=== PATIENT | male | born 1950 | race Caucasian/White ===

== ENCOUNTER 2017-05-02 16:36 | Emergency (ER) | payer OTHER ==
--- OUTSIDE RECORDS SUMMARY | 2017-05-02 16:38 | XMS REPORT | Clinical Summary ---
:1950 Author Organization [facility] Address [address] [place] [address] Care Team Providers Name Role Phone Cyrus Medeiros MD Primary Care Provider Allergies No Known Allergies Current Medications Prescription Sig. Disp. Refills Start Date End Date Status amLODIPine (NORVASC) Take 5 mg by 08/25/2015 Active 5 MG tablet mouth every evening. busPIRone (BUSPAR) Take 10 mg by 08/29/2015 Active 10 MG tablet mouth 2 (two) times a day. carvedilol (COREG) Take 12.5 mg 08/25/2015 Active 12.5 MG tablet by mouth 3 (three) times a day. losartan (COZAAR) 50 Take 50 mg by 3 08/07/2015 Active MG tablet mouth every morning. tamsulosin (FLOMAX) Take 0.4 mg by 3 07/31/2015 Active 0.4 mg mouth every capsule,extended evening. release 24hr aspirin (ECOTRIN) 81 Take 81 mg by Active MG enteric coated mouth daily. tablet MULTIVITAMIN ORAL Take 1 capsule Active by mouth daily. atorvastatin Take 20 mg by 6 03/02/2016 Active (LIPITOR) 20 MG mouth every tablet evening. cetirizine (ZyrTEC) Take 10 mg by Active 10 MG tablet mouth nightly. FERROUS FUMARATE Take 1 tablet Active (IRON ORAL) by mouth 2 (two) times a week. calcium carbonate Chew 1 tablet Active (TUMS) 200 mg as needed. calcium (500 mg) chewable tablet levothyroxine Take 100 mcg 3 01/27/2016 Active (SYNTHROID, LEVOXYL) by mouth every 100 mcg tablet morning. psyllium Take 0.52 g by Active (FIBER-CAPS, mouth daily. PSYLLIUM HUSK,) 0.52 gram capsule traMADol (ULTRAM) 50 Take 1 tablet 20 tablet 0 05/02/2017 Active mg tablet (50 mg total) 8 by mouth every 6 (six) hours as needed for moderate pain for up to 14 days. esomeprazole Take 40 mg by 08/26/2015 Discontinued (NexIUM) 40 MG mouth every 8 capsule morning. ascorbic acid, Take 500 mg by Discontinued vitamin C, (VITAMIN mouth daily. 8 C) 500 MG tablet polysaccharide iron Take 150 mg by Discontinued complex (NIFEREX) mouth 2 (two) 8 150 mg iron capsule times a day. ferrous Take 1 tablet Discontinued fumarate-vitamin C by mouth 8 (NIKKO-SEQUELS, daily. IRON-VIT C,) 200 mg (65 mg iron)-25 mg tablet extended release ER tablet omeprazole Take 20 mg by Discontinued (PriLOSEC) 20 MG mouth every 8 capsule evening. pantoprazole Take 40 mg by Discontinued (PROTONIX) 40 MG EC mouth daily. 8 tablet Active Problems Problem Noted Date Esophageal dysmotility 04/26/2016 Last Assessment & Plan: The patient had an elevated IRP on his high resolution esophageal manometry. I discussed this case with Dr. Garcia as well as Dr. Rizo. I will schedule the patient for an EGD as well as a Endoflip in an attempt to rule out achalasia. Left lower quadrant pain 12/21/2015 Last Assessment & Plan: The patient has chronic GERD as well as a large hiatal hernia, however, I do not feel that this is causing his left lower quadrant abdominal pain. The large hiatal hernia, however, may be contributing to his bloating sensation and diarrhea. This may in fact be contributing to his left lower quadrant abdominal pain by irritating his sigmoid colon. I will discuss this patient with Dr. Garcia as well as Dr. Contreras. I do not have a copy of his colonoscopy report which I will retrieve from Dr. Contreras. The patient will return to clinic following his testing in my discussions with his other gastroenterologists. Functional diarrhea 12/21/2015 Systemic lupus 12/21/2015 Cerebral aneurysm 12/21/2015 Weight loss 12/21/2015 Pharyngoesophageal dysphagia 12/21/2015 Paraesophageal hiatal hernia 12/21/2015 Last Assessment & Plan: The patient has a large hiatal hernia with a paraesophageal component. It is likely that this is the cause of the patient's chest pain. The patient also has an elevated IRP on his previous manometry study. The patient will be scheduled for a repeat EGD with EndoFLIP measurements of the lower esophageal sphincter prior to the scheduled surgery. Gastroesophageal reflux disease without esophagitis 12/21/2015 Last Assessment & Plan: The patient has chronic GERD and will be sent for a 24-hour pH impedance study. The patient will also be sent for a high resolution esophageal manometry. Cataracts, bilateral 12/21/2015 Prostatic hyperplasia 12/21/2015 Encounters Date Type Specialty Care Team Description 05/01/2017 [facility] General Surgery Servando Olmos, Paraesophageal hiatal - Encounter MD hernia 05/02/2017 05/01/2017 Procedure Pass General Surgery 05/01/2017 Surgery General Surgery Servando Olmos, LAPAROSCOPIC REPAIR MD OF PARAESOPHAGEAL HIATAL HERNIA, 04/27/2017 Anesthesia Event General Surgery Ulisses Zazueta, SAILING INSTRUCTOR 04/24/2017 Pre-Admit Testing Pre-Admission Testing Servando Olmos, Gastroesophageal Appointment MD reflux disease without esophagitis 04/24/2017 Anesthesia Event Pre-Admission Testing Ulisses Zazueta, SAILING INSTRUCTOR 04/17/2017 Transcribe Orders General Surgery Julio Tong MA Paraesophageal hernia (Primary Dx); Gastroesophageal reflux disease without esophagitis 03/03/2017 [facility] Gastroenterology Servando Olmos, Encounter MD 03/03/2017 Anesthesia Event Gastroenterology DhByron nguyen MD 03/03/2017 Procedure Pass Gastroenterology 03/03/2017 Surgery Gastroenterology Servando Olmos, EGD W/ ENDOFLIP 02/28/2017 Telephone General Surgery Servando Olmos MD 02/22/2017 Telephone General Surgery Servando Olmos MD 02/16/2017 Office Visit General Surgery Servando Olmos, Esophageal MD dysmotility (Primary Dx) 02/16/2017 Orders Only General Surgery Servando Olmos MD 08/18/2016 Hospital Radiology Unknown, Phys Hiatal hernia Encounter Servadno Olmos MD 07/22/2016 Orders Only General Surgery Servando Olmos MD 07/12/2016 Hospital Radiology Servando Olmos, Gastroesophageal Encounter reflux disease without esophagitis 07/06/2016 Orders Only General Surgery Servando Olmos, Hiatal hernia MD (Primary Dx) after 05/01/2016 Family History Medical History Relation Name Comments Diverticulitis Brother GERD Brother No Known Problems Daughter COPD Father No Known Problems Maternal Grandfather No Known Problems Maternal Grandmother Diverticulitis Mother GERD Mother COPD Paternal Grandfather No Known Problems Paternal Grandmother Lupus Sister No Known Problems Son Relation Name Status Comments Brother Alive Brother Alive Daughter Alive Father Maternal Grandfather Maternal Grandmother Mother Paternal Grandfather Paternal Grandmother Sister Alive Sister Alive heart problems, pace maker Son Alive Social History Tobacco Use Types Packs/Day Years Used Date Never Smoker Smokeless Tobacco: Never Used Alcohol Use Drinks/Week oz/Week Comments No Sex Assigned at Date Recorded Not on file Last Filed Vital Signs Vital Sign Reading Time Taken Blood Pressure 129/68 05/02/2017 7:23 AM CDT Pulse 70 05/02/2017 7:23 AM CDT Temperature 36.6 C (97.8 F) 05/02/2017 7:23 AM CDT Respiratory Rate 18 05/02/2017 7:23 AM CDT Oxygen Saturation 93% 05/02/2017 7:23 AM CDT Inhaled Oxygen Concentration - - Weight 80.8 kg (178 lb 1.6 oz) 05/01/2017 6:57 AM CDT Height 172.7 cm (5' 8") 05/01/2017 6:57 AM CDT Body Mass Index 27.08 05/01/2017 6:57 AM CDT Plan of Treatment Health Maintenance Due Date Last Done Comments COLONOSCOPY 01/03/2000 ZOSTER VACCINE 2010 PNEUMOCOCCAL POLYSACCHARIDE VACCINE AGE 65 AND OVER 2015 PNEUMOCOCCAL-13 2015 INFLUENZA VACCINE 09/06/2016 Implants Implanted Type Area Kennel Supervisor Device Expiration Model / Identifier Date Serial / Lot Linx System Sizing Tool Laparoscopic 5 Pack - [id number] Cardiovascular N/A: [employer] 12/12/2018 LSS US / Implanted: Qty: 1 on 05/01/2017 by Servando Olmos MD Implants N/A [facility] / [id number] Catheter Endoflip 8cm Measurement - [id number] Surgical N/A: CROSPON EF 325N / Implanted: 03/03/2017 (Quantity not on file) Implants; N/A / Expanders; Extenders; Surgical Wires [place] [employer] 5x5cm 1.65mm Ptfe - [id number] Surgical N/A: BARD 10/03/2021 [id number] / Implanted: Qty: 1 on 05/01/2017 by Servando Olmos MD Implants; N/A PERIPHERAL / Expanders; VASCULAR [id number] Extenders; Surgical Wires Linx Reflux Mangmt System 14 Bead - [id number] Surgical N/A: [employer] 01/16/2021 [id number] / Implanted: Qty: 1 on 05/01/2017 by Servando Olmos MD Implants; N/A INC / Expanders; [id number] Extenders; Surgical Wires Procedures Procedure Name Priority Date/Time Associated Diagnosis Comments KS AN ELECTIVE Routine 05/01/2017 8:58 AM ENDOTRACHEAL AIRWAY CDT Procedure Note - Dmitry Rios Jr., MD - 05/01/2017 8:58 AM CDT Airway Date/Time: 05/01/2017 7:58 AM Performed by: DMITRY RIOS JR. Authorized by: DMITRY RIOS JR. Location: OR Urgency: Elective Difficult Airway: No Anesthesiologist: DMITRY RIOS JR. Performed by: anesthesiologist Preoxygenated with 100% O2: Yes C-spine Precautions Maintained Throughout: Yes Mask Ventilation: Difficult mask Final Airway Type: Endotracheal airway Final Endotracheal Airway: ETT Cuffed: Yes Technique Used: Direct laryngoscopy Devices/Methods Used in Placement: Intubating stylet and cricoid pressure Insertion Site: Oral Blade Type: Florian Laryngoscope Blade/Videolaryngoscope Blade Size: 2 ETT Size (mm): 8.0 Cuff at minimum occlusion pressure: Yes Measured from: Teeth ETT to Teeth (cm): 22 Placement Verified by: CO2 detection, direct visualization and equal breath sounds Laryngoscopic view: Grade I - full view of glottis Rapid Sequence Induction (RSI): No Modified RSI: No Number of Attempts at Approach: 1 EGD W/ ENDOFLIP 03/03/2017 10:00 AM PLASTIC MANAGER Dysphagia Case Notes ENDOFLIP Special Needs ENDOFLIP after 05/01/2016 Results Estimated GFR (05/02/2017 6:02 AM)Only the most recent of3 resultswithin the time period is included. Component Value Ref Range GFR Non Af Amer 84 mL/min/1.73 m2 GFR Af Amer >90 mL/min/1.73 m2 Comment: Chronic kidney disease: <60 mL/min/1.73m2 Kidney failure: <15 mL/min/1.73m2 The estimated GFR is calculated from the IDMS-traceable Modification of Diet in Renal Disease Equation. The accuracy of the calculation is poor when the creatinine is normal. Calculated values >90 mL/min/1.73m2 are not reported. This equation has not been validated in children (<18 years), women, the elderly (>70 years), or ethnic groups other than Caucasians and Americans. Specimen Performing Laboratory Plasma specimen [facility] DEPARTMENT OF PATHOLOGY AND GENOMIC MEDICINE [address] [place] [id number] CBC with platelet and differential (05/02/2017 6:02 AM)Only the most recent of2 resultswithin the time period is included. Component Value Ref Range WBC 12.62 (H) 4.50 - 11.00 k/uL RBC 4.36 (L) 4.40 - 6.00 m/uL HGB 13.0 (L) 14.0 - 18.0 g/dL HCT 39.0 (L) 41.0 - 51.0 % MCV 89.4 82.0 - 100.0 fL MCH 29.8 27.0 - 34.0 pg MCHC 33.3 31.0 - 37.0 g/dL RDW - SD 43.2 37.0 - 55.0 fL MPV 10.3 8.8 - 13.2 fL Platelet count 228 150 - 400 k/uL Nucleated RBC 0.00 /100 WBC Neutrophils 79.6 (H) 39.0 - 69.0 % Lymphocytes 10.2 (L) 25.0 - 45.0 % Monocytes 9.4 0.0 - 10.0 % Eosinophils 0.0 0.0 - 5.0 % Basophils 0.2 0.0 - 1.0 % Immature granulocytes 0.6Comment: "Immature granulocytes" 0.0 - 1.0 % (promyelocytes, myelocytes, metamyelocytes) Specimen Performing Laboratory Blood [facility] DEPARTMENT OF PATHOLOGY AND GENOMIC MEDICINE [address] [place] [id number] Basic metabolic panel (05/02/2017 6:02 AM)Only the most recent of3 resultswithin the time period is included. Component Value Ref Range Sodium 143 135 - 148 mEq/L Potassium 4.0 3.5 - 5.0 mEq/L Chloride 104 98 - 112 mEq/L CO2 25 24 - 31 mEq/L Anion gap 14 7 - 15 mEq/L Comment: Starting from May , anion gap calculation no longer incorporates potassium. Please note the change. BUN 14 8 - 23 mg/dL Creatinine 0.9 0.7 - 1.2 mg/dL Glucose 123 (H) 65 - 99 mg/dL Calcium 8.9 8.8 - 10.2 mg/dL Specimen Performing Laboratory Plasma specimen [facility] DEPARTMENT OF PATHOLOGY AND GENOMIC MEDICINE [address] [place] [address] Surgical pathology request (05/01/2017 3:34 PM) Component Value Ref Range Surgical pathology report See link below for PDF Lab Report Result status This is Final Report to [id number] [facility] DEPARTMENT OF PATHOLOGY AND GENOMIC MEDICINE [address] [place] [id number] ECG 12 lead (04/24/2017 11:24 AM) Component Value Ref Range Ventricular rate 60 Atrial rate 60 KS interval 172 QRSD interval 106 QT interval 406 QTC interval 406 P axis 1 17 QRS axis 1 -29 T wave axis 46 EKG impression Normal sinus rhythm-Normal ECG-No previous ECGs available- Specimen Performing Laboratory [facility] MUSE [address] [place] [id number] CBC hemogram (04/24/2017 10:05 AM) Component Value Ref Range WBC 7.50 4.50 - 11.00 k/uL RBC 5.10 4.40 - 6.00 m/uL HGB 14.9 14.0 - 18.0 g/dL HCT 45.6 41.0 - 51.0 % MCV 89.4 82.0 - 100.0 fL MCH 29.2 27.0 - 34.0 pg MCHC 32.7 31.0 - 37.0 g/dL RDW - SD 42.9 37.0 - 55.0 fL MPV 10.1 8.8 - 13.2 fL Platelet count 266 150 - 400 k/uL Nucleated RBC 0.00 /100 WBC Specimen Performing Laboratory Blood [facility] DEPARTMENT OF PATHOLOGY AND GENOMIC MEDICINE [address] [place] [address] [place] UGI w Air Gluc HD Barium (08/18/2016 10:58 AM)Only the most recent of2 resultswithin the time period is included. Specimen Performing Laboratory [facility] [address] [place] [address] Narrative EXAMINATION:FL UGI W AIR GLUC HD BARIUM CLINICAL HISTORY:K44.9 Diaphragmatic hernia without obstruction or gangrene , Hiatal Hernia COMPARISON:None. TECHNIQUE:UPPER GI SERIES was performed with barium FLUOROSCOPIC TIME:2 minutes. 55 images were obtained. Dose equals 112 mgy IMPRESSION: 1.Esophagus:Esophagus was distensible. The mucosa and motility were within normal limits. There is no evidence of stricture. 2.Gastroesophageal junction:Very large hiatal hernia is present with the entire fundus and most of the body of the stomach above the diaphragm. There was a small to moderate amount of residual contrast present within the herniated stomach on the 5 minute film. 3.Stomach:Normally distensible and demonstrates normal contours and mucosal pattern. Contrast does flow without obstruction into the antrum of the stomach which lies below the diaphragm. 4.Duodenum:Bulb and sweep are normal. The duodenal-jejunal junction is in the normal expected position. [facility]-[id number] Procedure Note Interface, Radiology Results Incoming - 08/18/2016 11:47 AM CDT EXAMINATION: FL UGI W AIR GLUC HD BARIUM CLINICAL HISTORY: K44.9 Diaphragmatic hernia without obstruction or gangrene, Hiatal Hernia COMPARISON: None. TECHNIQUE: UPPER GI SERIES was performed with barium FLUOROSCOPIC TIME: 2 minutes. 55 images were obtained. Dose equals 112 mgy IMPRESSION: 1. Esophagus: Esophagus was distensible. The mucosa and motility were within normal limits. There is no evidence of stricture. 2. Gastroesophageal junction: Very large hiatal hernia is present with the entire fundus and most of the body of the stomach above the diaphragm. There was a small to moderate amount of residual contrast present within the herniated stomach on the 5 minute film. 3. Stomach: Normally distensible and demonstrates normal contours and mucosal pattern. Contrast does flow without obstruction into the antrum of the stomach which lies below the diaphragm. 4. Duodenum: Bulb and sweep are normal. The duodenal-jejunal junction is in the normal expected position. [facility]-[id number] after 05/01/2016 Insurance Payer Benefit Plan / Group Subscriber ID Type Phone Address AETNA MEDICARE AETNA MEDICARE HMO/PPO [facility] xxxxxxxx O [phone] [place] [address]
[2017-05-02 18:17] LABS: Urine Blood TRACE (NEG); Urine Glucose NEGATIVE (NEG); Urine Protein NEGATIVE (NEG); Urine pH 6.5 (5.0-7.0)
--- NOTE | 2017-05-02 18:34 | EDPHYS ---
Physician Documentation [facility] Name: Macario Henriquez Jr Age: 67 yrs Sex: Male : 1950 Arrival Date: 05/02/2017 Time: 16:40 Bed 18 Private MD: Josh Medeiros C ED Physician Willie Lazar HPI: 05/02 18:28 This 67 yrs old Male presents to ER via Ambulatory with complaints of Urinary ps1 Retention. 18:28 The patient presents with urinary symptoms, urinary frequency, retention. Onset: The ps1 symptoms/episode began/occurred yesterday. Associated signs and symptoms: Pertinent negatives: abdominal pain, fever, nausea. Severity of symptoms: At their worst the symptoms were moderate. The patient has been recently seen by a physician: a general surgeon, Jose. had surgery for hiatal hernia repair. Now has urinary retention. . Historical: - Allergies: 16:50 No Known Allergies; lk1 - PMHx: 16:50 Lupus; GERD; High Cholesterol; Hypertension; Hypothyroidism; leaky heart valve; BPH; lk1 CAD; Depression; Anemia; Arthritis; - PSHx: 16:50 Cholecystectomy; brain anur. fixed; Hernia repair; lk1 - Immunization history:: Adult Immunizations up to date. - Social history:: Smoking status: Patient/guardian denies using tobacco. ROS: 18:28 Constitutional: Negative for fever, chills, and weight loss, Eyes: Negative for injury, ps1 pain, redness, and discharge, ENT: Negative for injury, pain, and discharge, Cardiovascular: Negative for chest pain, palpitations, and edema, Respiratory: Negative for shortness of breath, cough, wheezing, and pleuritic chest pain, Abdomen/GI: Negative for abdominal pain, nausea, vomiting, diarrhea, and constipation, Back: Negative for injury and pain. 18:28 Skin: Negative for injury, rash, and discoloration, Neuro: Negative for headache, weakness, numbness, tingling, and seizure. 18:28 : Positive for urinary symptoms, urinary frequency, small amounts, retention. Exam: 18:28 Constitutional: This is a well developed, well nourished patient who is awake, alert, ps1 and in no acute distress. Head/Face: Normocephalic, atraumatic. Eyes: Pupils equal round and reactive to light, extra-ocular motions intact. Lids and lashes normal. Conjunctiva and sclera are non-icteric and not injected. Chest/axilla: Normal chest wall appearance and motion. Nontender with no deformity. No lesions are appreciated. Cardiovascular: Regular rate and rhythm. No gallops, murmurs, or rubs. Normal PMI, no JVD. No pulse deficits. Respiratory: Lungs have equal breath sounds bilaterally, clear to auscultation and percussion. No rales, rhonchi or wheezes noted. No increased work of breathing, no retractions or nasal flaring. 18:28 Back: No spinal tenderness. No costovertebral tenderness. Full range of motion. Skin: Warm, dry with normal turgor. Normal color with no rashes, no lesions, and no evidence of cellulitis. MS/ Extremity: Pulses equal, no cyanosis. Neurovascular intact. Full, normal range of motion. 18:28 Abdomen/GI: Inspection: scar(s), are noted in the right upper quadrant, left upper quadrant, right lower quadrant and left lower quadrant, Palpation: abdomen is soft and non-tender, mild abdominal tenderness, in the suprapubic area. Vital Signs: 16:51 BP 176 / 83; Pulse 81; Resp 16; Temp 98.9(TE); Pulse Ox 95% on R/A; Weight 85.28 kg lk1 (R); Height 5 ft. 8 in. (172.72 cm) (R); Pain 4/10; 18:27 BP 152 / 82; Pulse 74; Resp 14; Pulse Ox 92% on R/A; Pain 2/10; sr5 18:52 BP 151 / 79; Pulse 72; Resp 16; Pulse Ox 94% on R/A; Pain 2/10; sr5 16:51 Body Mass Index 28.59 (85.28 kg, 172.72 cm) lk1 Procedures: 18:28 Ultrasound: Type: bladder scan +870. ps1 MDM: 17:33 Patient medically screened. ps1 18:28 Data reviewed: vital signs, nurses notes, lab test result(s), urinalysis. ED course: ps1 Bladder scan >800. Damian placed. UA clear. Home with follow up for likely anesthetic urinary retention. . 05/02 17:25 Order name: Urine Dipstick--Ancillary (enter results); Complete Time: 18:27 bd 03/27 17:05 Order name: Urine Dipstick-Ancillary (obtain specimen); Complete Time: 17:25 ps1 05/02 17:05 Order name: Bladder Scanner; Complete Time: 17:37 ps1 05/02 17:58 Order name: Damian; Complete Time: 17:58 rs2 Administered Medications: No medications were administered Disposition: 05/02/17 18:34 Discharged to Home. Impression: Post operative urinary retention. - Condition is Stable. - Discharge Instructions: Damian Catheter Care, Adult, Urinary Retention, Acute, Male. - Medication Reconciliation Form, Thank You Letter, Antibiotic Education, Prescription Opioid Use form. - Follow up: Josh Medeiros MD; When: As needed; Reason: Recheck today's complaints, Continuance of care, Re-evaluation by your physician. Follow up: Emergency Department; When: 48 Hours; Reason: Worsening of condition, damian removal if you cant be seen by your regular doctor. . - Problem is new. - Symptoms have improved. Signatures: Dispatcher [employer] Janet You, RN RN lk1 Hugo Jennings RN RN sr5 Katheryn Leblanc rs2 Willie Lazar MD MD ps1
--- NOTE | 2017-05-02 18:34 | ER ---
Nurse's Notes [facility] Name: Macario Henriquez Jr Age: 67 yrs Sex: Male : 1950 Arrival Date: 05/02/2017 Time: 16:40 Bed 18 Private MD: Josh Medeiros C Diagnosis: Post operative urinary retention Presentation: 05/02 16:48 Presenting complaint: Patient states: "I just had a hernia repair surgery yesterday. My lk1 problem is that I feel like I have to pee and not a lot is coming out. I don't know if it's normal from being cathed during surgery of if I have an infection or blockage of some sort.". Transition of care: patient was not received from another setting of care. Onset of symptoms was May 02, 2017 at 08:00. Care prior to arrival: None. 16:48 Method Of Arrival: Ambulatory lk1 16:48 Acuity: ARELY 3 lk1 Triage Assessment: 16:50 General: Appears in no apparent distress. uncomfortable, Behavior is calm, cooperative, lk1 appropriate for age. Pain: Complains of pain in abdomen. : Reports inability to void. Historical: - Allergies: 16:50 No Known Allergies; lk1 - PMHx: 16:50 Lupus; GERD; High Cholesterol; Hypertension; Hypothyroidism; leaky heart valve; BPH; lk1 CAD; Depression; Anemia; Arthritis; - PSHx: 16:50 Cholecystectomy; brain anur. fixed; Hernia repair; lk1 - Immunization history:: Adult Immunizations up to date. - Social history:: Smoking status: Patient/guardian denies using tobacco. Screenin:58 Abuse screen: Denies threats or abuse. Nutritional screening: No deficits noted. rs2 Tuberculosis screening: No symptoms or risk factors identified. Fall Risk None identified. Assessment: 17:58 General: Appears uncomfortable, Behavior is calm, cooperative, appropriate for age. rs2 Pain: Complains of pain in suprapubic area Pain currently is 8 out of 10 on a pain scale. Neuro: No deficits noted. Cardiovascular: No deficits noted. Respiratory: No deficits noted. GI: No deficits noted. : Reports inability to void, since Pt reports difficulty voiding since a hernia repair surgery today. Pt reports feeling "like I've really got to go but then I can't pee very much.". Musculoskeletal: No deficits noted. 18:27 Reassessment: Patient and/or family updated on plan of care and expected duration. Pain sr5 level reassessed. Patient is alert, oriented x 3, equal unlabored respirations, skin warm/dry/pink. Patient states feeling better. Total 1200mL clear yellow urine in damian drainage bag. 18:52 Reassessment: Patient and/or family updated on plan of care and expected duration. Pain sr5 level reassessed. Patient is alert, oriented x 3, equal unlabored respirations, skin warm/dry/pink. Leg bag attached, damian care education provided. Pt reports continued improvement in s/s. Vital Signs: 16:51 BP 176 / 83; Pulse 81; Resp 16; Temp 98.9(TE); Pulse Ox 95% on R/A; Weight 85.28 kg lk1 (R); Height 5 ft. 8 in. (172.72 cm) (R); Pain 4/10; 18:27 BP 152 / 82; Pulse 74; Resp 14; Pulse Ox 92% on R/A; Pain 2/10; sr5 18:52 BP 151 / 79; Pulse 72; Resp 16; Pulse Ox 94% on R/A; Pain 2/10; sr5 16:51 Body Mass Index 28.59 (85.28 kg, 172.72 cm) lk1 ED Course: 16:40 Patient arrived in ED. as 16:40 Josh Medeiros MD is Private Physician. as 16:49 Triage completed. lk1 16:51 Arm band placed on right wrist. lk1 16:57 Willie Lazar MD is Attending Physician. ps1 17:18 Katheryn Leblanc is Primary Nurse. rs2 17:58 Patient has correct armband on for positive identification. Placed in gown. Bed in low rs2 position. Call light in reach. Side rails up X 1. 17:58 Damian cath inserted, using sterile technique, 16 Fr., by me, balloon inflated, to rs2 gravity drainage, urine specimen collected. returned jong urine. Patient tolerated well. 18:27 No provider procedures requiring assistance completed. sr5 18:33 Josh Medeiros MD is Referral Physician. ps1 18:52 Patient did not have IV access during this emergency room visit. sr5 Administered Medications: No medications were administered Outcome: 18:34 Discharge ordered by . ps1 18:52 Discharged to home ambulatory, with family. sr5 18:52 Condition: good 18:52 Discharge instructions given to patient, family, Instructed on discharge instructions, follow up and referral plans. medication usage, urine damian care Demonstrated understanding of instructions, follow-up care, damian 19:08 Patient left the ED. sr5 Signatures: Kristy York Leah RN RN lk1 Hugo Jennings RN RN sr5 Katheryn Leblanc2 Willie Lazar MD MD ps1
== END 2017-05-02 19:08 | disposition home or self-care (01) ==
LOC: ER 16:36
DX: N99.89 Other postprocedural complications and disorders of genitourinary system; Z98.890 Other specified postprocedural states; I10 Essential (primary) hypertension
CPT/HCPCS: 51702; 81003; 99284

== ENCOUNTER 2017-05-03 21:34 | Emergency (ER) | payer OTHER ==
--- OUTSIDE RECORDS SUMMARY | 2017-05-03 21:36 | XMS REPORT | Clinical Summary ---
:1950 Author Organization [facility] Address [address] [place] [address] Care Team Providers Name Role Phone Cyrus [...] Encounters Date Type Specialty Care Team Description 05/03/2017 Telephone General Surgery Courtney Medina RN 05/02/2017 Patient Outreach Quality Flora Hurst RN 05/01/2017 [facility] General Surgery Servando Olmos, Paraesophageal hiatal - Encounter MD hernia 05/02/2017 05/01/2017 Procedure Pass General Surgery 05/01/2017 Surgery General Surgery Servando Olmos, LAPAROSCOPIC REPAIR MD OF PARAESOPHAGEAL HIATAL HERNIA, 04/27/2017 Anesthesia Event General Surgery Ulisses Zazueta, SONALI 04/24/2017 Pre-Admit Testing Pre-Admission Testing Servando Olmos, Gastroesophageal Appointment MD reflux disease without esophagitis 04/24/2017 Anesthesia Event Pre-Admission Testing Ulisses Zazueta, SONALI 04/17/2017 Transcribe Orders General Surgery Julio Tong MA Paraesophageal hernia (Primary Dx); Gastroesophageal reflux disease without esophagitis 03/03/2017 [facility] Gastroenterology Servando Olmos, Encounter MD 03/03/2017 Anesthesia Event Gastroenterology Byron Eagle MD 03/03/2017 Procedure Pass Gastroenterology 03/03/2017 Surgery Gastroenterology Servando Olmos, EGD W/ ENDOFLIP 02/28/2017 Telephone General Servando Cano MD 02/22/2017 Telephone General Surgery Servando Olmos MD 02/16/2017 Office Visit General Surgery Servando Olmos, Esophageal MD dysmotility (Primary Dx) 02/16/2017 Orders Only General Surgery Servando Olmos MD 08/18/2016 Hospital Radiology Unknown, Phys Hiatal hernia Encounter Servando Olmos MD 07/22/2016 Orders Only General Surgery Servando Olmos MD 07/12/2016 Hospital Radiology Servando Olmos, Gastroesophageal Encounter MD reflux disease without esophagitis 07/06/2016 Orders Only General Surgery Servando Olmos, Hiatal hernia (Primary Dx) after 05/02/2016 Family History Medical History Relation Name Comments [...] 05/01/2017 6:57 AM CDT Plan of Treatment Date Type Specialty Care Team Description 05/11/2017 Office Visit General Surgery Servando Olmos MD [address] [address] Health Maintenance Due Date Last Done Comments COLONOSCOPY 01/03/2000 ZOSTER VACCINE 2010 PNEUMOCOCCAL POLYSACCHARIDE VACCINE AGE 65 AND OVER 2015 PNEUMOCOCCAL-13 2015 INFLUENZA VACCINE 09/06/2016 Implants Implanted Type Area Club Attendant Device Expiration Model / Identifier Date Serial / Lot Linx System Sizing Tool Laparoscopic 5 Pack - [id number] Cardiovascular N/A: [employer] 12/12/2018 LSS US / Implanted: Qty: 1 on 05/01/2017 by Servando Olmos MD Implants N/A INC / [id number] Catheter Endoflip 8cm Measurement - [id number] Surgical N/A: CROSPON EF 325N / Implanted: 03/03/2017 (Quantity not on file) Implants; N/A / Expanders; Extenders; Surgical Wires Dawn Cvs 5x5cm 1.65mm Ptfe - [id number] Surgical N/A: BARD 10/03/2021 [id number] / Implanted: Qty: 1 on 05/01/2017 by Servando Olmos MD Implants; N/A PERIPHERAL / Expanders; VASCULAR [id number] Extenders; Surgical Wires Linx Reflux Mangmt System 14 Bead - [id number] Surgical N/A: [employer] 01/16/2021 [id number] / Implanted: Qty: 1 on 05/01/2017 by Servando Olmos MD Implants; N/A INC / Expanders; [id number] Extenders; Surgical Wires Procedures Procedure Name Priority Date/Time Associated Diagnosis Comments MD AN ELECTIVE Routine 05/01/2017 8:58 AM ENDOTRACHEAL [...] No Number of Attempts at Approach: 1 LAPAROSCOPIC LINX ANTIREFLUX 05/01/2017 7:30 AM CDT Paraesophageal hiatal hernia DEVICE PLACEMENT, PLACEMENT OF MAGNETIC LOWER ESOPHOGEAL SPLENTURE AUGMENTATION DEVICE , AND EGD Special Needs EST 5HRS POSSIBLE EXTENDED RECOVERY NEEDED LAPAROSCOPIC REPAIR OF 05/01/2017 7:30 AM CDT Paraesophageal hiatal hernia PARAESOPHAGEAL HIATAL HERNIA, Special Needs EST 5HRS POSSIBLE EXTENDED RECOVERY NEEDED EGD W/ ENDOFLIP 03/03/2017 10:00 AM SCRAP COLLECTOR Dysphagia Case Notes ENDOFLIP Special Needs ENDOFLIP after 05/02/2016 Results Estimated GFR (05/02/2017 6:02 AM)Only the [...] and Americans. Specimen Performing Laboratory Plasma specimen [facility] OF [facility] [address] [place] [id number] CBC with platelet and differential (05/02/2017 6:02 [...] (promyelocytes, myelocytes, metamyelocytes) Specimen Performing Laboratory Blood [facility] [address] [place] [id number] Basic metabolic panel (05/02/2017 6:02 AM)Only the [...] 10.2 mg/dL Specimen Performing Laboratory Plasma specimen [facility] [address] [place], [place] [id number] Surgical pathology request (05/01/2017 3:34 PM) Component Value Ref Range Surgical pathology report See link below for PDF Lab Report Result status This is Final Report to [id number] Specimen Performing Laboratory [facility] [address] [place] [id number] ECG 12 lead (04/24/2017 11:24 AM) Component Value Ref Range Ventricular rate 60 Atrial rate 60 MD interval 172 QRSD interval 106 QT interval 406 QTC interval 406 P axis 1 17 QRS axis 1 -29 T wave axis 46 EKG impression Normal sinus rhythm-Normal ECG-No previous ECGs available- Specimen Performing Laboratory [facility] [address] [place] [address] CBC hemogram (04/24/2017 10:05 AM) Component Value [...] 0.00 /100 WBC Specimen Performing Laboratory Blood [facility] [address] [place] [address] FL UGI w Air Gluc HD Barium (08/18/2016 10:58 AM)Only the most recent of2 resultswithin the time period is included. Specimen Performing Laboratory [facility] [address] [place] [id number] Narrative EXAMINATION:FL UGI W AIR GLUC HD [...] junction is in the normal expected position. [id number] Procedure Note Interface, Radiology Results Incoming - [...] junction is in the normal expected position. [facility]-[id number] after 05/02/2016 Insurance Payer Benefit Plan / Group Subscriber ID Type Phone Address AETNA MEDICARE AETNA MEDICARE HMO/PPO [facility] xxxxxxxx O
[2017-05-03] MEDS ORDERED: PROMETHAZINE 25 MG/ML VIAL ONE (22:24)
[2017-05-03] MEDS ORDERED: SIMETHICONE 80 MG TAB ONE (22:33)
--- NOTE | 2017-05-03 23:18 | ER ---
Nurse's Notes [facility] Name: Macario Henriquez Jr Age: 67 yrs Sex: Male : 1950 Arrival Date: 05/03/2017 Time: 21:35 Bed 23 Private MD: Josh Medeiros C Diagnosis: Gas pain;Pt request to remove damian Presentation: 05/03 21:41 Presenting complaint: Patient states: "I had surgery on Monday for hiatal hernia. I had ao been having gas in my abdomen and also pain." Patient denies fever chills and nausea. Patient states that he is here just to get his Damian remove. Transition of care: patient was not received from another setting of care. Onset of symptoms was April 30, 2017. Care prior to arrival: None. 21:41 Method Of Arrival: Ambulatory ao 21:41 Acuity: ARELY 3 ao Historical: - Allergies: 21:46 No Known Allergies; ao - Home Meds: 21:46 amlodipine 5 mg tab 1 tab nightly [Active]; aspirin 81 mg Oral TbEC 1 tab once daily ao [Active]; atorvastatin 20 mg Oral tab 1 tab nightly [Active]; carvedilol 12.5 mg Oral tab 1 tab three times a day [Active]; buspirone 10 mg Oral tab 1 tab 2 times per day [Active]; losartan 50 mg Oral tab 1 tab once daily [Active]; Nexium 40 mg Oral cpDR 1 cap 2 times per day [Active]; Prilosec 20 mg Oral cpDR 1 cap nightly [Active]; tamsulosin 0.4 mg Oral cp24 1 cap nightly [Active]; levothyroxine 100 mcg tab 1 tab once daily [Active]; multivitamin Oral tab daily [Active]; FiberCon 625 mg Oral tab daily [Active]; ferrous sulfate 325 mg (65 mg iron) Oral tab 2 times a week [Active]; cetirizine 10 mg Oral tab 1 tab nightly [Active]; - PMHx: 21:46 Anemia; Arthritis; BPH; CAD; Depression; GERD; High Cholesterol; Hypertension; ao Hypothyroidism; leaky heart valve; Lupus; - PSHx: 21:46 Hernia repair; ao - Immunization history:: Adult Immunizations up to date. - Social history:: Smoking status: Patient/guardian denies using tobacco, Patient/guardian denies using alcohol, street drugs. Screenin:54 Abuse screen: Denies threats or abuse. Denies injuries from another. Nutritional ao screening: No deficits noted. Tuberculosis screening: No symptoms or risk factors identified. Fall Risk None identified. Gait- Weak (10 pts.). Assessment: 21:52 General: Appears in no apparent distress. uncomfortable, Behavior is calm, cooperative, ao appropriate for age. Pain: Complains of pain in abdomen Pain does not radiate. Pain currently is 2 out of 10 on a pain scale. Neuro: Level of Consciousness is awake, alert, obeys commands, Oriented to person, place, time, situation, Appropriate for age Moves all extremities. Speech is normal, Facial symmetry appears normal, Pupils are PERRLA. Cardiovascular: Heart tones S1 S2 Capillary refill. Respiratory: Airway is patent Respiratory effort is even, unlabored, Respiratory pattern is regular, symmetrical. GI: Abdomen is distended. GI: Reports Pain is 3 out of 10 on a pain scale. : No signs and/or symptoms were reported regarding the genitourinary system. EENT: No signs and/or symptoms were reported regarding the EENT system. Derm: No signs and/or symptoms reported regarding the dermatologic system. Musculoskeletal: No signs and/or symptoms reported regarding the musculoskeletal system. 23:00 Reassessment: Pt. resting in room, \\T\\ bedside... pt. appears to be in no obvious rk2 distress \\T\\ this time. No needs voiced. Vital Signs: 21:40 BP 146 / 80; Pulse 78; Resp 18; Temp 98.8(O); Pulse Ox 94% on R/A; Weight 80.74 kg (R); ao Height 5 ft. 8 in. (172.72 cm) (R); Pain 7/10; 22:48 BP 124 / 81; Pulse 71; Resp 19; Pulse Ox 95% on R/A; dh3 23:15 BP 113 / 76; Pulse 70; Resp 17; Pulse Ox 94% on R/A; rk2 21:40 Body Mass Index 27.06 (80.74 kg, 172.72 cm) ao ED Course: 21:35 Patient arrived in ED. es 21:36 Josh Medeiros MD is Private Physician. es 21:42 Fransisca Villalba FNP-C is [facility]. snw 21:42 Figueroa Lee MD is Attending Physician. snw 21:44 Triage completed. ao 21:47 Arm band placed on right wrist. Patient placed in an exam room, on a stretcher, on ao pulse oximetry. 21:54 Patient has correct armband on for positive identification. Pulse ox on. NIBP on. ao 22:01 Katheryn Leyva, YOLANDA is Primary Nurse. rk2 23:16 Josh Medeiros MD is Referral Physician. snw 23:32 No provider procedures requiring assistance completed. Patient did not have IV access rk2 during this emergency room visit. Administered Medications: 22:15 Drug: Phenergan 25 mg Route: IM; Site: right deltoid; rk2 23:33 Follow up: Response: No adverse reaction rk2 22:32 Drug: Simethicone 120 mg Route: PO; rk2 23:33 Follow up: Response: No adverse reaction rk2 Outcome: 23:18 Discharge ordered by MD. snw 23:32 Discharged to home ambulatory. rk2 23:32 Condition: good 23:32 Discharge instructions given to patient, Prescriptions given X 2. 23:33 Patient left the ED. rk2 Signatures: Fransisca Villalba, RADIOTELEPHONE OPERATOR-C RADIOTELEPHONE OPERATOR-Csnw Candace Cheatham Alex, RN RN Stefani Potts formerly [facility] Katheryn Leyva, YOLANDA RN rk2 Corrections: (The following items were deleted from the chart) 21:47 21:41 Presenting complaint: Patient states: "I had surgery on Monday for hiatal hernia. ao I had been having gas in my abdomen and also pain." Patient denies fever chills and nausea. ao
--- NOTE | 2017-05-03 23:18 | EDPHYS ---
Physician Documentation [facility] Name: Macario Henriquez Jr Age: 67 yrs Sex: Male : 1950 Arrival Date: 05/03/2017 Time: 21:35 Bed 23 Private MD: Josh Medeiros C ED Physician Figueroa Lee HPI: 05/03 22:01 This 67 yrs old Male presents to ER via Ambulatory with complaints of Problem snw With Urinary Catheter. 22:01 Onset: The symptoms/episode began/occurred told to RTER for damian removal in 24-48 snw hours. Associated signs and symptoms: The patient has no apparent associated signs or symptoms. Modifying factors: the patient symptoms are aggravated by gas pains. It is unknown whether or not the patient has had similar symptoms in the past. The patient has been recently seen by a physician: The patient has been recently seen at the [facility] Emergency Department, yesterday, damian placement for post surgical retention. Historical: - Allergies: 21:46 No Known Allergies; ao - Home Meds: 21:46 amlodipine 5 mg tab 1 tab nightly [Active]; aspirin 81 mg Oral TbEC 1 tab once daily ao [Active]; atorvastatin 20 mg Oral tab 1 tab nightly [Active]; carvedilol 12.5 mg Oral tab 1 tab three times a day [Active]; buspirone 10 mg Oral tab 1 tab 2 times per day [Active]; losartan 50 mg Oral tab 1 tab once daily [Active]; Nexium 40 mg Oral cpDR 1 cap 2 times per day [Active]; Prilosec 20 mg Oral cpDR 1 cap nightly [Active]; tamsulosin 0.4 mg Oral cp24 1 cap nightly [Active]; levothyroxine 100 mcg tab 1 tab once daily [Active]; multivitamin Oral tab daily [Active]; FiberCon 625 mg Oral tab daily [Active]; ferrous sulfate 325 mg (65 mg iron) Oral tab 2 times a week [Active]; cetirizine 10 mg Oral tab 1 tab nightly [Active]; - PMHx: 21:46 Anemia; Arthritis; BPH; CAD; Depression; GERD; High Cholesterol; Hypertension; ao Hypothyroidism; leaky heart valve; Lupus; - PSHx: 21:46 Hernia repair; ao - Immunization history:: Adult Immunizations up to date. - Social history:: Smoking status: Patient/guardian denies using tobacco, Patient/guardian denies using alcohol, street drugs. ROS: 22:00 Constitutional: Negative for fever, chills, and weight loss, Eyes: Negative for injury, snw pain, redness, and discharge, ENT: Negative for injury, pain, and discharge, Neck: Negative for injury, pain, and swelling, Cardiovascular: Negative for chest pain, palpitations, and edema, Respiratory: Negative for shortness of breath, cough, wheezing, and pleuritic chest pain, Back: Negative for injury and pain, : Negative for injury, bleeding, discharge, and swelling, Pt states he was told to return in 24-48 hours for damian (placed yesterday for post surgical retention) removal MS/Extremity: Negative for injury and deformity, Skin: Negative for injury, rash, and discoloration, Neuro: Negative for headache, weakness, numbness, tingling, and seizure. 22:00 Abdomen/GI: Positive for abdominal pain, abdominal cramps, abdominal distension, flatulence. Exam: 21:58 Constitutional: This is a well developed, well nourished patient who is awake, alert, snw and in no acute distress. Head/Face: Normocephalic, atraumatic. Eyes: Pupils equal round and reactive to light, extra-ocular motions intact. Lids and lashes normal. Conjunctiva and sclera are non-icteric and not injected. Cornea within normal limits. Periorbital areas with no swelling, redness, or edema. ENT: Nares patent. No nasal discharge, no septal abnormalities noted. Tympanic membranes are normal and external auditory canals are clear. Oropharynx with no redness, swelling, or masses, exudates, or evidence of obstruction, uvula midline. Mucous membranes moist. Neck: Trachea midline, no thyromegaly or masses palpated, and no cervical lymphadenopathy. Supple, full range of motion without nuchal rigidity, or vertebral point tenderness. No Meningismus. Chest/axilla: Normal chest wall appearance and motion. Nontender with no deformity. No lesions are appreciated. Cardiovascular: Regular rate and rhythm with a normal S1 and S2. No gallops, murmurs, or rubs. Normal PMI, no JVD. No pulse deficits. Respiratory: Lungs have equal breath sounds bilaterally, clear to auscultation and percussion. No rales, rhonchi or wheezes noted. No increased work of breathing, no retractions or nasal flaring. Back: No spinal tenderness. No costovertebral tenderness. Full range of motion. Skin: Warm, dry with normal turgor. Normal color with no rashes, no lesions, and no evidence of cellulitis. MS/ Extremity: Pulses equal, no cyanosis. Neurovascular intact. Full, normal range of motion. Neuro: Awake and alert, GCS 15, oriented to person, place, time, and situation. Cranial nerves II-XII grossly intact. Motor strength 5/5 in all extremities. Sensory grossly intact. Cerebellar exam normal. Normal gait. 21:58 Abdomen/GI: Inspection: distension, scar(s), are noted in the multiple small well approximated trochar incisions without erythema, discharge, , Bowel sounds: diminished, Palpation: mild abdominal tenderness, in all quadrants. Vital Signs: 21:40 BP 146 / 80; Pulse 78; Resp 18; Temp 98.8(O); Pulse Ox 94% on R/A; Weight 80.74 kg (R); ao Height 5 ft. 8 in. (172.72 cm) (R); Pain 7/10; 22:48 BP 124 / 81; Pulse 71; Resp 19; Pulse Ox 95% on R/A; dh3 23:15 BP 113 / 76; Pulse 70; Resp 17; Pulse Ox 94% on R/A; rk2 21:40 Body Mass Index 27.06 (80.74 kg, 172.72 cm) ao MDM: 21:49 Patient medically screened. snw 23:20 Data reviewed: vital signs, nurses notes. Data interpreted: Pulse oximetry: on room air snw is 95 %. Interpretation: acceptable. Counseling: I had a detailed discussion with the patient and/or guardian regarding: the historical points, exam findings, and any diagnostic results supporting the discharge/admit diagnosis, the presence of at least one elevated blood pressure reading (>120/80) during this emergency department visit, the need for outpatient follow up, to return to the emergency department if symptoms worsen or persist or if there are any questions or concerns that arise at home. Special discussion: Based on the patient's Hx, exam, and Dx evaluation, there is no indication for emergent surgery or inpatient Tx. It is understood by the patient/guardian that if the Sx's persist or worsen they need to return immediately for re-evaluation. I have referred the patient to see his PCP for further evaluation of high blood pressure. Based on the history and exam findings, there is no indication for further emergent testing or inpatient evaluation. I discussed with the patient/guardian the need to see the primary care provider for further evaluation of the symptoms. ED course: Pt encouraged to rock, ambulate, and if all is moving appropriately tomorrow to return to ED for urinary catheter removal.. Administered Medications: 22:15 Drug: Phenergan 25 mg Route: IM; Site: right deltoid; rk2 23:33 Follow up: Response: No adverse reaction rk2 22:32 Drug: Simethicone 120 mg Route: PO; rk2 23:33 Follow up: Response: No adverse reaction rk2 Disposition: 05/04 02:52 Co-signature as Attending Physician, Figueroa Lee MD. rn Disposition: 05/03/17 23:18 Discharged to Home. Impression: Gas pain, Pt request to remove damian. - Condition is Stable. - Discharge Instructions: Abdominal Pain, Adult, Damian Catheter Care, Adult, Urinary Retention, Acute, Male, Intestinal Gas and Gas Pains, Pediatric. - Prescriptions for Gas- X Ultra-Strength - take 1 Each by ORAL route 3 times per day as needed for gas pain; 1 box. promethazine 25 mg Oral Tablet - take 1 tablet by ORAL route every 6 hours As needed; 20 tablet. - Medication Reconciliation Form, Thank You Letter, Antibiotic Education, Prescription Opioid Use form. - Follow up: Josh Medeiros MD; When: 2 - 3 days; Reason: Recheck today's complaints, Continuance of care, Re-evaluation by your physician. Follow up: Emergency Department; When: As needed; Reason: Worsening of condition. - Problem is an ongoing problem. - Symptoms are unchanged. Signatures: Fransisca Villalba, RESAW CARRIAGE OPERATOR-C RESAW CARRIAGE OPERATOR-Csnw Figueroa Lee MD MD rn Ortiz, Alex RN Katheryn Kelly RN RN rk2
== END 2017-05-03 23:33 | disposition home or self-care (01) ==
LOC: ER 21:34
DX: I25.10 Atherosclerotic heart disease of native coronary artery without angina pectoris; D64.9 Anemia, unspecified; E78.00 Pure hypercholesterolemia, unspecified; R14.1 Gas pain; Z79.82 Long term (current) use of aspirin; F32.9 Major depressive disorder, single episode, unspecified; I10 Essential (primary) hypertension; N40.0 Benign prostatic hyperplasia without lower urinary tract symptoms
CPT/HCPCS: 96372; 99283; J2550

== ENCOUNTER 2017-05-05 11:25 | Emergency (ER) | payer OTHER ==
--- OUTSIDE RECORDS SUMMARY | 2017-05-05 11:27 | XMS REPORT | Clinical Summary ---
:1950 Author Organization [facility] Address [address] [place] [address] Care Team Providers Name Role Phone Cyrus [...] Patient Outreach Quality Flora Hurst RN 05/01/2017 [facility] General Surgery Servando Olmos, Paraesophageal hiatal [...] Dx); Gastroesophageal reflux disease without esophagitis 03/03/2017 [facility] Gastroenterology Servando Olmos, Encounter MD 03/03/2017 [...] Servando Olmos, Hiatal hernia (Primary Dx) after 05/04/2016 Family History Medical History Relation Name Comments [...] Office Visit General Surgery Servando Olmos MD [address] [address] Health Maintenance Due Date Last Done Comments COLONOSCOPY 01/03/2000 ZOSTER VACCINE 2010 PNEUMOCOCCAL POLYSACCHARIDE VACCINE AGE 65 AND OVER 2015 PNEUMOCOCCAL-13 2015 INFLUENZA VACCINE 09/06/2016 Implants Implanted Type Area [employer] 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 Device Expiration Model / Identifier Date Serial / Lot Linx System Sizing Tool Laparoscopic 5 Pack - [id number] Cardiovascular N/A: [employer] 12/12/2018 LSS US / Implanted: Qty: 1 on 05/01/2017 by Servando Olmos MD Implants N/A INC / [id number] Catheter Endoflip 8cm Measurement - [id number] Surgical N/A: CROSPON EF 325N / Implanted: 03/03/2017 (Quantity not on file) Implants; N/A / Expanders; Extenders; Surgical Wires [employer]vs 5x5cm 1.65mm Ptfe - [id number] Surgical N/A: BARD 10/03/2021 [id number] / Implanted: Qty: 1 on 05/01/2017 by Servando Olmos MD Implants; N/A PERIPHERAL / Expanders; VASCULAR [id number] Extenders; Surgical Wires Linx Reflux Mangmt System 14 Bead - [id number] Surgical N/A: [employer] 01/16/2021 [id number] / Implanted: Qty: 1 on 05/01/2017 by Servando Olmos MD Implants; N/A INC / Expanders; [id number] Extenders; Surgical Wires Procedures Procedure Name Priority Date/Time Associated Diagnosis Comments MA AN ELECTIVE Routine 05/01/2017 8:58 AM ENDOTRACHEAL [...] NEEDED EGD W/ ENDOFLIP 03/03/2017 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 Specimen Performing Laboratory Plasma specimen [facility] DEPARTMENT OF PATHOLOGY AND GENOMIC MEDICINE [address] [place] [id number] CBC with platelet and differential (05/02/2017 6:02 [...] (promyelocytes, myelocytes, metamyelocytes) Specimen Performing Laboratory Blood [facility] DEPARTMENT OF PATHOLOGY AND GENOMIC MEDICINE [address] [place] [id number] Basic metabolic panel (05/02/2017 6:02 AM)Only the [...] 10.2 mg/dL Specimen Performing Laboratory Plasma specimen [facility] DEPARTMENT OF PATHOLOGY AND GENOMIC MEDICINE [address] [place], [place] [id number] Surgical pathology request (05/01/2017 3:34 PM) Component Value Ref Range Surgical pathology report See link below for PDF Lab Report Result status This is Final Report to [id number] Specimen Performing Laboratory [facility] DEPARTMENT OF PATHOLOGY AND GENOMIC MEDICINE [address] [place] [id number] ECG 12 lead (04/24/2017 11:24 AM) Component Value Ref Range Ventricular rate 60 Atrial rate 60 MA interval 172 QRSD interval 106 QT interval 406 QTC interval 406 P axis 1 17 QRS axis 1 -29 T wave axis 46 EKG impression Normal sinus rhythm-Normal ECG-No previous ECGs available- Specimen Performing Laboratory [facility] [address] [place] [address] CBC hemogram (04/24/2017 10:05 AM) Component Value [...] 0.00 /100 WBC Specimen Performing Laboratory Blood [facility] DEPARTMENT OF PATHOLOGY AND GENOMIC MEDICINE [address] [place] [id number] FL UGI w Air Gluc HD Barium (08/18/2016 10:58 AM)Only the most recent of2 resultswithin the time period is included. Specimen Performing Laboratory [facility] [address] [place] [id number] Narrative EXAMINATION:FL UGI W AIR GLUC HD [...] junction is in the normal expected position. [facility]-[id number] Procedure Note Interface, Radiology Results Incoming - [...] junction is in the normal expected position. [facility]-[id number] after 05/04/2016 Insurance Payer Benefit Plan / Group Subscriber ID Type Phone Address AETNA MEDICARE AETNA MEDICARE HMO/PPO [facility] xxxxxxxx O
--- NOTE | 2017-05-05 13:13 | ER ---
Nurse's Notes [facility] Name: Macario Henriquez Jr Age: 67 yrs Sex: Male : 1950 Arrival Date: 05/05/2017 Time: 11:28 Bed 16 Private MD: Josh Medeiros C Diagnosis: Encounter for Damian Catheter Removal Presentation: 05/05 11:50 Presenting complaint: Patient states: Damian cath placement 4 days ago after hernia hb surgery, here to have it removed. Transition of care: patient was not received from another setting of care. Onset of symptoms was May 05, 2017. Care prior to arrival: None. 11:50 Method Of Arrival: Ambulatory hb 11:50 Acuity: ARELY 4 hb Historical: - Allergies: 11:54 No Known Allergies; hb - Home Meds: 11:54 amlodipine 5 mg tab 1 tab nightly [Active]; aspirin 81 mg Oral TbEC 1 tab once daily hb [Active]; atorvastatin 20 mg Oral tab 1 tab nightly [Active]; buspirone 10 mg Oral tab 1 tab 2 times per day [Active]; carvedilol 12.5 mg Oral tab 1 tab three times a day [Active]; cetirizine 10 mg Oral tab 1 tab nightly [Active]; ferrous sulfate 325 mg (65 mg iron) Oral tab 2 times a week [Active]; FiberCon 625 mg Oral tab daily [Active]; levothyroxine 100 mcg tab 1 tab once daily [Active]; losartan 50 mg Oral tab 1 tab once daily [Active]; multivitamin Oral tab daily [Active]; Nexium 40 mg Oral cpDR 1 cap 2 times per day [Active]; Prilosec 20 mg Oral cpDR 1 cap nightly [Active]; tamsulosin 0.4 mg Oral cp24 1 cap nightly [Active]; - PMHx: 11:54 Anemia; CAD; Arthritis; BPH; Depression; GERD; High Cholesterol; Hypertension; hb Hypothyroidism; leaky heart valve; Lupus; - PSHx: 11:54 Hernia repair; hb - Immunization history:: Adult Immunizations up to date. - Social history:: Smoking status: Patient/guardian denies using tobacco. Screenin:14 Abuse screen: Denies threats or abuse. Nutritional screening: No deficits noted. ae1 Tuberculosis screening: No symptoms or risk factors identified. Fall Risk None identified. Assessment: 13:12 Reassessment: Patient up to restroom, patient states he was able to urinate on his own, ae1 denies pain upon urination. 13:12 General: Appears in no apparent distress. comfortable, Behavior is calm, cooperative. ae1 Pain: Denies pain. Neuro: Level of Consciousness is awake, alert, obeys commands, Oriented to person, place, time, situation. Cardiovascular: Patient's skin is warm and dry. Respiratory: Airway is patent Respiratory effort is even, unlabored, Respiratory pattern is regular, symmetrical. GI: No signs and/or symptoms were reported involving the gastrointestinal system. : Swelling noted at urinary meatus Mild redness. Damian with leg bag in place. approx 150 mls of yellow urine in collection bag. EENT: No signs and/or symptoms were reported regarding the EENT system. Derm: Skin is pale. Musculoskeletal: No signs and/or symptoms reported regarding the musculoskeletal system. Vital Signs: 11:54 BP 141 / 79; Pulse 71; Resp 16; Temp 98; Pulse Ox 95% on R/A; Weight 85.28 kg; Height 5 hb ft. 8 in. (172.72 cm); Pain 5/10; 11:54 Body Mass Index 28.59 (85.28 kg, 172.72 cm) hb ED Course: 11:28 Patient arrived in ED. mr 11:28 Josh Medeiros MD is Private Physician. mr 11:53 Triage completed. hb 11:54 Arm band placed on right wrist. hb 12:00 Jarvis Levi, YOLANDA is Primary Nurse. ae1 12:01 Kenn Colón PA is PHCP. jr8 12:01 Harry Liu MD is Attending Physician. jr8 12:30 removed damian catheter and leg bag. PO fluids provided. ae1 12:50 Placed in gown. Bed in low position. Call light in reach. Side rails up X 1. Pulse ox ae1 on. NIBP on. 13:12 Josh Medeiros MD is Referral Physician. jr8 13:23 No provider procedures requiring assistance completed. Patient did not have IV access ae1 during this emergency room visit. Administered Medications: No medications were administered Outcome: 13:13 Discharge ordered by . jr8 13:23 Discharged to home ambulatory, with significant other. ae1 13:23 Condition: stable 13:23 Discharge instructions given to patient, Instructed on discharge instructions, follow up and referral plans. Demonstrated understanding of instructions. 13:24 Patient left the ED. ae1 Signatures: Nelia Kendrick Josh, PA PA jr8 Blanca Lr RN RN Jarvis Levi RN RN ae1
--- NOTE | 2017-05-05 13:13 | EDPHYS ---
Physician Documentation [facility] Name: Macario Henriquez Jr Age: 67 yrs Sex: Male : 1950 Arrival Date: 05/05/2017 Time: 11:28 Bed 16 Private MD: Josh Medeiros C ED Physician Harry Liu HPI: 05/05 12:59 This 67 yrs old Male presents to ER via Ambulatory with complaints of Damian jr8 cath removal. 12:59 Associated signs and symptoms: The patient has no apparent associated signs or jr8 symptoms. The patient has not experienced similar symptoms in the past. The patient has been recently seen by a physician:. Patient seen on Monday evening here for placement of damian catheter after he was unable to urinate. Stated that he had surgery on Monday and was released from hospital. Underwent hiatal hernia repair. Was finally able to pass gas this yesterday and had bowel movement this morning. Came back today after having it in for three days to have damian removed . Historical: - Allergies: :54 No Known Allergies; hb - Home Meds: 11:54 amlodipine 5 mg tab 1 tab nightly [Active]; aspirin 81 mg Oral TbEC 1 tab once daily hb [Active]; atorvastatin 20 mg Oral tab 1 tab nightly [Active]; buspirone 10 mg Oral tab 1 tab 2 times per day [Active]; carvedilol 12.5 mg Oral tab 1 tab three times a day [Active]; cetirizine 10 mg Oral tab 1 tab nightly [Active]; ferrous sulfate 325 mg (65 mg iron) Oral tab 2 times a week [Active]; FiberCon 625 mg Oral tab daily [Active]; levothyroxine 100 mcg tab 1 tab once daily [Active]; losartan 50 mg Oral tab 1 tab once daily [Active]; multivitamin Oral tab daily [Active]; Nexium 40 mg Oral cpDR 1 cap 2 times per day [Active]; Prilosec 20 mg Oral cpDR 1 cap nightly [Active]; tamsulosin 0.4 mg Oral cp24 1 cap nightly [Active]; - PMHx: 11:54 Anemia; CAD; Arthritis; BPH; Depression; GERD; High Cholesterol; Hypertension; hb Hypothyroidism; leaky heart valve; Lupus; - PSHx: 11:54 Hernia repair; hb - Immunization history:: Adult Immunizations up to date. - Social history:: Smoking status: Patient/guardian denies using tobacco. ROS: 12:59 Eyes: Negative for injury, pain, redness, and discharge, ENT: Negative for injury, jr8 pain, and discharge, Neck: Negative for injury, pain, and swelling, Cardiovascular: Negative for chest pain, palpitations, and edema, Respiratory: Negative for shortness of breath, cough, wheezing, and pleuritic chest pain, Abdomen/GI: Negative for abdominal pain, nausea, vomiting, diarrhea, and constipation, Back: Negative for injury and pain, MS/Extremity: Negative for injury and deformity, Skin: Negative for injury, rash, and discoloration, Neuro: Negative for headache, weakness, numbness, tingling, and seizure. Exam: 12:59 Cardiovascular: Regular rate and rhythm with a normal S1 and S2. No gallops, murmurs, jr8 or rubs. Normal PMI, no JVD. No pulse deficits. Respiratory: Lungs have equal breath sounds bilaterally, clear to auscultation and percussion. No rales, rhonchi or wheezes noted. No increased work of breathing, no retractions or nasal flaring. Abdomen/GI: Soft, non-tender, with normal bowel sounds. No distension or tympany. No guarding or rebound. No evidence of tenderness throughout. Back: No spinal tenderness. No costovertebral tenderness. Full range of motion. Skin: Warm, dry with normal turgor. Normal color with no rashes, no lesions, and no evidence of cellulitis. MS/ Extremity: Pulses equal, no cyanosis. Neurovascular intact. Full, normal range of motion. Neuro: Awake and alert, GCS 15, oriented to person, place, time, and situation. Cranial nerves II-XII grossly intact. Motor strength 5/5 in all extremities. Sensory grossly intact. Cerebellar exam normal. Normal gait. Vital Signs: 11:54 BP 141 / 79; Pulse 71; Resp 16; Temp 98; Pulse Ox 95% on R/A; Weight 85.28 kg; Height 5 hb ft. 8 in. (172.72 cm); Pain 5/10; 11:54 Body Mass Index 28.59 (85.28 kg, 172.72 cm) hb MDM: 12:01 Patient medically screened. jr8 12:59 Data reviewed: vital signs, nurses notes. Data interpreted: Pulse oximetry: on room air jr8 is 95 %. Interpretation: normal. Counseling: I had a detailed discussion with the patient and/or guardian regarding: the historical points, exam findings, and any diagnostic results supporting the discharge/admit diagnosis, lab results, the need for outpatient follow up, a general surgeon. 13:11 ED course: Patient able to urinate prior to being discharged from ED. To follow up with jr8 general surgery. If with inability to urinate again to come back to ED for further evaluation . 05/05 12:24 Order name: Misc. Order: D/C Damian; Complete Time: 12:27 jr8 Administered Medications: No medications were administered Disposition: 13:29 Co-signature as Attending Physician, Harry Liu MD I agree with the assessment and kdr plan of care. Disposition: 05/05/17 13:13 Discharged to Home. Impression: Encounter for Damian Catheter Removal . - Condition is Stable. - Discharge Instructions: Dysuria, Urinary Retention, Acute, Male. - Medication Reconciliation Form, Thank You Letter, Antibiotic Education, Prescription Opioid Use form. - Follow up: Josh Medeiros MD; When: 5 - 6 days; Reason: Recheck today's complaints, Continuance of care, Re-evaluation by your physician. - Problem is new. - Symptoms have improved. Signatures: Harry Liu MD MD [facility] Kenn Colón PA PA jr8 Blanca Lr, RN RN Jarvis Levi RN RN ae1
== END 2017-05-05 13:24 | disposition home or self-care (01) ==
LOC: ER 11:25
DX: Z46.6 Encounter for fitting and adjustment of urinary device (principal); I10 Essential (primary) hypertension; E78.00 Pure hypercholesterolemia, unspecified; I25.10 Atherosclerotic heart disease of native coronary artery without angina pectoris; F32.9 Major depressive disorder, single episode, unspecified; E03.9 Hypothyroidism, unspecified; Z79.82 Long term (current) use of aspirin; Z98.890 Other specified postprocedural states
CPT/HCPCS: 99283

== ENCOUNTER 2019-10-05 15:07 | Emergency (ER) | payer OTHER ==
--- OUTSIDE RECORDS SUMMARY | 2019-10-05 15:13 | XMS REPORT | Continuity of Care Document ---
:1950 Author Organization [facility] t Address [address] [place] [address] Care Team Providers Name Role Phone Maura Medeiros MD Primary Care Physician Doctor Unassigned, Name Attending Clinician Unavailable Karely Marin Attending Clinician Payers Payer Name Policy Type Policy Number Effective Date Expiration Date S ource Problems Condition Condition Condition Status Onset Resolution Last Treating Co mments Source Name Details Category Date Date Treatment Clinician Date Surgery Surgery Disease Active [facility] follow-up follow-up 4-05 Lisette nunes examinatisami examinatio 00:00: t & Plan: st n n 00 Watch and wait to see if patient's symptoms of dysphagia . Patient to contact our office if dysphagia worsens or persists. Reevalua tion at next follow-up visit. Patient to take small bites of food and allow ample time to finish meals. Avoid spicy and acidic foods. Patient to use CPAP when sleeping. Follow-u p with PCP regarding sleep disturban Cari nt was allowed ample time to ask questions and his questions were answered to his satisfact ion. Patient verbalize d majo jolley and agreement with the plan. Return to clinic in 2 months for next follow-up visit. Esophageal Esophageal Disease Active Last [facility] dysmotilit dysmotilit 3-21 Assessmen Methodi y y 00:00: t & Plan: st 00 The patient had an elevated IRP on his high resolutio n esophagea l manometry . I discussed this case with Dr. Garcia as well as Dr. Rizo. I will schedule the patient for an EGD as well as a Endoflip in an attempt to rule out achalasia . Left lower Left lower Disease Active 2015-02 Last [facility] quadrant quadrant 14 Assessmen Met hodi pain pain 00:00: t & Plan: st The patient has chronic GERD as well as a large hiatal hernia, however, I do not feel that this is causing his left lower quadrant abdominal pain. The large hiatal hernia, however, may be contribut ing to his bloating sensation and diarrhea. This may in fact be contribut ing to his left lower quadrant abdominal pain by irritatin g his sigmoid colon. I will discuss this patient with Dr. Garcia as well as Dr. Contreras. I do not have a copy of his colonosco py report which I will retrieve from Dr. Contreras. The patient will return to clinic following his testing in my discussio ns with his other gastroent erologist s. Functional Functional Disease Active 2015-02 [facility] diarrhea diarrhea 02-19 Method i 00:00: st 00 Systemic Systemic Disease Active 2015-02 [place] lupus lupus 02-19 Methodi 00:00: st Cerebral Cerebral Disease Active 2015-02 [place] aneurysm aneurysm 02-19 Method i 00:00: st 00 Weight Weight Disease Active 2015-02 Garcia loss loss 02-19 Methodi 00:00: st 00 Pharyngoes Pharyngoes Disease Active 2015-02 Last [facility] ophageal ophageal 02-19 Assessmen Met hodi dysphagia dysphagia 00:00: t & Plan: s t 00 Patient to take small bites of food and allow ample time to finish meals. Patient to chew food, especiall y dense foods like meat and breads, thoroughl y. Paraesopha Paraesopha Disease Active 2015-02 Last [facility] geal geal 02-19 Assessmen Methodi hiatal hiatal 00:00: t & Plan: st hernia hernia 00 The patient has a large hiatal hernia with a paraesoph ageal component . It is likely that this is the cause of the patient's chest pain. The patient also has an elevated IRP on his previous manometry study. The patient will be scheduled for a repeat EGD with EndoFLIP measureme nts of the lower esophagea l sphincter prior to the scheduled surgery. Cataracts, Cataracts, Disease Active 2015-02 [place] bilateral bilateral 1-14 Meth rhea 00:00: st 00 Prostatic Prostatic Disease Active 2015-02 Raymond ston hyperplasi hyperplasi -14 Me thodi a a 00:00: st 00 Allergies, Adverse Reactions, Alerts Allergy Allergy Status Severity Reaction(s) Onset Inactive Treating Comm ents Source Name Type Date Date Clinician No Known DA Active [facility] Allergie 08-28 Clear s 00:00: [place] 00 [facility] Family History Family Member Diagnosis Comments Start Date Stop Date Source Natural brother Diverticulitis [place] [facility] Natural brother GERD [facility] ethodist Natural daughter No Known Problems [place] [facility] Natural father COPD [place] [facility] Maternal grandfather No Known Problems [place] [facility] Maternal grandmother No Known Problems [place] Natural mother Diverticulitis [place] Natural mother GERD [facility] thodist Paternal grandfather COPD [place] Paternal grandmother No Known Problems [place] Natural sister Lupus [facility] thodist Natural son No Known Problems [place] Social History Social Habit Start Date Stop Date Quantity Comments Source Sex Assigned At [facility] ethodist Alcohol intake 2017-08-03 2017-08-03 [facility] 00:00:00 non-drinker of alcohol (finding) Smoking Status Start Date Stop Date Source Never smoker [place] Method[facility] t Medications Ordered Filled Start Stop Current Ordering Indication Dosage Frequency Signature Comments Components Source Medication Medication Date Date Medication? Clinician (SIG) Name Name aspirin Yes 81mg QD Take 81 mg [place] (ECOTRIN) 628 by mouth Method i 81 MG 08:52: daily. st enteric 51 coated tablet MULTIVITAMI Yes 1{capsu QD Take 1 [place] N ORAL 6-28 le} capsule by Methodi 08:52: mouth st 51 daily. cetirizine 2018-0 Yes 10mg QD Take 10 mg [place] (ZyrTEC) 10 6-28 by mouth Meth rhea MG tablet 08:52: nightly. st 51 FERROUS 2018-0 Yes 1{tbl} Q.5W Take 1 [place] FUMARATE 6-28 tablet by Method i (IRON ORAL) 08:52: mouth 2 st 51 (two) times a week. calcium 2018-0 Yes 1{tbl} Chew 1 [place] carbonate 6-28 tablet as Metho di (TUMS) 200 08:52: needed. st mg calcium 51 (500 mg) chewable tablet psyllium 2018-0 Yes .52g QD Take 0.52 [place] (FIBER-CAPS 6-28 g by mouth Me thodi , PSYLLIUM 08:52: daily. st HUSK,) 0.52 51 gram capsule atorvastati Yes 20mg QD Take 20 mg Garcia n (LIPITOR) 1-25 by mouth Meth rhea 20 MG 00:00: every st tablet 00 evening. levothyroxi 2015-02 Yes 100ug QD Take 100 [place] ne 2-21 mcg by Methodi (SYNTHROID, 00:00: mouth st LEVOXYL) 00 every 100 mcg morning. tablet busPIRone 2015-0 Yes 10mg Q.5D Take 10 mg [place] (BUSPAR) 10 7-23 by mouth 2 Me thodi MG tablet 00:00: (two) st 00 times a day. amLODIPine 2015-0 Yes 5mg QD Take 5 mg [place] (NORVASC) 5 7-19 by mouth Meth rhea MG tablet 00:00: every st 00 evening. carvedilol 2016-0 Yes 12.5mg [id number] Take 12.5 Garcia (COREG) 7-19 [id number] mg by Metho di 12.5 MG 00:00: 3D mouth 3 st tablet 00 (three) times a day. losartan 2016-0 Yes 50mg QD Take 50 mg Raymond ston (COZAAR) 50 7-01 by mouth Meth rhea MG tablet 00:00: every st 00 morning. tamsulosin 2016-0 Yes .4mg QD Take 0.4 Raymond st[place] (FLOMAX) 6-24 mg by Methodi 0.4 mg 00:00: mouth st capsule,ext 00 every ended evening. release 24hr Procedures This patient has no known procedures. Plan of Care Planned Activity Planned Date Details Comments Source Future Scheduled 2019-11-07 INFLUENZA VACCINE [place] [facility] Test 00:00:00 [code = INFLUENZA VACCINE] Future Scheduled 2015 65+ PNEUMOCOCCAL [facility] Test 00:00:00 VACCINE (1 of 2 - PCV13) [code = 65+ PNEUMOCOCCAL VACCINE (1 of 2 - PCV13)] Future Scheduled 2000-01-03 COLONOSCOPY SCREENING Ho elizabeth [facility] Test 00:00:00 [code = COLONOSCOPY SCREENING] Future Scheduled 2000-01-03 SHINGLES VACCINES (#1) H brandy [facility] Test 00:00:00 [code = SHINGLES VACCINES (#1)] Encounters Start End Encounter Admission Attending Care Care Encounter Source Date/Time Date/Time Type Type Clinicians Facility Department ID 2019-07-17 2019-07-17 Orders Doctor DMITRY [id number] 00:00:00 00:00:00 Only Unassigned, [place] [id number] Stella [facility] [id number] 2019-06-25 2019-06-25 Office [facility] [id number] 13:35:14 13:50:14 Visit [facility] [id number] Surgical [id number] Special [id number] [place] Results Test Description Test Time Test Comments Results Result Comments Source Novel Coronavirus 2018 Inhouse 2019-09-12 01:11:00 Test Item Value Reference Range Interpretation Comme nts Novel Coronavirus 2018 Inhouse (test code = COVNONPUI) Negative Negative Novel Coronavirus 2019 [id number] 01:11:00 Test Item Value Reference Range Interpretation Comments Novel Coronavirus 2018 Inhouse (test Negative Negative code = COVNONPUI) BASIC METABOLIC [id number] 10:42:00 Test Item Value Reference Range Interpretation Comments SODIUM (test code = 141 mmol/L 136-145 N NA) POTASSIUM (test code = 4.1 mmol/L 3.5-5.1 N K) CHLORIDE (test code = 105.0 mmol/L 98-107 N CL) CARBON DIOXIDE (test 27.8 mmol/L 21-32 N code = CO2) GLUCOSE (test code = 146 mg/dL 70-110 H GLU) BLOOD UREA NITROGEN 18 mg/dL 7-18 N (test code = BUN) GLOMERULAR FILTRATION 72.4 >60 Unit o f measure: RATE (test code = GFR) mL/mi n/1.73 [id number] Range:Healthy Adults >90 mL/min/1.73 m2 For Chronic Kidney Disease: St age II Mild Decrease in GFR 60-90 St age III Moderate Decrease in GFR 30-59 Stage IV Severe Decre ase in GFR 15- 29 Stage V Kidney Failure <15 CREATININE (test code 1.02 mg/dL 0.55-1.30 N = CREAT) CALCIUM (test code = 8.9 mg/dL 8.2-10.1 N CA) HGB [id number] 10:13:00 Test Item Value Reference Range Interpretation Comments HEMOGLOBIN (test code = HGB) 15.2 g/dL 12-16 N HEMATOCRIT (test code = HCT) 45.6 % 37-47 N - CT UP EXTREM W/CONT [id number] 15:26:00 Patient Name: BRANT VASQUEZ Unit No: [id number] EXAMS: CPT CODE: [id number] [place] UP EXTREM W/[place] [address] RIGHT SHOULDER ARTHROGRAM AND LIDOCAINE INJECTION. DIAGNOSIS: Full-thickness rotator cuff tear. COMMENT: COMPARISON: No prior exams available. After informed consent was obtained a single-contrast arthrogram was performed with Isovue-300 . 0.2 minutes of fluoroscopy time was utilized. There was prompt leakage of contrast into the rotator cuff seen on 4 radiographs obtained in neutral, internal and external rotation and abduction. Subsequently 2 ml of 1% lidocaine was injected into the joint. No immediate complications were encountered. CT OF THE RIGHT SHOULDER POST ARTHROGRAPHY WITH SAGITTAL AND CORONAL RECONSTRUCTIONS DIAGNOSIS: Full-thickness tear of the supraspinatus tendon with retraction.Volume loss is seen in the muscle with mild fatty infiltration. Also noted is a SLAP tear of the labrum. COMMENT: COMPARISON: No prior exams available. Scans were performed with thin sections post arthrography and reconstructions were obtained. No bony or hyaline cartilage lesions are seen. Rotator cuff tear is present. The labrum is torn as described no loose bodies are seen at 1526 Reported and signed by: Eric Cat MD CC: Jhonny Yee MD Technologist: Pako Lima,RT(R) CTDI: DLP: Trnscrpt: 08/29/2019 (1526) [email or web address] [facility] NAME: BRANT VASQUEZ JR [address] [facility] PHYS: Jhonny Gutierrez : 1950 AGE: 69 SEX: M [place] [address] LOC: Y.RAD PHONE #: [phone] EXAM DATE: 08/29/2019 STATUS: REG CLI FAX #: [phone] RAD #: D/C DT PAGE 1 Signed Report Patient Name: BRANT VASQUEZ JR Unit No: [id number] EXAMS: CPT CODE: [id number] CT UP EXTREM W/[place] [id number] <Continued> Orig Print D/T: S: 08/29/2019 (1529) [facility]: BRANT VASQUEZ JR [address] [facility] PHYS: Jhonny Gutierrez : 1950 AGE: 69 SEX: M [place] [address] LOC: Y.RAD PHONE #: [phone] EXAM DATE: 08/29/2019 STATUS: REG CLI FAX #: [phone] RAD #: D/C DT PAGE 2 Signed Report- XR ARTHROGRAM LDR [id number] 15:26:00 Patient Name: BRANT VASQUEZ JR Unit No: [id number] EXAMS: CPT CODE: [id number] [place] [address] RIGHT SHOULDER ARTHROGRAM AND LIDOCAINE INJECTION. DIAGNOSIS: Full-thickness rotator cuff tear. COMMENT: COMPARISON: No prior exams available. After informed consent was obtained a single-contrast arthrogram was performed with Isovue-300 . 0.2 minutes of fluoroscopy time was utilized. There was prompt leakage of contrast into the rotator cuff seen on 4 radiographs obtained in neutral, internal and external rotation and abduction. Subsequently 2 ml of 1% lidocaine was injected into the joint. No immediate complications were encountered. CT OF THE RIGHT SHOULDER POST ARTHROGRAPHY WITH SAGITTAL AND CORONAL RECONSTRUCTIONS DIAGNOSIS: Full-thickness tear of the supraspinatus tendon with retraction. Volume loss is seen in the muscle with mild fatty infiltration. Also noted is a SLAP tear of the labrum. COMMENT: COMPARISON: No prior exams available. Scans were performed with thin sections post arthrography and reconstructions were obtained. No bony or hyaline cartilage lesions are seen. Rotator cuff tear is present. The labrum is torn as described no loose bodies are seen at 1526 Reported and signed by: Eric Cat MD CC: Jhonny Yee MD Technologist: Sherrie Sheppard RT.(R) Transcribed D/ (152) SandraL [facility] NAME: BRANT VASQUEZ [address] [facility] PHYS: JORDYNJhonny Bennett : 1950 AGE: 69 SEX: M [place] [address] LOC: Y.RAD PHONE #: [phone] EXAM DATE: 08/29/2019 STATUS: REG CLI FAX #: [phone] RAD #: D/C DT PAGE 1 Signed Report Patient Name: BRANT VSAQUEZ JR Unit No: [id number] EXAMS: CPT CODE: [id number] [place] [id number] <Continued> Orig Print D/T: S: 08/29/2019 (1529) [facility] NAME: BRANT VASQUEZ JR [address] [facility] PHYS: NICOLASA YeeJhonny Gill : 1950 AGE: 69 SEX: M [place] [address] LOC: Y.RAD PHONE #: [phone] EXAM DATE: 08/29/2019 STATUS: REG CLI FAX #: [phone] RAD #: D/C DT PAGE 2 Signed Report- XR CHEST 2 V 2013-05-25 19:24:00 Patient Name: BRANT VASQUEZ JR Unit No: [id number] EXAMS: CPT CODE: [id number] XR CHEST 2 V [id number] EXAM: Chest 2 views. Location code:J9 HISTORY: Cou gh. COMPARISON: None available FINDINGS: PA and lateral views of the chest were obtained. The lungs are clear. There are no pleural effusions or pneumothorax. The cardiac silhouette is normal in size and contour. Aorta, pulmonary vasculature and mediastinum are normal. Visualized skeletal structures are within normal limits. IMPRESSION: No active disease in the chest. at 1924 Reported and signed by: Figueroa Mendez M.D. CC: Dr. Cholo Cage Technologist: RT Celia(R)(CT) Transcrpt Date/Tm/Trnsp: 05/25/2013 (1923) [id number] Orig Print D/T: S: 05/25/2013 (1926) [facility] NAME: BRANT VASQUEZ [address] PHYS: Cholo Sena [place], [place] [address] : 1950 AGE: 63 SEX: M LOC: UNK PHONE #: EXAM DATE: 05/25/2013 STATUS: UNK FAX #: RADIOLOGY NO: PAGE 1 Signed Report
--- OUTSIDE RECORDS SUMMARY | 2019-10-05 15:13 | XMS REPORT | Clinical Summary ---
:1950 Author Organization [facility] Address [address] [place] [address] Care Team Providers Name Role Phone Maura Medeiros MD Primary Care Provider Allergies No Known Allergies Medications Medication Sig Dispensed Refills Start Date End Date Status amLODIPine (NORVASC) 5 Take 5 mg by 0 08/25/2015 Active MG tablet mouth every evening. busPIRone (BUSPAR) 10 Take 10 mg by 0 08/29/2015 Active MG tablet mouth 2 (two) times a day. carvedilol (COREG) 12.5 Take 12.5 mg by 0 08/25/2015 Active MG tablet mouth 3 (three) times a day. losartan (COZAAR) 50 MG Take 50 mg by 3 08/07/2015 Active tablet mouth every morning. tamsulosin (FLOMAX) 0.4 Take 0.4 mg by 3 07/31/2015 Active mg capsule,extended mouth every release 24hr evening. aspirin (ECOTRIN) 81 MG Take 81 mg by 0 Active enteric coated tablet mouth daily. MULTIVITAMIN ORAL Take 1 capsule by 0 Active mouth daily. atorvastatin (LIPITOR) Take 20 mg by 6 03/02/2016 Active 20 MG tablet mouth every evening. cetirizine (ZyrTEC) 10 Take 10 mg by 0 Active MG tablet mouth nightly. FERROUS FUMARATE (IRON Take 1 tablet by 0 Active ORAL) mouth 2 (two) times a week. calcium carbonate Chew 1 tablet as 0 Active (TUMS) 200 mg calcium needed. (500 mg) chewable tablet levothyroxine Take 100 mcg by 3 01/27/2016 Active (SYNTHROID, LEVOXYL) mouth every 100 mcg tablet morning. psyllium (FIBER-CAPS, Take 0.52 g by 0 Active PSYLLIUM HUSK,) 0.52 mouth daily. gram capsule Active Problems Problem Noted Date Surgery follow-up examination 05/11/2017 Last Assessment & Plan: Watch and wait to see if patient's symptoms of dysphagia. Patient to contact our office if dysphagia worsens or persists. Reevaluation at next follow-up visit. Patient to take small bites of food and allow ample time to finish meals. Avoid spicy and acidic foods. Patient to use CPAP when sleeping. Foll ow-up with PCP regarding sleep disturbances. Patient was allowed ample time to ask qu estions and his questions were answered to his satisfaction. Patient verbalized understanding and agreement with the plan. Return to clinic in 2 months for next fo llow-up visit. Esophageal dysmotility 04/26/2016 Last Assessment & Plan: The patient had an elevated IRP on his h igh resolution esophageal manometry. I discussed this case [...] that this is causing his left lower quad rant abdominal pain. The large hiatal hernia, however, [...] Contreras. The patient will return to clinic follow ing his testing in my discussions with his other gastroenterologists. Functional diarrhea 12/21/2015 Systemic lupus 12/21/2015 Cerebral aneurysm 12/21/2015 Weight loss 12/21/2015 Pharyngoesophageal dysphagia 12/21/2015 Last Assessment & Plan: Patient to take small bites of food and allow ample time to finish meals. Patient to chew food, especially dense f oods like meat and breads, thoroughly. Paraesophageal hiatal hernia 12/21/2015 Last Assessment & Plan: The patient has a large hiatal hernia wi th a paraesophageal component. It is likely that this is the cause of the patient's chest pain. The patient also has an elevated IRP on his previous manometry study. Th e patient will be scheduled for a repeat EGD with EndoFLIP measurements of the lower esophageal sphincter prior to the scheduled surgery. Cataracts, bilateral 12/21/2015 Prostatic hyperplasia 12/21/2015 Family History Medical History Relation Name Comments [...] Assigned at Date Recorded Not on file Job Start Date Occupation Industry Not on file Not on file Not on file Travel History Travel Start Travel End No recent travel history available. Last Filed Vital Signs Not on file Plan of Treatment Health Maintenance Due Date Last Done Comments COLONOSCOPY SCREENING 01/03/2000 SHINGLES VACCINES (#1) 01/03/2000 65+ PNEUMOCOCCAL VACCINE (1 of 2 - PCV13) 2015 INFLUENZA VACCINE 11/07/2019 Implants Implanted Type Area Attic Blower Device Shelf Model / Identifier Expiration Serial / Date Lot Linx System Sizing Tool Laparoscopic 5 Pack - [id number] Cardiov ascular N/A: [employer] 12/12/2018 LSS US / Implanted: Qty: 1 on 05/01/2017 by Servando Olmos MD at [facility] Implants N/A INC / [id number] Catheter Endoflip 8cm Measurement - [id number] Surgical N/A: CROS CODI EF 325N / Implanted: 03/03/2017 at [facility] (Quantity not on file) Implants; N/A / Expanders; Extenders; Surgical Wires [place] Cvs 5x5cm 1.65mm Ptfe - [id number] Surgical N/A: BARD 10/03/2021 [id number] / Implanted: Qty: 1 on 05/01/2017 by Servando Olmos MD at [facility] Implants; N/A PERIPHERAL / Expanders; VASCULAR [id number] Extenders; Surgical Wires Linx Reflux Mangmt System 14 Bead - [id number] Surgical N/A: [employer] 01/16/2021 [id number] / Implanted: Qty: 1 on 05/01/2017 by Servando Olmos MD at [facility] Implants; N/A INC / Expanders; [id number] Extenders; Surgical Wires Results Not on fileafter 10/04/2018 Advance Directives For more information, please contact: [phone] Type Date Recorded Patient Call Center Support Consultant Explanati on Advance Directives, 04/18/2016 8:55 AM MARY INS URANCE CARD- Living Will and Medical Power of Planning Aide Advance Directives, 05/04/2017 12:57 PM Living Will and Medical Power of Planning Aide
--- OUTSIDE RECORDS SUMMARY | 2019-10-05 15:13 | XMS REPORT | Summary of Care ---
:1950 Author Organization [facility] Health Address [address] [place] [address] Care Team Providers Name Role Phone Pcp, Patient Does Not Have A Primary Care Provider +[id number] 0-0000 Encounter Details Date Type Department Care Team Description 07/17/2019 Orders Only [facility] Doctor Unassigned, No [address] [facility] [place] [address] [address] [place] [address] Allergies No Known Allergiesdocumented as of this encounter (statuses as of 07/23/2019) Medications Medication Sig Dispensed Refills Start Date End Date Status amLODIPine 5 mg tablet 0 03/23/2019 Active aspirin 81 mg EC tablet Take 81 mg by 0 Active mouth. atorvastatin 20 mg Take 20 mg by 0 03/02/2016 Active tablet mouth. busPIRone 10 mg tablet 0 03/06/2019 Active calcium carbonate 200 mg Take 1 tablet by 0 Active calcium (500 mg) mouth. chewable tablet carvediloL 12.5 mg 0 03/22/2019 Active tablet cetirizine 10 mg tablet Take 10 mg by 0 Active mouth. ciprofloxacin HCl 500 mg 0 02/13/2019 Active tablet esomeprazole 40 mg Take 40 mg by 0 01/28/2019 Active capsule mouth daily. hydrocortisone 2.5 % 0 02/11/2019 Active cream levothyroxine 100 mcg Take 100 mcg by 0 01/27/2016 Active tablet mouth. losartan 50 mg tablet Take 50 mg by 0 08/07/2015 Active mouth. metroNIDAZOLE 500 mg 0 02/11/2019 Active tablet omeprazole 40 mg capsule 0 02/11/2019 Active psyllium 0.52 gram Take 0.52 g by 0 Active capsule mouth. tamsulosin 0.4 mg 24 hr Take 0.4 mg by 0 07/31/2015 Active capsule mouth. documented as of this encounter (statuses as of 07/23/2019) Active Problems Not on filedocumented as of this encounter (statuses as of 07/23/2019) Social History Tobacco Use Types Packs/Day Years Used Date Never Smoker Smokeless Tobacco: Never Used Sex Assigned at Date Recorded Not on file Job Start Date Occupation Industry Not on file Not on file Not on file Travel History Travel Start Travel End No recent travel history available. documented as of this encounter Last Filed Vital Signs Not on filedocumented in this encounter Plan of Treatment Health Maintenance Due Date Last Done Comments HEPATITIS C (HCV) SCREEN 1950 DTaP,Tdap,and Td Vaccines (1 - Tdap) 1961 COLONOSCOPY 01/03/2000 Zoster Recombinant Vaccine (SHINGRIX) (1 of 2) 01/03/2000 Medicare Wellness Visit 2015 PNEUMOCOCCAL VACCINES 65+ (1 of 2 - PCV13) 2015 INFLUENZA VACCINE (Season Ended) 2019 Depression Screening 03/29/2020 03/29/2019 documented as of this encounter Procedures Procedure Name Priority Date/Time Associated Diagnosis Comme nts INSURANCE CORRESPONDENCE Routine 07/17/2019 12:01 AM CDT documented in this encounter Results Not on filedocumented in this encounter Insurance Payer Benefit Plan Subscriber ID Effective Phone Address Typ e / Group Dates AETNA - AETNA [id number] 2019-Prese [address] BOX Medic are Adv [place]NA[place]ED [place]ARE [place] [id number] [place] [address] documented as of this encounter
[2019-10-05] MEDS ORDERED: ONDANSETRON 4 MG/2 ML VIAL ONE (15:43)
[2019-10-05] MEDS ORDERED: NA CHLORIDE 0.9% 1,000 ML ONE (15:43)
[2019-10-05] MEDS ORDERED: MORPHINE 4 MG/ML SYR ONE (15:43)
[2019-10-05 16:00] LABS: Absolute Lymphocytes (CBC) 1.1 K/uL (0.7-4.9); Basophils % 0.7 % (0-1.3); Hematocrit 43.2 % (39.6-49.0); Lymphocytes % 7.9 % (15.3-44.8); MPV 8.4 fL (7.6-11.3); RBC Red Blood Cell Count 4.81 M/uL (4.33-5.43)
[2019-10-05] MEDS ORDERED: LORazepam 2 MG/ML VIAL ONE (16:00)
[2019-10-05 16:14] LABS: ALT/SGPT 65 U/L (12-78); AST/SGOT 74 U/L (15-37); Albumin 3.7 g/dL (3.4-5.0); Alkaline Phosphatase 111 U/L (45-117); BUN Blood Urea Nitrogen 16 mg/dL (7-18); Bicarbonate 27 mmol/L (21-32); Bilirubin Direct 0.7 mg/dL (0-0.2); Bilirubin Total 1.7 mg/dL (0.2-1.0); Glucose Level 125 mg/dL (74-106); Lipase 209 U/L (73-393); Potassium 3.8 mmol/L (3.5-5.1); Protein, Total 6.7 g/dL (6.4-8.2); Sodium Level 142 mmol/L (136-145)
--- NOTE | 2019-10-05 17:46 | RAD REPORT ---
EXAM DESCRIPTION: CT - Abdomen Pelvis W Contrast - 10/05/2019 5:11 pm CLINICAL HISTORY: ABD PAIN COMPARISON: No comparisons TECHNIQUE: Biphasic, helical CT imaging of the abdomen and pelvis was performed following 100 ml non -ionic IV contrast. No oral contrast administered. All CT scans are performed using dose optimization technique as appropriate and may include automated exposure control or mA/KV adjustment according to patient size. FINDINGS: Fibrotic stranding is present. No acute infiltrate or pleural effusion lung bases. Trace p ericardial effusion along the inferior anterior margin. Liver, spleen and pancreas show no acute parenchymal findings. Gallbladder is absent. Intrahepatic an d extrahepatic biliary tree dilatation are present. No pancreatic or duodenal mass. Duct stones can b e occult. This may simply be the reservoir effect that can occur after a cholecystectomy. Symmetric renal function is seen with no hydronephrosis or suspicious renal mass. No pyelonephritis o r acute parenchymal process. No adrenal abnormalities. Urinary bladder is mostly contracted. Patient has an enlarged lobulated prostate gland projects into the bladder base. Correlation is needed with PSA values. No bladder calculi. Stomach is distended with retained fluid. Anti reflux device at the GE junction. No duodenal dilatati on. Small bowel loops are not dilated. There are several fluid-filled distal small bowel loops and pr oximal jejunal loops that show a mild wall thickening/ edema. Advanced sigmoid diverticulosis is pres ent. Rectum is distended by stool. No appendicitis. No free air, free fluid or inflammatory stranding. No mass or bulky lymphadenopathy. Right inguinal hernia repair changes are present. No suspicious bony findings. Prominent L5-S1 disc and endplate degenerative changes are present. Lowe r lumbar facet joint degenerative changes also present. IMPRESSION: Nonspecific small bowel enteritis pattern. No bowel obstruction, free air or surgically emergent finding. Intrahepatic and extrahepatic biliary tree dilatation. Gallbladder is absent. This may simply be rese rvoir effect after a cholecystectomy. Correlation is needed with any biliary obstruction clinical or laboratory findings. Enlarged lobulated prostate gland projecting into the bladder base. Prostate gland contour is irregul ar. Correlation is needed with PSA values.
--- NOTE | 2019-10-05 17:55 | EDPHYS ---
Physician Documentation [facility] Name: Macario Henriquez Jr Age: 69 yrs Sex: Male : 1950 Arrival Date: 10/05/2019 Time: 15:11 Bed 5 Private MD: ED Physician Ana Fletcher HPI: 10/04 17:58 This 69 yrs old Male presents to ER via Ambulatory with complaints of kb Abdominal Pain. 17:58 The patient presents with abdominal pain that is diffuse. Onset: The symptoms/episode kb began/occurred at 11:30. The symptoms do not radiate. Associated signs and symptoms: Pertinent positives: nausea, Pertinent negatives: constipation, diarrhea, fever, vomiting. The symptoms are described as crampy, intermittent. Modifying factors: The symptoms are alleviated by nothing, the symptoms are aggravated by nothing. Severity of pain: At its worst the pain was moderate in the emergency department the pain has improved. The patient has experienced similar episodes in the past. The patient has not recently seen a physician. Historical: - Allergies: 15:20 No Known Allergies; ss - PMHx: 15:20 Anemia; BPH; GERD; High Cholesterol; Hypothyroidism; leaky heart valve; Lupus; ss Hypertension; Depression; CAD; Arthritis; - PSHx: 15:20 Hernia repair; ss - Immunization history:: Adult Immunizations up to date. - Social history:: Smoking status: Patient denies any tobacco usage or history of. ROS: 17:57 Constitutional: Negative for fever, chills, and weight loss, Neck: Negative for injury, kb pain, and swelling, Cardiovascular: Negative for chest pain, palpitations, and edema, Respiratory: Negative for shortness of breath, cough, wheezing, and pleuritic chest pain, Back: Negative for injury and pain, MS/Extremity: Negative for injury and deformity, Skin: Negative for injury, rash, and discoloration, Neuro: Negative for headache, weakness, numbness, tingling, and seizure. 17:57 Abdomen/GI: Positive for abdominal pain, nausea, Negative for vomiting, diarrhea, constipation, abdominal cramps, abdominal distension, anorexia. Exam: 17:57 Constitutional: This is a well developed, well nourished patient who is awake, alert, kb and in no acute distress. Head/Face: Normocephalic, atraumatic. Neck: Trachea midline, no thyromegaly or masses palpated, and no cervical lymphadenopathy. Supple, full range of motion without nuchal rigidity, or vertebral point tenderness. No Meningismus. Chest/axilla: Normal chest wall appearance and motion. Nontender with no deformity. No lesions are appreciated. Cardiovascular: Regular rate and rhythm with a normal S1 and S2. No gallops, murmurs, or rubs. Normal PMI, no JVD. No pulse deficits. Respiratory: Lungs have equal breath sounds bilaterally, clear to auscultation and percussion. No rales, rhonchi or wheezes noted. No increased work of breathing, no retractions or nasal flaring. Back: No spinal tenderness. No costovertebral tenderness. Full range of motion. Skin: Warm, dry with normal turgor. Normal color with no rashes, no lesions, and no evidence of cellulitis. MS/ Extremity: Pulses equal, no cyanosis. Neurovascular intact. Full, normal range of motion. Neuro: Awake and alert, GCS 15, oriented to person, place, time, and situation. Cranial nerves II-XII grossly intact. Motor strength 5/5 in all extremities. Sensory grossly intact. Cerebellar exam normal. Normal gait. 17:57 Abdomen/GI: Inspection: abdomen appears normal, Bowel sounds: normal, in all quadrants, Palpation: soft, in all quadrants, mild abdominal tenderness, in all quadrants. Vital Signs: 15:16 BP 140 / 84; Pulse 95; Resp 16; Temp 98.4(TE); Pulse Ox 96% on R/A; Weight 77.11 kg; ss Height 5 ft. 8 in. (172.72 cm); Pain 7/10; 15:45 Pulse Ox 92% on R/A; sv 16:49 BP 138 / 86; Pulse 90; Resp 16; Pulse Ox 100% 2 lpm ; sv 17:22 BP 108 / 65; Pulse 93; Resp 16; Pulse Ox 100% ; sv 15:16 Body Mass Index 25.85 (77.11 kg, 172.72 cm) ss 15:45 Ptplaced on O2 \T\ 2L per NC. sv MDM: 15:21 Patient medically screened. kb 17:48 Data reviewed: vital signs, nurses notes. Data interpreted: Pulse oximetry: on room air kb is 100 %. Interpretation: normal. Counseling: I had a detailed discussion with the patient and/or guardian regarding: the historical points, exam findings, and any diagnostic results supporting the discharge/admit diagnosis, lab results, radiology results, the need for outpatient follow up, a family practitioner, to return to the emergency department if symptoms worsen or persist or if there are any questions or concerns that arise at home. 17:56 Data reviewed: lab test result(s), radiologic studies. ED course: Pt reports Dr Mala gomez checks his PSA yearly. Will follow up with him regarding Prostate findings on CT. Pt sees Dr Contreras for GI issues and will follow up with him. . 10/04 15:29 Order name: Basic Metabolic Panel; Complete Time: 16:17 kb 10/04 15:29 Order name: CBC with Diff; Complete Time: 16:09 kb 10/04 15:30 Order name: Hepatic Function; Complete Time: 16:17 kb 10/04 15:30 Order name: Lipase; Complete Time: 16:17 kb 10/04 15:30 Order name: CT Abd/Pelvis - IV Contrast Only; Complete Time: 17:47 kb 10/04 15:30 Order name: IV Saline Lock; Complete Time: 16:03 kb 10/04 15:30 Order name: Labs collected and sent; Complete Time: 16:03 kb Administered Medications: 15:40 Drug: Zofran (Ondansetron) 4 mg Route: IVP; Site: left antecubital; sv 16:55 Follow up: Response: No adverse reaction sv 15:40 Drug: NS 0.9% 1000 ml Route: IV; Rate: 1000 ml; Site: left antecubital; sv 15:42 Drug: morphine 4 mg Route: IVP; Site: left antecubital; sv 16:56 Follow up: Response: No adverse reaction; Pain is decreased; RASS: Alert and Calm (0) sv 16:55 Drug: Ativan 1 mg Route: IVP; Site: left antecubital; sv Disposition: 10/05/19 17:55 Discharged to Home. Impression: Small Bowel Enteritis. - Condition is Stable. - Discharge Instructions: Viral Gastroenteritis, Adult, [id number]. - Prescriptions for Bentyl 20 mg Oral Tablet - take 1 tablet by ORAL route every 6 hours As needed; 20 tablet. Zofran 4 mg Oral Tablet - take 1 tablet by ORAL route every 6 hours As needed; 20 tablet. - Medication Reconciliation Form, Thank You Letter, Antibiotic Education, Prescription Opioid Use form. - Follow up: Emergency Department; When: As needed; Reason: Worsening of condition. Follow up: Private Physician; When: 2 - 3 days; Reason: Recheck today's complaints, Continuance of care, Re-evaluation by your physician. Signatures: Dispatcher [employer] EDWA Sharonda Dutton, SILVA-C WATCH COMMANDER-Denice Colmenares RN RN Maral Harvey RN RN ss Corrections: (The following items were deleted from the chart) 18:35 17:55 10/05/2019 17:55 Discharged to Home. Impression: Small Bowel Enteritis. Condition sv is Stable. Forms are Medication Reconciliation Form, Thank You Letter, Antibiotic Education, Prescription Opioid Use. Follow up: Emergency Department; When: As needed; Reason: Worsening of condition. Follow up: Private Physician; When: 2 - 3 days; Reason: Recheck today's complaints, Continuance of care, Re-evaluation by your physician. kb
--- NOTE | 2019-10-05 17:55 | ER ---
Nurse's Notes [facility] Name: Macario Henriquez Jr Age: 69 yrs Sex: Male : 1950 Arrival Date: 10/05/2019 Time: 15:11 Bed 5 Private MD: Diagnosis: Small Bowel Enteritis Presentation: 10/04 15:16 Chief complaint: Patient states: "[facility] 30 minutes after that he ss started to have issues." Pt reports abd cramping, bloating and nausea. Pt reports he took a GasX which helped a lot with his bloating, but he still feels as if there is a knot in his stomach. Pt reports last time he felt the knot is when he had a stomach ulcer. Coronavirus screen: Client denies travel out of the [place] in the last 14 days. At this time, the client does not indicate any symptoms associated with coronavirus-19. Ebola Screen: Patient denies exposure to infectious person. Patient denies travel to an Ebola-affected area in the 21 days before illness onset. Initial Sepsis Screen: Does the patient meet any 2 criteria? HR > 90 bpm. Does the patient have a suspected source of infection? No. Patient's initial sepsis screen is negative. Risk Assessment: Do you want to hurt yourself or someone else? Patient reports no desire to harm self or others. Onset of symptoms was October 05, 2019. 15:16 Method Of Arrival: Ambulatory ss 15:16 Acuity: ARELY 3 ss Historical: - Allergies: 15:20 No Known Allergies; ss - PMHx: 15:20 Anemia; BPH; GERD; High Cholesterol; Hypothyroidism; leaky heart valve; Lupus; ss Hypertension; Depression; CAD; Arthritis; - PSHx: 15:20 Hernia repair; ss - Immunization history:: Adult Immunizations up to date. - Social history:: Smoking status: Patient denies any tobacco usage or history of. Screenin:24 Abuse screen: Denies threats or abuse. Denies injuries from another. Nutritional sv screening: No deficits noted. Tuberculosis screening: No symptoms or risk factors identified. Fall Risk None identified. Assessment: 15:40 General: Appears in no apparent distress. uncomfortable, well developed, Behavior is sv cooperative, appropriate for age, anxious. Pain: Complains of pain in abdomen Pain currently is 7 out of 10 on a pain scale. Quality of pain is described as crampy, Pain began 1 hour ago. Is intermittent. Neuro: Level of Consciousness is awake, alert, obeys commands, Oriented to person, place, time, situation, Moves all extremities. Full function. Respiratory: Airway is patent Respiratory effort is even, unlabored, Respiratory pattern is regular, symmetrical. GI: Abdomen is flat, Abd is soft and non tender X 4 quads. Reports lower abdominal pain, upper abdominal pain, gaseousness, nausea. Derm: Skin is intact, Skin is pink, warm \\T\\ dry. Musculoskeletal: Range of motion: intact in all extremities. 15:42 Reassessment: Pt stated "I'm going to need to be sedated to do that CT because I have sv really bad anxiety." Informed Sharonda NEWS REPORTER. 16:55 Reassessment: Patient appears in no apparent distress at this time. No changes from sv previously documented assessment. Patient and/or family updated on plan of care and expected duration. Pain level reassessed. Patient is alert, oriented x 3, equal unlabored respirations, skin warm/dry/pink. 18:30 Reassessment: Patient appears in no apparent distress at this time. Patient and/or sv family updated on plan of care and expected duration. Pain level reassessed. Patient is alert, oriented x 3, equal unlabored respirations, skin warm/dry/pink. Patient states feeling better. Vital Signs: 15:16 BP 140 / 84; Pulse 95; Resp 16; Temp 98.4(TE); Pulse Ox 96% on R/A; Weight 77.11 kg; ss Height 5 ft. 8 in. (172.72 cm); Pain 7/10; 15:45 Pulse Ox 92% on R/A; sv 16:49 BP 138 / 86; Pulse 90; Resp 16; Pulse Ox 100% 2 lpm ; sv 17:22 BP 108 / 65; Pulse 93; Resp 16; Pulse Ox 100% ; sv 15:16 Body Mass Index 25.85 (77.11 kg, 172.72 cm) ss 15:45 Ptplaced on O2 \\T\\ 2L per NC. sv ED Course: 15:11 Patient arrived in ED. ds1 15:19 Triage completed. ss 15:20 Arm band placed on right wrist. ss 15:21 Sharonda Dutton, [facility]. kb 15:21 Ana Fletcher MD is Attending Physician. kb 15:23 Denice Wood, YOLANDA is Primary Nurse. sv 15:23 Nurse Practitioner and/or Physician Shrinking Machine Operator to see patient. sv 15:24 Patient has correct armband on for positive identification. Bed in low position. Call sv light in reach. Door closed. Head of bed elevated. 15:40 Inserted saline lock: 20 gauge in left antecubital area, using aseptic technique. Blood sv collected. Flushed left antecubital with 5 ml normal saline. 17:11 CT Abd/Pelvis - IV Contrast Only In Process Unspecified. EDMS 17:13 Awaiting radiology results. Patient moved back from CT. sv 18:35 No provider procedures requiring assistance completed. IV discontinued, intact, sv bleeding controlled, No redness/swelling at site. Pressure dressing applied. Administered Medications: 15:40 Drug: Zofran (Ondansetron) 4 mg Route: IVP; Site: left antecubital; sv 16:55 Follow up: Response: No adverse reaction sv 15:40 Drug: NS 0.9% 1000 ml Route: IV; Rate: 1000 ml; Site: left antecubital; sv 15:42 Drug: morphine 4 mg Route: IVP; Site: left antecubital; sv 16:56 Follow up: Response: No adverse reaction; Pain is decreased; RASS: Alert and Calm (0) sv 16:55 Drug: Ativan 1 mg Route: IVP; Site: left antecubital; sv Outcome: 17:55 Discharge ordered by MD. kb 18:35 Patient left the ED. sv 18:35 Discharged to home ambulatory, pt going home with family sv 18:35 Condition: stable 18:35 Discharge instructions given to patient, Instructed on discharge instructions, follow up and referral plans. medication usage, Demonstrated understanding of instructions, follow-up care, medications, Prescriptions given X 2, I walked outside with the pt to his spouse's vehicle Signatures: Dispatcher [employer] EDMS Sharonda Dutton FNP-C FNP-Ckb Verde, Stephanie, RN RN Cami Campbell ds1 Maral Gunderson RN RN ss
== END 2019-10-05 18:35 | disposition home or self-care (01) ==
LOC: ER 15:07
DX: K52.9 Noninfective gastroenteritis and colitis, unspecified (principal); I10 Essential (primary) hypertension
CPT/HCPCS: 85025; 80048; 36415; 80076; 83690; 74177; Q9967; J7030; J2405; 96374; 96375; 99284

== ENCOUNTER 2020-04-23 17:26 | Emergency (ER) | payer OTHER ==
--- OUTSIDE RECORDS SUMMARY | 2020-04-23 17:30 | XMS REPORT | Continuity of Care Document ---
:1950 Author Organization [facility] t Address [address] [place] [address] Care Team Providers Name Role Phone Bar Betts DO Attending Clinician Lab, Fam Pob I Attending Clinician Unavailable Doctor Unassigned, Name Attending Clinician Unavailable Karely Marin Attending Clinician Payers Payer Name Policy Type Policy Number Effective Date Expiration Date S ource Problems This patient has no known problems. Allergies, Adverse Reactions, Alerts Allergy Allergy Status Severity Reaction(s) Onset Inactive Treating Comm ents Source Name Type Date Date Clinician No Known DA Active U 2020-0 [facility] 3-09 Clear s 00:00: [facility] 00 [facility] No Known DA Active U 2019-0 [facility] Allergie 7-23 Clear s 00:00: [place] 00 [facility] Medications This patient has no known medications. Procedures This patient has no known procedures. Encounters Start End Encounter Admission Attending Care Care Encounter Source Date/Time Date/Time Type Type Clinicians Facility Department ID 2020-04-13 2020-04-13 Patient Alpesh [facility] [id number] 00:00:00 00:00:00 Outreach [facility] [id number] Bar [facility] [id number] [place] [phone] [id number] 2019-11-03 2019-11-03 Laboratory Lab, [facility] [id number] 17:07:43 17:27:43 Only Fam P[facility] [id number] [place] 4.2.7.2.686 Professio [phone] nal 0[address] One 2019-07-17 2019-07-17 Orders Doctor DMITRY [id number] 00:00:00 00:00:00 Only Unassigned, CATHER[facility] [id number] [facility] 4.2.7.2.686 [id number] 2019-06-25 2019-06-25 Office [place], [facility] [id number] 13:35:14 13:50:14 Visit [facility] [id number] Surgical [id number] Specialti [phone] es [address] [place] Results Test Description Test Time Test Comments Results Result Comments Source BASIC METABOLIC PANEL 2020-04-23 06:38:00 Test Item Value Reference Range Interpretation Comme nts SODIUM (test code = NA) 142 mmol/L 136-145 N POTASSIUM (test code = K) 3.9 mmol/L 3.5-5.1 N CHLORIDE (test code = CL) 106.0 mmol/L 98-107 N CARBON DIOXIDE (test code = 24.3 mmol/L 21-32 N CO2) GLUCOSE (test code = GLU) 119 mg/dL 70-110 H BLOOD UREA NITROGEN (test code 18 mg/dL 7-18 N = BUN) GLOMERULAR FILTRATION RATE 76.5 >60 U nit of measure: (test code = GFR) mL/min/1.7 3 [id number] Range:Healthy A dults >90 mL/min/1.73 m2 For Chronic Kidney Disease: Stage II Mi ld Decrease in GFR 60-9 0 Stage III Moderate Decrease in GFR 30-59 Stage IV Severe Decrease in GFR 15-29 Stage V Kidney Failure <15 CREATININE (test code = CREAT) 0.97 mg/dL 0.55-1.30 N CALCIUM (test code = CA) 7.8 mg/dL 8.2-10.1 L CBC W/AUTO [id number] 05:58:00 Test Item Value Reference Range Interpretation Comments WHITE BLOOD CELL (test code = 14.3 K/mm3 5.7-10.5 H WBC) RED BLOOD CELL (test code = RBC) 4.31 M/mm3 4.2-5.4 N HEMOGLOBIN (test code = HGB) 12.7 g/dL 12-16 N HEMATOCRIT (test code = HCT) 38.7 % 37-47 N MEAN CELL VOLUME (test code = 90 fL 80-98 N MCV) MEAN CELL HGB (test code = MCH) 29.5 pg 27-34 N MEAN CELL HGB CONCENTRATION (test 32.8 g/dL 30.8-34.1 N code = MCHC) RED CELL DISTRIBUTION WIDTH (test 13.0 % 11-16 N code = RDW) PLT (test code = PLT) 226 K/mm3 130-400 N MEAN PLATELET VOLUME (test code = 10.0 fL 8.9-12.1 N MPV) NEUTROPHIL % (test code = NT%) 86.1 % 45-70 H LYMPHOCYTE % (test code = LY%) 6.8 % 20-40 L MONOCYTE % (test code = MO%) 6.4 % 3-10 N EOSINOPHIL % (test code = EO%) 0.0 % 1-5 L BASOPHIL % (test code = BA%) 0.1 % 0.0-1.1 N NEUTROPHIL # (test code = NT#) 12.32 K/mm3 2.00-7.50 H LYMPHOCYTE # (test code = LY#) 0.97 K/mm3 1.50-4.00 L MONOCYTE # (test code = MO#) 0.92 K/mm3 0.2-0.8 H EOSINOPHIL # (test code = EO#) 0.00 K/mm3 0.04-0.4 L BASOPHIL # (test code = BA#) 0.02 K/mm3 0.02-0.10 N MANUAL DIFF REQUIRED (test code = NO MANUAL DIFF MDIFF) NUCLEATED RED BLOOD CELL (test 0 % 0-0 N code = NRBC) SPECIMEN COMMENT: POD #1- CT UP EXTREM W/O CONT [id number] 22:17:00 [facility] 1950 Sex: M Patient Name: BRANT VASQUEZ JR Unit No: [id number] EXAMS: CPT CODE: [id number] [place] EXTREM W/[place] [address] [place] SCAN RIGHT SHOULDER WITH RECONSTRUCTION DIAGNOSIS: 1. There is mild to moderate osteoarthritis of the glenohumeral joint. There is superior subluxation of the humeral head in relation to the glenoid. There is severe atrophy fattyinfiltration of the supraspinatus and infraspinatus muscle bellies compatible with changes secondary to chronic rotator cuff tear. This finding has progressed significantly in the interval from the previous examination dated August 29, 2019. 2. Patient status postbiceps tenodesis. TECHNIQUE: Volumetric CT data of the right shoulder was obtained without use of intravenous contrast. Images were then viewed in the axial, coronal and sagittal planes. CT radiation dose optimization is achieved for this examination by the use of a CTprotocol in accordance with ACR practice standards and adherence to supervisor production's recommendations. INDICATION: RIGHT SHOULDER PAIN COMPARISON: The current exam is compared to previous exam dated August 29, 2019 COMMENT: Findings are as described above. at 2217 Reported and signed by: Tommy Alvarez MD CC: Jhonny Yee MD Technologist: Pako Lima,RT(R) CTDI: DLP: Trnscrpt: 04/19/2020 (2216) [facility] NAME: BRANT VASQUEZ [address] [facility] PHYS: EDJhonny Bennett : 1950 AGE: 70 SEX: M [place], [place] [address] LOC: YGloriaPHILL PHONE #: [phone] EXAMDATE: 04/17/2020 STATUS: DEP CLI FAX #: [phone] RAD #: D/C DT PAGE 1 Signed Report Patient Name:BRANT VASQUEZ JR Unit No: [id number] EXAMS: CPT CODE: [id number] CT UP EXTREM W/[place] [address]<Continued> Orig Print D/T: S: 04/19/2020 (2220) [facility] NAME: BRANT VASQUEZ [id number] [facility] PHYS: JORDYNROSAJhonny Aguilar : 1950 AGE: 70 SEX: M [place], [place] [address] LOC: Y.RAD PHONE #: [phone] EXAM DATE: 04/17/2020 STATUS: DEP [place] #: [phone] RAD #: D/C DT PAGE 2 Signed ReportNovel Coronavirus 2019 [id number] 05:38:00 Test Item Value Reference Range Interpretation Comments Novel Coronavirus Negative Negative Positive r esults are 2019 Inhouse (test indicativ e of the presence code = COVNONPUI) ofSARS-CoV -2 RNA, clinical correlation wit h patient historyand othe r diagnostic info rmation is necessary to determinepatien t infection status. Positiv e results do not rule out bacterial infection or co -infection with other viru ses. Negative result s do not preclude SARS-C oV-2 infection andsh ould not be used as the checo e basis for patient managementdecis ions. Negative result s must be combined with otherclinical observations, p atient history, and epidemiological information . Detection of SARS-CoV-2 RNA may be affe cted bysample collec tion methods, storag e conditions, and /or stageof infection. Jade l RNA mutations, vacc inations, antiviraltherap eutics, antibiotics, chemotherapeuti c orimmunosuppres jie drugs have not been e valuated for effectson d etection. Results are for the identification of SARS-CoV-2 RNA usingthe Gigya M2000 Sy stem under the FDA Emergen cy UseAuthorizatio n. The testing is perf ormed by personneltrashalini d in the procedures for the Jennings M2000 molecular diagnostic SARS-CoV-2 assa y in vitro. Novel Coronavirus 2018 [id number] 05:38:00 Test Item Value Reference Range Interpretation Comments Novel Coronavirus Negative Negative Positive r esults are 2019 Inhouse (test indicativ e of the presence code = COVNONPUI) ofSARS-CoV -2 RNA, clinical correlation wit h patient historyand othe r diagnostic info rmation is necessary to determinepatien t infection status. Positiv e results do not rule out bacterial infection or co -infection with other viru ses. Negative result s do not preclude SARS-C oV-2 infection andsh ould not be used as the checo e basis for patient managementdecis ions. Negative result s must be combined with otherclinical observations, p atient history, and epidemiological information . Detection of SARS-CoV-2 RNA may be affe cted bysample collec tion methods, storag e conditions, and /or stageof infection. Jade l RNA mutations, vacc inations, antiviraltherap eutics, antibiotics, chemotherapeuti c orimmunosuppres jie drugs have not been e valuated for effectson d etection. Results are for the identification of SARS-CoV-2 RNA usingthe Jennings M2000 Sy stem under the FDA Emergen cy UseAuthorizatio n. The testing is perf ormed by personneltraine d in the procedures for the Jennings M2000 molecular diagnostic SARS-CoV-2 assa y in vitro. PROTHROMBIN [id number] 13:47:00 Test Item Value Reference Range Interpretation Comments PROTHROMBIN TIME 12.3 secs 10.1-12.5 N PATIENT (test code = PTP) INTERNATIONAL NORMAL 1.08 <2.0 RECOMME NDED THERAPEUTIC RATIO (test code = RANGE FOR ORAL INR) ANTICOAGULANTTR EATMENT: CONDI TION INRProphylaxis of venous thrombos is in 2.0 - 3.0 high-risk medic al or surgical patientsTreatme nt of venous thrombos is 2.0 - 3.0Prevention o f embolism 2.0 - 3.0Prevention o f recurrent embol ism, or 3.0 - 4. 5 patients with mechanical pros thetic intravascular v han IS PATIENT ON ANTICOAGULANTS ? NHas Lab been notified if Patient is on Heparin Drip? NOIf Yes, orderCBC, OCCULT BLOOD, PT every other day NTHROMBOPLASTIN TIME [id number] 13:47:00 Test Item Value Reference Range Interpretation Comments PTT ACTIVATED (test code = APTT) 30.4 secs 24.9-37.0 N IS PATIENT ON ANTICOAGULANTS ? HIas Lab been notified if Patient is on Heparin Drip? NOIf Yes, orderCBC, OCCULT BLOOD, PT every other day NCBC W/AUTO DIFF 2020-04-14 13:47:00 Test Item Value Reference Range Interpretation Comments WHITE BLOOD CELL (test code = WBC) 7.5 K/mm3 5.7-10.5 N RED BLOOD CELL (test code = RBC) 4.82 M/mm3 4.2-5.4 N HEMOGLOBIN (test code = HGB) 14.2 g/dL 12-16 N HEMATOCRIT (test code = HCT) 43.3 % 37-47 N MEAN CELL VOLUME (test code = MCV) 90 fL 80-98 N MEAN CELL HGB (test code = MCH) 29.5 pg 27-34 N MEAN CELL HGB CONCENTRATION (test 32.8 g/dL 30.8-34.1 N code = MCHC) RED CELL DISTRIBUTION WIDTH (test 13.0 % 11-16 N code = RDW) PLT (test code = PLT) 264 K/mm3 130-400 N MEAN PLATELET VOLUME (test code = 9.7 fL 8.9-12.1 N MPV) NEUTROPHIL % (test code = NT%) 64.9 % 45-70 N LYMPHOCYTE % (test code = LY%) 19.0 % 20-40 L MONOCYTE % (test code = MO%) 9.4 % 3-10 N EOSINOPHIL % (test code = EO%) 5.6 % 1-5 H BASOPHIL % (test code = BA%) 0.8 % 0.0-1.1 N NEUTROPHIL # (test code = NT#) 4.86 K/mm3 2.00-7.50 N LYMPHOCYTE # (test code = LY#) 1.42 K/mm3 1.50-4.00 L MONOCYTE # (test code = MO#) 0.70 K/mm3 0.2-0.8 N EOSINOPHIL # (test code = EO#) 0.42 K/mm3 0.04-0.4 H BASOPHIL # (test code = BA#) 0.06 K/mm3 0.02-0.10 N MANUAL DIFF REQUIRED (test code = NO MANUAL DIFF MDIFF) NUCLEATED RED BLOOD CELL (test 0 % 0-0 N code = NRBC) COMPREHENSIVE METABOLIC [id number] 13:44:00 Test Item Value Reference Range Interpretation Comments SODIUM (test code = 141 mmol/L 136-145 N NA) POTASSIUM (test code = 4.6 mmol/L 3.5-5.1 N K) CHLORIDE (test code = 103.0 mmol/L 98-107 N CL) CARBON DIOXIDE (test 29.7 mmol/L 21-32 N code = CO2) GLUCOSE (test code = 96 mg/dL 70-110 N GLU) BLOOD UREA NITROGEN 19 mg/dL 7-18 H (test code = BUN) GLOMERULAR FILTRATION 77.4 >60 Unit o f measure: RATE (test code = GFR) mL/mi n/1.73 [id number] Range:Healthy Adults >90 mL/min/1.73 m2 For Chronic Kidney Disease: St age II Mild Decrease in GFR 60-90 St age III Moderate Decrease in GFR 30-59 Stage IV Severe Decre ase in GFR 15- 29 Stage V Kidney Failure <15 CREATININE (test code 0.96 mg/dL 0.55-1.30 N = CREAT) TOTAL PROTEIN (test 6.9 g/dL 6.4-8.2 N code = PROT) ALBUMIN (test code = 3.9 g/dL 3.4-5.0 N ALB) GLOBULIN (test code = 3.0 g/dL 2.2-4.2 N GLOB) ALBUMIN/GLOBULIN RATIO 1.3 0.7-2.0 N (test code = A/G) CALCIUM (test code = 8.7 mg/dL 8.2-10.1 N CA) BILIRUBIN TOTAL (test 0.60 mg/dL 0.2-1.00 N code = BILT) SGOT/AST (test code = 14.0 U/L 15-37 L AST) SGPT/ALT (test code = 27.0 U/L 12-78 N Please note new ALT) normal range. ALKALINE PHOSPHATASE 65 U/L 46-116 N TOTAL (test code = ALKP) Novel Coronavirus 2019 [id number] 01:11:00 Test Item Value Reference Range Interpretation Comments Novel Coronavirus 2019 Inhouse (test Negative Negative code = COVNONPUI) Novel Coronavirus 2019 [id number] 01:11:00 Test Item Value Reference Range Interpretation Comments Novel Coronavirus 2019 Inhouse (test Negative Negative code = COVNONPUI) BASIC METABOLIC [id number] 10:42:00 Test Item Value Reference Range Interpretation [...] RATE (test code = GFR) mL/mi n/1.73 [id number] Range:Healthy Adults >90 mL/min/1.73 m2 For Chronic Kidney Disease: St age II Mild Decrease in GFR 60-90 St age III Moderate Decrease in GFR 30-59 Stage IV Severe Decre ase in GFR 15- 29 Stage V Kidney Failure <15 CREATININE (test code 1.02 mg/dL 0.55-1.30 N = CREAT) CALCIUM (test code = 8.9 mg/dL 8.2-10.1 N CA) HGB [id number] 10:13:00 Test Item Value Reference Range Interpretation Comments HEMOGLOBIN (test code = HGB) 15.2 g/dL 12-16 N HEMATOCRIT (test code = HCT) 45.6 % 37-47 N - CT UP EXTREM W/CONT [id number] 15:26:00 Patient Name: BRANT VASQUEZ Unit No: [id number] EXAMS: CPT CODE: [id number] CT UP EXTREM W/[place] [address] RIGHT SHOULDER ARTHROGRAM AND LIDOCAINE INJECTION. DIAGNOSIS: [...] Pako Lima,RT(R) CTDI: DLP: Trnscrpt: 08/29/2019 (1526) [email or web address] [facility] NAME: BRANT VASQUEZ JR [address] [facility] PHYS: Jhonny Gutierrez : 1950 AGE: 69 SEX: M [place] [address] LOC: Y.RAD PHONE #: [phone] EXAM DATE: 08/29/2019 STATUS: REG CLI FAX #: [phone] RAD #: D/C DT PAGE 1 Signed Report Patient Name: BRANT VASQUEZ JR Unit No: [id number] EXAMS: CPT CODE: [id number] CT UP EXTREM W/[place] [address] <Continued> Orig Print D/T: S: 08/29/2019 (1529) [facility] NAME: BRANT VASQUEZ JR [address] [facility] PHYS: Jhonny Gutierrez : 1950 AGE: 69 SEX: M [place] [address] LOC: Y.RAD PHONE #: [phone] EXAM DATE: 08/29/2019 STATUS: REG CLI FAX #: [phone] RAD #: D/C DT PAGE 2 Signed Report- XR ARTHROGRAM SHLDR [id number] 15:26:00 Patient Name: BRANT VASQUEZ JR Unit No: [id number] EXAMS: CPT CODE: [id number] [place] [address] RIGHT SHOULDER ARTHROGRAM AND LIDOCAINE INJECTION. DIAGNOSIS: [...] Cat MD CC: Jhonny Yee MD Technologist: RT. Wilbert(R) Transcribed D/ (1526) t.SDR.JCL [facility] NAME: BRANT VASQUEZJR [address] [facility] PHYS: EDWTJhonny Aguilar : 1950 AGE: 69 SEX: M [place], [place] [address] LOC: Y.RAD PHONE #: [phone] EXAM DATE: 08/29/2019 STATUS: REG CLI FAX #: [phone] RAD #: D/C DT PAGE 1 Signed Report Patient Name: BRANT VASQUEZ JR Unit No: [id number] EXAMS: CPT CODE: [id number] [address] <Continued> Orig Print D/T: S: 08/29/2019 (3305) [facility] NAME: BRANT VASQUEZ JR [address] [facility] PHYS: Jhonny Gutierrez : 1950 AGE: 69 SEX: M [place], [place] [address] LOC: Y.RAD PHONE #: [phone] EXAM DATE: 08/29/2019 STATUS: REG CLI FAX #: [phone] RAD #: D/C DT PAGE 2 Signed Report- XR CHEST 2 V 2013-05-25 19:24:00 Patient Name: BRANT VASQUEZ JR Unit No: [id number] EXAMS: CPT CODE: [id number] XR CHEST 2 V [address] EXAM: Chest 2 views. Location code:J9 HISTORY: [...] [id number] Orig Print D/T: S: 05/25/2013 (1926) [facility] NAME: BRANT VASQUEZ JR [address] [facility] PHYS: Cholo Sena [place], [place] [address] : 1950 AGE: 63 SEX: M LOC: UNK PHONE #: EXAM DATE: 05/25/2013 STATUS: UNK FAX #: RADIOLOGY NO: PAGE 1 Signed Report
--- NOTE | 2020-04-23 19:50 | EDPHYS ---
Physician Documentation [facility] Name: Macario Henriquez Jr Age: 70 yrs Sex: Male : 1950 Arrival Date: 04/23/2020 Time: 17:27 Bed 20 Private MD: ED Physician Jhonatan Saldana HPI: 04/23 19:48 This 70 yrs old Male presents to ER via Ambulatory with complaints of jr8 Constipation, Problem With Urinary Catheter. 18:38 Onset: The symptoms/episode began/occurred gradually, today. Associated signs and jr8 symptoms: Pertinent positives: abdominal pain. Pt had total shoulder replacement yesterday and damian was placed to day for his discharge home. He reports that during damian placement staff had to "shove" damian in and since then there has been blood in his urine. He has not been able to pee all day and has abd pain. . Historical: - Allergies: 18:01 No Known Allergies; ca1 - PMHx: 18:01 Anemia; Arthritis; BPH; CAD; Depression; GERD; High Cholesterol; Hypertension; ca1 Hypothyroidism; leaky heart valve; Lupus; - PSHx: 18:01 Hernia repair; shoulder replacement L; ca1 - Immunization history:: Client reports receiving the 2nd dose of the Covid vaccine, Date received: March 31, 2020 Pneumococcal vaccine is up to date. - Social history:: Smoking status: Patient denies any tobacco usage or history of. ROS: 18:39 Cardiovascular: Negative for chest pain, palpitations, and edema, Respiratory: Negative jr8 for shortness of breath, cough, wheezing, and pleuritic chest pain, Skin: Negative for injury, rash, and discoloration, Neuro: Negative for headache, weakness, numbness, tingling, and seizure. 18:39 Abdomen/GI: Positive for abdominal distension. 18:39 : Positive for difficulty urinating, Damian. 18:39 MS/extremity: Positive for tenderness, of the right arm in sling from surgery. 19:48 All other systems are negative. jr8 Exam: 18:41 Head/Face: Normocephalic, atraumatic. Chest/axilla: Normal chest wall appearance and jr8 motion. Nontender with no deformity. No lesions are appreciated. Cardiovascular: Regular rate and rhythm with a normal S1 and S2. No gallops, murmurs, or rubs. Normal PMI, no JVD. No pulse deficits. Respiratory: Lungs have equal breath sounds bilaterally, clear to auscultation and percussion. No rales, rhonchi or wheezes noted. No increased work of breathing, no retractions or nasal flaring. Skin: Warm, dry with normal turgor. Normal color with no rashes, no lesions, and no evidence of cellulitis. Neuro: Awake and alert, GCS 15, oriented to person, place, time, and situation. Cranial nerves II-XII grossly intact. Motor strength 5/5 in all extremities. Sensory grossly intact. Cerebellar exam normal. Normal gait. 18:41 Abdomen/GI: Inspection: distension, that is severe, in the suprapubic area, right lower quadrant and left lower quadrant, Bowel sounds: normal, in all quadrants. 18:41 : CVA tenderness, is absent, Male external genitalia: Damian, Bladder: distension, that is severe, a damian is noted. Vital Signs: 17:53 BP 161 / 80; Pulse 84; Resp 16 S; Temp 99.7(TE); Pulse Ox 95% on R/A; Weight 81.65 kg ca1 (R); Height 5 ft. 8 in. (172.72 cm) (R); Pain 7/10; 17:53 Body Mass Index 27.37 (81.65 kg, 172.72 cm) ca1 MDM: 18:06 Patient medically screened. jr8 18:46 Data reviewed: vital signs, nurses notes. Data interpreted: pt escort: rate is 84 jr8 beats/min, Pulse oximetry: on room air is 95 %. Interpretation: acceptable. 19:48 Counseling: I had a detailed discussion with the patient and/or guardian regarding: the jr8 historical points, exam findings, and any diagnostic results supporting the discharge/admit diagnosis, the need for outpatient follow up, a urologist, to return to the emergency department if symptoms worsen or persist or if there are any questions or concerns that arise at home. 19:49 ED course: Patient unable to urinate on his own except for a minimal amount of blood. jr8 Damian was replaced. Patient and report urology appointment has been made for Monday to have damian removed. Pt educated on care of damian. . 03/18 18:20 Order name: Bladder Scanner; Complete Time: 18:46 jr8 04/23 19:42 Order name: Damian; Complete Time: 19:45 jr8 Administered Medications: 19:58 Drug: Lidocaine Gel 2 % 1 ea Volume: 15 ml; Route: Mucous Membrane; em Disposition: 04/24 19:31 Co-signature as Attending Physician, Jhonatan Saldana MD I agree with the assessment and 4 plan of care. Disposition: 04/23/20 19:49 Discharged to Home. Impression: Retention of urine. - Condition is Stable. - Medication Reconciliation Form, Thank You Letter, Antibiotic Education, Prescription Opioid Use form. - Follow up: Private Physician; When: 1 - 2 days; Reason: Recheck today's complaints, Continuance of care, Re-evaluation by your physician. - Problem is new. - Symptoms have improved. Signatures: Sanchez Land, RN RN em Kenn Colón PA PA jr8 Jhonatan Saldana MD MD [facility] Lauren Fortune RN RN ca1 Corrections: (The following items were deleted from the chart) 04/23 20:22 19:49 04/23/2020 19:49 Discharged to Home. Impression: Retention of urine. Condition is em Stable. Forms are Medication Reconciliation Form, Thank You Letter, Antibiotic Education, Prescription Opioid Use. Follow up: Private Physician; When: 1 - 2 days; Reason: Recheck today's complaints, Continuance of care, Re-evaluation by your physician. Problem is new. Symptoms have improved. jr8
--- NOTE | 2020-04-23 19:50 | ER ---
Nurse's Notes [facility] Name: Macario Henriquez Jr Age: 70 yrs Sex: Male : 1950 Arrival Date: 04/23/2020 Time: 17:27 Bed 20 Private MD: Diagnosis: Retention of urine Presentation: 04/23 17:53 Chief complaint: Patient states: R shoulder replacement done yesterday 04/22/2020. A ca1 Kulkarni catheter was inserted. Was discharged at 1400 today. Kulkarni is not draining, blood noted in the bag. Last urine out put was at the hospital through straight cath prior the Kulkarni. Reports constipation, but I am feeling the urge to BM right now and I might be able to do one. Coronavirus screen: Client denies travel out of the [place] in the last 14 days. At this time, the client does not indicate any symptoms associated with coronavirus-19. Ebola Screen: Patient negative for fever greater than or equal to 101.5 degrees Fahrenheit, and additional compatible Ebola Virus Disease symptoms Patient denies exposure to infectious person. Patient denies travel to an Ebola-affected area in the 21 days before illness onset. No symptoms or risks identified at this time. Initial Sepsis Screen: Does the patient meet any 2 criteria? No. Patient's initial sepsis screen is negative. Does the patient have a suspected source of infection? No. Patient's initial sepsis screen is negative. Risk Assessment: Do you want to hurt yourself or someone else? Patient reports no desire to harm self or others. Onset of symptoms was April 23, 2020. 17:53 Method Of Arrival: Ambulatory ca1 17:53 Acuity: ARELY 4 ca1 Historical: - Allergies: 18:01 No Known Allergies; ca1 - PMHx: 18:01 Anemia; Arthritis; BPH; CAD; Depression; GERD; High Cholesterol; Hypertension; ca1 Hypothyroidism; leaky heart valve; Lupus; - PSHx: 18:01 Hernia repair; shoulder replacement L; ca1 - Immunization history:: Client reports receiving the 2nd dose of the Covid vaccine, Date received: March 31, 2020 Pneumococcal vaccine is up to date. - Social history:: Smoking status: Patient denies any tobacco usage or history of. Screenin:15 Abuse screen: Denies threats or abuse. Nutritional screening: No deficits noted. em Tuberculosis screening: No symptoms or risk factors identified. Fall Risk None identified. Assessment: 18:32 Reassessment: VO to remove catheter then allow pt to go to bathroom for to have a BM jl7 and attempt to void. Upon deflating the catheter pt reported immediate relief, a small amount of urine noted to flow into the bag, readjusted catheter tubing bu slowly twisting and advancing the catheter approximately 3 cm and urine noted to start flowing freely. Pt ERP notified while catheter was draining and gave VO to allow the catheter to drain the bladder a while then remove the catheter and have pt attempt to finish draining the bladder. Catheter removed after filling the leg bag with approximately 500 cc. Pt instructed to attempt to void, verbalized understanding. 19:00 General: Appears in no apparent distress. uncomfortable, Behavior is calm, cooperative. em Pain: Complains of pain in suprapubic area Pain currently is 7 out of 10 on a pain scale. Neuro: Level of Consciousness is awake, alert, obeys commands, Oriented to person, place, time, situation. Cardiovascular: Capillary refill < 3 seconds Patient's skin is warm and dry. Respiratory: Airway is patent Respiratory effort is even, unlabored, Respiratory pattern is regular. GI: Abdomen is flat, Abd is soft X 4 quads. Derm: Skin is intact, is healthy with good turgor, Skin is pink, warm \T\ dry. Musculoskeletal: Capillary refill < 3 seconds, Range of motion: intact in all extremities. 19:00 : Reports inability to void. em Vital Signs: 17:53 BP 161 / 80; Pulse 84; Resp 16 S; Temp 99.7(TE); Pulse Ox 95% on R/A; Weight 81.65 kg ca1 (R); Height 5 ft. 8 in. (172.72 cm) (R); Pain 7/10; 17:53 Body Mass Index 27.37 (81.65 kg, 172.72 cm) ca1 ED Course: 17:27 Patient arrived in ED. ds1 17:58 Triage completed. ca1 18:01 Arm band placed on right wrist. ca1 18:06 Kenn Colón PA is PHCP. jr8 18:06 Jhonatan Saldana MD is Attending Physician. jr8 18:25 Agnieszka Agrawal RN is Primary Nurse. iw 19:15 Patient has correct armband on for positive identification. em 19:45 Kulkarni cath inserted, using sterile technique, 16 Fr., by pr, balloon inflated, to em gravity drainage, returned clear yellow urine. Patient tolerated well. 20:06 No provider procedures requiring assistance completed. Patient did not have IV access em during this emergency room visit. Administered Medications: 19:58 Drug: Lidocaine Gel 2 % 1 ea Volume: 15 ml; Route: Mucous Membrane; em Outcome: 19:49 Discharge ordered by MD. valladares 20:07 Discharged to home ambulatory, with family. em 20:07 Condition: stable 20:07 Discharge instructions given to patient, family, Instructed on discharge instructions, follow up and referral plans. Demonstrated understanding of instructions, follow-up care. 20:22 Patient left the ED. em Signatures: Sanchez Land, RN RN em Cami Campbell ds1 Agnieszka Agrawal RN RN iw Kenn Colón PA PA jr8 Ewelina Bloom RN RN jl7 Lauren Fortune RN RN ca1
[2020-04-23] MEDS ORDERED: LIDOCAINE VISCOUS 2% SOLN 15 ML UDC ONE (20:03)
[2020-04-23 20:28] VITALS: BP 161/80; TEMP 99.7; O2SAT 95
== END 2020-04-23 20:22 | disposition home or self-care (01) ==
LOC: ER 17:26
DX: R33.9 Retention of urine, unspecified (principal); Z96.612 Presence of left artificial shoulder joint; Z98.890 Other specified postprocedural states; I10 Essential (primary) hypertension
CPT/HCPCS: 51702; 99284

== ENCOUNTER 2021-05-22 20:23 | Inpatient (IN) | payer OTHER ==
--- OUTSIDE RECORDS SUMMARY | 2021-05-22 20:27 | XMS REPORT | Clinical Summary ---
:1950 Author Organization [facility] MD Gonzales [facility] Center Address [address] [place] [address] Care Team Providers Name Role Phone Maura Medeiros MD Unavailable MD Isabel Primary Care Provider Allergies No known active allergies Medications Medication Sig Dispensed Refills Start Date End Date Status aspirin 81 mg EC Take 81 mg by 0 Active tablet mouth. atorvastatin TAKE 1 TABLET 0 04/09/2021 Ac tive (LIPITOR) 20 mg BY MOUTH DAILY tablet IN EVENING WITH MEAL busPIRone (BUSPAR) TAKE 1 TABLET 0 02/17/2021 Active 10 mg tablet BY MOUTH TWICE A DAY carvedilol (COREG) TAKE 1 TABLET 0 04/07/2021 Active 12.5 mg tablet BY MOUTH THREE TIMES A DAY cetirizine Take 10 mg by 0 02/06/2009 Acti ve (ZyrTEC) 10 mg mouth. tablet esomeprazole TAKE 1 CAPSULE 0 05/09/2020 A ctive (NexIUM) 40 MG BY MOUTH EVERY capsule DAY ferrous sulfate Take 325 mg by 0 02/06/2014 Active (FeosoL) 325 mg mouth daily. (65 mg elemental iron per tablet) tablet levothyroxine TAKE 1 TABLET 0 04/09/2021 A ctive (SYNTHROID, BY MOUTH EVERY LEVOTHROID) 100 DAY mcg tablet losartan (COZAAR) TAKE 1 TABLET 0 02/16/2021 Active 50 mg tablet BY MOUTH EVERY DAY multivit-min/iron/ Take by mouth 0 02/06/1979 Active folic acid/K daily. (MULTI-DAY PLUS MINERALS ORAL) omeprazole 0 02/11/2019 Active (PriLOSEC) 40 MG capsule psyllium Take 0.52 g by 0 Activ e (METAMUCIL) 0.52 mouth daily. gram capsule sertraline TAKE 1 AND 1/2 0 04/08/2021 Act elvia (ZOLOFT) 50 mg TABLETS DAILY tablet BY MOUTH DIRECTED tamsulosin TAKE 1 CAPSULE 0 01/11/2021 Act elvia (FLOMAX) 0.4 mg 24 BY MOUTH TWICE hr capsule A DAY 90 amLODIPine-benazep 0 02/06/2009 Active ril (LotreL) 5-10 mg per capsule diazePAM (Valium) Take 1 tablet 1 tablet 0 04/28/2021 Active 5 mg (5 mg) by mouth tabletIndications: once as needed Elevated prostate for sedation specific antigen (bring to (PSA) biopsy and take when instructed by staff) for up to 1 dose. amLODIPine TAKE 1 TABLET 0 04/09/2021 04/14/19 Disc ontinued (NORVASC) 5 mg BY MOUTH EVERY 22 (Not Applicable) tablet DAY Active Problems Not on file Encounters Date Type Specialty Care Team Description 05/20/2021 Procedure visit Urology Ramya Hall MD Elevated prostate specific antige n (PSA) 05/20/2021 Travel 04/28/2021 Orders Only UrologOfelia Barrett, Elevated prostate PA specific antige n (PSA) (Primary Dx) 04/20/2021 Telephone Pain Medicine Norma Concepcion RN 04/15/2021 Orders Only UrologOfelia Barrett, Elevated prostate PA specific antige n (PSA) (Primary Dx) 04/13/2021 Office Visit UrologRamya Dior MD Elevated pr ostate specific antige n (PSA) (Primary Dx) 04/13/2021 NPR Patient Access Ramya Hall MD Services 04/13/2021 Travel 04/09/2021 Orders Only Ofelia Singleton, Elevated prostate PA specific antige n (PSA) (Primary Dx) after 05/22/2020 Surgical History Surgery Date Site/Laterality Comments COLONOSCOPY 02/07/2020 - 02/05/2021 BRAIN SURGERY 06/22/1999 aneurysm HERNIA REPAIR 3 times, more th an 10 years ago STOMACH SURGERY 03/09/2014 CHOLECYSTECTOMY 02/06/2013 - 02/05/2014 SHOULDER SURGERY 04/25/2020 Right UPPER GASTROINTESTINAL 03/09/2021 - ENDOSCOPY 04/05/2021 Medical History Medical History Date Comments Hypertension 02/06/1989 Hyperlipidemia 02/06/1989 Hearing loss 02/06/2014 Sinusitis 02/06/1969 Swallowing problem 02/06/1999 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 Gastric reflux 12/07/1970 Gastric ulcer 12/07/1970 Diverticulitis 12/07/1970 Irritable bowel syndrome 12/07/1970 Polyp of colon 02/06/2014 Sexual dysfunction 02/06/2014 Benign prostatic hyperplasia 02/06/1999 Anemia 02/06/2009 Lupus erythematosus 02/06/1989 remission Arthritis 02/06/1989 mild Disorder of thyroid gland 02/06/1989 Depressive disorder 02/07/1984 Anxiety 02/06/1970 Family History Medical History Relation Name Comments -Unknown cancer Other Maternal Cousin Leukemia Sister Flor Henriquez Relation Name Status Comments Other Maternal Cousin Other Sister Flor Henriquez Social History Tobacco Use Types Packs/Day Years Used Date Never Smoker 0 0 Smokeless Tobacco: Never Used Alcohol Use Standard Drinks/Week Comments Not Currently 0 (1 standard drink = 0.6 oz pure alcoho l) socially Alcohol Habits Answer Date Recorded How often do you have a drink containing alcohol? Not asked How many drinks containing alcohol do you have on a typical Not asked day when you are drinking? How often do you have six or more drinks on one occasion? No t asked Comment: socially 04/13/2021 Sex Assigned at Date Recorded Not on file Job Start Date Occupation Industry Not on file Not on file Not on file COVID-19 Exposure Response Date Recorded In the last month, have you been in contact with No / Unsure 05/20/2021 7:21 AM CDT someone who was confirmed or suspected to have Coronavirus / COVID-19? Obstetrics History Last Filed Vital Signs Vital Sign Reading Time Taken Comments Blood Pressure 133/83 05/20/2021 8:59 AM CDT Pulse 73 05/20/2021 8:59 AM CDT Temperature 36.9 C (98.4 F) 05/20/2021 8:59 AM CDT Respiratory Rate 18 05/20/2021 8:59 AM CDT Oxygen Saturation - - Inhaled Oxygen Concentration - - Weight 89.6 kg (197 lb 8.5 oz) 05/20/2021 7:46 AM CDT Height - - Body Mass Index - - Plan of Treatment Date Type Specialty Care Team Description 05/25/2021 Office Visit Urology Ramya Hall MD [address] [place], [place] [address] (Wo rk) Health Maintenance Due Date Last Done Comments COVID-19 Vaccination (1) 1955 Implants Implanted Type Area Jordan Man Device Shelf Model / Identifier Expiration Date Ser ial / Lot Linx Magnetic Implant-05/01/2017 Esophagus [employer] Implanted: Qty: 1 on 05/01/2017 by Servando Olmos MD Description: Magnetic Implant in the Are a of Gastroesphageal junction. DOCUSYS # [phone], Email: [email or web address] Note: The patient should not be exposed to an MRI environment greater than 1.5 Milagros (1.5T). Implanted by: Servando Olmos The following information has been taken from the patient's device implant card The patient should not be exposed to an MRI envrionment greater than 1.5 Milagros (1.5T). MRI scanners exceening 1.5 Milagros could cause serious injury to the patinet and/or interfere with the magnetic strength and the function of the device. Procedures Procedure Name Priority Date/Time Associated Comments Diagnosis PROSTATE SPECIFIC Routine 04/27/2021 10:03 Elevated prostate R esults for this ANTIGEN AM CDT specific antigen procedure a re in (PSA) the results section. CONFIRM ABORH TYPE Routine 04/13/2021 12:37 Resul ts for this PM CERTIFIED ART THERAPIST procedure are i n the results section. TMP HCVAB INTERP Routine 04/13/2021 12:27 Results for this PM CERTIFIED ART THERAPIST procedure are i n the results section. TMP INTERPRETATION Routine 04/13/2021 12:27 Resul ts for this ANTIBODY SCREEN NEGATIVE PM CERTIFIED ART THERAPIST pro cedure are in the results section. CLOT EXPIRATION DATE Routine 04/13/2021 12:27 Res ults for this PM CERTIFIED ART THERAPIST procedure are i n the results section. FRACTIONATED BILIRUBIN Routine 04/13/2021 12:27 Elevated prost ate Results for this PM CERTIFIED ART THERAPIST specific antigen procedure a re in (PSA) the results section. TOTAL PROTEIN Routine 04/13/2021 12:27 Elevated prostate Resul ts for this PM CERTIFIED ART THERAPIST specific antigen procedure a re in (PSA) the results section. ASPARTATE Routine 04/13/2021 12:27 Elevated prostate Result s for this AMINOTRANSFERASE PM CERTIFIED ART THERAPIST specific antigen procedu re are in (PSA) the results section. ALANINE AMINOTRANSFERASE Routine 04/13/2021 12:27 Elevated pro state Results for this PM CERTIFIED ART THERAPIST specific antigen procedure a re in (PSA) the results section. ANTIBODY SCREEN Routine 04/13/2021 12:27 Elevated prostate Res ults for this PM CERTIFIED ART THERAPIST specific antigen procedure a re in (PSA) the results section. ABORH Routine 04/13/2021 12:27 Elevated prostate Result s for this PM CERTIFIED ART THERAPIST specific antigen procedure a re in (PSA) the results section. ALKALINE PHOSPHATASE Routine 04/13/2021 12:27 Elevated prostat e Results for this PM CERTIFIED ART THERAPIST specific antigen procedure a re in (PSA) the results section. ALBUMIN LEVEL Routine 04/13/2021 12:27 Elevated prostate Resul ts for this PM CERTIFIED ART THERAPIST specific antigen procedure a re in (PSA) the results section. CALCIUM LEVEL TOTAL Routine 04/13/2021 12:27 Elevated prostate Results for this PM CERTIFIED ART THERAPIST specific antigen procedure a re in (PSA) the results section. .GLOMERULAR FILTRATION Routine 04/13/2021 12:27 Elevated prost ate Results for this RATE PM CERTIFIED ART THERAPIST specific antigen procedure a re in (PSA) the results section. SERUM CREATININE Routine 04/13/2021 12:27 Elevated prostate Re sults for this PM CERTIFIED ART THERAPIST specific antigen procedure a re in (PSA) the results section. ELECTROLYTE PANEL Routine 04/13/2021 12:27 Elevated prostate R esults for this PM CERTIFIED ART THERAPIST specific antigen procedure a re in (PSA) the results section. BLOOD UREA NITROGEN Routine 04/13/2021 12:27 Elevated prostate Results for this PM CERTIFIED ART THERAPIST specific antigen procedure a re in (PSA) the results section. GLUCOSE LEVEL Routine 04/13/2021 12:27 Elevated prostate Resul ts for this PM CERTIFIED ART THERAPIST specific antigen procedure a re in (PSA) the results section. HEPATITIS C VIRUS Routine 04/13/2021 12:27 Elevated prostate R esults for this ANTIBODY PM CERTIFIED ART THERAPIST specific antigen procedure a re in (PSA) the results section. TYPE AND SCREEN Routine 04/13/2021 12:27 Elevated prostate PM CERTIFIED ART THERAPIST specific antigen (PSA) COMPLETE BLOOD COUNT W/ Routine 04/13/2021 12:27 Elevated pros winter Results for this INDICES PM CERTIFIED ART THERAPIST specific antigen procedure a re in (PSA) the results section. COMPREHENSIVE METABOLIC Routine 04/13/2021 12:27 Elevated pros winter PANEL PM CERTIFIED ART THERAPIST specific antigen (PSA) HEMOGLOBIN A1C Routine 04/13/2021 12:27 Elevated prostate Resu lts for this PM CERTIFIED ART THERAPIST specific antigen procedure a re in (PSA) the results section. PROSTATE SPECIFIC Routine 04/13/2021 12:27 Elevated prostate R esults for this ANTIGEN PM CERTIFIED ART THERAPIST specific antigen procedure a re in (PSA) the results section. after 05/22/2020 Results (ABNORMAL) Prostate Specific Antigen (PSA) Screening (04/27/2021 10:03 AM CDT) Only the most recent of2 resultswithin the time period is included. PSA 7.6 (H) 0.0 - 4.0 [facility] Comment: ng/mL Results greater than 4519 ng /mL may not be reliable due to matrix effect with extended dilution as it exceeds the linux consultant's recommended limit. Caution should be exercised when interpreting such daniel ues and done in conjunction with clinical context. Testing performed at [facility], [address] [place] [address] PSA Indication Screening [facility] Specimen Blood Performing Organization Address City/[facility]/ZIP Code Phon e Number [address] Confirm ABORh (04/13/2021 12:37 PM CERTIFIED ART THERAPIST) Pathologist Sig [facility] ABORh Confirm. A POS [facility] ER Specimen Blood Performing Organization Address City/[facility]/ZIP Code Phon e Number [facility] Unless otherwise noted, [place] [address] [place] all lab tests performed by: Division of Pathology and Laboratory Medicine [address] [place] [address] .Serum Creatinine (04/13/2021 12:27 PM CERTIFIED ART THERAPIST) Pathologist Sig [facility] Creatinine 0.88Comment: Testing 0.67 - 1.17 mg/dL [facility] performed at [facility], [address] [place] [address] Specimen Blood Performing Organization Address City/[facility]/ZIP Code Phon e Number [address] TMP HCV Ab Path Interp (04/13/2021 12:27 PM CERTIFIED ART THERAPIST) HCV Ab Path There is NO serologic evidence of Hepatitis C vi rain antibody. [facility] Interp Comment: CENTER MASHA STEPHENS MD, PhD - [id number] Dictated by: MASHA STEPHENS MD, PhD - [id number] Dictated Date/Time: 04.16.19 6:20 AM CERTIFIED ART THERAPIST Transcribed Date/Time: 04.15.2021 6:20 AM CERTIFIED ART THERAPIST Electronically Signed By: JONNA STEPHENS MD, PhD - [id number] on 04.15.2021 6:20 AM C Specimen Blood Performing Organization Address City/State/ZIP Code Phon e Number [facility] [address] [place] [address] Clot Expiration Date (04/13/2021 12:27 PM CERTIFIED ART THERAPIST) Pathologist Sig rich T & S Expiration 04/16/2021 [facility] Specimen Blood Performing Organization Address City/State/ZIP Code Phon e Number [facility] Unless otherwise noted, [place] [address] CENTER all lab tests performed by: Division of Pathology and Laboratory Medicine [address] [place] [address] [place] Glomerular Filtration Rate (04/13/2021 12:27 PM CERTIFIED ART THERAPIST) Pathologist Sig rich eGFR-AA 100 >=60 [facility] Comment: mL/min/1.73 sq. Normal eGFR >= 60 mL/min/1.73 m2 m Note: The eGFR is calculated using the CKD-EPI equation. The eGFR declines with age. eGFR <60 mL/min/1.73 m2 is considered as "decreased". This equation should only be used for patients 18 and older. According to the National dney Foundation's Kidney Disease Outcome Quality Initiative (KDOQI) classification and 2012 Kidney Disease Improving Global Outcomes (KDIGO) Clinical Practice Guideline, the stage of CKD should be categorized based on estimated GFR. Stage Description GFR mL/min/1.73 m2 1 Normal or high GFR >=90 2 Mildly decreased GFR 60-89 3a Mildly to moderately decreased GFR 45-59 3b Moderately to severely decreased GFR 30-44 4 Severely decreased GFR 15-29 5 Kidney failure <15 Testing performed at [facility], [address] [place] [address] eGFR-JARED 86 >=60 [facility] Comment: mL/min/1.73 sq. Normal eGFR >= 60 mL/min/1.73 m2 Note: The eGFR is calculated using the CKD-EPI equation. The eGFR declines with age. eGFR <60 mL/min/1.73 m2 is considered as "decreased". This equation should only be used for patients 18 and older. According to the National [facility]'s Kidney Disease Outcome Quality Initiative (KDOQI) classification and 2012 Kidney Disease Improving Global Outcomes (KDIGO) Clinical Practice Guideline, the stage of CKD should be categorized based on estimated GFR. Stage Description GFR mL/min/1.73 m2 1 Normal or high GFR >=90 2 Mildly decreased GFR 60-89 3a Mildly to moderately decreased GFR 45-59 3b Moderately to severely decreased GFR 30-44 4 Severely decreased GFR 15-29 5 Kidney failure <15 Testing performed at [facility], [address] [place] [address] Specimen Blood Performing Organization Address City/State/ZIP Code Phon e Number [place] [id number] [address] [place] [address] Fractionated Bilirubin (04/13/2021 12:27 PM CERTIFIED ART THERAPIST) [facility] Bili Total 0.6 <=1.2 mg/dL [facility] Comment: Indocyanine Green (ICG) may cause falsely elevated bilirubin results. Total and direct bilirubin must not be measured from samples containing indocyanine green. False elevation of total whitley irubin can be seen in patients with IgG concentrations above 28 g/L. Testing performed at [facility], [address] [place] [address] Bili Direct <0.2 <=0.3 mg/dL [facility] Comment: Indocyanine Green (ICG) may cause falsely elevated bilirubin results. Total and direct bilirubin must not be measured from samples containing indocyanine green. Testing performed at [facility], [address] [place], [place] [id number] Bili Indirect See Note 0.0 - 0.9 [facility] Comment: mg/dL Unable to calculate Indirect Bilirubin result due to some parameters are outside reportable range Testing performed at [facility], [address] [facility], [place] [address] Specimen Blood Performing Organization Address City/State/ZIP Code Phon e Number [facility] [place] [address] [address] [facility] Hepatitis C Virus Antibody (04/13/2021 12:27 PM CERTIFIED ART THERAPIST) Pathologist [facility] HCVAb. Non Reactive Non Reactive [facility] Comment: CENTER Antibody detection in the im munocompromised and immunosuppressed population may be delayed or absent entirely. Therefore serial testing, correlation with other clinical findings, and supplemental testin g (if available) should be taken into consideration when interpreting the results. Performed at: [facility] [address] [place] [address] Specimen Blood Performing Organization Address [facility] Phon e Number [facility] [address] [place] [address] TMP Interpretation Antibody Screen Negative (04/13/2021 12:27 PM CERTIFIED ART THERAPIST) Pathologist [facility] TMP Auto Neg ABSC At the present time, patien t plasma shows no evidence of RBC alloantibodies. [facility] Interp Comment: CANCER CENTER MASHA STEPHENS MD, PhD - [id number] Dictated by: MASHA STEPHENS MD, PhD - [id number] Dictated Date/Time: 04.14.19 21:30 PM CERTIFIED ART THERAPIST Transcribed Date/Time: 04.13.2021 21:30 PM CERTIFIED ART THERAPIST Electronically Signed By: JONNA STEPHENS MD, PhD - [id number] on 04.13.2021 21:30 PM Specimen Blood Performing Organization Address City/State/ZIP Code Phon e Number [facility] Unless otherwise noted, [place] [address] CENTER all lab tests performed by: Division of Pathology and Laboratory Medicine [facility]5 [facility] (04/13/2021 12:27 PM CERTIFIED ART THERAPIST) Pathologist Matt villanueva ABORh. A POS [facility] Specimen Blood Performing Organization Address City/State/ZIP Code Phon e Number [facility] Unless otherwise noted, [place], [place] [id number] [place] [address] all lab tests performed by: Division of Pathology and Laboratory Medicine [address] (ABNORMAL) Complete Blood Count w/o Differential (04/13/2021 12:27 PM CERTIFIED ART THERAPIST) Pathologist Matt villanueva WBC 7.5Comment: All 4.0 - 11.0 K/uL [facility] [place] components of the CBC performed at [facility], [address] [place] [address] RBC 4.54Comment: As part 4.50 - 6.00 [facility] [place] of CBC testing M/uL performed at [facility], [address] [place] [address] Hgb 13.4 (L)Comment: As 14.0 - 18.0 [facility] [place] part of CBC or as an gm/dL individual orderable testing performed at [facility], [address] [place] [address] Hct 41.0Comment: As part 40.0 - 54.0 % [facility] [place] of CBC or as an individual orderable testing performed at [facility], [address] [place] [address] MCV 90Comment: As part 82 - 98 fL [facility] [place] of CBC testing performed at [facility], [address] [place] [address] MCH 29.5Comment: As part 27.0 - 31.0 pg [facility] [place] of CBC testing performed at [facility], [address] [place] [address] MCHC 32.7Comment: As part 31.0 - 36.0 [facility] [place] of CBC testing gm/dL performed at [facility], [address] [place] [address] RDW-SD 45.5Comment: As part 35.1 - 46.3 fL [facility] [place] of CBC testing performed at [facility], [address] [place], [place] [address] RDW-CV 14.2Comment: As part 12.0 - 15.5 % [facility] of CBC testing performed at [facility], [address] [place] [address] Platelet count 228Comment: As part 140 - 440 K/uL [facility] of CBC or as an individual orderable testing performed at [facility], [address] [place] [address] MPV 9.3Comment: As part 4.0 - 10.4 fL [facility] of CBC testing performed at [facility], [address] [place] [address] Specimen Blood Performing Organization Address City/[facility]/ZIP Code Phon e Number [address] Antibody Screen (04/13/2021 12:27 PM CERTIFIED ART THERAPIST) Pathologist Sig nature ABSC. Negative ABSC [facility] Specimen Blood Performing Organization Address City/[facility]/ZIP Code Phon e Number [facility] Unless otherwise noted, [address] all lab tests performed by: Division of Pathology and Laboratory Medicine [address] [place] BUN (04/13/2021 12:27 PM CERTIFIED ART THERAPIST) Pathologist Sig nature BUN 18Comment: Testing 6 - 23 mg/dL [facility] performed at [facility], [address] [place] [address] Specimen Blood Performing Organization Address City/[facility]/ZIP Code Phon e Number [address] ALT (04/13/2021 12:27 PM CERTIFIED ART THERAPIST) Pathologist Sig nature ALT 18Comment: Testing performed <=41 [facility], [address] [place] [address] Specimen Blood Performing Organization Address City/[facility]/ZIP Code Phon e Number [address] Aspartate Aminotransferase (04/13/2021 12:27 PM CERTIFIED ART THERAPIST) Pathologist Sig nature AST 18Comment: Testing performed <=40 U/L [facility] at [facility], [address] [place] [address] Specimen Blood Performing Organization Address City/[facility]/ZIP Code Phon e Number [place], [place] [id number] [place] [address] Total Protein (04/13/2021 12:27 PM CERTIFIED ART THERAPIST) Pathologist Sig [facility] Total Protein 6.9Comment: Testing 6.4 - 8.3 g/dL [facility] performed at [facility], [address] [place] [address] Specimen Blood Performing Organization Address City/[facility]/ZIP Code Phon e Number [address] Alkaline Phosphatase (04/13/2021 12:27 PM CERTIFIED ART THERAPIST) Pathologist Sig nature Alk Phos 72Comment: Testing 40 - 129 U/L [facility] performed at [facility], [address] [place] [address] Specimen Blood Performing Organization Address City/[facility] Phon e Number [facility] [place] [address] [place] [address] (ABNORMAL) Hemoglobin A1c (04/13/2021 12:27 PM CERTIFIED ART THERAPIST) Pathologist Sig [facility] A1C 5.7 (H) 4.3 - 5.6 % [facility] Comment: HbA1c values >=6.5% are diagnostic of diabetes mellitu s. Diagnosis should be confirmed by repeat testing. Therapeutic Action suggested: >8.0% HbA1c; Goal of therapy: <7.0% HbA1c Testing Performed at [facility], [address] [place] [address] Specimen Blood Performing Organization Address City/[facility]/ZIP Code Phon e Number [place] [id number] [address] [place] [address] Glucose Level (04/13/2021 12:27 PM CERTIFIED ART THERAPIST) Pathologist Sig nature Glucose Level 93 70 - 99 mg/dL [facility] Comment: Effective 09/02/15, the gluco se reference intervals have been updated based on [place] [employer] guidelines (Standards of Medical Care in Diabetes 2016. Diabetes Care 2016; 39: S13-S22). Fasting blood glucose: Normal: 70-99 mg/dL Impaired fasting glucose (in creased risk for diabetes or pre-diabetes): 100- 125 mg/dL Diabetes mellitus: >/=126 mg/dL Random blood glucose: Normal: 70-199 mg/dL Note: Random glucose >100 mg/dL is assoc iated with increased risk for diabetes Testing performed at [facility], [address] [place] [address] Specimen Blood Performing Organization Address City/[facility] Phon e Number [address] Calcium Level (04/13/2021 12:27 PM CERTIFIED ART THERAPIST) Pathologist Sig nature Calcium Lvl 9.1Comment: Testing 8.4 - 10.2 mg/dL [facility] [place] performed at [facility], [address] [place] [address] Specimen Blood Performing Organization Address City/[facility] Code Phon e Number [facility] [address] Albumin Level (04/13/2021 12:27 PM CERTIFIED ART THERAPIST) Pathologist Sig nature Albumin Lvl 4.3Comment: Testing 3.5 - 5.2 gm/dL [facility] [place] performed at [facility], [address] [place], [place] [id number] Specimen Blood Performing Organization Address City/[facility] Phon e Number [facility] [address] Electrolyte Panel (04/13/2021 12:27 PM CERTIFIED ART THERAPIST) Pathologist Sig nature Sodium Lvl 142Comment: Testing 136 - 145 mEq/L [facility] [place] performed at [facility], [address] [place] [address] Potassium Lvl 4.2Comment: Testing 3.5 - 5.1 mEq/L [facility] [place] performed at [facility], [address] [place] [address] Chloride 106Comment: Testing 98 - 107 mEq/L [facility] [place] performed at [facility], [address] [facility], [place] [address] CO2 26Comment: Testing 22 - 29 mEq/L [facility] [place] performed at [facility], [address] [place] [address] Anion Gap 10Comment: Testing 4 - 14 mEq/L [facility] [place] performed at 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
--- OUTSIDE RECORDS SUMMARY | 2021-05-22 20:28 | XMS REPORT | Continuity of Care Document ---
:1950 Author Organization [facility] t Address [address] [place] [address] Dr. Reyes [address] [place] [address] Care Team Providers Name Role Phone [phone] Primary Care Physician Unavailable SYSTEM, NOT IN Attending Clinician Unavailable Jairo Yee Attending Clinician Unavailable Ebrahim COMMUNICATIONS DEPARTMENT CHAIR Attending Clinician EBRAHIM Attending Clinician Unavailable Doctor Unassigned, Name Attending Clinician Unavailable Kenisha GILMORE Attending Clinician KENISHA Attending Clinician Unavailable Courtney Sweet Attending Clinician Courtney JONES Attending Clinician Unavailable Carlene GUERRERO, May Attending Clinician Bar Betts DO Attending Clinician Lab, Fam Pob I Attending Clinician Unavailable UNKNOWN Attending Clinician Unavailable Yesenia MUNOZ S Attending Clinician Karely TIM Attending Clinician Unavailable Crystal MONET Attending Clinician Unavailable Jairo Yee Admitting Clinician Unavailable MORALES Admitting Clinician Unavailable Physician, Primary or Family Admitting Clinician Unavailabl e Payers Payer Name Policy Type Policy Effective Date Expiration Date Sour ce Number AETNA MEDICAREAETNA [id number] 2021 MD [facility] MEDICARE 00:00:00 [id number] [place], [place] [address]Medicare Problems Condition Condition Condition Status Onset Resolution Last Treating Co mments Source Name Details Category Date Date Treatment Clinician Date No known No known Disease Unive rs active active ity of problems problems [facility] Allergies, Adverse Reactions, Alerts Allergy Allergy Status Severity Reaction(s) Onset Inactive Treating Comm ents Source Name Type Date Date Clinician No Known DA Active [facility] 3- Clear s 00:00: [place] 00 [facility] No Known DA Active [facility] Allergie 3 Clear s 00:00: [place] 00 [facility] No Known DA Active U [facility] Allergie 08-28 Clear s 00:00: [place] 00 [facility] No Known DA Active U [facility] Allergie 08-28 Clear s 00:00: [place] 00 [facility] NO KNOWN Drug Active Univers ALLERGIE Class ity of S [facility] Family History Family Member Diagnosis Comments Start Date Stop Date Source Other -Unknown cancer MD Hernandez on Natural sister Leukemia MD Lisa izaguirre Social History Social Habit Start Date Stop Date Quantity Comments Source Exposure to Not sure [facility]-CoV-2 [facility] (event) Branch History [facility] MD [facility] Alcohol Frequency History [facility] Alcohol Std Drinks History [facility] MD [facility] Alcohol Binge Tobacco use and 2021-04-13 2021-04-13 Smokeless tobacco MD [facility] exposure 00:00:00 00:00:00 non-user Alcohol intake 2021-04-13 2021-04-13 Ex-drinker MD Lisa izaguirre 00:00:00 00:00:00 (finding) History [facility] 2021-04-13 2021-04-13 socially MD [facility] Alcohol Comment 00:00:00 00:00:00 Sex [birth year] MD Hernandez on 00:00:00 00:00:00 Smoking Status Start Date Stop Date Source Never smoker [facility] Medications Ordered Filled Start Stop Current Ordering Indication Dosage Frequency Signature Comments Components Source Medication Medication Date Date Medication? Clinician (SIG) Name Name cefTRIAXone 2021- No [id number] 1000mg Univers (ROCEPHIN) 4-16 04-16 ity of 1,000 mg in 23:30: 22:27 [place] lidocaine 00 :00 Medical 1% (PF) Branch (XYLOCAINE) 2.857 mL PEDIATRIC Infusion ondansetron 2021- No [id number] 4mg U nivers (ZOFRAN-ODT 05-22 ity of ) 23:30: 22:26 [place] disintegrat 00 :00 Medical ing tablet Branch 4 mg ondansetron 2021- No [id number] 4mg 4 mg, Univers (ZOFRAN-ODT 05-22 Oral, ity of ) 23:30: 22:26 ONCE, 1 [place] disintegrat 00 :00 dose, On Medi cara ing tablet Sat Branch 4 mg 05/22/21 at 1830, Routine cefTRIAXone 2021- No [id number] 1000mg Intramuscu Univers (ROCEPHIN) 05-22 lar, ONCE, it y of 1,000 mg in 23:30: 22:27 1 dose, On [place] lidocaine 00 :00 [facility] Medical 1% (PF) 05/22/21 at Branch (XYLOCAINE) 1830, 2.857 mL 2.857 PEDIATRIC mL
Reas Infusion on for Anti-Infec tive: Documented Infection< br>Documen elsi Infection Site: Urine
D uration of Therapy: Other (see Comments) cefdinir 2021- Yes [id number] 600mg Take 2 U nivers 300 mg 05-22 capsules ity of capsule 00:00: 04:59 by mouth [place] 00 :00 daily for Medical 10 days. Branch ondansetron 2021- Yes [id number] 4mg Take 1 Univers 4 mg 05-22 tablet by ity of disintegrat 00:00: 04:59 [place] tablet 00 :00 every 8 Medica l (eight) Branch hours as needed for Nausea and Vomiting (N/V) for up to 5 days. cefdinir 2021- No [id number] 300mg Take 1 U nivers 300 mg 05-22 capsule by ity of capsule 00:00: 00:00 mouth [place] 00 :00 every 12 Medical (twelve) Branch hours for 10 days. aspirin 81 Yes 81mg Take 81 mg M D mg EC 4-14 by mouth. Anderso tablet 08:35: n 10 psyllium 2021-0 Yes .52g Take 0.52 MD (METAMUCIL) 4-14 g by mouth An derso 0.52 gram 08:35: daily. n capsule 10 diazePAM Yes Elevated 5mg Take 1 MD (Valium) 5 3-23 prostate tablet (5 Anderso mg tablet 00:00: specific mg) by n 00 antigen mouth once (PSA) as needed for sedation (bring to biopsy and take when instructed by staff) for up to 1 dose. diazePAM 5 Yes PLEASE SEE U nivers mg tablet 3-23 ATTACHED ity of 00:00: FOR [place] 00 DETAILED Medical DIRECTIONS Branch atorvastati Yes TAKE 1 MD n (LIPITOR) 3-04 TABLET BY And erso 20 mg 00:00: MOUTH n tablet 00 DAILY IN EVENING WITH MEAL levothyroxi Yes TAKE 1 MD ne 3-04 TABLET BY Lisa (SYNTHROID, 00:00: MOUTH n LEVOTHROID) 00 EVERY DAY 100 mcg tablet amLODIPine 0 2021- No TAKE 1 MD (NORVASC) 5 3-04 03-08 TABLET BY An derso mg tablet 00:00: 00:00 MOUTH n 00 :00 EVERY DAY sertraline Yes TAKE 1 AND M D (ZOLOFT) 50 3-03 1/2 Anderso mg tablet 00:00: TABLETS n 00 DAILY BY MOUTH DIRECTED clonazePAM Yes PLEASE SEE U nivers 0.25 mg 3-03 ATTACHED ity of disintegrat 00:00: FOR [place] ing tablet 00 DETAILED Medic al DIRECTIONS Branch SERTraline Yes TAKE 1 AND U nivers 50 mg 3-03 1/2 ity of tablet 00:00: TABLETS [place] 00 DAILY BY Medical MOUTH Branch DIRECTED carvedilol Yes TAKE 1 MD (COREG) 3-02 TABLET BY Anderso 12.5 mg 00:00: MOUTH n tablet 00 THREE TIMES A DAY azithromyci 2021-0 Yes TAKE 2 Univ ers n 250 mg 1-25 TABLETS BY ity o f tablet 00:00: MOUTH [place] 00 TODAY, Medical THEN TAKE Branch 1 TABLET DAILY FOR 4 DAYS predniSONE 2022-0 Yes TAKE 3 Unive rs 10 mg 1-25 TABLET ity of tablet 00:00: DAILY FOR 3 DAYS, Medical THEN 2 Branch TABLET DAILY FOR 3 DAYS, THEN 1 TABLET DAILY FOR 3 DAYS busPIRone Yes TAKE 1 MD (BUSPAR) 10 1-12 TABLET BY And erso mg tablet 00:00: MOUTH n 00 TWICE A DAY losartan Yes TAKE 1 MD (COZAAR) 50 1-11 TABLET BY And erso mg tablet 00:00: MOUTH n 00 EVERY DAY tamsulosin 2020-02 Yes TAKE 1 MD (FLOMAX) 2-06 CAPSULE BY Christian so 0.4 mg 24 00:00: MOUTH n hr capsule 00 TWICE A DAY 90 esomeprazol Yes TAKE 1 MD e (NexIUM) 4-03 CAPSULE BY And erso 40 MG 00:00: MOUTH n capsule 00 EVERY DAY psyllium 2020-0 Yes .52g Take 0.52 Univ ers 0.52 gram 2-21 g by ity of capsule 09:01: mouth. [address] psyllium 2020-0 Yes .52g Take 0.52 Univ ers 0.52 gram 2-21 g by ity of capsule 09:01: mouth. [address] Branch cetirizine 2020-0 Yes 10mg Take 10 mg U nivers 10 mg 2-21 by mouth. ity of tablet 09:01: [address] cetirizine 2020-0 Yes 10mg Take 10 mg U nivers 10 mg 2-21 by mouth. ity of tablet 09:01: [address] Branch aspirin 81 2020-0 Yes 81mg Take 81 mg U nivers mg EC 2-21 by mouth. ity of tablet 09:01: [address] Branch calcium 2020-0 Yes 1{tbl} Take 1 Univer s carbonate 2-21 tablet by ity o f 200 mg 09:01: mouth. [facility] [place] [facility] 06 Medical (500 mg) Branch chewable tablet aspirin 81 2020-0 Yes 81mg Take 81 mg U nivers mg EC 2-21 by mouth. ity of tablet 09:01: [address] calcium 2020-0 Yes 1{tbl} Take 1 Univer s carbonate 2-21 tablet by ity o f 200 mg 09:01: mouth. [place] [address] Medical (500 mg) Branch chewable tablet amLODIPine 2020-0 Yes Univers 5 mg tablet 2-15 ity of 00:00: [facility] amLODIPine 2019-0 Yes Univers 5 mg tablet 2-15 ity of 00:00: [address] Branch carvediloL 2019-0 Yes Univers 12.5 mg 2-14 ity of tablet 00:00: [address] carvediloL 2019-0 Yes Univers 12.5 mg 2-14 ity of tablet 00:00: [address] busPIRone 2019-0 Yes Univers 10 mg 1-29 ity of tablet 00:00: [address] busPIRone 0 Yes Univers 10 mg 1-29 ity of tablet 00:00: [address] ciprofloxac Yes Univer s in HCl 500 1-08 ity of mg tablet 00:00: [address] ciprofloxac Yes Univer s in HCl 500 1-08 ity of mg tablet 00:00: [address] hydrocortis 0 Yes Univer s one 2.5 % 1-06 ity of cream 00:00: [address] metroNIDAZO 0 Yes Univer s LE 500 mg 1-06 ity of tablet 00:00: [address] omeprazole 0 Yes Univers 40 mg 1-06 ity of capsule 00:00: [address] hydrocortis 0 Yes Univer s one 2.5 % 1-06 ity of cream 00:00: [address] metroNIDAZO 2019-0 Yes Univer s LE 500 mg 1-06 ity of tablet 00:00: [address] omeprazole 2019-0 Yes Univers 40 mg 1-06 ity of capsule 00:00: [address] omeprazole 0 Yes MD (PriLOSEC) 1-06 Anderso 40 MG 00:00: n capsule esomeprazol 2018-02 Yes 40mg Take 40 mg Univers e 40 mg 2-23 by mouth ity of capsule 00:00: daily. [address] esomeprazol 2018-02 Yes 40mg Take 40 mg Univers e 40 mg 2-23 by mouth ity of capsule 00:00: daily. [address] atorvastati 2017 Yes 20mg Take 20 mg Univers n 20 mg 1-25 by mouth. ity of tablet 00:00: [address] atorvastati 2016- Yes 20mg Take 20 mg Univers n 20 mg 1-25 by mouth. ity of tablet 00:00: [address] levothyroxi 2015-02 Yes 100ug Take 100 U nivers ne 100 mcg 2-21 mcg by ity of tablet 00:00: mouth. [address] levothyroxi 2015-02 Yes 100ug Take 100 U nivers ne 100 mcg 2-21 mcg by ity of tablet 00:00: mouth. [address] losartan 50 Yes 50mg Take 50 mg Univers mg tablet 08-06 by mouth. ity o f 00:00: [address] losartan 50 Yes 50mg Take 50 mg Univers mg tablet 08-06 by mouth. ity o f 00:00: [address] tamsulosin Yes .4mg Take 0.4 Uni vers 0.4 mg 24 6-24 mg by ity of hr capsule 00:00: mouth. [address] tamsulosin Yes .4mg Take 0.4 Uni vers 0.4 mg 24 6-24 mg by ity of hr capsule 00:00: mouth. [address] ferrous Yes 325mg Take 325 MD sulfate 1-01 mg by Anderso (FeosoL) 00:00: mouth n 325 mg (65 00 daily. mg elemental iron per tablet) tablet cetirizine Yes 10mg Take 10 mg M D (ZyrTEC) 10 02-06 by mouth. And erso mg tablet 00:00: n 00 amLODIPine- Yes benazepril 02-06 Anderso (LotreL) 00:00: n 5-10 mg per 00 capsule multivit-mi Yes Take by MD izaguirre/iron/foli 02-06 mouth Anderso c acid/K 00:00: daily. n (MULTI-DAY 00 PLUS MINERALS ORAL) Vital Signs Vital Name Observation Time Observation Value Comments Source Systolic blood 2021-05-22 22:03:00 131 mm[Hg] Univer sity of pressure [facility] Diastolic blood 2021-05-22 22:03:00 74 mm[Hg] Unive rsity of pressure [facility] Heart rate 2021-05-22 21:56:00 102 /min [facility] Body temperature 2021-05-22 21:56:00 38.28 Winifred [facility] Respiratory rate 2021-05-22 21:56:00 16 /min [facility] Body height 2021-05-22 21:56:00 171.5 cm [facility] Body weight 2021-05-22 21:56:00 89.858 kg [facility] BMI 2021-05-22 21:56:00 30.57 kg/m2 [facility] Oxygen saturation in 2021-05-22 21:56:00 97 /min [facility] Arterial blood by [facility] Pulse oximetry Branch Systolic blood 2021-05-20 13:59:02 133 mm[Hg] And ancelmo pressure Diastolic blood 2021-05-20 13:59:02 83 mm[Hg] MD Alissa torres pressure Heart rate 2021-05-20 13:59:02 73 /min MD Christian snell Body temperature 2021-05-20 13:59:02 36.89 Winifred MD Josh englishon Respiratory rate 2021-05-20 13:59:02 18 /min MD Josh patelrson Body weight 2021-05-20 12:46:40 89.6 kg MD Christian snell Procedures Procedure Date / Time Performing Clinician Source Performed POCT URINALYSIS 2021-05-22 22:05:00 [facility] o f [facility] CONSENT/REFUSAL FOR 2021-05-22 21:52:12 Doctor Unassigned, [facility] DIAGNOSIS AND TREATMENT [facility] PROSTATE SPECIFIC ANTIGEN 2021-04-27 15:03:00 Ofelia Jones MD CONFIRM ABORH TYPE 2021-04-13 18:37:00 Ofelia Jones MD And erson PROSTATE SPECIFIC ANTIGEN 2021-04-13 18:27:00 Ofelia Jones MD HEMOGLOBIN A1C 2021-04-13 18:27:00 Ofelia Jones MD David on COMPREHENSIVE METABOLIC 2021-04-13 18:27:00 Ofelia Jones PANEL COMPLETE BLOOD COUNT W/ 2021-04-13 18:27:00 Ofelia Jones INDICES TYPE AND SCREEN 2021-04-13 18:27:00 Ofelia Jones MD David on HEPATITIS C VIRUS ANTIBODY 2021-04-13 18:27:00 Ofelia Jones MD GLUCOSE LEVEL 2021-04-13 18:27:00 Ofelia Jones MD David on BLOOD UREA NITROGEN 2021-04-13 18:27:00 Ofelia Jones MD ELECTROLYTE PANEL 2021-04-13 18:27:00 Ofelia Jones MD Binu rson SERUM CREATININE 2021-04-13 18:27:00 Ofelia Jones MD Christian son .GLOMERULAR FILTRATION 2021-04-13 18:27:00 Ofelia Jones MD RATE CALCIUM LEVEL TOTAL 2021-04-13 18:27:00 Ofelia Jones MD ALBUMIN LEVEL 2021-04-13 18:27:00 Ofelia Jones MD David on ALKALINE PHOSPHATASE 2021-04-13 18:27:00 Ofelia Jones MDrson ABORH 2021-04-13 18:27:00 Ofelia Jones MD David on ANTIBODY SCREEN 2021-04-13 18:27:00 Ofelia Jones MD David on ALANINE AMINOTRANSFERASE 2021-04-13 18:27:00 Ofelia Jones MD ASPARTATE AMINOTRANSFERASE 2021-04-13 18:27:00 Ofelia Jones MD TOTAL PROTEIN 2021-04-13 18:27:00 Ofelia Jones MD David on FRACTIONATED BILIRUBIN 2021-04-13 18:27:00 Ofelia Jones MD CLOT EXPIRATION DATE 2021-04-13 18:27:00 Ofelia Jones MDrson TMP INTERPRETATION 2021-04-13 18:27:00 Ofelia Jones MD And erson ANTIBODY SCREEN NEGATIVE TMP HCVAB INTERP 2021-04-13 18:27:00 Ofelia Jones MD Christian son [id number] 2020-04-22 00:00:00 [facility] Plan of Care Planned Activity Planned Date Details Comments Source Future Scheduled Test 1955 00:00:00 COVID-19 Vaccination MD Palafox (1) [code = COVID-19 Vaccination (1)] Encounters Start End Encounter Admission Attending Care Care Encounter Source Date/Time Date/Time Type Type Clinicians Facility Department ID 2021-04-08 Outpatient KATHERINE FAUSTIN MDA [id number] 11:59:20 PROVIDER David izaguirre 2020-04-22 Inpatient ANA DuncanTO ADMI [id number] [facility] 11:58:00 Jhonny [id number] [facility] 2019-09-18 Inpatient ANA DuncanTO DAYS [id number] [facility] 09:00:00 Jhonny [id number] [facility] 2021-05-22 2021-05-22 Urgent Annie [facility] [id number] Univers 17:20:00 17:40:00 Care [facility] [id number] it y of [place] 4.2.7.2.686 [place] VIOLET?BLEA [phone] Al luis alberto[address] MEDICAL OFFICE BUILDING 2021-05-22 2021-05-22 Outpatient R [facility] [id number] Univers 17:20:00 17:20:00 [id number] ity [facility] 2021-05-22 2021-05-22 Outpatient R [facility] [id number] Univers 17:20:00 17:20:00 RANIA ity [facility] 2021-05-22 2021-05-22 Orders Doctor DMITRY [id number] Univers 00:00:00 00:00:00 Only Unassigned, CATHERINE [id number] ity of [place] [facility] 4.2.7.2.686 [place] [id number] [address] 2021-05-20 2021-05-20 Outpatient IVAN DE MDA MDA [id number] 07:21:41 09:25:39 YESENIA izaguirre 2021-04-27 2021-04-27 Outpatient IVAN JONES MDA MDA [id number] 10:03:09 10:13:46 OFELIA Schmid rso n 2021-04-13 2021-04-13 Outpatient IVAN JONES MDA MDA [id number] 12:27:24 12:38:42 OFELIA Schmid rso n 2021-04-13 2021-04-13 Outpatient IVAN DE MDA MDA [id number] 10:26:06 12:33:35 YESENIA gallardo n 2021-04-13 2021-04-13 Outpatient IVAN DE MDA MDA [id number] 10:24:05 10:24:12 YESENIA izaguirre 2020-04-17 2020-04-17 Outpatient ANA YeeTO RADI [id number] [facility] 14:30:00 14:30:00 Jhonny [id number] [facility] 2020-04-14 2020-04-14 Outpatient ANA YeeCL LABO [id number] [facility] 18:49:00 18:49:00 Jhonny [id number] [facility] 2020-04-14 2020-04-14 Outpatient ANA DuncanTO 3DAY [id number] [facility] 09:00:00 09:00:00 Jhonny [id number] [facility] 2020-04-13 2020-04-13 Patient Alpesh [facility] [id number] 00:00:00 00:00:00 Outreach [facility] [id number] [facility] 4.2.7.2.686 [place] [id number] 2019-11-03 2019-11-03 Laboratory Lab, Adc [facility] [id number] 17:07:43 17:27:43 Only Fam Pob I Health [id number] [place] 4.2.7.2.686 Alessandra [id number] nal [address] 2019-11-03 2019-11-03 Outpatient R [facility] [id number] Univers 17:00:00 17:00:00 [id number] [facility] 2019-11-03 2019-11-03 Outpatient Agueda MARYJANE [facility] [id number] Univers 17:00:00 17:00:00 ATTENDING clair [facility] 2019-09-11 2019-09-11 Outpatient ANA YeeCL LABO [id number] [facility] 12:44:00 12:44:00 Jhonny [facility] 2019-09-11 2019-09-11 Outpatient Joselito HCAT[facility] SURG [id number] [facility] 09:00:00 09:00:00 Jhonny [facility] 2019-08-29 2019-08-29 Outpatient ANA YeeTO RADI [id number] 09-25 [facility] 14:30:00 14:30:00 Jhonny [id number] [facility] 2019-07-17 2019-07-17 Orders Doctor DMITRY 1.2.840.114 [id number] 00:00:00 00:00:00 Only Unassigned, KENT [id number] [place] [facility] 4.2.7.2.686 [id number] 2019-06-25 2019-06-25 [facility] 1.2.840.114 [id number] 13:35:14 13:50:14 Visit [facility] [id number] Surgical 4.2.7.2.686 Specialti [id number] [place] 2019-06-25 2019-06-25 [facility] [id number] Univers 13:45:00 13:45:00 BASILIO [id number] [facility] 2019-06-25 2019-06-25 Outpatient Agueda TIM [facility] [id number] Univers 13:45:00 13:45:00 BASILIO [facility] 2019-03-29 2019-03-29 [facility] [id number] Univers 09:21:32 23:59:00 MANSOOR [facility] Results Test Description Test Time Test Comments Results Result Comments Source POCT URINALYSIS W SPECIFIC GRAVITY 2021-05-22 22:05:00 Test Item Value Reference Range Interpretation Comme nts POCT U SP GRAV (test code = 1.015 mg/dl 1.005-1.025 3255) POCT PH U (test code = 3254) 6 mg/dl 5-8 POCT U LEUK EST (test code = ++ Negative - Negative 3263) POCT U NIT (test code = 3262) pos Negative - Negative POCT U PROT (test code = 3259) trace Negative - Negative POCT U GLU (test code = 3256) norm Negative - Negative POCT U KETONE (test code = neg Negative - Negative 3258) POCT U UROBILI (test code = norm 0.2-1 3260) POCT U BILI (test code = 3261) neg Negative - Negative POCT U BLD (test code = 3257) Negative - Negative POCT U COLOR (test code = 3266) dark POCT U APPEAR (test code = cloudy 3267) ANTONY (test code = ANTONY) accurate development and interpretation of all internal controls Lab Interpretation (test code = Abnormal 80014-4) [facility] XR SHOULDER 1 V [id number] 15:45:00 [facility] : 1950 Sex: M Patient Name: BRANT VASQUEZ Unit No: [id number] EXAMS: CPT CODE: [id number] XR SHOULDER 1 [place] [address] IMAGES PROVIDED: Single AP view of the right shoulder FINDING S: Postoperative changes of right reverse total shoulder arthoplasty demonstrated without evidence of immediate complication. No acute fracture. Visualized lung is clear. IMPRESSION: Right reverse total shoulder arthoplasty without immediate complication. at 1545 Reported and signed by: Darius Sauer M.D. CC: Jhonny Yee MD Technologist: FANG HERBERT. RT(R) Transcribed D/ (1381) RosalieJ [facility] NAME: BRANT VASQUEZ JR [address] [facility] PHYS: Jhonny Gutierrez : 1950 AGE: 70 SEX: M [place], [place] [address] LOC: Y.505 A PHONE #: [phone] EXAM DATE: 04/22/2020 STATUS: DIS IN FAX#: [phone] RAD #: D/C DT 04/23/2020 PAGE 1Signed Report Patient Name: BRANT VASQUEZ JR Unit No: [id number] EXAMS: CPT CODE: [id number] XR SH OULDER 1 V RT 01537 <Continued> Orig Print D/T: S: 04/24/2020 (1725) [facility] NAME: BRANT VASQUEZ JR [address] [facility] PHYS: Jhonny Gutierrez : 1950 AGE: 70 SEX: M [place] [address] LOC: Y.505 A PHONE #: [phone] EXAM DATE: 04/22/2020 STATUS: DIS IN FAX #: [phone] RAD #: D/C DT 04/23/2020 PAGE 2 Signed ReportBASIC METABOLIC PANEL 2020-04-23 06:38:00 Test Item Value Reference Range Interpretation Comments SODIUM (test code = 142 mmol/L 136-145 N NA) POTASSIUM (test code = 3.9 mmol/L 3.5-5.1 N K) CHLORIDE (test code = 106.0 mmol/L 98-107 N CL) CARBON DIOXIDE (test 24.3 mmol/L 21-32 N code = CO2) GLUCOSE (test code = 119 mg/dL 70-110 H GLU) BLOOD UREA NITROGEN 18 mg/dL 7-18 N (test code = BUN) GLOMERULAR FILTRATION 76.5 >60 Unit o f measure: RATE (test code = GFR) mL/mi n/1.73 [id number] Range:Healthy Adults >90 mL/min/1.73 m2 For Chronic Kidney Disease: St age II Mild Decrease in GFR 60-90 St age III Moderate Decrease in GFR 30-59 Stage IV Severe Decre ase in GFR 15- 29 Stage V Kidney Failure <15 CREATININE (test code 0.97 mg/dL 0.55-1.30 N = CREAT) CALCIUM (test code = 7.8 mg/dL 8.2-10.1 L CA) CBC W/AUTO [id number] 05:58:00 Test Item Value Reference Range Interpretation [...] POD #1- CT UP EXTREM W/O CONT [id number] 22:17:00 [facility] : 1950 Sex: M Patient Name: BRANT VASQUEZ Unit No: [id number] EXAMS: CPT CODE: [id number] [place] EXTREM W/[place] [address] [place] SCAN RIGHT SHOULDER WITH RECONSTRUCTION DIAGNOSIS: [...] with ACR practice standards and adherence to gravity flow irrigator's recommendations. INDICATION: RIGHT SHOULDER PAIN COMPARISON: The current exam is compared to previous exam dated August 29, 2019 COMMENT: Findings are as described above. at 2217 Reported and signed by: Tommy Alvarez MD CC: Jhonny Yee MD Technologist: Pako Lima,RT(R) CTDI: DLP: Trnscrpt: 04/19/2020 (2217) t.SDR.GVG [facility] NAME: BRANT VASQUEZ JR [address] [facility] PHYS: Jhonny Gutierrez : 1950 AGE: 70 SEX: M [place], [place] [address] LOC: Y.RAD PHONE #: [phone] EXAMDATE: 04/17/2020 STATUS: DEP CLI FAX #: [phone] RAD #: D/C DT PAGE 1 Signed Report Patient Name:BRANT VASQUEZ JR Unit No: [id number] EXAMS: CPT CODE: [id number] CT UP EXTREM W/[place] [address]<Continued> Orig Print D/T: S: 04/19/2020 (2219) [facility] NAME: BRANT VASQUEZ [id number] [facility] PHYS: Jhonny Gutierrez : 1950 AGE: 70 SEX: M [place], [place] [address] LOC: Y.RAD PHONE #: [phone] EXAM DATE: 04/17/2020 STATUS: DEP [place] #: [phone] RAD #: D/C DT PAGE 2 Signed ReportNovel Coronavirus 2019 [id number] 05:38:00 Test Item Value Reference Range Interpretation [...] usingthe Jennings M2000 Sy stem under the [facility] Emergen cy UseAuthorizatio n. The testing is perf ormed by personneltraine d in the procedures for the Jennings M2000 molecular diagnostic SARS-CoV-2 assa y in vitro. Novel Coronavirus 2018 [id number] 05:38:00 Test Item Value Reference Range Interpretation [...] diagnostic SARS-CoV-2 assa y in vitro. PROTHROMBIN [id number] 13:47:00 Test Item Value Reference Range Interpretation [...] BLOOD, PT every other day NTHROMBOPLASTIN TIME [id number] 13:47:00 Test Item Value Reference Range Interpretation Comments PTT ACTIVATED (test code = APTT) 30.4 secs 24.9-37.0 N IS PATIENT ON ANTICOAGULANTS ? NHas Lab [...] 0-0 N code = NRBC) COMPREHENSIVE METABOLIC [id number] 13:44:00 Test Item Value Reference Range Interpretation [...] RATE (test code = GFR) mL/mi n/1.73 q2Gkjmdsohe Range:Healthy Adults >90 mL/min/1.73 m2 For Chronic [...] (test code = ALKP) Novel Coronavirus 2019 [id number] 01:11:00 Test Item Value Reference Range Interpretation Comments Novel Coronavirus 2019 Inhouse (test Negative Negative code = COVNONPUI) Novel Coronavirus 2019 [id number] 01:11:00 Test Item Value Reference Range Interpretation Comments Novel Coronavirus 2019 Inhouse (test Negative Negative code = COVNONPUI) BASIC METABOLIC [id number] 10:42:00 Test Item Value Reference Range Interpretation [...] RATE (test code = GFR) mL/mi n/1.73 [id number] Range:Healthy Adults >90 mL/min/1.73 m2 For Chronic Kidney Disease: St age II Mild Decrease in GFR 60-90 St age III Moderate Decrease in GFR 30-59 Stage IV Severe Decre ase in GFR 15- 29 Stage V Kidney Failure <15 CREATININE (test code 1.02 mg/dL 0.55-1.30 N = CREAT) CALCIUM (test code = 8.9 mg/dL 8.2-10.1 N CA) HGB [id number] 10:13:00 Test Item Value Reference Range Interpretation Comments HEMOGLOBIN (test code = HGB) 15.2 g/dL 12-16 N HEMATOCRIT (test code = HCT) 45.6 % 37-47 N - CT UP EXTREM W/CONT [id number] 15:26:00 Patient Name: BRANT VASQUEZ Unit No: [id number] EXAMS: CPT CODE: [id number] CT UP EXTREM W/[place] [id number] RIGHT SHOULDER ARTHROGRAM AND LIDOCAINE INJECTION. DIAGNOSIS: [...] Lima,RT(R) CTDI: DLP: Trnscrpt: 08/29/2019 (1526) [email or web address] [facility] NAME: BRANT VASQUEZ JR [address] [facility] PHYS: Jhonny Gutierrez : 1950 AGE: 69 SEX: M [place] [address] LOC: Y.RAD PHONE #: [phone] EXAM DATE: 08/29/2019 STATUS: REG CLI FAX #: [phone] RAD #: D/C DT PAGE 1 Signed Report Patient Name: BRANT VASQUEZ JR Unit No: [id number] EXAMS: CPT CODE: [id number] CT UP EXTREM W/[place] [id number] <Continued> Orig Print D/T: S: 08/29/2019 (1529) Te [facility] NAME: BRANT VASQUEZ JR [address] [facility] PHYS: Jhonny Gutierrez : 1950 AGE: 69 SEX: M [place] [address] LOC: Y.RAD PHONE #: [phone] EXAM DATE: 08/29/2019 STATUS: REG CLI FAX #: [phone] RAD #: D/C DT PAGE 2 Signed Report- XR ARTHROGRAM LDR [id number] 15:26:00 Patient Name: BRANT VASQUEZ Unit No: [id number] EXAMS: CPT CODE: [id number] [place] [address] RIGHT SHOULDER ARTHROGRAM AND LIDOCAINE INJECTION. DIAGNOSIS: [...] MD Technologist: Sherrie Sheppard RT.(R) Transcribed D/ (1526) t.DORIAN.JCL [facility] NAME: BRANT VASQUEZJR [address] [facility] PHYS: EDWTH - Jhonny Yee : 1950 AGE: 69 SEX: M [place], [place] [address] LOC: Y.RAD PHONE #: [phone] EXAM DATE: 08/29/2019 STATUS: REG CLI FAX #: [phone] RAD #: D/C DT PAGE 1 Signed Report Patient Name: BRANT VASQUEZ JR Unit No: [id number] EXAMS: CPT CODE: [id number] [place] [id number] <Continued> Orig Print D/T: S: 08/29/2019 (1529) [facility] NAME: BRANT VASQUEZ JR [address] [facility] PHYS: EDWTJhonny Aguilar : 1950 AGE: 69 SEX: M [place], [place] [address] LOC: Y.RAD PHONE #: [phone] EXAM DATE: 08/29/2019 STATUS: REG CLI FAX #: [phone] RAD #: D/C DT PAGE 2 Signed Report- XR CHEST 2 V 2013-05-25 19:24:00 Patient Name: BRANT VASQUEZ JR Unit No: [id number] EXAMS: CPT CODE: [id number] XR CHEST 2 V 78346 EXAM: Chest 2 views. Location code:J9 HISTORY: [...] Mendez M.D. CC: Dr. Cholo Cage Technologist: Manuel Maldonado, RT(R)(CT) Transcrpt Date/Tm/Trnsp: 05/25/2013 (1923) [id number] Orig Print D/T: S: 05/25/2013 (1926) [facility] NAME: BRANT VASQUEZ JR [address] [facility] PHYS: Cholo Sena [place], [place] [address] : 1950 AGE: 63 SEX: M LOC: UNK PHONE #: EXAM DATE: 05/25/2013 STATUS: UNK FAX #: RADIOLOGY NO: PAGE 1 Signed Report
[2021-05-22 21:49] LABS: Absolute Lymphocytes (CBC) 0.5 K/uL (0.7-4.9); Hematocrit 40.3 % (39.6-49.0); Lymphocytes % 3.4 % (15.3-44.8); MPV 7.5 fL (7.6-11.3)
[2021-05-22 21:52] LABS: Urine Blood 3+ (Negative); Urine Glucose Negative (Negative); Urine Protein Trace (Negative); Urine Specific Gravity 1.025 (1.005-1.030)
[2021-05-22 22:03] LABS: Urine Bacteria <20 /HPF (NONE SEEN); Urine RBC 20-50 /HPF (NONE SEEN)
[2021-05-22 22:11] LABS: Albumin 3.6 g/dL (3.4-5.0); Bilirubin Total 0.9 mg/dL (0.2-1.0); Potassium 3.5 mmol/L (3.5-5.1); Protein, Total 7.1 g/dL (6.4-8.2)
[2021-05-22] MEDS ORDERED: CEFTRIAXONE 1000 MG/VIAL ONE (22:12)
[2021-05-22] MEDS ORDERED: NA CHLORIDE 0.9% 100 ML IV ONE (22:12)
[2021-05-22] MEDS ORDERED: IBUPROFEN 400 MG TAB ONE (22:12)
[2021-05-22 22:28] LABS: SARS-COV-2 RT PCR NEGATIVE (NEGATIVE)
[2021-05-23] MEDS ORDERED: NA CHLORIDE 0.9% 500 ML ONE (01:01)
[2021-05-23] MEDS ORDERED: NA CHLORIDE 0.9% 1,000 ML ONE ×3 (01:01→19:39)
--- NOTE | 2021-05-23 01:05 | EDPHYS ---
Physician Documentation [facility] Name: Macario Henriquez Jr Age: 71 yrs Sex: Male : 1950 Arrival Date: 05/22/2021 Time: 20:27 Bed 18 Private MD: JORDYN Physician Figueroa Lee HPI: 05/22 21:45 This 71 yrs old Male presents to ER via Wheelchair with complaints of Fever. rn 21:45 The patient reports fever, that was measured at 102 degrees Fahrenheit. Onset: The rn symptoms/episode began/occurred today. Modifying factors: there are no obvious modifying factors. Associated signs and symptoms: Pertinent positives: chills, Pertinent negatives: chest pain, cough, diarrhea, headache, hemoptysis, skin rash, shortness of breath, sore throat. Severity of symptoms: At their worst the symptoms were moderate in the emergency department the symptoms have improved. The patient has not experienced similar symptoms in the past. The patient has been recently seen by a physician:. Pt reports fever to 102 today, just had prostate biopsy 3 days ago at [facility]. Denies any respiratory or GI symptoms. Reports chills and fatigue. Was at a baseball game and began to feel bad. No SOB. . Historical: - Home Meds: 21:55 amlodipine 5 mg tab 1 tab nightly [Active]; aspirin 81 mg Oral TbEC 1 tab once daily susy [Active]; atorvastatin 20 mg Oral tab 1 tab nightly [Active]; buspirone 10 mg Oral tab 1 tab 2 times per day [Active]; carvedilol 12.5 mg Oral tab 1 tab three times a day [Active]; cetirizine 10 mg Oral tab 1 tab nightly [Active]; ferrous sulfate 325 mg (65 mg iron) Oral tab 2 times a week [Active]; FiberCon 625 mg Oral tab daily [Active]; tamsulosin 0.4 mg Oral cp24 1 cap nightly [Active]; Prilosec 20 mg Oral cpDR 1 cap nightly [Active]; Nexium 40 mg Oral cpDR 1 cap 2 times per day [Active]; multivitamin Oral tab daily [Active]; losartan 50 mg Oral tab 1 tab once daily [Active]; levothyroxine 100 mcg tab 1 tab once daily [Active]; - PMHx: 21:55 Anemia; Arthritis; BPH; CAD; Depression; GERD; High Cholesterol; Hypertension; susy Hypothyroidism; leaky heart valve; Lupus; - Immunization history:: Flu vaccine is not up to date. - Social history:: Smoking status: Patient denies any tobacco usage or history of. - Family history:: not pertinent. - Hospitalizations: : No recent hospitalization is reported. ROS: 21:45 Constitutional: + fever and chills Eyes: Negative for injury, pain, redness, and harnessmaker, ENT: Negative for injury, pain, and discharge, Neck: Negative for injury, pain, and swelling, Cardiovascular: Negative for chest pain, palpitations, and edema, Respiratory: Negative for shortness of breath, cough, wheezing, and pleuritic chest pain, Abdomen/GI: Negative for abdominal pain, nausea, vomiting, diarrhea, and constipation, Back: Negative for injury and pain, : + mild dysuria MS/Extremity: Negative for injury and deformity, Skin: Negative for injury, rash, and discoloration, Neuro: + generalized weakness Exam: 21:45 Constitutional: This is a well developed, well nourished patient who is awake, alert, rn and in no acute distress. Head/Face: Normocephalic, atraumatic. Eyes: Periorbital areas with no swelling, redness, or edema. ENT: dry MM Cardiovascular: tachycardic, regular Respiratory: mild tachypnea, no retractions Abdomen/GI: soft, mild suprapubic tenderness, no rebound Skin: Warm, dry MS/ Extremity: Pulses equal, no cyanosis. Neuro: Awake and alert, GCS 15 Vital Signs: 20:35 BP 140 / 70; Pulse 127; Resp 20; Temp 100.7; Pulse Ox 95% on R/A; Weight 86.18 kg; tw5 Height 5 ft. 7 in. (170.18 cm); Pain 3/10; 21:53 BP 123 / 64; Pulse 105; Resp 24; Temp 99.5; Pulse Ox 95% on R/A; Pain 0/10; susy 23:29 BP 114 / 66; Pulse 90; Resp 22; Pulse Ox 95% on R/A; ll3 04/17 00:51 BP 104 / 49; Pulse 86; Resp 20; Temp 98.2(O); Pulse Ox 96% on R/A; ll3 06:37 BP 114 / 66; rn 06:37 Pulse 94; Resp 22; rn 07:00 BP 96 / 53; Pulse 92; Resp 18; Pulse Ox 95% on 4 lpm NC; redding 08:00 BP 100 / 81; Pulse 99; Resp 19; Pulse Ox 96% on 4 lpm NC; redding 09:00 BP 115 / 68; Pulse 99; Resp 19; Pulse Ox 96% ; redding 10:00 BP 109 / 50; Pulse 98; Resp 19; Pulse Ox 94% on 4 lpm NC; redding 11:00 BP 109 / 60; Pulse 94; Resp 19; Pulse Ox 93% on 4 lpm NC; redding 12:00 BP 106 / 54; Pulse 88; Resp 18; Pulse Ox 95% on 4 lpm NC; redding 13:00 BP 119 / 51; Pulse 76; Resp 19; Pulse Ox 97% on 4 lpm NC; redding 14:00 BP 118 / 48; Pulse 83; Resp 18; Pulse Ox 97% on 4 lpm NC; redding 15:00 BP 122 / 52; Pulse 86; Resp 18; Pulse Ox 97% on 4 lpm NC; redding 16:00 BP 111 / 55; Pulse 84; Resp 18; Pulse Ox 97% on 4 lpm NC; redding 17:00 BP 118 / 64; Pulse 84; Resp 18; Pulse Ox 95% on 4 lpm NC; redding 18:00 BP 107 / 48; Pulse 79; Resp 18; Pulse Ox 94% on 4 lpm NC; redding 05/22 20:35 Body Mass Index 29.76 (86.18 kg, 170.18 cm) tw5 MDM: 05/22 20:37 Patient medically screened. rn 05/23 01:01 Differential diagnosis: bacterial infection, UTI. Data reviewed: vital signs, nurses rn notes, lab test result(s), radiologic studies, CT scan, and as a result, I will admit patient. Counseling: I had a detailed discussion with the patient and/or guardian regarding: the historical points, exam findings, and any diagnostic results supporting the discharge/admit diagnosis, lab results, radiology results, the need for further work-up and treatment in the hospital. Response to treatment: the patient's symptoms have markedly improved after treatment, and as a result, I will admit patient. Admission orders: after a detailed discussion of the patient's condition and case, the admit orders are written by me. ED course: . ED course: Pt with cystitis, possible prostatitis, feels much better, abx ordered, pt not an [facility] patient, just sent there for biopsy, does not want to be transferred there for abx, will admit here to Dr. Medeiros.. 04:49 ED course: Pt became acutely diaphoretic, nauseated, and tachypneic, oxygen dropped, rn reevaluated, denies chest pain but there is an obvious change in clinical status that now involves the respiratory system that was not involved before. Nurse states has not even completed the 30cc/kg bolus, fluids stopped. Pt denies CHF or pulmonary disease. States happened suddenly and woke him up.. 04:51 ED course: biometrics technician called for xray, placed on oxygen. rn 04:55 ED course: No new rash or itching. rn 05:51 ED course: Repeat CXR now shows unilateral left sided prominence/interstitial rn infiltrate, will obtain ct given unilateral findings and acute changes.. 05:54 ED course: 400 cc urine output after damian placement. rn 06:11 ED course: Pt had received IV contrast earlier, unable to obtain CT chest with rn contrast, CT chest without contrast ordered.. 06:24 ED course: We have been able to transition patient from nonrebreather to NC, 5L. Pt rn states feels better. Back from CT. . 04 20:39 Order name: Blood Culture Adult (2); Complete Time: 23:48 rn 05/22 20:39 Order name: CBC with Diff; Complete Time: 22:41 rn 05/22 20:39 Order name: CMP; Complete Time: 22:41 rn 05/22 20:39 Order name: Lactate; Complete Time: 22:41 rn 05/22 20:39 Order name: Protime (+inr); Complete Time: 04:49 rn 05/22 20:39 Order name: Ptt, Activated; Complete Time: 04:49 rn 05/22 20:39 Order name: Urine Culture rn 05/22 20:39 Order name: Urine Microscopic Only; Complete Time: 22:41 rn 05/22 20:39 Order name: Procalcitonin; Complete Time: 22:41 rn 05/22 20:39 Order name: COVID-19/FLU A+B (Document "Date of Onset" if Symptomatic); Complete Time: rn 22:41 05/22 21:52 Order name: Urine Dipstick-Ancillary; Complete Time: 22:41 EDMS 05/22 22:40 Order name: Glucose, Ancillary Testing; Complete Time: 22:41 EDMS 05/24 04:06 Order name: CBC with Automated Diff EDMS 05/24 04:12 Order name: Basic Metabolic Panel EDMS 05/22 20:39 Order name: Chest Single View XRAY rn 05/22 20:39 Order name: Accucheck; Complete Time: 22:42 rn 05/22 20:39 Order name: CT Abd/Pelvis - IV Contrast Only rn 05/23 05:03 Order name: XRAY Chest (1 view) rn 05/23 05:32 Order name: CT Chest For PE Angio rn 05/23 09:35 Order name: CT; Complete Time: 20:18 EDMS 05/24 05:12 Order name: Manual Differential EDMS 05/24 10:28 Order name: RAD EDMS 05/22 20:39 Order name: Cardiac monitoring; Complete Time: 21:51 rn 05/22 20:39 Order name: EKG - Nurse/Tech; Complete Time: 22:42 rn 05/22 20:39 Order name: IV Saline Lock - Large Bore; Complete Time: 21:52 rn 05/22 20:39 Order name: Labs collected and sent; Complete Time: 21:52 rn 05/22 20:39 Order name: O2 Per Protocol; Complete Time: 21:52 rn 05/22 20:39 Order name: O2 Sat Monitoring; Complete Time: 21:52 rn 05/22 20:39 Order name: Urine Dipstick-Ancillary (obtain specimen); Complete Time: 21:52 rn 05/23 05:40 Order name: Damian; Complete Time: 05:57 rn Administered Medications: 05/22 22:14 Drug: Motrin (ibuprofen) 800 mg Route: PO; susy 05/23 01:18 Follow up: Response: No adverse reaction 3 05/22 23:28 Drug: NS 0.9% (30 ml/kg) 30 ml/kg Route: IV; Rate: bolus; Site: left antecubital; 3 23:28 Drug: Rocephin (cefTRIAXone) 1 grams Route: IV; Rate: calculated rate; Site: left ll3 antecubital; 05/23 01:19 Follow up: Response: No adverse reaction; IV Status: Completed infusion; IV Intake: ll3 100ml 01:00 Drug: NS 0.9% (30 ml/kg) 30 ml/kg Route: IV; Rate: bolus; Site: left antecubital; ll3 05:02 CANCELLED (Duplicate Order): Phenergan (promethazine) 6.25 mg IVP once rn 05:07 Not Given (Physicia canceledd): Phenergan (promethazine) 12.5 mg IVP once ll3 06:00 Drug: Lasix (furosemide) 20 mg Route: IVP; Site: left antecubital; ll3 09:51 Follow up: Response: No adverse reaction redding 06:33 Drug: LevaQUIN (levofloxacin) 750 mg Volume: 150 ml; Route: IVPB; Infused Over: 90 ll3 mins; Site: left antecubital; 09:51 Follow up: IV Status: Completed infusion redding 07:20 Drug: ProTONIX (pantoprazole) 40 mg Route: IVP; Site: left forearm; ll3 09:51 Follow up: Response: No adverse reaction redding Disposition Summary: 05/23/21 01:04 Hospitalization Ordered Hospitalization Status: Inpatient Admission rn Provider: Josh Medeiros rn Condition: Stable rn Problem: new rn Symptoms: have improved rn Bed/Room Type: Standard [facility] bd Room Assignment: 404(05/24/21 12:52) bd Diagnosis - Fever, unspecified rn - UTI/ Urinary tract infection, site not specified rn - Severe sepsis without septic shock rn Forms: - Medication Reconciliation Form rn - SBAR form quality intern time excluding procedures: 05:54 Critical care time: Bedside Care: 35 minutes, Consultation: 5 minutes, Family rn Intervention: 5 minutes. Total time: 45 minutes Signatures: Dispatcher [employer] Cherise Tellez Roman, MD MD rn Attema, Lee, PNEUMATIC TUBE OPERATOR-C PNEUMATIC TUBE OPERATOR-Cla1 Rosemarie Lopes, RN Helen Vargas tw5 Shayla Villagran RN YOLANDA ll3 Ese Ridley RN Blanca Bhatti RN Corrections: (The following items were deleted from the chart) 02:03 01:04 Telemetry/MedSurg (Inpatient) rn cg 02:03 01:04 rn cg 05:02 05:02 Phenergan (promethazine) 6.25 mg IVP once ordered. rn rn 05:04 02:03 [facility] ER HOLD cg rn 05:04 02:03 ERHOLD- cg rn 20:48 05:04 Intensive Care Unit rn cg 20:48 05:04 rn cg 05/24 12:52 05/23 20:48 [facility] ER HOLD cg bd 05/24 12:52 05/23 20:48 ERHOLD- cg bd
--- NOTE | 2021-05-23 01:05 | ER ---
Nurse's Notes [facility] Name: Macario Henriquez Jr Age: 71 yrs Sex: Male : 1950 Arrival Date: 05/22/2021 Time: 20:27 Bed 18 Private MD: Diagnosis: Fever, unspecified;UTI/ Urinary tract infection, site not specified;Severe sepsis without septic shock Presentation: 05/22 20:35 Chief complaint: Patient states: "Biospy on the the . We were tw5 told to keep an eye out for a temperature. Today I got one.". Coronavirus screen: Vaccine status: Patient reports receiving the 2nd dose of the covid vaccine. Moderna. Ebola Screen: Patient negative for fever greater than or equal to 101.5 degrees Fahrenheit, and additional compatible Ebola Virus Disease symptoms Patient denies exposure to infectious person. Patient denies travel to an Ebola-affected area in the 21 days before illness onset. Initial Sepsis Screen: Does the patient meet any 2 criteria? Yes Does the patient have a suspected source of infection? Yes:. Risk Assessment: Do you want to hurt yourself or someone else? Patient reports no desire to harm self or others. Onset of symptoms was May 22, 2021 at 11:00. 20:35 Method Of Arrival: Wheelchair tw5 20:35 Acuity: ARELY 3 tw5 Triage Assessment: 20:35 General: Appears in no apparent distress. Behavior is calm, cooperative, appropriate tw5 for age. Pain: Pain currently is 3 out of 10 on a pain scale. Historical: - Home Meds: 21:55 amlodipine 5 mg tab 1 tab nightly [Active]; aspirin 81 mg Oral TbEC 1 tab once daily susy [Active]; atorvastatin 20 mg Oral tab 1 tab nightly [Active]; buspirone 10 mg Oral tab 1 tab 2 times per day [Active]; carvedilol 12.5 mg Oral tab 1 tab three times a day [Active]; cetirizine 10 mg Oral tab 1 tab nightly [Active]; ferrous sulfate 325 mg (65 mg iron) Oral tab 2 times a week [Active]; FiberCon 625 mg Oral tab daily [Active]; tamsulosin 0.4 mg Oral cp24 1 cap nightly [Active]; Prilosec 20 mg Oral cpDR 1 cap nightly [Active]; Nexium 40 mg Oral cpDR 1 cap 2 times per day [Active]; multivitamin Oral tab daily [Active]; losartan 50 mg Oral tab 1 tab once daily [Active]; levothyroxine 100 mcg tab 1 tab once daily [Active]; - PMHx: 21:55 Anemia; Arthritis; BPH; CAD; Depression; GERD; High Cholesterol; Hypertension; susy Hypothyroidism; leaky heart valve; Lupus; - Immunization history:: Flu vaccine is not up to date. - Social history:: Smoking status: Patient denies any tobacco usage or history of. - Family history:: not pertinent. - Hospitalizations: : No recent hospitalization is reported. Screenin:55 Abuse screen: Denies threats or abuse. Denies injuries from another. Nutritional susy screening: No deficits noted. Tuberculosis screening: No symptoms or risk factors identified. Fall Risk None identified. Assessment: 21:16 Reassessment: The pt and his were brought to room 18 \\T\\ 2105. susy 23:29 Reassessment: Patient and/or family updated on plan of care and expected duration. Pain ll3 level reassessed. Patient is alert, oriented x 3, equal unlabored respirations, skin warm/dry/pink. Pt is awake and alert in bed resting, denies any discomfort at this time, call light within reach. 05/23 00:15 Reassessment: Pt is in bed resting, states "I'm finally able to get some sleep, I ll3 haven't been able to sleep all day", denies any discomfort at this time. Vital Signs: 05/22 20:35 BP 140 / 70; Pulse 127; Resp 20; Temp 100.7; Pulse Ox 95% on R/A; Weight 86.18 kg; tw5 Height 5 ft. 7 in. (170.18 cm); Pain 3/10; 21:53 BP 123 / 64; Pulse 105; Resp 24; Temp 99.5; Pulse Ox 95% on R/A; Pain 0/10; susy 23:29 BP 114 / 66; Pulse 90; Resp 22; Pulse Ox 95% on R/A; ll3 05/23 00:51 BP 104 / 49; Pulse 86; Resp 20; Temp 98.2(O); Pulse Ox 96% on R/A; ll3 06:37 BP 114 / 66; rn 06:37 Pulse 94; Resp 22; rn 07:00 BP 96 / 53; Pulse 92; Resp 18; Pulse Ox 95% on 4 lpm NC; redding 08:00 BP 100 / 81; Pulse 99; Resp 19; Pulse Ox 96% on 4 lpm NC; redding 09:00 BP 115 / 68; Pulse 99; Resp 19; Pulse Ox 96% ; redding 10:00 BP 109 / 50; Pulse 98; Resp 19; Pulse Ox 94% on 4 lpm NC; redding 11:00 BP 109 / 60; Pulse 94; Resp 19; Pulse Ox 93% on 4 lpm NC; redding 12:00 BP 106 / 54; Pulse 88; Resp 18; Pulse Ox 95% on 4 lpm NC; redding 13:00 BP 119 / 51; Pulse 76; Resp 19; Pulse Ox 97% on 4 lpm NC; redding 14:00 BP 118 / 48; Pulse 83; Resp 18; Pulse Ox 97% on 4 lpm NC; redding 15:00 BP 122 / 52; Pulse 86; Resp 18; Pulse Ox 97% on 4 lpm NC; redding 16:00 BP 111 / 55; Pulse 84; Resp 18; Pulse Ox 97% on 4 lpm NC; redding 17:00 BP 118 / 64; Pulse 84; Resp 18; Pulse Ox 95% on 4 lpm NC; redding 18:00 BP 107 / 48; Pulse 79; Resp 18; Pulse Ox 94% on 4 lpm NC; redding 05/22 20:35 Body Mass Index 29.76 (86.18 kg, 170.18 cm) tw5 ED Course: 05/22 20:27 Patient arrived in ED. ja2 20:35 Arm band placed on right wrist. tw5 20:37 Figueroa Lee MD is Attending Physician. rn 20:38 Triage completed. tw5 21:15 Ese Ridley, RN is Primary Nurse. susy 21:23 Chest Single View XRAY In Process Unspecified. EDMS 21:51 COVID-19/FLU A+B (Document "Date of Onset" if Symptomatic) Sent. susy 21:51 Procalcitonin Sent. susy 21:52 Blood Culture Adult (2) Sent. susy 21:52 CMP Sent. susy 21:52 Lactate Sent. susy 21:52 Urine Microscopic Only Sent. susy 21:52 Urine Culture Sent. susy 21:52 Ptt, Activated Sent. susy 21:52 Protime (+inr) Sent. susy 21:55 No provider procedures requiring assistance completed. susy 21:57 Bed in low position. Call light in reach. Side rails up X 1. Adult w/ patient. Cardiac susy monitor on. Pulse ox on. NIBP on. 22:05 COVID-19/FLU A+B (Document "Date of Onset" if Symptomatic) Sent. susy 23:33 Inserted saline lock: 22 gauge in left forearm, using aseptic technique. ds4 05/23 00:02 CT Abd/Pelvis - IV Contrast Only In Process Unspecified. EDMS 01:03 Josh Medeiros MD is Hospitalizing Provider. rn 05/24 13:55 Patient admitted, IV remains in place. redidng Administered Medications: 05/22 22:14 Drug: Motrin (ibuprofen) 800 mg Route: PO; susy 05/23 01:18 Follow up: Response: No adverse reaction ll3 05/22 23:28 Drug: NS 0.9% (30 ml/kg) 30 ml/kg Route: IV; Rate: bolus; Site: left antecubital; ll3 23:28 Drug: Rocephin (cefTRIAXone) 1 grams Route: IV; Rate: calculated rate; Site: left ll3 antecubital; 05/23 01:19 Follow up: Response: No adverse reaction; IV Status: Completed infusion; IV Intake: ll3 100ml 01:00 Drug: NS 0.9% (30 ml/kg) 30 ml/kg Route: IV; Rate: bolus; Site: left antecubital; ll3 05:02 CANCELLED (Duplicate Order): Phenergan (promethazine) 6.25 mg IVP once rn 05:07 Not Given (Physicia canceledd): Phenergan (promethazine) 12.5 mg IVP once ll3 06:00 Drug: Lasix (furosemide) 20 mg Route: IVP; Site: left antecubital; ll3 09:51 Follow up: Response: No adverse reaction redding 06:33 Drug: LevaQUIN (levofloxacin) 750 mg Volume: 150 ml; Route: IVPB; Infused Over: 90 ll3 mins; Site: left antecubital; 09:51 Follow up: IV Status: Completed infusion redding 07:20 Drug: ProTONIX (pantoprazole) 40 mg Route: IVP; Site: left forearm; ll3 09:51 Follow up: Response: No adverse reaction redding Intake: 01:19 IV: 100ml; Total: 100ml. ll3 Outcome: 05/22 21:55 Condition: stable susy 05/23 01:04 Decision to Hospitalize by Provider. xena 05/24 13:54 Admitted to Tele accompanied by tech. vahid Instructed on the need for admit. 13:55 Patient left the ED. redding Signatures: Dispatcher [employer] EDMS Figueroa Lee MD MD rn Swanson, Donovan ds4 Jaci Dukes Tiffany tw5 Shayla Villagran RN RN ll3 Ese Ridley RN RN bo Au-StagerBlanca RN RN ha Corrections: (The following items were deleted from the chart) 05/23 01:41 00:51 BP 104 / 49; Pulse 86bpm; Resp 20bpm; Pulse Ox 96% RA; ll3 ll3
[2021-05-23 01:57] LABS: Protime INR 1.3
[2021-05-23] MEDS: NA CHLORIDE 0.9% 1,000 ML IV SCH ×3 (03:28→23:28)
[2021-05-23] MEDS ORDERED: ONDANSETRON 4 MG/2 ML VIAL ONE ×2 (03:59→20:22)
[2021-05-23] MEDS: ONDANSETRON 4 MG/2 ML VIAL IV PRN ×2 (04:10→20:52)
[2021-05-23] MEDS ORDERED: PROMETHAZINE INJ 25 MG/ML AMP ONE (05:09)
[2021-05-23] MEDS ORDERED: Levofloxacin 750mg IV 750 MG/150 ML BAG IV ONE (06:03)
[2021-05-23] MEDS ORDERED: FUROSEMIDE 20 MG/ 2ML VIAL ONE (06:03)
[2021-05-23] MEDS ORDERED: PANTOPRAZOLE 40 MG INJ ONE ×2 (06:45→19:41)
[2021-05-23] MEDS ORDERED: CEFTRIAXONE 1,000 MG in NA CHLORIDE 0.9% 50 ML IVPB SCH (09:00)
[2021-05-23] MEDS ORDERED: CEFTRIAXONE 1000 MG/VIAL ONE (09:04)
[2021-05-23] MEDS ORDERED: SODIUM CHLORIDE 0.9% 10ML INJ IV PRN (09:22)
--- NOTE | 2021-05-23 09:34 | RAD REPORT ---
EXAM DESCRIPTION: CT - Thorax Wo Con - 05/23/2021 6:30 am CLINICAL HISTORY: sob COMPARISON: 2018 TECHNIQUE: Computed axial tomography of the chest was obtained. Contrast was not requested. All CT scans are performed using dose optimization technique as appropriate and may include automated exposure control or mA/KV adjustment according to patient size. FINDINGS: The evaluation of mediastinum, vania and vessels is limited secondary to lack of IV contras t administration. Moderate alveolar opacities left upper and left lower lobes. Right lung is clear No mediastinal or hilar lymphadenopathy is seen. A pleural effusion is not present. No pericardial effusion Small right renal calculi IMPRESSION: Moderate alveolar opacities left lung consistent with pneumonia. This should be followed until it is clear to help exclude a post obstructive process/underlying mass
[2021-05-23] MEDS ORDERED: Levofloxacin 750mg IV 750 MG/150 ML BAG IV SCH (10:00)
[2021-05-23] MEDS: ENOXAPARIN 40 MG/0.4 ML SQ SCH (10:00)
[2021-05-23] MEDS ORDERED: PANTOPRAZOLE 40 MG INJ IVP SCH (10:00)
[2021-05-23] MEDS: PIPER TAZO 3.375 GM in NA CHLORIDE 0.9% 100 ML IV SCH ×2 (10:00→17:00)
[2021-05-23] MEDS ORDERED: PIPER TAZO 3.375 GM in NA CHLORIDE 0.9% 100 ML IV SCH (11:00)
--- NOTE | 2021-05-23 13:52 | HP ---
Date of Admission: 05/23/2021 Chief Complaint: Fever, chills, blood in the urine and burning sensation on urination. History Of Present Illness: This is a 71-year-old male patient who had high PSA and was sent to [facility] for further evaluation and management of this problem. The patient had a prostate biopsy porfirio murrell at [facility] this week on , which is 3 days ago, and since he came home after the biopsy, he has been having some hematuria problem that has remained unchanged and also started to have some burning sensation on urination. As of yesterday morning he started to have low-grade fever and his t emperature went up to 102.3 degree Fahrenheit as the day progressed. He went to [facility] sometime yesterday and he was told to have urinary tract infection on basis of urinal ysis. Urine culture was sent and he was given 1 dose of intramuscular injection of antibiotic and he was sent home with some oral antibiotics that he has picked up but did not start it, as he ended up in our emergency room yesterday last night with worsening condition and worsening symptoms of fever a nd chills associated with hematuria and dysuria. After he was evaluated, admitted to the hospital. He received IV fluid according to sepsis protocol, IV antibiotic which was ceftriaxone. Cultures wer e sent and while he was in the emergency room, he had episode of really bad nausea, vomiting and soon after that episode he became significantly hypoxic, short of breath, and his oxygen saturation was o nly about 92% on non-rebreather oxygen and subsequently as his condition improved he required less an d less oxygen. When I saw him this morning, he was on 4 L nasal cannula oxygen. He did receive 1 do se of Lasix 20 mg IV in the emergency room after this episode and 1 dose of Levaquin 750 mg IV in the emergency room. When I saw him, he was not in any distress. His was present with him at [facility]. He is not coughing up any mucus. The patient had a Kulkarni catheter placed in the emergency room and approximately 400 cc of urine was obtained and his urine is grossly hematuric like coffee colored urine. He has some lower abdominal pain in the suprapubic area in last 2 to 3 days. Allergies: TO LOVASTATIN CAUSING ABNORMAL LIVER FUNCTION TESTS AND NIACIN ALSO CAUSING ABNORMAL LIVE R FUNCTION TESTS. Medications: Amlodipine 5 mg daily, aspirin 81 mg daily, atorvastatin 20 mg daily in the evening kera e, buspirone 10 mg 2 times a day, carvedilol 12.5 mg 3 times a day, cetirizine 10 mg daily, dicyclomi ne 20 mg every 8 hours as needed for stomach cramps, Nexium 40 mg daily in the morning, ferrous sulfa te 65 mg p.o. 2 times a week, fluticasone nasal spray 1 spray in each nostril 2 times a day, levothyr oxine 100 mcg daily, losartan 50 mg daily, sertraline 50 mg daily, omeprazole 20 mg daily in the even ing, tamsulosin 0.4 mg daily. Review of Systems: Genitourinary: As mentioned above. Constitutional: As mentioned above. Respiratory: As mentioned above. All other systems reviewed and negative. Past Medical History: Significant for allergic rhinitis, hypothyroidism, impaired fasting glucose, o bstructive sleep apnea, hypertension, hyperlipidemia, gastroesophageal reflux disease, gastritis, duo denitis, duodenal ulcer, diverticulosis, cardiac hypertrophy, iron deficiency anemia and high PSA for which he recently had a prostate biopsy on May 20, 2021 at [facility]. Past Surgical History: The patient had procedure with placement of ring around lower esop hageal sphincter and this was done about 2 years ago, for gastroesophageal reflux disease. In the [facility] [place], on June 22, 1999, he had cerebral aneurysm repair and September 2019 had right shoulder surgery and t hen April 2020 had right shoulder reverse replacement. Family History: Father , had diabetes, heart disease and hypertension. Mother , had hyperte nsion and thyroid disorder. Social History: Negative for smoking and alcohol use. Immunization History: His COVID-19 vaccine first dose April 07, 2020, second dose May 09, 2020, and third dose January 19, 2021. Physical Examination: Vital Signs: Temperature 98.2, pulse 84, respiratory rate 20, blood pressure 114/64, oxygen saturati on was 94% on 2 L nasal cannula oxygen. General: Awake, alert, oriented, not in distress. HEENT: Head atraumatic, normocephalic. Conjunctivae nonerythematous. Sclerae white. Mouth, no thr ush or edema noted. Ears/Nose, no mass, lesion, discharge noted. Neck: Supple. No JVD, lymph nodes, bruit, thyromegaly noted. Lungs: Presence of rales noted throughout the left lung field with diminished air entry in the left lung field. Right lung normal air entry and clear to auscultation. The patient is not using any acc essory muscles of respiration. Heart: Normal heart sounds, no murmur or gallop. Abdomen: Soft, bowel sounds normal. No guarding, rigidity, tenderness, mass, hepatosplenomegaly, dis tention, or bruit noted. Extremities: No leg edema. No calf tenderness. Skin: No rash, ulcer, cellulitis. Lymphatics: No lymph node enlargement in neck, supraclavicular, infraclavicular region. Neuro: No focal neurological deficit. Chest: Unremarkable. External Genitalia: Shows presence of Kulkarni catheter with some bright red blood at the urethral meat us, but no active bleeding. Rectal: Deferred. Laboratory Data: Influenza A, B and COVID-19 test negative. Urinalysis positive for nitrite, 1+ lewis kocyte esterase, 20 to 50 RBC, 10 to 20 WBC and less than 20 bacteria. Sodium 139, potassium 3.5, ch loride 108, bicarb 24, BUN 15, creatinine 1.08, glucose 145. Lactic acid 1.8. Procalcitonin 0.45. Liver function tests unremarkable. CBC: White count 14.9, hemoglobin 13.6, platelets 170. CAT scan of the chest without contrast shows moderate alveolar opacities in the left lung consistent with pne umonia. Right lung is clear. A small right renal calculi. Impression: 1.Sepsis. 2.Urinary tract infection. 3.Acute prostatitis. 4.Aspiration pneumonia. 5.Acute respiratory failure with hypoxia. 6.Hypertension. 7.Hypothyroidism. 8.Hyperlipidemia. 9.Gastroesophageal reflux disease. 10.Diverticulosis. 11.Benign prostatic hypertrophy. 12.Allergic rhinitis. 13.Impaired fasting glucose. 14.Obstructive sleep apnea. Plan: We will admit the patient to hospital for further evaluation and management of this problem. The patient is appropriate for inpatient and is expected to spend 2 midnights in hospital. The patie nt received 1 dose of Levaquin and ceftriaxone in the emergency room. We will go ahead and discontin ue ceftriaxone and continue Levaquin 750 mg IV daily. We will add Zosyn 3.375 g IV every 8 hours. F ollow up on culture results and depending on the culture results, make adjustment on antibiotic if ne cessary. We will continue oxygen replacement therapy. Continue home medications per order. DVT pro phylaxis using Lovenox will be given. Details and plan of treatment discussed with patient and patie nt's who was at bedside. We will give IV Protonix per order and we will monitor blood pressure, use antihypertensive medication per order as it becomes necessary as well as we will continue his me dication for benign prostatic hypertrophy and his anxiety problem which is sertraline and buspirone. He is requesting something to help him sleep at night time and I will order alprazolam 0.25 mg at [facility]. I will see him in the morning for followup. Plan of treatment discussed with him. MICHAELA/MODL Voice ID: [id number]
[2021-05-23] MEDS ORDERED: DICYCLOMINE HCL 10 MG CAP PO PRN (14:24)
[2021-05-23] MEDS ORDERED: ENOXAPARIN 40 MG/0.4 ML SQ ONE (14:24)
[2021-05-23] MEDS ORDERED: PIPERACIL/TAZO 3.375 GM VIAL IV ONE (14:25)
[2021-05-23] MEDS ORDERED: NA CHLORIDE 0.9% 100 ML IV ONE (14:25)
[2021-05-23] MEDS ORDERED: ATORVASTATIN 20 MG TAB ONE (19:41)
[2021-05-23] MEDS ORDERED: carvediloL 6.25 MG TAB ONE (19:41)
[2021-05-23] MEDS ORDERED: BUSPIRONE HCL 5 MG TABLET ONE (20:23)
[2021-05-23] MEDS: BUSPIRONE HCL 5 MG TABLET PO SCH (20:52)
[2021-05-23] MEDS: carvediloL 6.25 MG TAB PO SCH (20:52)
[2021-05-23] MEDS: PANTOPRAZOLE 40 MG INJ IVP SCH (20:53)
[2021-05-23] MEDS: ATORVASTATIN 20 MG TAB PO SCH (20:53)
[2021-05-23] MEDS ORDERED: ACETAMINOPHEN 500 MG TAB ONE (21:00)
[2021-05-23] MEDS ORDERED: ALPRAZOLAM 0.25 MG TABLET PO SCH (21:00)
[2021-05-23] MEDS ORDERED: ALPRAZOLAM 0.25 MG TABLET ONE (21:00)
[2021-05-23] MEDS: ACETAMINOPHEN 500 MG TAB PO PRN (21:15)
[2021-05-24] MEDS: PIPER TAZO 3.375 GM in NA CHLORIDE 0.9% 100 ML IV SCH ×3 (01:00→15:27)
[2021-05-24] MEDS ORDERED: NA CHLORIDE 0.9% 100 ML IV ONE (02:35)
[2021-05-24] MEDS ORDERED: PIPERACIL/TAZO 3.375 GM VIAL IV ONE (02:35)
[2021-05-24] MEDS: ACETAMINOPHEN 500 MG TAB PO PRN ×3 (03:44→23:45)
[2021-05-24] MEDS ORDERED: ACETAMINOPHEN 500 MG TAB ONE (03:46)
[2021-05-24 04:02] LABS: Hematocrit 35.7 % (39.6-49.0); RBC Red Blood Cell Count 4.07 M/uL (4.33-5.43)
[2021-05-24 04:03] LABS: Absolute Lymphocytes (CBC) 0.7 K/uL (0.7-4.9); Lymphocytes % 5.5 % (15.3-44.8); MPV 7.7 fL (7.6-11.3)
[2021-05-24 04:12] LABS: Potassium 3.4 mmol/L (3.5-5.1)
[2021-05-24] MEDS: ONDANSETRON 4 MG/2 ML VIAL IV PRN ×2 (04:17→23:45)
[2021-05-24] MEDS ORDERED: ONDANSETRON 4 MG/2 ML VIAL ONE ×2 (04:19→09:53)
[2021-05-24 05:12] LABS: Blood Morphology Comment NOT SEEN (NOT SEEN); Platelet Estimate ADEQ
[2021-05-24] MEDS: LEVOTHYROXINE SOD 0.1 MG TAB PO SCH (06:30)
[2021-05-24 08:09] VITALS: BMI 29.7
[2021-05-24] MEDS ORDERED: carvediloL 6.25 MG TAB ONE (08:44)
[2021-05-24] MEDS ORDERED: POTASSIUM CL SA 10 MEQ TAB PO ONE (08:45)
[2021-05-24] MEDS ORDERED: Levofloxacin 750mg IV 750 MG/150 ML BAG IV ONE (08:45)
[2021-05-24] MEDS ORDERED: ENOXAPARIN 40 MG/0.4 ML SQ ONE (08:45)
[2021-05-24] MEDS ORDERED: TAMSULOSIN 0.4 MG SR CAP ONE (08:45)
[2021-05-24] MEDS ORDERED: POTASSIUM CL SA 10 MEQ TAB PO SCH (09:00)
[2021-05-24] MEDS: Levofloxacin 750mg IV 750 MG/150 ML BAG IV SCH (09:00)
[2021-05-24] MEDS: ENOXAPARIN 40 MG/0.4 ML SQ SCH (09:00)
[2021-05-24] MEDS: TAMSULOSIN 0.4 MG SR CAP PO SCH (09:00)
[2021-05-24] MEDS: FLUTICASONE 50MCG NASAL SPRAY NAS SCH ×2 (09:00→20:06)
[2021-05-24] MEDS: SERTRALINE HCL 50 MG TAB PO SCH (09:00)
[2021-05-24] MEDS: BUSPIRONE HCL 5 MG TABLET PO SCH ×2 (09:00→20:08)
[2021-05-24] MEDS ORDERED: AMLODIPINE 5 MG TAB PO SCH (09:00)
[2021-05-24] MEDS: carvediloL 6.25 MG TAB PO SCH ×3 (09:00→21:07)
[2021-05-24] MEDS ORDERED: PROMETHAZINE INJ 25 MG/ML AMP IV PRN (09:57)
[2021-05-24] MEDS ORDERED: NA CHLORIDE 0.9% 250 ML ONE (10:03)
[2021-05-24] MEDS ORDERED: PROMETHAZINE INJ 25 MG/ML AMP ONE (10:03)
--- NOTE | 2021-05-24 10:27 | RAD REPORT ---
EXAM DESCRIPTION: RAD - Chest Single View - 05/23/2021 5:29 am CLINICAL HISTORY: Patient is 71 years old and is Male. DYSPNEA. TECHNIQUE: Frontal view of the chest. COMPARISON: Chest x-ray May 22, 2021. FINDINGS: LUNGS: Hypoaerated lungs accentuate the pulmonary markings and cardiac silhouette. Ill -defined airspace opacity in the left perihilar region extending to the left lower lung. Opacity may be partially consolidated in the left lower lung. Linear density at the right lung base may represent scarring or discoid subsegmental atelectasis which is unchanged compared to the prior. No right lung opacity. PLEURAL SPACE: Unremarkable. No pneumothorax. No blunting of costophrenic angles are evident to suggest effusions. HEART: Cardiac silhouette is stable compared to prior. MEDIASTINUM: Unremarkable. BONES/JOINTS: Partially imaged right shoulder total arthroplasty is grossly intact. Degenerativ e changes in both shoulders. VASCULATURE: Aortic atherosclerotic disease. IMPRESSION: - New left pulmonary findings may represent pneumonia. Differential diagnosis includes a spiration and acute pneumonitis. Electronically signed by: Rex Kaminski MD 05/23/2021 9:30 AM CDT Due to temporary technical issues with the PACS/Fluency reporting system, reports are being signed by the in house radiologists without review as a courtesy to insure prompt reporting. The interpreting radiologist is fully responsible for the content of the report.
--- NOTE | 2021-05-24 10:34 | RAD REPORT ---
EXAM DESCRIPTION: RAD - Chest Single View - 05/23/2021 4:54 am CLINICAL HISTORY: 71 years Male, FEVER COMPARISON: Chest x-ray performed on 05/22/2021 CT abdomen and pelvis performed on 05/22/2021 TECHNIQUE: Single portable x-ray view of the chest performed on 05/22/2021 at 9:17 PM FINDINGS: The lungs are well expanded and are grossly clear. There are faint linear opacities in the right lung base likely due to fibrosis and/or atelectasis. There is no evidence of a pneumothorax. The cardiac silhouette is normal in size and configuration. The mediastinal contours are normal. No acute osseous abnormality is identified. There is a remote reverse right shoulder arthroplasty. No acute soft tissue abnormalities are seen. There are postsurgical changes in the epigastric region. Lines and tubes: None. Free air: None IMPRESSION: 1. No evidence of acute intrathoracic disease. 2. Probable fibrosis and/or atelectasis in the right lung base. Electronically signed by: Candice Toscano DO 05/23/2021 6:37 AM CDT Due to temporary technical issues with the PACS/Fluency reporting system, reports are being signed by the in house radiologists without review as a courtesy to insure prompt reporting. The interpreting radiologist is fully responsible for the content of the report.
--- NOTE | 2021-05-24 12:16 | RAD REPORT ---
EXAM DESCRIPTION: CT - Abdomen Pelvis W Contrast - 05/23/2021 6:54 am CLINICAL HISTORY: 71 years Male, fever, post-biopsy TECHNIQUE: Helical CT axial images are obtained from the lung bases to the pubic symphysis with IV c ontrast. No oral contrast was administered. Multiplanar reconstruction. This exam was performed accor ding to our departmental dose-optimization program, which includes automated exposure control, adjust ment of the mA and/or kV according to patient size and/or use of iterative reconstruction technique. COMPARISON: 11/10/2020 FINDINGS: LUNG BASES: No basilar consolidation or effusions. LIVER: Eventration right hemidiaphragm. Normal in size. Normal attenuation. No focal masses. HEPATOBILIARY: Status post cholecystectomy. Mild intra and extrahepatic ductal dilatation as can be seen in postcholecystectomy status. SPLEEN: Normal size. PANCREAS: Normal size and contour. No focal mass. ADRENAL GLANDS: Normal size. No adrenal masses. KIDNEYS: Bilateral kidneys are normal in size without obstructing calculi or hydronephrosis. No nep hrolithiasis. No significant cysts are present. No focal solid mass. BOWEL AND MESENTERY: Prior surgery GE junction. No small or large bowel dilatation. Severe descending and sigmoid colon diverticulosis. Normal appendix. No abnormal mesenteric lymphadenopathy. No free fluid or pneumoperitoneum. RETROPERITONEUM: Normal caliber abdominal aorta without aneurysm. Mild ASVD. No abnormal retroperit miller lymphadenopathy. PELVIS: Moderate to severe prostatomegaly with enlargement of the seminal vesicles. Marked impressi on upon the base of urinary bladder. Mild urinary bladder wall thickening which in part may be second torie to nondistended status versus cystitis. ABDOMINAL WALL: The abdominal wall is intact. BONES: No suspicious osseous lytic or blastic lesions seen. IMPRESSION: 1. Moderate to severe prostatomegaly with enlargement of the seminal vesicles. Marked impression upon the base of urinary bladder. Mild urinary bladder wall thickening which in part may b e secondary to nondistended status versus cystitis.Correlation with urinalysis is recommended. 2. Otherwise, no acute intra-abdominal or pelvic disease. 3. Severe descending and sigmoid colon diverticulosis without diverticulitis. 4. Status post cholecystectomy. Prior GE junction surgery. Electronically signed by: Pritesh Oakes MD 05/23/2021 12:34 AM CDT Due to temporary technical issues with the PACS/Fluency reporting system, reports are being signed by the in house radiologists without review as a courtesy to insure prompt reporting. The interpreting radiologist is fully responsible for the content of the report.
[2021-05-24] MEDS ORDERED: NA CHLORIDE 0.9% 100 ML ONE (15:13)
[2021-05-24] MEDS: ATORVASTATIN 20 MG TAB PO SCH (20:07)
[2021-05-24] MEDS: PANTOPRAZOLE 40 MG INJ IVP SCH (20:07)
[2021-05-24] MEDS: ALPRAZOLAM 0.5 MG TABLET PO SCH (20:07)
[2021-05-24] MEDS: AMLODIPINE 5 MG TAB PO SCH (21:07)
--- NOTE | 2021-05-24 22:56 | PN ---
Date of Progress Note: 05/24/2021 Subjective: The patient was seen this morning for followup. Overall, he feels better today than yes terday. His urine was clear yellow in Kulkarni catheter. Has some nausea, but no vomiting. Breathing is better. Objective: Vital Signs: Reviewed. HEENT: Examination unremarkable. Lungs: Right side clear to auscultation. Good air entry. Left side air entry has improved compared to yesterday and crackles actually are much less today compared to yesterday. Not using any accesso ry muscles of respiration. The patient is on nasal cannula oxygen 3 L/minute. Heart: Sounds normal. Abdomen: Soft. Bowel sounds normal. No guarding, rigidity, tenderness, or distention. Extremities: No leg edema. Laboratory Data: White count 12.2, hemoglobin 12.1, platelets 133. Sodium 141, potassium 3.4, chlor tabitha 112, bicarb 21, BUN 13, creatinine 0.91, glucose 103. Impression: 1.Acute prostatitis. 2.Urinary retention with benign prostatic hypertrophy. 3.Sepsis. 4.Aspiration pneumonia. 5.Anemia, unspecified. 6.Hypokalemia. 7.Insomnia. Plan: The patient received 0.25 mg alprazolam dose last night and it did not help him to sleep much. He only got about 2 hours of sleep, so he is requesting low stronger dose tonight and we will monteiro e dose to 0.5 mg tonight. We will continue current antibiotic. Discontinue IV fluid. Start the pat ient on potassium chloride 20 mEq p.o. daily. Continue other current medical management and I will s ee him tomorrow for followup. So far, cultures are negative. We will request nursing staff to get c opy of urine culture results from [facility], and this was done prior to emergency room visit at our hospital. I will see him tomorrow for followup. MICHAELA/MODL Voice ID: [id number] Report ID: [id number]
[2021-05-25] MEDS: PIPER TAZO 3.375 GM in NA CHLORIDE 0.9% 100 ML IV SCH ×4 (00:19→16:13)
[2021-05-25 03:53] LABS: Absolute Lymphocytes (CBC) 0.7 K/uL (0.7-4.9); Hematocrit 35.4 % (39.6-49.0); Lymphocytes % 7.7 % (15.3-44.8); MPV 8.3 fL (7.6-11.3); RBC Red Blood Cell Count 4.08 M/uL (4.33-5.43)
[2021-05-25 04:09] LABS: Potassium 3.4 mmol/L (3.5-5.1)
[2021-05-25 04:42] LABS: Blood Morphology Comment NOT SEEN (NOT SEEN); Platelet Estimate ADEQ; White Blood Cell Scan OK (OK)
[2021-05-25] MEDS: LEVOTHYROXINE SOD 0.1 MG TAB PO SCH (06:31)
[2021-05-25] MEDS: BUSPIRONE HCL 5 MG TABLET PO SCH ×2 (08:36→20:37)
[2021-05-25] MEDS: AMLODIPINE 5 MG TAB PO SCH ×2 (08:37→20:36)
[2021-05-25] MEDS: TAMSULOSIN 0.4 MG SR CAP PO SCH (08:37)
[2021-05-25] MEDS: SERTRALINE HCL 50 MG TAB PO SCH (08:37)
[2021-05-25] MEDS: carvediloL 6.25 MG TAB PO SCH ×2 (08:38→20:35)
[2021-05-25] MEDS: POTASSIUM CL SA 10 MEQ TAB PO SCH ×2 (08:38→20:36)
[2021-05-25] MEDS: FLUTICASONE 50MCG NASAL SPRAY NAS SCH ×2 (08:39→20:38)
--- NOTE | 2021-05-25 09:15 | RAD REPORT ---
EXAM DESCRIPTION: RAD - Chest Pa And Lat (2 Views) - 05/25/2021 9:07 am CLINICAL HISTORY: aspiration pneumonia Chest pain. COMPARISON: Chest Single View dated 05/23/2021; Chest Single View dated 05/22/2021; Chest Single View dated 02/09/2017; Chest Single View dated 02/08/2017; Thorax Wo Con dated 05/23/2021 FINDINGS: Since 05/23/2021, significant improvement is seen in left lung aeration. A 2-3 cm opacity persists in the left mid lung. The right lung is grossly clear. Small bilateral pleural effusions. Th e heart is mildly to moderately enlarged.
[2021-05-25] MEDS: Levofloxacin 750mg IV 750 MG/150 ML BAG IV SCH (10:01)
[2021-05-25] MEDS: ENOXAPARIN 40 MG/0.4 ML SQ SCH (10:06)
[2021-05-25] MEDS: ACETAMINOPHEN 500 MG TAB PO PRN (16:34)
[2021-05-25] MEDS: ATORVASTATIN 20 MG TAB PO SCH (20:35)
[2021-05-25] MEDS: ALPRAZOLAM 0.5 MG TABLET PO SCH (20:36)
[2021-05-25] MEDS: PANTOPRAZOLE 40 MG INJ IVP SCH (20:38)
[2021-05-26] MEDS: PIPER TAZO 3.375 GM in NA CHLORIDE 0.9% 100 ML IV SCH ×3 (00:25→17:13)
--- NOTE | 2021-05-26 00:46 | PN ---
Date of Progress Note: 05/25/2021 Subjective: The patient was seen this morning for followup. No new complaints or problems reported by him. His was present with him at bedside. Objective: Vital Signs: Reviewed. HEENT: Examination unremarkable. Lungs: Clear to auscultation on the right side. Left side, improved air entry in the left upper hamiad g. The patient still has diminished air entry with some rales in left lower lung field, but overall it is better than before. Not using any accessory muscles of respiration. Heart: Heart sounds normal. Abdomen: Soft, bowel sounds normal. No guarding, rigidity, tenderness, distention. Extremities: No leg edema. Impression: 1.Aspiration pneumonia. 2.Urinary tract infection. 3.Sepsis. 4.Hypertension. Plan: As of last night, we did increase dose of his carvedilol because blood pressure was going up, this morning his blood pressure was much better. We will continue Levaquin and Zosyn. Today's blood work results reviewed. White count is back to normal. Renal function is normal. Potassium is stil l low at 3.4 and we will increase the dose of potassium chloride replacement from 20 mEq daily to 20 mEq 2 times a day. We did obtain urine culture results from [facility] and it is growin g E. coli and it is sensitive to Levaquin that he is currently on. The patient will need to continue Zosyn right now for aspiration pneumonia. Today's chest x-ray shows significant improvement and lef t lung infiltrate. Physical therapy to work with the patient and I will see him tomorrow for followu p. The patient has a Kulkarni catheter which was replaced yesterday because of urinary retention. As a fter we removed Kulkarni catheter yesterday morning, he was not able to void at all and had significant bladder distention and he did require replacement of Kulkarni catheter. Our plan is to discharge him to go home with a Kulkarni catheter and for him to follow up with the urologist at [facility]. So far bl ood culture at our hospital has remained negative, but it is important to note that the patient did r eceive antibiotic through [facility] prior to urine culture and blood culture that was done a t our facility. MICHAELA/MODL Voice ID: [id number] Report ID: [id number]
[2021-05-26 04:59] LABS: Absolute Lymphocytes (CBC) 0.9 K/uL (0.7-4.9); Hematocrit 35.6 % (39.6-49.0); Lymphocytes % 13.2 % (15.3-44.8); MPV 7.5 fL (7.6-11.3); RBC Red Blood Cell Count 4.07 M/uL (4.33-5.43)
[2021-05-26 05:16] LABS: BUN Blood Urea Nitrogen 9 mg/dL (7-18); Bicarbonate 27 mmol/L (21-32); Glucose Level 130 mg/dL (74-106); Magnesium 2.1 mg/dL (1.8-2.4); Potassium 3.4 mmol/L (3.5-5.1); Sodium Level 140 mmol/L (136-145)
[2021-05-26] MEDS: LEVOTHYROXINE SOD 0.1 MG TAB PO SCH (05:41)
[2021-05-26] MEDS: ENOXAPARIN 40 MG/0.4 ML SQ SCH (08:06)
[2021-05-26] MEDS: POTASSIUM CL SA 10 MEQ TAB PO SCH ×2 (08:07→20:56)
[2021-05-26] MEDS: FLUTICASONE 50MCG NASAL SPRAY NAS SCH ×2 (08:07→20:57)
[2021-05-26] MEDS: BUSPIRONE HCL 5 MG TABLET PO SCH ×2 (08:08→20:56)
[2021-05-26] MEDS: carvediloL 6.25 MG TAB PO SCH ×2 (08:08→20:54)
[2021-05-26] MEDS: Levofloxacin 750mg IV 750 MG/150 ML BAG IV SCH (08:08)
[2021-05-26] MEDS: AMLODIPINE 5 MG TAB PO SCH ×2 (08:08→20:53)
[2021-05-26] MEDS: SERTRALINE HCL 50 MG TAB PO SCH (08:08)
[2021-05-26] MEDS: TAMSULOSIN 0.4 MG SR CAP PO SCH (08:09)
[2021-05-26] MEDS: ONDANSETRON 4 MG/2 ML VIAL IV PRN (13:32)
[2021-05-26] MEDS: PANTOPRAZOLE 40 MG INJ IVP SCH (20:52)
[2021-05-26] MEDS: ALPRAZOLAM 0.5 MG TABLET PO SCH (20:52)
[2021-05-26] MEDS: ATORVASTATIN 20 MG TAB PO SCH (20:55)
[2021-05-27] MEDS: PIPER TAZO 3.375 GM in NA CHLORIDE 0.9% 100 ML IV SCH ×2 (01:11→09:28)
[2021-05-27 04:09] VITALS: O2SAT 93
[2021-05-27 05:40] LABS: BUN Blood Urea Nitrogen 11 mg/dL (7-18); Bicarbonate 25 mmol/L (21-32); Glucose Level 106 mg/dL (74-106); Sodium Level 138 mmol/L (136-145)
[2021-05-27] MEDS: LEVOTHYROXINE SOD 0.1 MG TAB PO SCH (06:34)
[2021-05-27] MEDS ORDERED: PIPERACIL/TAZO 3.375 GM VIAL IV ONE (08:17)
--- NOTE | 2021-05-27 08:24 | PN ---
Date of Progress Note: 05/26/2021 Subjective: The patient was seen this morning for followup. He was lying in bed, not distress. Ove rall feeling better. Objective: Vital signs: Reviewed. He is remaining afebrile now. HEENT: Unremarkable. Lungs: Clear to auscultation. Heart: Sounds normal. Abdomen: Soft. Bowel sounds normal. No guarding, rigidity, tenderness, distention. Extremity: No leg edema. Laboratory Data: Urine culture from [facility] growing E coli and it is sensitive to Le vaquin and Zosyn that currently the patient is on. Today; white count 7, hemoglobin 12.1, platelets 163. Sodium 140, potassium 3.4, chloride 108, bicarb 27, BUN 9, creatinine 0.81, glucose 130. Impression: 1.Acute prostatitis. 2.Urinary tract infection. 3.Sepsis. 4.Hypokalemia. 5.Hypertension. 6.Aspiration pneumonia. Plan: We will go ahead and continue Zosyn for aspiration pneumonia. Continue his Levaquin. He is r esponding well to this antibiotic. We will increase potassium replacement dose to 2 times a day. Re peat blood work tomorrow morning. Wean off oxygen today as he is only on 1 L/minute nasal cannula an d I will see him tomorrow for followup. Ambulation was encouraged. We will repeat chest x-ray tomor row and possible discharge to go home tomorrow. Details were discussed with the patient. MICHAELA/MODL Voice ID: [id number] Report ID: [id number]
[2021-05-27 08:58] VITALS: BP 138/76; TEMP 98.3
--- NOTE | 2021-05-27 08:59 | RAD REPORT ---
EXAM DESCRIPTION: RAD - Chest Pa And Lat (2 Views) - 05/27/2021 8:50 am CLINICAL HISTORY: aspiration pneumonia Chest pain. COMPARISON: Chest Pa And Lat (2 Views) dated 05/25/2021; Chest Single View dated 05/23/2021; Chest Sin gle View dated 05/22/2021; Chest Single View dated 02/09/2017; Thorax Wo Con dated 05/23/2021 FINDINGS: Opacity seen in the left lung on the 05/25/2021 study appear to have essentially cleared. Small amount of pleural fluid is present bilaterally. Area of rounded nodularity in the right upper l obe is noted, however nodule was seen in this region on recent CT study. This may be related to the e nd of the right first rib. The heart is moderately enlarged. IMPRESSION: The lungs appearing essentially clear.
[2021-05-27] MEDS: Levofloxacin 750mg IV 750 MG/150 ML BAG IV SCH (09:27)
[2021-05-27] MEDS: POTASSIUM CL SA 10 MEQ TAB PO SCH (09:28)
[2021-05-27] MEDS: ENOXAPARIN 40 MG/0.4 ML SQ SCH (09:28)
[2021-05-27] MEDS: BUSPIRONE HCL 5 MG TABLET PO SCH (09:29)
[2021-05-27] MEDS: AMLODIPINE 5 MG TAB PO SCH (09:29)
[2021-05-27] MEDS: TAMSULOSIN 0.4 MG SR CAP PO SCH (09:29)
[2021-05-27] MEDS: SERTRALINE HCL 50 MG TAB PO SCH (09:30)
[2021-05-27] MEDS: FLUTICASONE 50MCG NASAL SPRAY NAS SCH (09:30)
[2021-05-27] MEDS: carvediloL 6.25 MG TAB PO SCH (09:30)
[2021-05-27] MEDS: ONDANSETRON 4 MG/2 ML VIAL IV PRN (11:13)
--- NOTE | 2021-05-28 19:36 | DS ---
Date of Discharge: 05/27/2021 Disposition: Discharged to go home. Physical Examination: HEENT: Unremarkable. Lungs: Clear to auscultation. Heart: Heart sounds normal. Abdomen: Soft. Bowel sounds normal. No guarding, rigidity, tenderness, distention. Extremities: No leg edema. Laboratory Data: Upon admission, white count 14.9, hemoglobin 13.6, platelets 171. Today, white cou nt 7, hemoglobin 12.1. Yesterday, white count 7, hemoglobin 12.1, platelets 163. Last chemistry; to day, sodium 138, potassium 4, chloride 107, bicarb 25, BUN 11, creatinine 0.83, glucose 106, magnesiu m 2. Yesterday, potassium was 3.4, and it was corrected. Upon admission, sodium 139, potassium 3.5, chloride 108, bicarb 24, BUN 15, creatinine 1.08, glucose 145. Liver function tests unremarkable pr ocalcitonin 0.45. Lactic acid 1.8. Discharge Medications And Instructions: 1.Continue all prior home medications. 2.Follow up at [facility] as per your appointment and [facility] urologist to assist you with maria c daniel of Kulkarni catheter. 3.Kulkarni catheter care at home. 4.Follow up at my office next week on 06/01/2021 at 10 a.m. 5.Take following new medications;. a.Augmentin 875 mg 2 times a day with food for 1 week. b.Levaquin 500 mg daily for 10 days. Hospital Course: This is a 71-year-old male patient admitted to the hospital with complaints of feve r, chills, blood in urine and burning sensation on urination. Please see dictated H and P for more i nformation. The patient had prostate biopsy done at [facility] for high PSA and after this biopsy, he started having the symptoms, so he went to [facility] in [place] at [facility], received 1 dose of intramuscular antibiotic and urine culture was collected and he was sent home with oral ant ibiotic prescription, but later that evening, he came into our emergency room with worsening of sympt oms. After he was evaluated he was admitted to the hospital. The patient had urinary retention in t emergency room, required Kulkarni catheter placement and we obtained significant amount of urine afte r the catheter that actually helped him to alleviate some of his abdominal discomfort. The patient w as started on empiric antibiotic, which was Levaquin and while he was in the emergency room, he had 1 episode of nausea, vomiting and immediately after that resulted in respiratory distress with hypoxia requiring supplemental oxygen overnight and he required less amount of oxygen per nasal cannula, whi ch was continued throughout this hospitalization except as of last 36 hours or so he has not required any more oxygen. He is maintaining adequate oxygenation on room air. The patient was suspected to have aspiration pneumonia with an episode of nausea, vomiting in the emergency room and he was starte d on Zosyn along with Levaquin. CAT scan of the chest also showed evidence of significant pneumonia in the left lung. We did repeat chest x-ray, which started to show improvement in pneumonia and last chest x-ray today showed his both lungs were clear. Clinically he is feeling much better. Blood cu lture and urine culture collected at our hospital was negative for any bacterial growth, but it is im portant to keep in mind that this specimen was collected after he received antibiotic at [facility]. We did obtain copy of urine culture result done at [facility] and it is growing E coli and it was sensitive to Levaquin as well as Zosyn that the patient has received during this hospital ization. The patient informs me that his biopsy came back positive for prostate cancer and he will f ollow up at [facility] for further treatment. We did remove his Kulkarni catheter once his gross hemat uria cleared up, but unfortunately he ended up having urinary retention problem again where he was no t able to void after removal of Kulkarni catheter and he did require replacement of Kulkarni catheter. His urine color now is normal light yellow color urine. I have instructed him that he will need to get some help with the urologist for removal of this Kulkarni catheter and he will work with his urologist [facility] and nurse was advised to change Kulkarni catheter back to leg bag and give appropriate ins truction to patient regarding how to take care of his Kulkarni catheter at home. The patient is ambulat ing well, has a good appetite and today he was discharged to go home in stable condition with above-m entioned medication instructions. Final Diagnoses: 1.Sepsis. 2.Urinary tract infection. 3.Acute prostatitis. 4.Aspiration pneumonia. 5.Hypokalemia. 6.Acute respiratory failure with hypoxia. 7.Hypertension. 8.Hypothyroidism. 9.Hyperlipidemia. 10.Gastroesophageal reflux disease. 11.Diverticulosis. 12.Prostate cancer. 13.Allergic rhinitis. 14.Impaired fasting glucose. 15.Obstructive sleep apnea. MICHAELA/MODL Voice ID: [id number] Report ID: [id number]
== END 2021-05-27 11:50 | disposition home or self-care (01) | DRG 871 ==
LOC: ER 20:23 → ERHOLD 05-23 01:53 → 4TH 05-24 13:11 → 2ND 05-25 19:40
PROVIDERS: ADMIT Internal Medicine; ATTEND Internal Medicine
PROC: 0T9B70Z Drainage of Bladder with Drainage Device, Via Natural or Artificial Opening (ICD-10-PCS; principal; 2021-05-27)
DX: A41.9 Sepsis, unspecified organism (principal); J69.0 Pneumonitis due to inhalation of food and vomit; J96.01 Acute respiratory failure with hypoxia; N39.0 Urinary tract infection, site not specified; N41.0 Acute prostatitis; B96.20 Unspecified Escherichia coli [E. coli] as the cause of diseases classified elsewhere; E87.6 Hypokalemia; E03.9 Hypothyroidism, unspecified; K21.9 Gastro-esophageal reflux disease without esophagitis; E78.5 Hyperlipidemia, unspecified; K57.90 Diverticulosis of intestine, part unspecified, without perforation or abscess without bleeding; C61 Malignant neoplasm of prostate; J30.9 Allergic rhinitis, unspecified; R73.01 Impaired fasting glucose; N40.1 Benign prostatic hyperplasia with lower urinary tract symptoms; R33.8 Other retention of urine; G47.33 Obstructive sleep apnea (adult) (pediatric); G47.00 Insomnia, unspecified; D50.9 Iron deficiency anemia, unspecified; I11.9 Hypertensive heart disease without heart failure; I25.10 Atherosclerotic heart disease of native coronary artery without angina pectoris; N20.0 Calculus of kidney; M19.90 Unspecified osteoarthritis, unspecified site; M32.9 Systemic lupus erythematosus, unspecified; F32.A Depression, unspecified; Z20.822 Contact with and (suspected) exposure to COVID-19; Z88.8 Allergy status to other drugs, medicaments and biological substances; Z79.82 Long term (current) use of aspirin; Z79.899 Other long term (current) drug therapy; Z82.49 Family history of ischemic heart disease and other diseases of the circulatory system; Z83.3 Family history of diabetes mellitus
CPT/HCPCS: 0240U; 36415; 71045; 71046; 71250; 74177; 80048; 80053; 81003; 81015; 82947; 83605; 83735; 84145; 85025; 85610; 85730; 87040; 87086; 87088; 93005; 97116; 97161; 97530; 99285; C9113; J1650; J1940; J2405; J2543; J2550; J7030; J7040; J7050; Q9967

== ENCOUNTER 2021-07-17 22:35 | Emergency (ER) | payer OTHER ==
--- OUTSIDE RECORDS SUMMARY | 2021-07-17 22:40 | XMS REPORT | Clinical Summary ---
:1950 Author Organization [facility] MD [facility] Address [address] [place] [address] Care Team Providers Name Role Phone Maura Medeiros MD Unavailable MD Isabel Primary Care Provider Allergies No known active allergies Medications Medication Sig Dispensed Refills Start End Date Status Date aspirin 81 mg EC Take 81 mg by 0 Active tablet mouth. atorvastatin TAKE 1 TABLET 0 Act elvia (LIPITOR) 20 mg BY MOUTH DAILY 2 tablet IN EVENING WITH MEAL busPIRone (BUSPAR) TAKE 1 TABLET 0 Active 10 mg tablet BY MOUTH TWICE 2 A DAY carvedilol (COREG) TAKE 1 TABLET 0 Active 12.5 mg tablet BY MOUTH THREE 2 TIMES A DAY esomeprazole TAKE 1 CAPSULE 0 Ac tive (NexIUM) 40 MG BY MOUTH EVERY 1 capsule DAY ferrous sulfate 325 Take 325 mg by 0 Active mg (65 mg elemental mouth daily. 5 iron per tablet) tablet levothyroxine TAKE 1 TABLET 0 Ac tive (SYNTHROID, BY MOUTH EVERY 2 LEVOTHROID) 100 mcg DAY tablet losartan (COZAAR) TAKE 1 TABLET 0 Active 50 mg tablet BY MOUTH EVERY 2 DAY multivit-min/iron/f Take by mouth 0 Active olic acid/K daily. 0 (MULTI-DAY PLUS MINERALS ORAL) omeprazole every other 0 Active (PriLOSEC) 40 MG day. 0 capsule psyllium Take 0.52 g by 0 Activ e (METAMUCIL) 0.52 mouth daily. gram capsule sertraline (ZOLOFT) TAKE 1 AND 1/2 0 Active 50 mg tablet TABLETS DAILY 2 BY MOUTH DIRECTED amLODIPine Take 5 mg by 0 Active (NORVASC) 5 mg mouth. tablet fluticasone Inhale 1 spray 0 Act elvia propionate into each (FLONASE) 50 nostril twice mcg/spray nasal daily. spray calcium carbonate Take by mouth 0 Active (TUMS ORAL) as needed. dicyclomine HCl Take by mouth 0 Active (DICYCLOMINE ORAL) as needed. clonazePAM Dissolve 0.25 0 Activ e (KlonoPIN) 0.25 mg mg on the disintegrating tongue 3 tablet (three) times a day as needed for anxiety. docusate sodium Take 1 capsule 60 capsule 0 Active (COLACE) 100 mg (100 mg) by 2 capsuleIndications: mouth twice Adenocarcinoma of daily. prostate hyoscyamine sulfate Place 1 tablet 15 tablet 0 Active (ANASPAZ) 0.125 mg (0.125 mg) 2 disintegrating under the tabletIndications: tongue every 4 Adenocarcinoma of (four) hours prostate as needed (bladder spasms). oxyCODONE Take 1 tablet 15 tablet 0 Active (ROXICODONE) 5 mg (5 mg) by 2 immediate release mouth every 6 tabletIndications: (six) hours as Adenocarcinoma of needed for prostate severe pain. levoFLOXacin Take 1 tablet 1 tablet 0 07/19/19 Act elvia (LEVAQUIN) 500 mg (500 mg) by 2 22 tabletIndications: mouth once for Adenocarcinoma of 1 dose. Take prostate day of catheter removal. amLODIPine TAKE 1 TABLET 0 04/14/19 Disco ntinued (NORVASC) 5 mg BY MOUTH EVERY 2 22 (Not Applicable) tablet DAY cetirizine (ZyrTEC) Take 10 mg by 0 Discontinued 10 mg tablet mouth. 0 22 (Altern ate therapy) tamsulosin (FLOMAX) TAKE 1 CAPSULE 0 07/17 Discontinued 0.4 mg 24 hr BY MOUTH TWICE 1 22 (S top Taking at capsule A DAY 90 Discharge) amLODIPine-benazepr 0 07/14/19 Discontinued il (LOTREL 5-10) 0 22 (Er ror) 5-10 mg per capsule diazePAM (Valium) 5 Take 1 tablet 1 tablet 0 Discontinued mg (5 mg) by 2 22 (Therapy tabletIndications: mouth once as completed) Elevated prostate needed for specific antigen sedation (PSA) (bring to biopsy and take when instructed by staff) for up to 1 dose. levoFLOXacin daily. 0 07/14/19 Discont inued (LEVAQUIN) 500 mg 2 22 (T herapy tablet completed) Active Problems Problem Noted Date Adenocarcinoma of prostate 06/03/2021 Encounters Date Type Specialty Care Team Description 07/17/2021 Nurse Triage Perla Campos APN 07/16/2021 Surgery Ramya Hall, ROBOTIC ASSIST ED PROSTATECTOMY 07/16/2021 Anesthesia Event Marion Yu MD 07/16/2021 Hospital Encounter Uro/Ortho/GI Ramya Hall, Adenocar cinoma of - prostate 07/17/2021 07/16/2021 Travel 07/15/2021 Travel 07/13/2021 Anesthesia Event Anesthesiology Gayathri Moreno MA 07/13/2021 Hospital Encounter Lab Ese Dumont Pre op labs J, 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 07/13/2021 Hospital Encounter Cardiology AndFabian yun Encoun ter for other MD preprocedural examination 07/13/2021 POEM Appointments Anesthesiology Ofelia Montoya for other preprocedural examination (Primary Dx); LUDIN Valdez Adenocarcinoma of prostate; Pre op labs 07/13/2021 Clinical Support Ofelia Chaudhary Suspecte d COVID-19 (Primary Dx); LUDIN Valdez Adenocarcinoma of prostate Krystal Ryan RN 07/13/2021 Office Visit Urology Ramya Hall, Adenocarcinoma of prostate 07/13/2021 Travel 07/07/2021 Orders Only Urology Ofelia Montoya PA prostate (Prima ry Dx) 06/13/2021 Orders Only Urology Ofelia Montoya PA prostate (Prima ry Dx) 06/11/2021 Documentation Urology Ofelia Montoya PA 06/10/2021 Ancillary Procedure Radiology Adenocar cinoma of prostate 06/10/2021 Travel 06/09/2021 Orders Only Urology Ofelia Montoya PA 06/04/2021 Orders Only Urology Ofelia Montoya Adenocarcino ma of A., PA prostate (Prima ry Dx) 06/04/2021 Prep for Surgery Urology Ofelia Montoya Adenocar cinoma of A., PA prostate (Prima ry Dx) 06/03/2021 Office Visit Urology Ramya Hall, Adenocarcinoma of prostate (Primary Dx); Elevated prosta te specific antigen (PSA) 06/03/2021 Travel 06/02/2021 Ancillary Procedure Radiology Ofelia Montoya PA 06/02/2021 Ancillary Procedure Radiology Ofelia Montoyaa elsi prostate specific antigen (PSA); A., LUDIN Adenocarcinoma of prostate 06/02/2021 Ancillary Procedure Radiology Ofelia Montoya [place] elsi prostate specific antigen (PSA); A., PA Adenocarcinoma of prostate 06/02/2021 Travel 05/26/2021 Orders Only Urology Ofelia Montoya Elevated pro state specific antigen (PSA) (Primary Dx); A., PA Adenocarcinoma of prostate 05/25/2021 Documentation Urology Ofelia Montoya PA 05/24/2021 Telephone Urology Nelia Maynard RN 05/20/2021 Procedure visit Urology Ramya Hall, Elevated pr ostate specific antige n (PSA) 05/20/2021 Travel 04/28/2021 Orders Only Urology Ofelia Montoya Elevated pro state A., PA specific antige n (PSA) (Primary Dx) 04/20/2021 Telephone Pain Medicine Norma Concepcion RN 04/15/2021 Orders Only Urology Ofelia Montoya Elevated pro state A., PA specific antige n (PSA) (Primary Dx) 04/13/2021 Office Visit Urology Ramya Hall, Elevated prost ate specific antige n (PSA) (Primary Dx) 04/13/2021 NPR Patient Access Ramya Hall, Services 04/13/2021 Travel 04/09/2021 Orders Only Urology Ofelia Montoya Elevated pro state A., PA specific antige n (PSA) (Primary Dx) after 07/17/2020 Surgical History Surgery Date Site/Laterality Comments COLONOSCOPY [...] gland 02/06/1989 Depressive disorder 02/07/1984 Anxiety 02/06/1970 Sleep apnea Family History Medical History Relation Name Comments [...] Exposure Response Date Recorded In the last 10 days, have you been in contact with No / Unsu re 07/16/2021 6:10 PM CDT someone who was confirmed or suspected to have Coronavirus/COVID-19? Obstetrics History Last Filed Vital Signs Vital Sign Reading Time Taken Comments Blood Pressure 126/74 07/17/2021 3:34 PM CDT Pulse 72 07/17/2021 3:34 PM CDT Temperature 37 C (98.6 F) 07/17/2021 3:34 PM CDT Respiratory Rate 18 07/17/2021 3:34 PM CDT Oxygen Saturation 95% 07/17/2021 3:34 PM CDT Inhaled Oxygen Concentration - - Weight 86.1 kg (189 lb 13.1 oz) 07/16/2021 5:40 AM CDT Height 169 cm (5' 6.54") 07/16/2021 6:09 PM CDT Body Mass Index 30.15 07/16/2021 5:40 AM CDT Plan of Treatment Date Type Specialty Care Team Description 09/02/2021 [place] [address] [place], [place] [address] (Wo rk) 09/02/2021 Office Visit Urology Ramya Hall MD [address] [place], [place] [address] (Wo rk) Health Maintenance Due Date Last Done Comments COVID-19 Vaccination (1) 1955 Medical Devices Implanted Type Area 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 [employer] # [id number], Email: [email or web address] Note: The patient should not be exposed [...] device. Procedures Procedure Name Priority Date/Time Associated Diagnosis Comme nts ANION GAP AM 07/17/2021 3:40 Results for this AM CDT procedure are i n the results section. .GLOMERULAR FILTRATION AM 07/17/2021 3:40 R esults for this RATE AM CDT procedure are i n the results section. SERUM CREATININE AM 07/17/2021 3:40 Results for this AM CDT procedure are i n the results section. GLUCOSE, RANDOM AM 07/17/2021 3:40 Results for this AM CDT procedure are i n the results section. SERUM CREATININE AM 07/17/2021 3:40 AM CDT BLOOD UREA NITROGEN AM 07/17/2021 3:40 Resu lts for this AM CDT procedure are i n the results section. CARBON DIOXIDE LEVEL AM 07/17/2021 3:40 Res ults for this AM CDT procedure are i n the results section. CHLORIDE LEVEL AM 07/17/2021 3:40 Results f or this AM CDT procedure are i n the results section. POTASSIUM LEVEL AM 07/17/2021 3:40 Results for this AM CDT procedure are i n the results section. SODIUM LEVEL AM 07/17/2021 3:40 Results for this AM CDT procedure are i n the results section. COMPLETE BLOOD COUNT W/ AM 07/17/2021 3:40 Results for this INDICES AM CDT procedure are i n the results section. CREATININE BODY FLUID Routine 07/17/2021 2:32 Re sults for this AM CDT procedure are i n the results section. ANION GAP Routine 07/16/2021 2:13 Results for this PM CDT procedure are i n the results section. .GLOMERULAR FILTRATION Now 07/16/2021 2:13 R esults for this RATE PM CDT procedure are i n the results section. SERUM CREATININE Now 07/16/2021 2:13 Results for this PM CDT procedure are i n the results section. HEMOGLOBIN Now 07/16/2021 2:13 Results for this PM CDT procedure are i n the results section. GLUCOSE, RANDOM Now 07/16/2021 2:13 Results for this PM CDT procedure are i n the results section. SERUM CREATININE Now 07/16/2021 2:13 PM CDT BLOOD UREA NITROGEN Now 07/16/2021 2:13 Resu lts for this PM CDT procedure are i n the results section. CARBON DIOXIDE LEVEL Now 07/16/2021 2:13 Res ults for this PM CDT procedure are i n the results section. CHLORIDE LEVEL Now 07/16/2021 2:13 Results f or this PM CDT procedure are i n the results section. POTASSIUM LEVEL Now 07/16/2021 2:13 Results for this PM CDT procedure are i n the results section. SODIUM LEVEL Now 07/16/2021 2:13 Results for this PM CDT procedure are i n the results section. TMP INTERPRETATION Routine 07/13/2021 2:21 Resul ts for this ANTIBODY SCREEN PM CDT procedure ar e in NEGATIVE the results section. CLOT EXPIRATION DATE Routine 07/13/2021 2:21 Res ults for this PM CDT procedure are i n the results section. ANTIBODY SCREEN Routine 07/13/2021 2:21 Pre op labs Results for this PM CDT procedure are i n the results section. ABORH Routine 07/13/2021 2:21 Pre op labs Results for this PM CDT procedure are i n the results section. .GLOMERULAR FILTRATION Routine 07/13/2021 2:21 Pre op labs R esults for this RATE PM CDT procedure are i n the results section. SERUM CREATININE Routine 07/13/2021 2:21 Pre op labs Results for this PM CDT procedure are i n the results section. FREE THYROXINE Routine 07/13/2021 2:21 Pre op labs Results f or this PM CDT procedure are i n the results section. THYROID STIMULATING Routine 07/13/2021 2:21 Pre op labs Resu lts for this HORMONE PM CDT procedure are i n the results section. HEMOGLOBIN A1C Routine 07/13/2021 2:21 Pre op labs Results f or this PM CDT procedure are i n the results section. TYPE AND SCREEN Routine 07/13/2021 2:21 Pre op labs PM CDT COMPLETE BLOOD COUNT W/ Routine 07/13/2021 2:21 Pre op labs Results for this INDICES PM CDT procedure are i n the results section. GLUCOSE LEVEL Routine 07/13/2021 2:21 Pre op labs Results fo r this PM CDT procedure are i n the results section. SERUM CREATININE Routine 07/13/2021 2:21 Pre op labs PM CDT BLOOD UREA NITROGEN Routine 07/13/2021 2:21 Pre op labs Resu lts for this PM CDT procedure are i n the results section. ELECTROLYTE PANEL Routine 07/13/2021 2:21 Pre op labs Result s for this PM CDT procedure are i n the results section. COVID-19 Routine 07/13/2021 12:25 Suspected COVID-19 Resul ts for this (SARS-COV-2) PCR PM CDT procedure a re in ASYMPTOMATIC the results section. EKG, 12-LEAD Routine 07/13/2021 Encounter for other (SCHEDULED) preprocedural examination PETCT 18F-PIFLUFOLASTAT Routine 06/10/2021 2:47 Adenocarcinom a of Results for this (PSMA PYL) W/ CONTRAST PM CDT prostate proce dure are in the results section. NM BONE SCAN WHOLE BODY Routine 06/02/2021 12:49 Elevated pros winter Results for this PM CDT specific antigen procedure a re in (PSA) the results Adenocarcinoma of section. prostate CT ABDOMEN PELVIS W WO Routine 06/02/2021 11:35 Elevated prost ate Results for this CONTRAST AM CDT specific antigen procedure a re in (PSA) the results Adenocarcinoma of section. prostate POC CREATININE Routine 06/02/2021 9:46 Results f or this AM CDT procedure are i n the results section. PATHOLOGY BIOPSY Routine 05/20/2021 12:04 Elevated prostate Re sults for this INTERPRETATION PM CDT specific antigen procedure are in (PSA) the results section. PROSTATE SPECIFIC Routine 04/27/2021 10:03 Elevated prostate R esults for this ANTIGEN AM CDT specific antigen procedure a re in (PSA) the results section. CONFIRM ABORH TYPE Routine 04/13/2021 12:37 Resul ts for this PM AUDIO VISUAL PRODUCTION SPECIALIST procedure are i n the results section. TMP HCVAB INTERP Routine 04/13/2021 12:27 Results for this PM AUDIO VISUAL PRODUCTION SPECIALIST procedure are i n the results section. TMP INTERPRETATION Routine 04/13/2021 12:27 Resul ts for this ANTIBODY SCREEN PM AUDIO VISUAL PRODUCTION SPECIALIST procedure ar e in NEGATIVE the results section. CLOT EXPIRATION DATE Routine 04/13/2021 12:27 Res ults for this PM AUDIO VISUAL PRODUCTION SPECIALIST procedure are i n the results section. FRACTIONATED BILIRUBIN Routine 04/13/2021 12:27 Elevated prost ate Results for this PM AUDIO VISUAL PRODUCTION SPECIALIST specific antigen procedure a re in (PSA) the results section. TOTAL PROTEIN Routine 04/13/2021 12:27 Elevated prostate Resul ts for this PM AUDIO VISUAL PRODUCTION SPECIALIST specific antigen procedure a re in (PSA) the results section. ASPARTATE Routine 04/13/2021 12:27 Elevated prostate Result s for this AMINOTRANSFERASE PM AUDIO VISUAL PRODUCTION SPECIALIST specific antigen procedu re are in (PSA) the results section. ALANINE Routine 04/13/2021 12:27 Elevated prostate Result s for this AMINOTRANSFERASE PM AUDIO VISUAL PRODUCTION SPECIALIST specific antigen procedu re are in (PSA) the results section. ANTIBODY SCREEN Routine 04/13/2021 12:27 Elevated prostate Res ults for this PM AUDIO VISUAL PRODUCTION SPECIALIST specific antigen procedure a re in (PSA) the results section. ABORH Routine 04/13/2021 12:27 Elevated prostate Result s for this PM AUDIO VISUAL PRODUCTION SPECIALIST specific antigen procedure a re in (PSA) the results section. ALKALINE PHOSPHATASE Routine 04/13/2021 12:27 Elevated prostat e Results for this PM AUDIO VISUAL PRODUCTION SPECIALIST specific antigen procedure a re in (PSA) the results section. ALBUMIN LEVEL Routine 04/13/2021 12:27 Elevated prostate Resul ts for this PM AUDIO VISUAL PRODUCTION SPECIALIST specific antigen procedure a re in (PSA) the results section. CALCIUM LEVEL TOTAL Routine 04/13/2021 12:27 Elevated prostate Results for this PM AUDIO VISUAL PRODUCTION SPECIALIST specific antigen procedure a re in (PSA) the results section. .GLOMERULAR FILTRATION Routine 04/13/2021 12:27 Elevated prost ate Results for this RATE PM AUDIO VISUAL PRODUCTION SPECIALIST specific antigen procedure a re in (PSA) the results section. SERUM CREATININE Routine 04/13/2021 12:27 Elevated prostate Re sults for this PM AUDIO VISUAL PRODUCTION SPECIALIST specific antigen procedure a re in (PSA) the results section. ELECTROLYTE PANEL Routine 04/13/2021 12:27 Elevated prostate R esults for this PM AUDIO VISUAL PRODUCTION SPECIALIST specific antigen procedure a re in (PSA) the results section. BLOOD UREA NITROGEN Routine 04/13/2021 12:27 Elevated prostate Results for this PM AUDIO VISUAL PRODUCTION SPECIALIST specific antigen procedure a re in (PSA) the results section. GLUCOSE LEVEL Routine 04/13/2021 12:27 Elevated prostate Resul ts for this PM AUDIO VISUAL PRODUCTION SPECIALIST specific antigen procedure a re in (PSA) the results section. HEPATITIS C VIRUS Routine 04/13/2021 12:27 Elevated prostate R esults for this ANTIBODY PM AUDIO VISUAL PRODUCTION SPECIALIST specific antigen procedure a re in (PSA) the results section. TYPE AND SCREEN Routine 04/13/2021 12:27 Elevated prostate PM AUDIO VISUAL PRODUCTION SPECIALIST specific antigen (PSA) COMPLETE BLOOD COUNT W/ Routine 04/13/2021 12:27 Elevated pros winter Results for this INDICES PM AUDIO VISUAL PRODUCTION SPECIALIST specific antigen procedure a re in (PSA) the results section. COMPREHENSIVE METABOLIC Routine 04/13/2021 12:27 Elevated pros winter PANEL PM AUDIO VISUAL PRODUCTION SPECIALIST specific antigen (PSA) HEMOGLOBIN A1C Routine 04/13/2021 12:27 Elevated prostate Resu lts for this PM AUDIO VISUAL PRODUCTION SPECIALIST specific antigen procedure a re in (PSA) the results section. PROSTATE SPECIFIC Routine 04/13/2021 12:27 Elevated prostate R esults for this ANTIGEN PM AUDIO VISUAL PRODUCTION SPECIALIST specific antigen procedure a re in (PSA) the results section. after 07/17/2020 Results Glucose, Random (07/17/2021 3:40 AM CDT)Only the most recent of2 resultswithin the time period is included. athologist Signature Glucose Random 108 70 - 199 [facility] mg/dL [facility] Comment: Effective 09/02/15, the glucose reference intervals have been updated based on [place] Diabetes [employer] guidelines (Standards of Medical Care in Diabetes 2016. Diabetes Care 2016; 39: S13-S22). Fasting blood glucose: Normal: 70-99 mg/dL Impaired fasting glucose (increased risk for diabetes or pre-diabetes): 100- 125 mg/dL Diabetes mellitus: >/=126 mg/dL Random blood glucose: Normal: 70-199 mg/dL Note: Random glucose >100 mg/dL is assoc iated with increased risk for diabetes Specimen Anatomical Collection Method Collection Time Receive d Time (Source) Location / / Volume Laterality Blood 07/17/2021 3:40 07/17/2021 AM CDT 4:31 AM CDT Pako Rivers MD LAB BLOOD ORDERABLES Performing Organization Address City/State/ZIP Code Phon e Number [facility] CANCER Unless otherwise noted, [place] [address] HINES all lab tests performed by: Division of Pathology and Laboratory Medicine [address] [place] Anion Gap (07/17/2021 3:40 AM CDT)Only the most recent of2 resultswithin the time period is included. athologist Signature Anion Gap 9 4 - 14 [facility] mEq/L [facility] Specimen Anatomical Collection Method Collection Time Receive d Time (Source) Location / / Volume Laterality Blood 07/17/2021 3:40 07/17/2021 AM CDT 4:31 AM CDT Pako Rivers MD LAB BLOOD ORDERABLES Performing Organization Address City/[facility]/ZIP [facility] Phon e Number [facility] CANCER Unless otherwise noted, [address] all lab tests performed by: Division of Pathology and Laboratory Medicine [address] [place] [address] .Serum Creatinine (07/17/2021 3:40 AM CDT)Only the most recent of4 results within the time period is included. athologist Signature Creatinine 0.90 0.67 - 1.17 [facility] mg/dL [facility] Specimen Anatomical Collection Method Collection Time Receive d Time (Source) Location / / Volume Laterality Blood 07/17/2021 3:40 07/17/2021 AM CDT 4:31 AM CDT Pako Rivers MD LAB BLOOD ORDERABLES Performing Organization Address [facility] Phon e Number [facility] Unless otherwise noted, [address] all lab tests performed by: Division of Pathology and Laboratory Medicine [address] [place] [address] Glomerular Filtration Rate (07/17/2021 3:40 AM CDT)Only the most recent of4 resultswithin the time period is included. athologist [facility] eGFR-AA 99 >=60 [facility] mL/min/1.73 [facility] sq. m Comment: Normal eGFR: >= 60 mL/min/1.73 m2 Note: The eGFR is calculated using the C KD-EPI equation. The eGFR declines with age. eGFR <60 mL/min/1.73 m2 is considered as "decreased". This equation should only be used for patients 18 and older. According to the National Kidney Foundat ion's Kidney Disease Outcome Quality Initiative (KDOQI) classification and 2012 Kidney Disease Improving Global Outcomes (KDIGO) Clinical Practice Guideline, the stage of CKD should be categorized based on estimated GFR. Stage Description GFR mL/min/1. 73 m2 1 Normal or high GFR >=90 2 Mildly decreased GFR 60-89 3a Mildly to moderately decreased GFR 45-59 3b Moderately to severely decreased GFR 30-44 4 Severely decreased GFR 15-29 5 Kidney failure <15 eGFR-JARED 86 >=60 mL/min/1.73 sq. m AR MD Moreno [facility] Comment: Normal eGFR: >= 60 mL/min/1.73 m2 Note: The eGFR is calculated using the C KD-EPI equation. The eGFR declines with age. eGFR <60 mL/min/1.73 m2 is considered as "decreased". This equation should only be used for patients 18 and older. According to the National Kidney Foundat ion's Kidney Disease Outcome Quality Initiative (KDOQI) classification and 2012 Kidney Disease Improving Global Outcomes (KDIGO) Clinical Practice Guideline, the stage of CKD should be categorized based on estimated GFR. Stage Description GFR mL/min/1. 73 m2 1 Normal or high GFR >=90 2 Mildly decreased GFR 60-89 3a Mildly to moderately decreased GFR 45-59 3b Moderately to severely decreased GFR 30-44 4 Severely decreased GFR 15-29 5 Kidney failure <15 Specimen Anatomical Collection Method Collection Time Receive d Time (Source) Location / / Volume Laterality Blood 07/17/2021 3:40 07/17/2021 AM CDT 4:31 AM CDT Pako Rivers MD LAB BLOOD ORDERABLES Performing Organization Address City/State/ZIP Code Phon e Number [facility] CANCER Unless otherwise noted, [address] all lab tests performed by: Division of Pathology and Laboratory Medicine [address] [place] (ABNORMAL) Complete Blood Count w/o Differential (07/17/2021 3:40 AM CDT)Only the most recent of3 resultswithin the time period is included. P athologist Signature WBC 7.8 4.0 - 11.0 AR MD K/[facility] RBC 3.77 (L) 4.50 - AR MD 6.00 M/[facility] Hgb 11.2 (L) 14.0 - AR MD 18.0 gm/dL [facility] Hct 34.4 (L) 40.0 - AR MD 54.0 % [facility] MCV 91 82 - 98 [facility] [place] MCH 29.7 27.0 - AR MD 31.0 pg [facility] MCHC 32.6 31.0 - AR MD 36.0 gm/dL [facility] RDW-SD 46.5 (H) 35.1 - AR MD 46.3 [facility] RDW-CV 13.9 12.0 - AR MD 15.5 [facility] Platelet count 153 140 - 440 AR K/uL [facility] MPV 9.8 4.0 - 10.4 [facility] INRBC 0.0 <=0.0 % [facility] Comment: The INRBC (instrument NRBC) value reflec ts the enumeration of nucleated red blood cells contained i n a 200uL sample of whole blood analyzed by the instrumen t. This value may differ from the NRBC value reported in a manual differential, which is based on a 100 cell differentia l. Specimen Anatomical Collection Method Collection Time Receive d Time (Source) Location / / Volume Laterality Blood 07/17/2021 3:40 07/17/2021 AM CDT 4:19 AM CDT Pako Rivers MD LAB BLOOD ORDERABLES Performing Organization Address City/[facility] Phon e Number [facility] CANCER Unless otherwise noted, [address] all lab tests performed by: Division of Pathology and Laboratory Medicine [facility] Blood Urea Nitrogen (07/17/2021 3:40 AM CDT)Only the most recent of4 results within the time period is included. athologist Signature BUN 11 6 - 23 [facility] mg/dL [facility] Specimen Anatomical Collection Method Collection Time Receive d Time (Source) Location / / Volume Laterality Blood 07/17/2021 3:40 07/17/2021 AM CDT 4:31 AM CDT Pako Rivers MD LAB BLOOD ORDERABLES Performing Organization Address City/[facility] Phon e Number [facility] CANCER Unless otherwise noted, [address] all lab tests performed by: Division of Pathology and Laboratory Medicine [address] [place], [place] [address] Sodium Level (07/17/2021 3:40 AM CDT)Only the most recent of2 resultswithin the time period is included. P athologist Signature Sodium Lvl 138 136 - 145 [facility] mEq/L [facility] Specimen Anatomical Collection Method Collection Time Receive d Time (Source) Location / / Volume Laterality Blood 07/17/2021 3:40 07/17/2021 AM CDT 4:31 AM CDT Pako Rivers MD LAB BLOOD ORDERABLES Performing Organization Address City/[facility] Phon e Number [facility] CANCER Unless otherwise noted, [address] all lab tests performed by: Division of Pathology and Laboratory Medicine [address] [place] Potassium Level (07/17/2021 3:40 AM CDT)Only the most recent of2 resultswithin the time period is included. P athologist Signature Potassium Lvl 3.7 3.5 - 5.1 [facility] mEq/L [facility] Specimen Anatomical Collection Method Collection Time Receive d Time (Source) Location / / Volume Laterality Blood 07/17/2021 3:40 07/17/2021 AM CDT 4:31 AM CDT Pako Rivers MD LAB BLOOD ORDERABLES Performing Organization Address [facility] Phon e Number [facility] CANCER Unless otherwise noted, [address] all lab tests performed by: Division of Pathology and Laboratory Medicine [address] [place] Chloride Level (07/17/2021 3:40 AM CDT)Only the most recent of2 resultswithin the time period is included. P athologist Signature Chloride 105 98 - 107 [facility] mEq/L [facility] Specimen Anatomical Collection Method Collection Time Receive d Time (Source) Location / / Volume Laterality Blood 07/17/2021 3:40 07/17/2021 AM CDT 4:31 AM CDT Pako Rivers MD LAB BLOOD ORDERABLES Performing Organization Address [facility] Phon e Number [facility] CANCER Unless otherwise noted, [address] all lab tests performed by: Division of Pathology and Laboratory Medicine [address] [place] Carbon Dioxide Level (07/17/2021 3:40 AM CDT)Only the most recent of2 results within the time period is included. P athologist Signature CO2 24 22 - 29 [facility] mEq/L [facility] Specimen Anatomical Collection Method Collection Time Receive d Time (Source) Location / / Volume Laterality Blood 07/17/2021 3:40 07/17/2021 AM CDT 4:31 AM CDT Pako Rivers MD LAB BLOOD ORDERABLES Performing Organization Address [facility]/State/ZIP Code Phon e Number [facility] CANCER Unless otherwise noted, [address] all lab tests performed by: Division of Pathology and Laboratory Medicine [address] Creatinine BF (07/17/2021 2:32 AM CDT) athologist [facility] Creatinine BF 1.22 mg/dL [facility] Comment: This assay has been validated for body f luids. No reference ranges have been established. Test results should be interpreted in context of the patient's clinical condition and in conjunction with simila r assays performed on serum. Pathologist consult is available. Creat BF Type Drainage [facility] Specimen Anatomical Collection Method Collection Time Receive d Time (Source) Location / / Volume Laterality Drainage 07/17/2021 2:32 07/17/2021 AM CDT 2:45 AM CDT Narrative [facility] - 3:04 AM CDT MAXIMO drain Pako Rivers MD BODY FLUIDS AND STOOLS ORDER JULIANNE Performing Organization Address City/[facility] Phon e Number [facility] Unless otherwise noted, [address] all lab tests performed by: Division of Pathology and Laboratory Medicine [address] (ABNORMAL) Hemoglobin (07/16/2021 2:13 PM CDT) athologist [facility] Hgb 11.4 (L) 14.0 - 18.0 [facility] gm/dL [facility] Specimen Anatomical Collection Method Collection Time Receive d Time (Source) Location / / Volume Laterality Blood 07/16/2021 2:13 07/16/2021 PM CDT 2:31 PM CDT Pako Rivers MD LAB BLOOD ORDERABLES Performing Organization Address City/State/ZIP [facility] Phon e Number [facility] Unless otherwise noted, [address] all lab tests performed by: Division of Pathology and Laboratory Medicine [address] [place] Expiration Date (07/13/2021 2:21 PM CDT)Only the most recent of2 results within the time period is included. Patholo gist Method Time Signature T & S 07/16/2021 [facility] Specimen Anatomical Collection Method Collection Time Receive d Time (Source) Location / / Volume Laterality Blood 07/13/2021 2:21 07/13/2021 PM CDT 3:19 PM CDT Ese Duomnt NP BLOOD BANK TEST ORDERABLES Performing Organization Address City/[facility] Phon e Number [facility] CANCER Unless otherwise noted, [address] all lab tests performed by: Division of Pathology and Laboratory Medicine [address] [place] [address] TMP Interpretation Antibody Screen Negative (07/13/2021 2:21 PM CDT)Only the most recent of2 resultswithin the time period is included. [facility] gist Method Time Signature TMP Auto Neg At the [facility] patient plasma shows no evidence of RBC alloantibodi es. Comment: RICHARD CAMP MD - [id number] Dictated by: RICHARD CAMP MD - [id number] Dictated Date/Time: 07.13.2021 22:12 PM CDT Transcribed Date/Time: 07.13.2021 22:12 PM CDT Electronically Signed By: RICHARD RODRIGUEZ MD - [id number] on 07.13.2021 22:12 PM Specimen Anatomical Collection Method Collection Time Receive d Time (Source) Location / / Volume Laterality Blood 07/13/2021 2:21 07/13/2021 PM CDT 3:19 PM CDT Ese Dumont NP BLOOD BANK TEST ORDERABLES Performing Organization Address City/State/ZIP Code Phon e Number [facility] CANCER Unless otherwise noted, [address] all lab tests performed by: Division of Pathology and Laboratory Medicine [address] [place] [address] ABORh (07/13/2021 2:21 PM CDT)Only the most recent of2 resultswithin the time period is included. P athologist Signature ABORh. A POS [facility] Specimen Anatomical Collection Method Collection Time Receive d Time (Source) Location / / Volume Laterality Blood 07/13/2021 2:21 07/13/2021 PM CDT 3:19 PM CDT Ese Dumont NP BLOOD BANK TEST ORDERABLES Performing Organization Address City/[facility]/ZIP [facility] Phon e Number [facility] CANCER Unless otherwise noted, [address] all lab tests performed by: Division of Pathology and Laboratory Medicine [address] [place] Antibody Screen (07/13/2021 2:21 PM CDT)Only the most recent of2 resultswithin the time period is included. athologist Signature ABSC. Negative ABSC [facility] Specimen Anatomical Collection Method Collection Time Receive d Time (Source) Location / / Volume Laterality Blood 07/13/2021 2:21 07/13/2021 PM CDT 3:19 PM CDT Ese Dumont NP BLOOD BANK TEST ORDERABLES Performing Organization Address City/[facility]/ZIP Code Phon e Number [facility] CANCER Unless otherwise noted, [address] all lab tests performed by: Division of Pathology and Laboratory Medicine [facility] [place] (ABNORMAL) TSH (07/13/2021 2:21 PM CDT) athologist Signature TSH 4.66 (H) 0.27 - 4.20 [facility] mcunit/mL [facility] Specimen Anatomical Collection Method Collection Time Receive d Time (Source) Location / / Volume Laterality Blood 07/13/2021 2:21 07/13/2021 PM CDT 3:01 PM CDT Ese Dumont NP LAB BLOOD ORDERABLES Performing Organization Address City/[facility]/ZIP Code Phon e Number [facility] CANCER Unless otherwise noted, [address] all lab tests performed by: Division of Pathology and Laboratory Medicine [address] [place] Free T4 (07/13/2021 2:21 PM CDT) athologist Signature T4 Free 1.11 0.93 - 1.70 [facility] ng/dL [facility] Specimen Anatomical Collection Method Collection Time Receive d Time (Source) Location / / Volume Laterality Blood 07/13/2021 2:21 07/13/2021 PM CDT 3:01 PM CDT Ese Dumont NP LAB BLOOD ORDERABLES Performing Organization Address City/[facility]/ZIP [facility] Phon e Number [facility] CANCER Unless otherwise noted, [address] all lab tests performed by: Division of Pathology and Laboratory Medicine [address] [place] [address] Hemoglobin A1c (07/13/2021 2:21 PM CDT)Only the most recent of2 resultswithin the time period is included. athologist Signature A1C 5.6 4.3 - 5.6 % [facility] Comment: HbA1c values >=6.5% are diagnostic of di abetes mellitus. Diagnosis should be confirmed by repeat testing. Therapeutic Action suggested: >8.0% HbA1 c; Goal of therapy: <7.0% HbA1c Specimen Anatomical Collection Method Collection Time Receive d Time (Source) Location / / Volume Laterality Blood 07/13/2021 2:21 07/13/2021 PM CDT 3:15 PM CDT Ese Dumont NP LAB BLOOD ORDERABLES Performing Organization Address City/[facility] Phon e Number [facility] CANCER Unless otherwise noted, [address] all lab tests performed by: Division of Pathology and Laboratory Medicine [address] [place] [address] (ABNORMAL) Glucose Level (07/13/2021 2:21 PM CDT)Only the most recent of2 resultswithin the time period is included. athologist Signature Glucose Level 113 (H) 70 - 99 [facility] mg/dL [facility] Comment: Effective 09/02/15, the glucose reference intervals have been updated based on [place] [employer] guidelines (Standards of Medical Care in Diabetes 2016. Diabetes Care 2016; 39: S13-S22). Fasting blood glucose: Normal: 70-99 mg/dL Impaired fasting glucose (increased risk for diabetes or pre-diabetes): 100- 125 mg/dL Diabetes mellitus: >/=126 mg/dL Random blood glucose: Normal: 70-199 mg/dL Note: Random glucose >100 mg/dL is assoc iated with increased risk for diabetes Specimen Anatomical Collection Method Collection Time Receive d Time (Source) Location / / Volume Laterality Blood 07/13/2021 2:21 07/13/2021 PM CDT 3:01 PM CDT Ese Dumont NP LAB BLOOD ORDERABLES Performing Organization Address City/State/ZIP Code Phon e Number [facility] CANCER Unless otherwise noted, [address] all lab tests performed by: Division of Pathology and Laboratory Medicine [address] Electrolyte Panel (07/13/2021 2:21 PM CDT)Only the most recent of2 results within the time period is included. athologist Signature Sodium Lvl 142 136 - 145 [facility] mEq/L [facility] Potassium Lvl 4.1 3.5 - 5.1 [facility] mEq/L [facility] Chloride 106 98 - 107 [facility] mEq/L [facility] CO2 26 22 - 29 [facility] mEq/L [facility] Anion Gap 10 4 - 14 [facility] mEq/L [facility] Specimen Anatomical Collection Method Collection Time Receive d Time (Source) Location / / Volume Laterality Blood 07/13/2021 2:21 07/13/2021 PM CDT 3:01 PM CDT Ese Dumont NP LAB BLOOD ORDERABLES Performing Organization Address City/[facility]/ZIP Code Phon e Number [facility] CANCER Unless otherwise noted, [address] all lab tests performed by: Division of Pathology and Laboratory Medicine [address] Evans MD COVID-19 (DINESH-CoV-2) PCR Asymptomatic (07/13/2021 12:25 PM CDT) Component Value Ref Range Test Analysis Performed Pathologis t Method Time At [facility] COVID19 SARS Pre-OR Procedure BRYANT GILMORE Indication [facility] COVID19 SARS Not Detected Not BRYANT GILMORE Result Detected [facility] COVID19 SARS SARS-CoV-2 NOT Detected. AR Interpretation FEI Reference Range: Not Detected [facility] Methodology: The Jennings Real Time SARS-CoV-2 assay is a qualitative real-time reverse dethistler operator polymerase chain reaction (still operator helper-PCR) test to detect RNA from SARS-CoV-2 in nasal, nasopharyngeal and oropharyngeal swabs from patients with signs and symptoms of infection who ar e suspected of COVID-19 by their health care provider. The [employer] RealTime SARS-CoV-2 performed on the WriteOn m2000 System is a dual target assay with primers and probes for the RdRp and N genes. Results must be interpreted within the context of all relevant clinical and laboratory findings, and epidemiological risk factors. Positive results are indicative of the presence of SARS-CoV-2 RNA; clinical correlation with patient history and other diagnostic information is ne cessary to determine patient infection status. Positive results do not rule out bacterial infection or co-infection with other viruses. Negative results do not preclude SARS- CoV-2 infection and should not be used as the sole basis for patient management decisions. The WriteOn RealTime SARS-CoV -2 assay is for in vitro diagnostic use under FDA Emergency Use Authorization only. Testing is limited to laboratories certified under the Clinical Laboratory Improvement Denisa ndments of 1988 (CLIA), 42U.S.C. 263a, to perform high complexity tests. The T est was performed by the CLIA-certified, high- complexity Molecular Diagnostics Laboratory (MDL) at [facility] under the Food and Drug Administration (FDA) s Emergency Use Authorization. Factsheet for patients: https://www.[email or web address]/AbbottFac tSheetPatients Factsheet for healthcare pro viders: https://www.[email or web address]/AbbottFactSheetHCP Test performed by: [facility] Molecular Diagnostic Lab [address] [place] [address] Specimen (Source) Anatomical Collection Method Collection Time Re ceived Time Location / / Volume Laterality Nasopharyngeal Swab 07/13/2021 12:25 06/0 08/2021 PM CDT 3:01 PM CDT Ramya Hall MD MICROBIOLOGY - GENERAL ORDER JULIANNE Performing Organization Address City/State/ZIP Code Phon e Number [facility] CANCER Unless otherwise noted, [address] all lab tests performed by: Division of Pathology and Laboratory Medicine [facility] EKG, 12-Lead (Scheduled) (07/13/2021) Specimen (Source) Anatomical Location Collection Method / Collectio n Time Received Time / Laterality Volume Narrative This result has an attachment that is no t available. Fabian Greer MD ECG ORDERABLES Performing Organization Address City/[facility]/ZIP Code Phon e Number ИВАН IECG PETCT Piflufolastat (PSMA PYL) w/ contrast (06/10/2021 2:47 PM CDT) Anatomical Region Laterality Modality Whole Body Positron Emission To mography (PET) Specimen (Source) Anatomical Collection Method Collection Time Re ceived Time Location / / Volume Laterality 06/10/2021 4:15 PM CDT Impressions 06/11/2021 9:18 AM CDT 1. Asymmetrically avid PSMA uptake in the lateral aspect of right prostate gland, representing the primary prostate cancer. 2. Elsewhere, no other PSMA avid lesio n is seen to suggest metastatic prostate cancer. Narrative 06/11/2021 9:18 AM CDT FULL RESULTS: Examination: F-18 PSMA PET/CT, 4:15 PM Clinical History: A 71-year-old male w ith newly diagnosed prostate cancer. Indication: staging for subsequent treat ment strategy Technique: F-18 PSMA-PYL 9.6 mCi was a dministered intravenously via the right wrist. Following a 55-minute delay, PET/CT imaging was performed from skull vertex to mid thighs. CT scanning was perfor med for attenuation correction, image re gistration, and diagnosis, with scan parameters optimized to minimize radiation exposure to the patient. SUV measurements are reported as maximum SUV based on body weight unless otherwise specified. Comparison: CT abdomen and pelvis exam on 06/02/2021. FINDINGS: Head and Neck: There are no suspicious focal tracer upt mary identified in the visualized brain. Radiotracer activity within the bilateral salivary glands are likely physiologic and unremarkable. There are no suspicious PSMA-avid cervical nodes. There is symm etric radiotracer uptake within bilateral orbits, likely representing physiologic activity. Chest: There are no suspicious PSMA-avid medias tinal, hilar, and axillary nodes. There are no suspicious PSMA-avid pulmonary nodules. Right apical opacities/scarrings seen on the CT. No suspicious pulmonary nodule is seen on the CT images. There i s no pleural or pericardial effusion. Abdomen and pelvis: There are no suspicious focal radiotrace r uptake within the liver. PSMA activity in the spleen is physiologic. No abnormal PSMA uptake is seen within the adrenals and pancreas. Status post cholecystectomy. Diffusely avid radiotracer uptake along the bilateral kidneys and bladder is considered physiologic. There is also diffusely low grade PSMA uptake in the GI tract, which is physiologic. Colonic diverticulosis seen on the CT. There are no suspicious PSMA-avid nodes within the abdomen and pelvis. There is focally avid PSMA uptake within the right lateral aspect of prostate gland at the mid gland, measuring SUV 26 on image #250. Musculoskeletal: There are no suspicious foci of increase d PSMA uptake within the visualized skeleton. Procedure Note Corona East MD - 06/11/2021 FULL RESULTS: Examination: F-18 PSMA PET/CT, 06/10/2021 4:15 PM Clinical History: A 71-year-old male wi th newly diagnosed prostate cancer. Indication: staging for subsequent treat ment strategy Technique: F-18 PSMA-PYL 9.6 mCi was ad ministered intravenously via the right wrist. Following a 55-minute delay, PET/CT imaging was performed from skull vertex to mid thighs. CT scanning was performed for attenuation correction, image registration, and diag nosis, with scan parameters optimized to minimize radiation exposure to the patient. SUV measurements are reported as maximum SUV based on body weight unless otherwise specified. Comparison: CT abdomen and pelvis exam on 06/02/2021. FINDINGS: Head and Neck: There are no suspicious focal tracer upt mary identified in the visualized brain. Radiotracer activity within the bilateral salivary glands are likely physiologic and unremarkable. There are no suspicious PSMA-avid cervical nodes. There is symmetric radio tracer uptake within bilateral orbits, likely representing physiologic activity. Chest: There are no suspicious PSMA-avid medias tinal, hilar, and axillary nodes. There are no suspicious PSMA-avid pulmonary nodules. Right apical opacities/scarrings seen on the CT. No suspicious pulmonary nodule is seen on the CT images. There is no pleur al or pericardial effusion. Abdomen and pelvis: There are no suspicious focal radiotrace r uptake within the liver. PSMA activity in the spleen is physiologic. No abnormal PSMA uptake is seen within the adrenals and pancreas. Status post cholecystectomy. Diffusely avid radiotracer uptake along the bilateral kidneys and bladder is considered physiologic. There is also diffusely low grade PSMA uptake in the GI tract, which is physiologic. Colonic diverticulosis seen on the CT. There are no suspicious PSMA-avid nodes within the abdomen and pelvis. There is focally avid PSMA uptake within the right lateral aspect of prostate gland at the mid gland, measuring SUV 26 on image #250. Musculoskeletal: There are no suspicious foci of increase d PSMA uptake within the visualized skeleton. IMPRESSION: 1. Asymmetrically avid PSMA uptake in t he lateral aspect of right prostate gland, representing the primary prostate cancer. 2. Elsewhere, no other PSMA avid lesion is seen to suggest metastatic prostate cancer. Ofelia NOLAND IMG PETCT ORDERABLES NM Bone Scan Whole Body (06/02/2021 12:49 PM CDT) Anatomical Region Laterality Modality Whole Body Nuclear Medicine Specimen (Source) Anatomical Collection Method Collection Time Re ceived Time Location / / Volume Laterality 06/02/2021 1:24 PM CDT Impressions 06/02/2021 2:02 PM CDT Suspected right rib fractures. Short-term follow-up with attention to these is suggested. No convincing evidence for active osseous metastases. I personally reviewed these image(s) vincent weston with the resident's/fellow's interpretations, certify that if a procedure was performed I was physically present, and agree with the final report. Narrative 06/02/2021 2:02 PM CDT FULL RESULT: Examination: Whole-Body Bone Scan, 2021 12:49 PM Clinical History: 71-year-old male with newly diagnosed prostate cancer and high Palm score. He has an abnormal PSA level which is rising. Indication: Staging, evaluate for bone m etastases Comparison: No prior bone scans are avai lable for comparison at time dictation. Correlation is made with CT abdomen/pelvis dated 06/02/2021. Technique: Following the intravenous adm inistration of 20.3 mCi of technetium- 99m MDP, anterior and posterior delayed whole body planar images were acquired. Findings: There are few foci of abnormal radiotracer activity seen in the anterior right ribs. Focus in region of anterior right seventh rib appears to correspond to posttraumatic changes on recent CT, compatible with posttraumatic etiology. Foci in region of anterior lateral right fourth and fifth ribs are outside view of recent CT, but in linear pattern, also suggesting posttraumatic etiology. Subtl e focus in region of anterior lateral ri ght third rib is also noted. There is subtle nodular heterogeneity in region of T12, but in the pattern suggestive of degenerative etiology; there appears to be a hemangioma in this region on recent CT. Likely hardware in right shoulder is also noted incidentally. Physiologic activity is seen in the kidneys and bladder, as well as a Kulkarni catheter drainage bag. Procedure Note Kwadwo Bynum MD - 06/02/2021Format ting of this note might be different from the original. FULL RESULT: Examination: Whole-Body Bone Scan, 2021 12:49 PM Clinical History: 71-year-old male with newly diagnosed prostate cancer and high Karissa score. He has an abnormal PSA level which is rising. Indication: Staging, evaluate for bone m etastases Comparison: No prior bone scans are avai lable for comparison at time dictation. Correlation is made with CT abdomen/pelvis dated 06/02/2021. Technique: Following the intravenous adm inistration of 20.3 mCi of technetium- 99m MDP, anterior and posterior delayed whole body planar images were acquired. Findings: There are few foci of abnormal radiotracer activity seen in the anterior right ribs. Focus in region of anterior right seventh rib appears to correspond to posttraumatic changes on recent CT, compatible with posttraumatic etiology. Foci in region o f anterior lateral right fourth and fifth ribs are outside view of recent CT, but in linear pattern, also suggesting posttraumatic etiology. Subtle focus in region of anterior lateral right third rib is also noted. T here is subtle nodular heterogeneity in region of T12, but in the pattern suggestive of degenerative etiology; there appears to be a hemangioma in this region on recent CT. Likely hardware in right shou lder is also noted incidentally. Physiologic activity is seen in the kidneys and bladder, as well as a Kulkarni catheter drainage bag. IMPRESSION: Suspected right rib fractures. Short-ter m follow-up with attention to these is suggested. No convincing evidence for active osseous metastases. I personally reviewed these image(s) vincent ng with the resident's/fellow's interpretations, certify that if a procedure was performed I was physically present, and agree with the final report. Ofelia NOLAND IMG NM ORDERABLES CT Abdomen Pelvis with and without Contrast (06/02/2021 11:35 AM CDT) Anatomical Region Laterality Modality Abdomen, Pelvis Computed Tomography Specimen (Source) Anatomical Collection Method Collection Time Re ceived Time Location / / Volume Laterality 06/02/2021 12:41 PM CDT Impressions 06/02/2021 3:08 PM CDT Indeterminate left para-aortic and pelvi c lymph nodes. Otherwise, no metastatic disease in the abdomen or pelvis. Narrative 06/02/2021 3:08 PM CDT FULL RESULT: Examination: CT ABDOMEN PELVIS W WO CO NTRAST, 06/02/2021 11:35 AM. Clinical History: Elevated prostate s pecific antigen (PSA) Adenocarcinoma of prostate. Indication: newly diagnoses prostate c ancer and metal ring that precludes pelvic MRI, please characterize any disease in the abd or pelvis. Comparison: None. Technique: CT of the abdomen/pelvis wa s performed before and after IV contrast. Findings: No suspicious solid organ lesion. A punc winter nonobstructing stone interpolar right kidney image 75 series 6. Patient is status post cholecystectomy. No biliary dilatation, hydronephrosis, a scites or bowel obstruction. The prostate is enlarged and has heterog eneous attenuation. No gross exophytic prostatic masses. A mildly enlarged left para-aortic node in image 64 of series 6 measures 1.3 x 0.7 cm. Nonspecific small prominent retroperiton eal and pelvic nodes are noted along the left para-aortic region image 94 and along the left common iliac region in image 111. A mildly enlarged bilateral externa l iliac and obturator nodes are also not ed. For example, the left external iliac node in image 134 that measures 0.9 x 1.3 cm and the right obturator lymph node in image 138 that measures 1.2 x 0.6 cm. Postsurgical changes along the right low er anterior abdominal wall with peritoneal stranding extending to the bladder (series 6 image 150-154), for correlation was surgical history. Postsurgical changes are also noted at the stomach which gen erates beam hardening effect which obscures the adjacent anatomy and limits evaluation. No suspicious osseous lesion. The sclero tic lesion in the left posterior iliac bone is likely a bone island. Few bone islands are present in the right supra- acetabular iliac bone. Lung bases shows mild cardiomegaly, smal l pericardial effusion and basal pulmonary atelectasis. Procedure Note Arsh Mcleod MD - 06/02/2021 FULL RESULT: Examination: CT ABDOMEN PELVIS W WO CON TRAST, 06/02/2021 11:35 AM. Clinical History: Elevated prostate sp ecific antigen (PSA) Adenocarcinoma of prostate. Indication: newly diagnoses prostate ca ncer and metal ring that precludes pelvic MRI, please characterize any disease in the abd or pelvis. Comparison: None. Technique: CT of the abdomen/pelvis was performed before and after IV contrast. Findings: No suspicious solid organ lesion. A punc winter nonobstructing stone interpolar right kidney image 75 series 6. Patient is status post cholecystectomy. No biliary dilatation, hydronephrosis, a scites or bowel obstruction. The prostate is enlarged and has heterog eneous attenuation. No gross exophytic prostatic masses. A mildly enlarged left para-aortic node in image 64 of series 6 measures 1.3 x 0.7 cm. Nonspecific small prominent retroperiton eal and pelvic nodes are noted along the left para-aortic region image 94 and along the left common iliac region in image 111. A mildly enlarged bilateral external iliac and obturator nodes are also noted. For exam ple, the left external iliac node in image 134 that measures 0.9 x 1.3 cm and the right obturator lymph node in image 138 that measures 1.2 x 0.6 cm. Postsurgical changes along the right low er anterior abdominal wall with peritoneal stranding extending to the bladder (series 6 image 150-154), for correlation was surgical history. Postsurgical changes are also noted at the stomach which generates beam hard ening effect which obscures the adjacent anatomy and limits evaluation. No suspicious osseous lesion. The sclero tic lesion in the left posterior iliac bone is likely a bone island. Few bone islands are present in the right supra- acetabular iliac bone. Lung bases shows mild cardiomegaly, smal l pericardial effusion and basal pulmonary atelectasis. IMPRESSION: Indeterminate left para-aortic and pelvi c lymph nodes. Otherwise, no metastatic disease in the abdomen or pelvis. Ofelia NOLAND IMG CT ORDERABLES POC Creatinine (06/02/2021 9:46 AM CDT) P athologist Signature POC Crea 1.1 0.6 - 1.3 POC [facility] mg/dL Comment: Medications, especially hydroxyurea or s upplements, such as ascorbate, can interfere with test results causing a falsely and significantly higher result than expected. If a problem is suspected with a patient's result, a sample should be sent to the laboratory for confirmatory testing. Method description: The i-STAT is an bo lyzer used for in vitro quantification of various analytes in whole blood. The device uses a single disposable cartridge which contains microfabricated sensors, a calibration solution, fluidics system, and a waste chamber. Each test cartridge contains ch emically sensitive biosensors on a silicon chip that are configured to perform specific tests. The microfabricated sensors measure analyte concentration by an electrochemical assay. POC eGFR-AA 78 >=60 mL/min/1.73 m2 POC TELC OR Comment: Normal eGFR >= 60 mL/min/1.73 m2 The eGFR is calculated using the CKD-EPI equation. The eGFR declines with age. eGFR <60 mL/min/1.73 m2 is considered as "decreased" This equation should only be used for patients 18 and older. According to the National [employer] ion's Kidney Disease Outcome Quality Initiative (KDOQI) classification and 2012 Kidney Disease Improving Global Outcomes (KDIGO) Clinical Practice Guideline, the stage of CKD should be categorized based on estimated GFR. Stage Description GFR mL/min/1.73 m2 1 Kidney damage with normal or high GFR >=90 2 Kidney damage with mild decrease in GF R 60-89 3a Mild to moderate decrease in GFR 45-59 3b Moderate to severe decrease in GFR 30-44 4 Severe decrease in GFR 15-29 5 Kidney failure <15 (or dialysis) POC eGFR-JARED 67 >=60 mL/min/1.73 m2 POC TEL [facility] Comment: Normal eGFR >= 60 mL/min/1.73 m2 The eGFR is calculated using the CKD-EPI equation. The eGFR declines with age. eGFR <60 mL/min/1.73 m2 is considered as "decreased" This equation should only be used for patients 18 and older. According to the National [employer] ion's Kidney Disease Outcome Quality Initiative (KDOQI) classification and 2012 Kidney Disease Improving Global Outcomes (KDIGO) Clinical Practice Guideline, the stage of CKD should be categorized based on estimated GFR. Stage Description GFR mL/min/1.73 m2 1 Kidney damage with normal or high GFR >=90 2 Kidney damage with mild decrease in GF R 60-89 3a Mild to moderate decrease in GFR 45-59 3b Moderate to severe decrease in GFR 30-44 4 Severe decrease in GFR 15-29 5 Kidney failure <15 (or dialysis) POC Clean Dev Yes POC [facility] Performing Lab [facility] POC TELCO R Comment: [facility] ,[address] [place] [place] [address], Point of Care Managed Care Provider: Setlla Valadez MD Specimen Anatomical Collection Method Collection Time Receive d Time (Source) Location / / Volume Laterality Blood 06/02/2021 9:46 06/02/2021 AM CDT 9:46 AM CDT Ofelia NOLAND POCT ORDERABLES - DEVICE Performing Organization Address City/State/ZIP Code Phon e Number POC [facility] Pathology Biopsy Interpretation (05/20/2021 12:04 PM CDT) Component Value Ref Test Analysis Performed Pathologis t Range Method Time At Signature Submitted Elevated prostate 05/24/2021 [facility] Clinical specific antigen 10:42 AM History (PSA) [R97.20] CDT Diagnosis A: Prostate gland, left apex, biopsy: [facility] Electronically Prostatic tissue, no tumor present. 10:4 2 AM signed by B: Prostate gland, left apex lateral, biopsy: CDT Christoph White MD Prostatic tissue, no tumor present. on 05/24/2021 at C: Prostate gland, left mid, biopsy: 10:41 AM Prostatic tissue, no tumor present. D: Prostate gland, left mid lateral, biopsy: Prostatic tissue, no tumor present. E: Prostate gland, left base, biopsy: Prostatic tissue, no tumor present. F: Prostate gland, left base lateral, biopsy: PROSTATIC ADENOCARCINOMA, GL CHRIS SCORE 6 (3+3), GRADE GROUP 1, LESS THAN 1 MM FOCUS. G: Prostate gland, right apex, biopsy: PROSTATIC ADENOCARCINOMA, GL CHRIS SCORE 7 (4+3), WITH 70 % OF KARISSA PATTERN 4, GRADE GROUP 3, TWO FOCI (4 MM AND LESS THAN 1 MM) INVOLVING SINGLE TISSUE CORE. H: Prostate gland, right apex lateral, biopsy: PROSTATIC ADENOCARCINOMA, GL CHRIS SCORE 7 (4+3), WITH 60 % OF KARISSA PATTERN 4, GRADE GROUP 3, 5 MM FOCUS. I: Prostate gland, right mid, biopsy: PROSTATIC ADENOCARCINOMA, GL CHRIS SCORE 7 (4+3), WITH 70 % OF KARISSA PATTERN 4, GRADE GROUP 3, 9 MM FOCUS. J: Prostate gland, right mid lateral, biopsy: PROSTATIC ADENOCARCINOMA, GL CHRIS SCORE 7 (4+3), WITH 60 % OF KARISSA PATTERN 4, GRADE GROUP 3, 7 MM FOCUS. K: Prostate gland, right base, biopsy: Prostatic tissue, no tumor present. L: Prostate gland, right base lateral, biopsy: PROSTATIC ADENOCARCINOMA, KARISSA SCORE 8 (4+4), GRADE GROUP 4, 1.5 MM FOCUS. CCG/FAS3 Gross A: 05/24/2021 [facility] Description Prostate gland, left apex, b iopsy, : 1 soft white-pagan tissue core, 1.6 cm in length and 0.1 cm in diameter, entirely submitted in A1. ET 10:42 AM CDT B: Prostate gland, left apex la teral, biopsy, : 1 soft white-pgaan tissue core, 1.3 cm in length and 0.1 cm in diameter, entirely submitted in B1. ET C: Prostate gland, left mid, bi opsy, : 2 soft white-pagan tissue cores, 0.4 cm and 1.2 cm in length and 0.1 cm in diameter, entirely submitted in C1. ET D: Prostate gland, left mid lat eral, biopsy, : 1 soft white-pagan tissue core, 1.6 cm in length and 0.1 cm in diameter, entirely submitted in D1. ET E: Prostate gland, left base, b iopsy, : 1 soft white-pagan tissue core, 1.6 cm in length and 0.1 cm E1, entirely submitted in E1. ET F: Prostate gland, left base la teral, biopsy, : 2 soft white-pagan tissue cores, 0.6 cm and 0.8 cm in length and 0.1 cm in diameter, entirely submitted in F1. ET G: Prostate gland, right apex, biopsy, : 1 soft white-pagan tissue core, 2.2 cm in length and 0.1 cm in diameter, entirely submitted in G1. ET H: Prostate gland, right apex l ateral, biopsy, : 2 soft white-pagan tissue cores, 0.6 cm and 0.7 cm in length and 0.1 cm in diameter, entirely submitted in H1. ET I: Prostate gland, right mid, b iopsy, : 1 soft white-pagan tissue core, 1.8 cm in length and 0.1 cm in diameter, entirely submitted in I1. ET J: Prostate gland, right mid la teral, biopsy, : 1 soft white-pagan tissue core, 1.7 cm in length and 0.1 cm in diameter, entirely submitted in J1. ET K: Prostate gland, right base, biopsy, : 2 soft white-pagan tissue cores, 0.5 cm and 1.1 cm in length and 0.1 cm in diameter, entirely submitted in K1. ET L: Prostate gland, right base l ateral, biopsy, : 2 soft white-pagan tissue cores, 0.4 cm and 1.3 cm in length and 0.1 cm in diameter, entirely submitted in L1. ET Biomarker Tumor: L1 05/24/2021 [facility] Block(s) 10:42 AM CDT Disclaimer "Some tests 05/24/2021 [facility] reported here may 10:42 AM have been CDT developed and performance characteristics determined by [facility] Pathology and Laboratory Medicine. These tests have not been specifically cleared or approved by the U.S. Food and Drug Administration. If applicable, controls were reviewed and showed appropriate reactivity." Specimen Anatomical Collection Method Collection Time Receive d Time (Source) Location / / Volume Laterality Tissue (Prostate Collection / 05/20/2021 12:04 022 Gland, Left Unknown PM CDT 12:54 PM CDT Elizabeth, Biopsy) Tissue (Prostate Collection / 05/20/2021 12:04 022 Gland, Left Elizabeth Unknown PM CDT 12:54 PM CD T Lateral, Biopsy) Tissue (Prostate 05/20/2021 12:04 022 Gland, Left Mid, PM CDT 12:54 PM CD T Biopsy) Tissue (Prostate 05/20/2021 12:04 022 Gland, Left Mid PM CDT 12:55 PM CDT Lateral, Biopsy) Tissue (Prostate 05/20/2021 12:04 022 Gland, Left PM CDT 12:55 PM CDT Base, Biopsy) Tissue (Prostate 05/20/2021 12:04 022 Gland, Left Base PM CDT 12:55 PM CD T Lateral, Biopsy) Tissue (Prostate 05/20/2021 12:04 022 Gland, Right PM CDT 12:55 PM CDT Elizabeth, Biopsy) Tissue (Prostate 05/20/2021 12:04 022 Gland, Right PM CDT 12:55 PM CDT Elizabeth Lateral, Biopsy) Tissue (Prostate 05/20/2021 12:04 022 Gland, Right PM CDT 12:55 PM CDT Mid, Biopsy) Tissue (Prostate 05/20/2021 12:04 022 Gland, Right Mid PM CDT 12:55 PM CD T Lateral, Biopsy) Tissue (Prostate 05/20/2021 12:04 // 022 Gland, Right PM CDT 12:55 PM CDT Base, Biopsy) Tissue (Prostate 05/20/2021 12:04 /15/ 022 Gland, Right PM CDT 12:55 PM CDT Base Lateral, Biopsy) Ramya Hall MD LAB PATHOLOGY ORDERABLES Performing Organization Address City/State/ZIP Code Phon e Number [facility] [place] [phone] [place] (ABNORMAL) Prostate Specific Antigen (PSA) Screening (04/27/2021 10:03 AM CDT) Only the most recent of2 resultswithin the time period is included. athologist Signature PSA 7.6 (H) 0.0 - 4.0 [facility] ng/mL Comment: Results greater than 4519 ng/mL may not be reliable due to matrix effect with extended dilution as it exceeds the car checker's recommended limit. Caution should be exercised when interpreting such daniel ues and done in conjunction with clinica l context. Testing performed at [facility], [address] [place] [address] PSA Indication Screening [facility] Specimen Anatomical Collection Method Collection Time Receive d Time (Source) Location / / Volume Laterality Blood 04/27/2021 10:03 04/27/2021 AM CDT 10:14 AM CDT Ofelia NOLAND LAB BLOOD ORDERABLES Performing Organization Address City/State/ZIP Code Phon e Number [address] Confirm ABORh (04/13/2021 12:37 PM AUDIO VISUAL PRODUCTION SPECIALIST) athologist Signature ABORh Confirm. A POS [facility] Specimen Anatomical Collection Method Collection Time Receive d Time (Source) Location / / Volume Laterality Blood 04/13/2021 12:37 04/13/2021 PM AUDIO VISUAL PRODUCTION SPECIALIST 7:29 PM AUDIO VISUAL PRODUCTION SPECIALIST Ofelia NOLAND BLOOD BANK TEST ORDERABLES Performing Organization Address City/State/ZIP Code Phon e Number [facility] Unless otherwise noted, [place] [address] CENTER all lab tests performed by: Division of Pathology and Laboratory Medicine [address] [place] TMP HCV Ab [facility] Inter (04/13/2021 12:27 PM AUDIO VISUAL PRODUCTION SPECIALIST) [facility] Method Time Signature HCV Ab Path There is NO [facility] serologic [facility] evidence of Hepatitis C virus antibody. Comment: MASHA STEPHENS MD, PhD - [id number] Dictated by: MASHA STEPHENS MD, Ph D - [id number] Dictated Date/Time: 04.15.2021 6:[address] Transcribed Date/Time: 04.15.2021 6:20 AM AUDIO VISUAL PRODUCTION SPECIALIST Electronically Signed By: MASHA STEPHENS MD, PhD - [id number] on 04.15.2021 6:20 AM C Specimen Anatomical Collection Method Collection Time Receive d Time (Source) Location / / Volume Laterality Blood 04/13/2021 12:27 04/14/2021 PM AUDIO VISUAL PRODUCTION SPECIALIST 4:56 PM AUDIO VISUAL PRODUCTION SPECIALIST Ofelia NOLAND LAB BLOOD ORDERABLES Performing Organization Address City/State/ZIP Code Phon e Number [facility] [address] [place] [address] Fractionated Bilirubin (04/13/2021 12:27 PM AUDIO VISUAL PRODUCTION SPECIALIST) athologist Signature Bili Total 0.6 <=1.2 mg/dL [facility] Comment: Indocyanine Green (ICG) may cause falsel y elevated bilirubin results. Total and direct bilirubin must not be measured from samples containing indocyanine green. False elevation of total bilirubin can b e seen in patients with IgG concentrations above 28 g/L. Testing performed at [facility], [address] [place] [id number] Bili Direct <0.2 <=0.3 mg/dL [facility] Comment: Indocyanine Green (ICG) may cause falsel y elevated bilirubin results. Total and direct bilirubin must not be measured from samples containing indocyanine green. Testing performed at [facility], [address] [place] [address] Bili Indirect See Note 0.0 - 0.9 mg/dL [facility] Comment: Unable to calculate Indirect Bilirubin r esult due to some parameters are outside reportable range Testing performed at [facility], [address] [place], [place] [address] Specimen Anatomical Collection Method Collection Time Receive d Time (Source) Location / / Volume Laterality Blood 04/13/2021 12:27 04/13/2021 PM AUDIO VISUAL PRODUCTION SPECIALIST 12:38 PM AUDIO VISUAL PRODUCTION SPECIALIST Ofelia NOLAND LAB BLOOD ORDERABLES Performing Organization Address City/State/ZIP Code Phon e Number [address] Hepatitis C Virus Antibody (04/13/2021 12:27 PM AUDIO VISUAL PRODUCTION SPECIALIST) Patholo gist Method Time Signature HCVAb. Non Reactive Non Reactive [facility] Comment: Antibody detection in the immunocompromi sed and immunosuppressed population may be delayed or absent entirely. Therefore serial testing, correlation with other clinical findings, and supplemental testin g (if available) should be taken into co nsideration when interpreting the results. Performed at: [facility] [address] [place] [id number] Specimen Anatomical Collection Method Collection Time Receive d Time (Source) Location / / Volume Laterality Blood 04/13/2021 12:27 04/14/2021 PM AUDIO VISUAL PRODUCTION SPECIALIST 4:56 PM AUDIO VISUAL PRODUCTION SPECIALIST Ofelia NOLAND LAB BLOOD ORDERABLES Performing Organization Address City/[facility]/ZIP Code Phon e Number [facility] [address] [place] [id number] ALT (04/13/2021 12:27 PM AUDIO VISUAL PRODUCTION SPECIALIST) P athologist Signature ALT 18 <=41 U/L [facility] Comment: [facility], [address] [place] [address] Specimen Anatomical Collection Method Collection Time Receive d Time (Source) Location / / Volume Laterality Blood 04/13/2021 12:27 04/13/2021 PM AUDIO VISUAL PRODUCTION SPECIALIST 12:38 PM AUDIO VISUAL PRODUCTION SPECIALIST Authorizing Provider Result Ceci NOLAND LAB BLOOD ORDERABLES Performing Organization Address City/State/ZIP [place] [address] [place] [address] Aspartate Aminotransferase (04/13/2021 12:27 PM AUDIO VISUAL PRODUCTION SPECIALIST) P athologist Signature AST 18 <=40 U/L [facility] Comment: Testing performed at [facility], [address] [place] [address] Specimen Anatomical Collection Method Collection Time Receive d Time (Source) Location / / Volume Laterality Blood 04/13/2021 12:27 04/13/2021 PM AUDIO VISUAL PRODUCTION SPECIALIST 12:38 PM AUDIO VISUAL PRODUCTION SPECIALIST Ofelia NOLAND LAB BLOOD ORDERABLES Performing Organization Address City/[facility]/ZIP Code Phon e Number [facility] [address] Total Protein (04/13/2021 12:27 PM AUDIO VISUAL PRODUCTION SPECIALIST) athologist Signature Total Protein 6.9 6.4 - 8.3 [facility] g/dL Comment: Testing performed at [facility], [address] [place], [place] [address] Specimen Anatomical Collection Method Collection Time Receive d Time (Source) Location / / Volume Laterality Blood 04/13/2021 12:27 04/13/2021 PM AUDIO VISUAL PRODUCTION SPECIALIST 12:38 PM AUDIO VISUAL PRODUCTION SPECIALIST Ofelia NOLAND LAB BLOOD ORDERABLES Performing Organization Address City/[facility]/ZIP Code Phon e Number [address] Alkaline Phosphatase (04/13/2021 12:27 PM AUDIO VISUAL PRODUCTION SPECIALIST) P athologist Signature Alk Phos 72 40 - 129 U/L [facility] Comment: Testing performed at [facility], [address] [place] [address] Specimen Anatomical Collection Method Collection Time Receive d Time (Source) Location / / Volume Laterality Blood 04/13/2021 12:27 04/13/2021 PM AUDIO VISUAL PRODUCTION SPECIALIST 12:38 PM AUDIO VISUAL PRODUCTION SPECIALIST Ofelia NOLAND LAB BLOOD ORDERABLES Performing Organization Address City/State/ZIP Code [place] [address] [place] [address] Calcium Level (04/13/2021 12:27 PM AUDIO VISUAL PRODUCTION SPECIALIST) P athologist Signature Calcium Lvl 9.1 8.4 - 10.2 [facility] mg/[facility] Comment: Testing performed at [facility], [address] [place] [address] Specimen Anatomical Collection Method Collection Time Receive d Time (Source) Location / / Volume Laterality Blood 04/13/2021 12:27 04/13/2021 PM AUDIO VISUAL PRODUCTION SPECIALIST 12:38 PM AUDIO VISUAL PRODUCTION SPECIALIST Ofelia NOLAND LAB BLOOD ORDERABLES Performing Organization Address City/State/ZIP Code [place] [address] [place] [address] Albumin Level (04/13/2021 12:27 PM AUDIO VISUAL PRODUCTION SPECIALIST) P athologist Signature Albumin Lvl 4.3 3.5 - 5.2 [facility] gm/dL Comment: Testing performed at [facility], [address] [place] [address] Specimen Anatomical Collection Method Collection Time Receive d Time (Source) Location / / Volume Laterality Blood 04/13/2021 12:27 04/13/2021 PM AUDIO VISUAL PRODUCTION SPECIALIST 12:38 PM AUDIO VISUAL PRODUCTION SPECIALIST Ofelia NOLAND LAB BLOOD ORDERABLES Performing Organization Address City/State/Z[place] [address] [place] [address] after 07/17/2020 Insurance Payer Benefit Plan / Subscriber ID Effective Dates Phone Addre ss Type Group A[employer] MEDICARE AETNA MEDICARE [id number] 2021-Presen [address] [place] [address] Advance Directives Code Status Date Activated Date Inactivated Comments Full Code 07/16/2021 6:09 PM 07/17/2021 5:53 PM Care Teams Plating Stripper Relationship Specialty Start Date End Date Cyrus Medeiros MD PCP - External Referring Internal Medicine 04/08/[address] [place] [id number] Ramya Hall MD PCP - General Urology 04/08/[address] [place] [id number]
--- OUTSIDE RECORDS SUMMARY | 2021-07-17 22:42 | XMS REPORT | Continuity of Care Document ---
:1950 Author Organization [facility] t Address [address] [place] [address] Dr. [address] [place] [address] Care Team Providers Name Role Phone [phone] Primary Care Physician Unavailable SYSTEM, NOT IN Attending Clinician Unavailable Jairo Yee Attending Clinician Unavailable Isabel GILMORE Attending Clinician Andres NOVAK Attending Clinician Savanna Yu MD Attending Clinician Joao Dumont NP Attending Clinician Courtney Sweet Attending Clinician Marcos Moreno MA Attending Clinician Unavailable Percy GILMORE Attending Clinician Unavailable Connor GUERRERO, M Attending Clinician Unavailable ISABEL Attending Clinician Unavailable Courtney JONES Attending Clinician Unavailable Caesar GUERRERO, Josh Attending Clinician Unavailable Ebgunnar ASCENCIO Attending Clinician EBRAHIM Attending Clinician Unavailable Doctor Unassigned, Name Attending Clinician Unavailable Carlene GUERRERO, May Attending Clinician Bar Betts DO Attending Clinician Lab, Fam Pob I Attending Clinician Unavailable UNKNOWN Attending Clinician Unavailable Yesenia MUNOZ S Attending Clinician Karely TIM Attending Clinician Unavailable Crystla MONET Attending Clinician Unavailable Jairo Yee Admitting Clinician Unavailable MORALES Admitting Clinician Unavailable Physician, Primary or Family Admitting Clinician Unavailabl e Payers Payer Name Policy Type Policy Number Effective Date Expiration Date S ourlisseth Problems Condition Condition Condition Status Onset Resolution Last Treating Co mments Source Name Details Category Date Date Treatment Clinician Date 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 00:00: [place] 00 MD [facility] No known No known Disease Unive rs active active ity of problems problems [facility] Allergies, Adverse Reactions, Alerts Allergy Allergy Status Severity Reaction(s) Onset Inactive Treating Comm ents Source Name Type Date Date Clinician No Known DA Active U [facility] Allergie 3-09 Clear s 00:00: [place] 00 [facility] No Known DA Active U [facility] Allergie 3-09 Clear s 00:00: [place] [facility] No Known DA Active U [facility] Allergie 7-23 Clear s 00:00: [place] 00 [facility] No Known DA Active U 0 [facility] Allergie 7-23 Clear s 00:00: [place] 00 [facility] NO KNOWN Drug Active Univers ALLERGIE Class ity of S [facility] Family History Family Member Diagnosis Comments Start Date Stop Date Source Other -Unknown cancer [facility] [place] [facility] [place] Natural sister Leukemia [facility] Cance r [place] Social History Social Habit Start Date Stop Date Quantity Comments Source History SDOH University o f Alcohol Frequency [facility] History [facility] University o f Alcohol Std [facility] History [facility] University o f Alcohol Binge [place] MD Alissa torres [facility] Exposure to 2021-07-06 2021-07-16 Not sure University of SARS-CoV-2 00:00:00 18:10:00 Rodri snell (event) Cancer [place] Alcohol intake 2021-07-16 2021-07-16 Ex-drinker University 00:00:00 00:00:00 (finding) [facility] Tobacco use and 2021-04-13 2021-04-13 Smokeless tobacco Un iversity of exposure 00:00:00 00:00:00 non-user [place] MD Gonzales [facility] History SDOH 2021-04-13 2021-04-13 [facility] University o f Alcohol Comment 00:00:00 00:00:00 [facility] Sex Assigned At [birth year] Universit y of 00:00:00 00:00:00 [place] MD Christian snell [facility] Smoking Status Start Date Stop Date Source Never smoked tobacco [facility] [place] [facility] Medications Ordered Filled Start Stop Current Ordering Indication Dosage Frequency Signature Comments Components Source Medication Medication Date Date Medication? Clinician (SIG) Name Name aspirin 81 Yes 81mg Take 81 mg U nivers mg EC 6-11 by mouth. ity of tablet 15:48: [place] [address] MD Lisa izaguirre [facility] psyllium Yes .52g Take 0.52 Univ ers (METAMUCIL) 6-11 g by mouth it y of 0.52 gram 15:48: daily. [place] capsule MD Lisa izaguirre [facility] amLODIPine Yes 5mg Take 5 mg Un lana (NORVASC) 5 6-11 by mouth. ity of mg tablet 15:48: [place] [address] MD Gonzalez [facility] fluticasone Yes 1{spray Inhale 1 Univers propionate 6-11 } spray into ity of (FLONASE) 15:48: each [place] 50 17 nostril mcg/spray twice [facility] nasal spray daily. Cancer [place] calcium Yes Take by Univers carbonate 6-11 mouth as ity of (TUMS ORAL) 15:48: needed. [place] as 17 MD Gonzalez [facility] dicyclomine Yes Take by Uni vers HCl 6-11 mouth as ity of (DICYCLOMIN 15:48: needed. [place] as E ORAL) 17 MD Gonzalez [facility] clonazePAM Yes .25mg Dissolve Un lana (KlonoPIN) 6-11 0.25 mg on ity of 0.25 mg 15:48: [place] dis[place] 17 3 (three) ing tablet times a David o day as n needed for Cancer anxiety. [place] docusate Yes Adenocarcin 100mg Take 1 Univers sodium 6-10 [place] of capsule ity of (COLACE) 00:00: prostate (100 mg) [place] 100 mg 00 by mouth MD capsule twice Anderso daily. n Cancer Center hyoscyamine Yes Adenocarcin .125mg Place 1 Univers sulfate 6-10 [place] of tablet ity of (ANASPAZ) 00:00: prostate (0.125 mg) [place] 0.125 mg 00 under the MD disintegrat tongue [place] o ing tablet every 4 n (four) Cancer hours as Center needed (bladder spasms). oxyCODONE Yes Adenocarcin 5mg Take 1 Univers (ROXICODONE 6-10 [place] of tablet (5 i ty of ) 5 mg 00:00: prostate mg) by [place] immediate 00 mouth MD release every 6 Anderso tablet (six) n hours as Cancer needed for Center severe pain. levoFLOXaci 2021- Yes Adenocarcin 500mg Take 1 Univers n 6-10 06-13 [place] of tablet ity of (LEVAQUIN) 00:00: 04:59 prostate (500 mg) [place] 500 mg 00 :00 by mouth MD tablet once for 1 Anderso dose. Take n day of Cancer catheter Center removal. levoFLOXaci 2021- No daily. Uni vers n 4-21 06-07 ity of (LEVAQUIN) 00:00: 00:00 [place] 500 mg 00 :00 MD tablet Anderso n [facility] Center cefTRIAXone 2021- No [id number] 1000mg Univers (ROCEPHIN) 05-22-16 ity of 1,000 mg in 23:30: 22:27 [place] lidocaine 00 :00 Medical 1% (PF) Branch (XYLOCAINE) 2.857 mL PEDIATRIC Infusion ondansetron 2021- No [id number] 4mg U nivers (ZOFRAN-ODT 05-22 ity of ) 23:30: 22:26 [place] disintegrat 00 :00 Medical ing tablet Branch 4 mg ondansetron 2021- No [id number] 4mg 4 mg, Univers (ZOFRAN-ODT 05-22 Oral, ity of ) 23:30: 22:26 ONCE, 1 [place] disintegrat 00 :00 dose, On Medi cara ing tablet Sat Branch 4 mg 4/16/22 at 1830, Routine cefTRIAXone 2021- No [id number] 1000mg Intramuscu Univers (ROCEPHIN) 05-22 lar, ONCE, it y of 1,000 mg in 23:30: 22:27 1 dose, On [place] lidocaine 00 :00 Sat Medical 1% (PF) 05/22/21 at [place] (XYLOCAINE) 1830, 2.857 mL 2.857 PEDIATRIC mL
Reas Infusion on for Anti-Infec tive: Documented Infection< br>Documen elsi Infection Site: Urine
D uration of Therapy: Other (see Comments) cefdinir 2021- Yes [id number] 600mg Take 2 U nivers 300 mg 05-22 capsules ity of capsule 00:00: 04:59 by mouth [place] 00 :00 daily for Medical 10 days. [place] ondansetron 2021- Yes [id number] 4mg Take 1 Univers 4 mg 05-22 tablet by ity of disintegrat 00:00: 04:59 [place] ing tablet 00 :00 every 8 Medica l (eight) Branch hours as needed for Nausea and Vomiting (N/V) for up to 5 days. cefdinir 2021- No [id number] 300mg Take 1 U nivers 300 mg 05-22 capsule by ity of capsule 00:00: 00:00 mouth [place] 00 :00 every 12 Medical (twelve) Branch hours for 10 days. diazePAM 5 Yes PLEASE SEE U nivers mg tablet - ATTACHED ity of 00:00: FOR [place] 00 DETAILED Medical DIRECTIONS [place] diazePAM 2021- No Elevated 5mg Take 1 Un lana (Valium) 5 -29 05- prostate tablet (5 ity of mg tablet 00:00: 00:00 specific mg) by [place] ext[place] 00 :00 antigen mouth once MD (PSA) as needed Anderso for n sedation Cancer (bring to Center biopsy and take when instructed by staff) for up to 1 dose. atorvastati Yes TAKE 1 Univ ers n (LIPITOR) 3-04 TABLET BY ity of 20 mg 00:00: MOUTH [place] tablet 00 DAILY IN MD EVENING Anderso WITH MEAL Cancer Center levothyroxi Yes TAKE 1 Univ ers ne 3-04 TABLET BY ity of (SYNTHROID, 00:00: MOUTH [place] LEVOTHROID) 00 EVERY DAY 100 mcg Lisa izaguirre [facility] [place] amLODIPine 2021- No TAKE 1 Univ ers (NORVASC) 5 3-04 03-08 TABLET BY it y of mg tablet 00:00: 00:00 MOUTH [place] 00 :00 EVERY DAY MD Lisa izaguirre [facility] SERTraline Yes TAKE 1 AND U nivers 50 mg 3-03 1/2 ity of tablet 00:00: TABLETS [place] 00 DAILY BY Medical MOUTH Branch DIRECTED sertraline Yes TAKE 1 AND U nivers (ZOLOFT) 50 3-03 1/2 ity of mg tablet 00:00: TABLETS 00 DAILY BY MD RG Andralfo DIRECTED [facility] clonazePAM Yes PLEASE SEE U nivers 0.25 mg -03 ATTACHED ity of disintegrat 00:00: FOR [place] ing tablet 00 DETAILED Medic al DIRECTIONS Branch carvedilol Yes TAKE 1 Unive rs (COREG) 3-02 TABLET BY ity of 12.5 mg 00:00: MOUTH [place] tablet 00 THREE MD TIMES A Lisa BROWN [facility] azithromyci Yes TAKE 2 Univ ers n 250 mg 1-25 TABLETS BY ity o f tablet 00:00: MOUTH [place] 00 TODAY, Medical THEN TAKE Branch 1 TABLET DAILY FOR 4 DAYS predniSONE Yes TAKE 3 Unive rs 10 mg 1-25 TABLET ity of tablet 00:00: DAILY FOR [place] 00 3 DAYS, Medical THEN 2 Branch TABLET DAILY FOR 3 DAYS, THEN 1 TABLET DAILY FOR 3 DAYS busPIRone Yes TAKE 1 Univer s (BUSPAR) 10 1-12 TABLET BY ity of mg tablet 00:00: MOUTH [place] 00 TWICE A MD KEVIN izaguirre [facility] [place] losartan Yes TAKE 1 Univers (COZAAR) 50 1-11 TABLET BY ity of mg tablet 00:00: MOUTH [place] 00 EVERY DAY MD Lisa izaguirre [facility] tamsulosin 2020-02- No TAKE 1 Univ ers (FLOMAX) 2-06 06-11 CAPSULE BY ity of 0.4 mg 24 00:00: 00:00 MOUTH [place] hr capsule 00 :00 TWICE A [facility] esomeprazol 1-0 Yes TAKE 1 Univ ers e (NexIUM) 4-03 CAPSULE BY ity of 40 MG 00:00: MOUTH [place] capsule 00 EVERY DAY MD Gonzalez [facility] psyllium 2020-0 Yes .52g Take 0.52 Univ ers 0.52 gram 2-21 g by ity of capsule 09:01: mouth. [address] psyllium 2020-0 Yes .52g Take 0.52 Univ ers 0.52 gram 2-21 g by ity of capsule 09:01: mouth. [address] cetirizine 2020-0 Yes 10mg Take 10 mg U nivers 10 mg 2-21 by mouth. ity of tablet 09:01: [address] cetirizine 2020-0 Yes 10mg Take 10 mg U nivers 10 mg 2-21 by mouth. ity of tablet 09:01: [address] aspirin 81 2020-0 Yes 81mg Take 81 mg U nivers mg EC 2-21 by mouth. ity of tablet 09:01: [address] calcium 2020-0 Yes 1{tbl} Take 1 Univer s carbonate 2-21 tablet by ity o f 200 mg 09:01: mouth. [address] (500 mg) [place] chewable tablet aspirin 81 2020-0 Yes 81mg Take 81 mg U nivers mg EC 2-21 by mouth. ity of tablet 09:01: [address] calcium 2020-0 Yes 1{tbl} Take 1 Univer s carbonate 2-21 tablet by ity o f 200 mg 09:01: mouth. [place] [address] Medical (500 mg) Branch chewable tablet amLODIPine 2020-0 Yes Univers 5 mg tablet 2-15 ity of 00:00: [address] amLODIPine 2020-0 Yes Univers 5 mg tablet 2-15 ity of 00:00: [place] [facility] carvediloL 2020-0 Yes Univers 12.5 mg 2-14 ity of tablet 00:00: [place] [facility] carvediloL 2020-0 Yes Univers 12.5 mg 2-14 ity of tablet 00:00: [place] [facility] busPIRone 2020-0 Yes Univers 10 mg 1-29 ity of tablet 00:00: [address] busPIRone 2020-0 Yes Univers 10 mg 1-29 ity of tablet 00:00: Medical Branch ciprofloxac 2019-0 Yes Univer s in HCl 500 1-08 ity of mg tablet 00:00: [place] [facility] [place] ciprofloxac 2019-0 Yes Univer s in HCl 500 1-08 ity of mg tablet 00:00: [place] [facility] hydrocortis 2019-0 Yes Univer s one 2.5 % 1-06 ity of cream 00:00: [place] [facility] metroNIDAZO 2019-0 Yes Univer s LE 500 mg 1-06 ity of tablet 00:00: [place] [facility] omeprazole 2019-0 Yes Univers 40 mg 1-06 ity of capsule 00:00: [place] [facility] hydrocortis 2019-0 Yes Univer s one 2.5 % 1-06 ity of cream 00:00: [place] [facility] metroNIDAZO 2019-0 Yes Univer s LE 500 mg 1-06 ity of tablet 00:00: [place] [facility] omeprazole 2019-0 Yes Univers 40 mg 1-06 ity of capsule 00:00: [place] [facility] omeprazole 2019-0 Yes every Univer s (PriLOSEC) 1-06 other day. ity of 40 MG 00:00: [facility] 00 MD Lisa izaguirre [facility] esomeprazol 2018-02 Yes 40mg Take 40 mg Univers e 40 mg 2-23 by mouth ity of capsule 00:00: daily. [place] [facility] esomeprazol 2018-02 Yes 40mg Take 40 mg Univers e 40 mg 2-23 by mouth ity of capsule 00:00: daily. [place] [facility] atorvastati 0 Yes 20mg Take 20 mg Univers n 20 mg 1-25 by mouth. ity of tablet 00:00: [place] [facility] atorvastati Yes 20mg Take 20 mg Univers n 20 mg 1-25 by mouth. ity of tablet 00:00: [place] [facility] levothyroxi 2015-02 Yes 100ug Take 100 U nivers ne 100 mcg 2-21 mcg by ity of tablet 00:00: mouth. [place] [facility] levothyroxi 2015-02 Yes 100ug Take 100 U nivers ne 100 mcg 2-21 mcg by ity of tablet 00:00: mouth. Medical Branch losartan 50 Yes 50mg Take 50 mg Univers mg tablet 08-06 by mouth. ity o f 00:00: Medical Branch losartan 50 Yes 50mg Take 50 mg Univers mg tablet 08-06 by mouth. ity o f 00:00: Medical Branch tamsulosin Yes .4mg Take 0.4 Uni vers 0.4 mg 24 6-24 mg by ity of hr capsule 00:00: mouth. [facility] tamsulosin Yes .4mg Take 0.4 Uni vers 0.4 mg 24 6-24 mg by ity of hr capsule 00:00: mouth. [facility] ferrous Yes 325mg Take 325 Unive rs sulfate 325 02-06 mg by ity of mg (65 mg 00:00: mouth [place] elemental 00 daily. iron per Anderso tablet) n tablet Cancer Center cetirizine No 10mg Take 10 mg Univers (ZyrTEC) 10 02-06 by mouth. it y of mg tablet 00:00: 00:00 [place] 00 :00 MD [facility] amLODIPine- Unive rs benazepril 02-06 ity of (LOTREL 00:00: 00:00 [place] 06-15) 510 00 :00 mg per Anderso capsule n Cancer Center multivit-mi Yes Take by Uni vers n/iron/foli 02-06 mouth ity of c acid/K 00:00: daily. [place] (MULTI-DAY 00 MD PLUS Anderso MINERALS n ORAL) Cancer Center Vital Signs Vital Name Observation Time Observation Value Comments Source Systolic blood 2021-05-22 22:03:00 131 mm[Hg] Univer sity of pressure [facility] Diastolic blood 2021-05-22 22:03:00 74 mm[Hg] Unive rsity of pressure [facility] Heart rate 2021-05-22 21:56:00 102 /min [facility] [place] [facility] Body temperature 2021-05-22 21:56:00 38.28 Winifred [facility] Respiratory rate 2021-05-22 21:56:00 16 /min [facility] Body height 2021-05-22 21:56:00 171.5 cm Universi ty of [facility] Body weight 2021-05-22 21:56:00 89.858 kg Universi ty of [facility] BMI 2021-05-22 21:56:00 30.57 kg/m2 Universi ty [facility] [place] Oxygen saturation in 2021-05-22 21:56:00 97 /min University of Arterial blood by Rodri Vega [facility] Pulse oximetry Branch Systolic blood 2021-07-17 20:34:00 126 mm[Hg] Univer sity of pressure Rodri Hernandez [facility] Diastolic blood 2021-07-17 20:34:00 74 mm[Hg] Unive rsity of pressure [facility]ri [facility] Heart rate 2021-07-17 20:34:00 72 /min Universi ty of [facility] Body temperature 2021-07-17 20:34:00 37 [facility] Rod[facility] Respiratory rate 2021-07-17 20:34:00 18 /min [facility] Oxygen saturation in 2021-07-17 20:34:00 95 /min University of Arterial blood by Rodri ramsay Pulse oximetry Cancer Center Body height 2021-07-16 23:09:00 169 cm Universi ty of [facility] Body weight 2021-07-16 10:40:00 86.1 kg Universi ty of [facility] BMI 2021-07-16 10:40:00 30.15 kg/m2 Universi ty of [place] MD Hernandez on [facility] Procedures Procedure Date / Time Performing Clinician Source Performed COMPLETE BLOOD COUNT W/ 2021-07-17 08:40:00 Pako Rivers [facility] Juan GILMORE [facility] er Center SODIUM LEVEL 2021-07-17 08:40:00 Pako Rivers [facility] Juan GILMORE [facility] er Center POTASSIUM LEVEL 2021-07-17 08:40:00 Pako Rivers [facility] Juan GILMORE [facility] er Center CHLORIDE LEVEL 2021-07-17 08:40:00 Pako Rivers [facility] Juan GILMORE [facility] er Center CARBON DIOXIDE LEVEL 2021-07-17 08:40:00 Pako Rivers [facility] BLOOD UREA NITROGEN 2021-07-17 08:40:00 Pako Rivers [facility] SERUM CREATININE 2021-07-17 08:40:00 Pako Rivers [facility] GLUCOSE, RANDOM 2021-07-17 08:40:00 Pako Rivers [facility] SERUM CREATININE 2021-07-17 08:40:00 Pako Rivers [facility] .GLOMERULAR FILTRATION 2021-07-17 08:40:00 Pako Rivers [facility] ANION GAP 2021-07-17 08:40:00 Pako Rivers [facility] CREATININE BODY FLUID 2021-07-17 07:32:00 Pako Rivers [facility] SODIUM LEVEL 2021-07-16 19:13:00 Pako Rivers [facility] POTASSIUM LEVEL 2021-07-16 19:13:00 Pako Rivers [facility] CHLORIDE LEVEL 2021-07-16 19:13:00 Silvestre Pako [facility] CARBON DIOXIDE LEVEL 2021-07-16 19:13:00 Pako Rivers [facility] BLOOD UREA NITROGEN 2021-07-16 19:13:00 Pako Rivers [facility] SERUM CREATININE 2021-07-16 19:13:00 Pako Rivers [facility] GLUCOSE, RANDOM 2021-07-16 19:13:00 Pako Rivers [facility] HEMOGLOBIN 2021-07-16 19:13:00 Pako Rivers [facility] SERUM CREATININE 2021-07-16 19:13:00 Pako Rivers [facility] .GLOMERULAR FILTRATION 2021-07-16 19:13:00 Pako Rivers [facility] RATE [facility] ANION GAP 2021-07-16 19:13:00 Pako Rivers [facility] ELECTROLYTE PANEL 2021-07-13 19:21:00 Ese Dumont [facility] BLOOD UREA NITROGEN 2021-07-13 19:21:00 Ese Dumont [facility] SERUM CREATININE 2021-07-13 19:21:00 Ese Dumont [facility] GLUCOSE LEVEL 2021-07-13 19:21:00 Ese Dumont [facility] COMPLETE BLOOD COUNT W/ 2021-07-13 19:21:00 Ese Dumont [facility] TYPE AND SCREEN 2021-07-13 19:21:00 Ese Dumont [facility] HEMOGLOBIN A1C 2021-07-13 19:21:00 Ese Dumont [facility] THYROID STIMULATING 2021-07-13 19:21:00 Ese Dumont [facility] HORMONE [facility] FREE THYROXINE 2021-07-13 19:21:00 Ese Dumont [facility] SERUM CREATININE 2021-07-13 19:21:00 Ese Dumont [facility] .GLOMERULAR FILTRATION 2021-07-13 19:21:00 Ese Dumont [facility] ABORH 2021-07-13 19:21:00 Ese Dumont [facility] ANTIBODY SCREEN 2021-07-13 19:21:00 Ese Dumont [facility] CLOT EXPIRATION DATE 2021-07-13 19:21:00 [facility] T[facility] INTERPRETATION 2021-07-13 19:21:00 Ese Dumont [facility] ANTIBODY SCREEN NEGATIVE MD [facility] COVID-19 (SARS-COV-2) 2021-07-13 17:25:00 Yesenia De [facility] PCR ASYMPTOMATIC [facility] EKG, 12-LEAD (SCHEDULED) 2021-07-13 00:00:[address] [facility] PETCT 18F-PIFLUFOLASTAT 2021-06-10 19:47:01 Ofelia Jones [facility] (PSMA PYL) W/ CONTRAST MD Hernandez [facility] NM BONE SCAN WHOLE BODY 2021-06-02 17:49:00 Ofelia Jones [facility] ABDOMEN PELVIS W WO 2021-06-02 16:35:58 [facility] CONTRAST [facility] POC CREATININE 2021-06-02 14:46:00 Ofelia Jones [facility] POCT URINALYSIS 2021-05-22 22:05:00 [facility] [place] o f [facility] CONSENT/REFUSAL FOR 2021-05-22 21:52:12 Doctor Unassigned, [facility] DIAGNOSIS AND TREATMENT [place] [facility] PATHOLOGY BIOPSY 2021-05-20 17:04:00 Yesenia De [facility] INTERPRETATION [facility] PROSTATE SPECIFIC ANTIGEN 2021-04-27 15:03:00 Ofelia Jones [facility] CONFIRM ABORH TYPE 2021-04-13 18:37:00 [facility] COMPLETE BLOOD COUNT W/ 2021-04-13 18:27:00 [facility] INDICES [facility] TYPE AND SCREEN 2021-04-13 18:27:00 Ofelia Jones [facility] HEPATITIS C VIRUS ANTIBODY 2021-04-13 18:27:00 Ofelia Jones [facility] GLUCOSE LEVEL 2021-04-13 18:27:00 Ofelia Jones [facility] BLOOD UREA NITROGEN 2021-04-13 18:27:00 Ofelia Jones [facility] ELECTROLYTE PANEL 2021-04-13 18:27:00 Ofelia Jones [facility] SERUM CREATININE 2021-04-13 18:27:00 Ofelia Jones [facility] .GLOMERULAR FILTRATION 2021-04-13 18:27:00 Ofelia [facility] CALCIUM LEVEL TOTAL 2021-04-13 18:27:00 Of[facility] Jones [facility] ALBUMIN LEVEL 2021-04-13 18:27:00 Ofelia Jones [facility] ALKALINE PHOSPHATASE 2021-04-13 18:27:00 Ofelia Jones [facility] ABORH 2021-04-13 18:27:00 Ofelia Jones [facility] ANTIBODY SCREEN 2021-04-13 18:27:00 Ofelia Jones [facility] ALANINE AMINOTRANSFERASE 2021-04-13 18:27:00 Ofelia Jones [facility] ASPARTATE AMINOTRANSFERASE 2021-04-13 18:27:00 Ofelia Jones [facility] TOTAL PROTEIN 2021-04-13 18:27:00 Ofelia Jones [facility] FRACTIONATED BILIRUBIN 2021-04-13 18:27:00 [facility] CLOT EXPIRATION DATE 2021-04-13 18:27:00 Ofelia Jones [facility] TMP INTERPRETATION 2021-04-13 18:27:00 [facility] ANTIBODY SCREEN NEGATIVE MD [facility] TMP HCVAB INTERP 2021-04-13 18:27:00 Ofelia Jones [facility] PROSTATE SPECIFIC ANTIGEN 2021-04-13 18:27:00 Ofelia Jones [facility] HEMOGLOBIN A1C 2021-04-13 18:27:00 Ofelia Jones [facility] COMPREHENSIVE METABOLIC 2021-04-13 18:27:00 Ofelia Jones [facility] PANEL [facility] [id number] 2020-04-22 00:00[facility] Planned Activity Planned Date Details Comments Source Future Scheduled 2021-07-17 COVID-[address] [facility] Test 17:44:56 (1) [code = COVID-19 MD [facility] (1)] Center Encounters Start End Encounter Admission Attending Care Care Encounter Source Date/Time Date/Time Type Type Clinicians Facility Department ID 2021-04-08 Outpatient SYSTEM, [facility] [id number] 11:59:20 PROVIDER David izaguirre 2020-04-22 Inpatient ANA DuncanTO ADMI [id number] [facility] 11:58:00 Jhonny [id number] [facility] 2019-09-18 Inpatient ANA DuncanTO DAYS [id number] [facility] 09:00:00 Jhonny [id number] [facility] 2021-07-16 2021-07-17 Hospital Isabel, 1.2.840.1 [id number] Univers 05:17:00 15:48:00 Encounter Yesenia 66056.1.1 it y of 3.412.2.7 [place] .3Gloria329613 .8 [facility] 2021-07-17 2021-07-17 Nurse Andres, 1.2.840.1 [id number] Univers 00:00:00 00:00:00 Triage Perla 70254.1.1 ity of 3.412.2.7 [place] .3Gloria445564 MD [facility] 2021-07-16 2021-07-16 Anesthesia Yu, 1.2.840.1 [id number] Univers 06:57:00 13:51:00 Event Marion Corrales 97659.1.1 it y of 3.412.2.7 [place] .3.818289 MD [facility] 2021-07-16 2021-07-16 Surgery Isabel, 1.2.840.1 [id number] Univers 07:00:00 12:20:00 Lisly 39662.1.1 ity of 3.412.2.7 [place] .3.605889 MD [facility] 2021-07-16 2021-07-16 Travel 1.2.840.1 1.2.306.370 6040 [id number] Univers 00:00:00 00:00:00 65187.1.1 350.1.13.41 ity of 3.412.2.7 [place].3.698 [place] .3.1164[place] 084.8 MD [facility] 2021-07-15 2021-07-15 Travel 1.2.840.1 1.2.830.740 1176 [id number] Univers 00:00:00 00:00:00 34880.1.1 350.1.13.41 ity of 3.412.2.7 [place].3.698 [place] .3.115913 084.8 MD [facility] 2021-07-13 2021-07-13 [facility], 1.2.840.1 [id number] Univers 14:13:38 23:59:00 Chante Shepherd 82428.1.1 i ty of 3.412.2.7 [place] .3.646707 MD [facility] 2021-07-13 2021-07-13 PALMIRA Jones, 1.2.840.1 [id number] Univers 13:00:00 15:34:46 Lisa Gilbert 90867.1.1 ity of ts A. 3.412.2.7 [place] .3.909424 MD Castro8 [facility] 2021-07-13 2021-07-13 Anesthesia Moreno, 1.2.840.1 [id number] Univers 14:41:56 14:41:56 Event Gayathri Rodríguez 55782.1.1 it y of 3.412.2.7 [place] .3.429444 MD Castro8 [facility] 2021-07-13 2021-07-13 [facility], 1.2.840.1 [id number] Univers 14:12:52 14:12:52 Encounter Fabian 38002.1.1 it y of 3.412.2.7 [place] .3.391286 MD [facility] 2021-07-13 2021-07-13 Clinical Ofelia Jones 1.2.840.1 [id number] Univers 12:30:00 12:37:57 Support Krystal Ryan 17385.1.1 ity of 3.412.2.7 [place] .3.094327 MD [facility] 2021-07-13 2021-07-13 Office Isabel, 1.2.840.1 [id number] Univers 10:00:00 10:52:54 Visit Yesenia 35886.1.1 ity of 3.412.2.7 [place] .3.558692 MD [facility] 2021-07-13 2021-07-13 Travel 1.2.840.1 1.2.122.268 [id number] Univers 00:00:00 00:00:00 89950.1.1 350.1.13.41 ity of 3.412.2.7 [place]7.3.698 [place] .3.731884 084.8 MD [facility] 2021-07-07 2021-07-07 Paulina Jones 1.2.840.1 [id number] Univers 00:00:00 00:00:00 Only Ofelia 77451.1.1 it y of A. 3.412.2.7 [place] .3.566964 MD [facility] 2021-06-13 2021-06-13 Paulina Jones, 1.2.840.1 [id number] Univers 00:00:00 00:00:00 Only Ofelia 46093.1.1 it y of A. 3.412.2.7 [place] .3.926849 MD [facility] 2021-06-11 2021-06-11 Documentat Jan, 1.2.840.1 [id number] Univers 00:00:00 00:00:00 ion Ofelia 50705.1.1 it y of A. 3.412.2.7 [place] .3.978624 MD [facility] 2021-06-10 2021-06-10 Ancillary 1.2.840.1 [id number] Univers 12:30:00 15:00:00 Procedure 06787.1.1 it y of 3.412.2.7 [place] .3.706571 MD [facility] 2021-06-10 2021-06-10 Travel 1.2.840.1 1.2.378.854 [id number] [id number] Univers 00:00:00 00:00:00 62729.1.1 350.1.13.41 ity of 3.412.2.7 [place]7.3.698 [place] .3.036556 084.8 MD [facility] 2021-06-09 2021-06-09 Paulina Jones 1.2.840.1 [id number] Univers 00:00:00 00:00:00 Only Ofelia 51655.1.1 it y of A. 3.412.2.7 [place] .3.772284 MD [facility] 2021-06-04 2021-06-04 Paulina Jones 1.2.840.1 [id number] Univers 00:00:00 00:00:00 Only Ofelia 30932.1.1 it y of A. 3.412.2.7 [place] .3.351274 MD [facility] 2021-06-04 2021-06-04 Prep for Jan, 1.2.840.1 [id number] Univers 00:00:00 00:00:00 Surgery Ofelia 07066.1.1 it y of A. 3.412.2.7 [place] .3.816216 MD Castro8 [facility] 2021-06-03 2021-06-03 Office Isabel, 1.2.840.1 [id number] Univers 10:30:00 12:08:02 Visit Yesenia 81077.1.1 ity of 3.412.2.7 [place] .3.588121 MD [facility] 2021-06-03 2021-06-03 Outpatient IVAN DE MDA MDA [id number] 10:18:41 12:08:02 YESENIA izaguirre 2021-06-03 2021-06-03 Travel 1.2.840.1 1.2.352.847 [id number] Univers 00:00:00 00:00:00 56634.1.1 350.1.13.41 ity of 3.412.2.7 2.[place]7.3.698 [place] .3.555663 084.8 MD [facility] 2021-06-02 2021-06-02 Ancillary Jan 1.2.840.1 [id number] [facility] [place] [facility] 12:00:00 12:30:00 Procedure Ofelia 82542.1.1 ity of A. 3.412.2.7 [place] .3.976390 MD [facility] 2021-06-02 2021-06-02 Outpatient IVAN JONES MDA MDA [id number] 12:00:26 12:00:26 OFELIA izaguirre 2021-06-02 2021-06-02 Ancillary Jan 1.2.840.1 [id number] Univers 09:35:00 11:30:00 Procedure Ofelia 75450.1.1 ity of A. 3.412.2.7 [place] .3.629227 MD [facility] 2021-06-02 2021-06-02 Rick Jones 1.2.840.1 [id number] [facility] [place] [facility] 09:30:00 10:00:00 Procedure Ofelia 05174.1.1 ity of A. 3.412.2.7 [place] .3.060320 MD [facility] 2021-06-02 2021-06-02 Outpatient IVAN JONES MDA MDA [id number] 09:15:46 09:15:46 OFELIA [facility] 2021-06-02 2021-06-02 Outpatient IVAN JONES MDA MDA [id number] 09:07:11 09:07:11 OFELIA [facility] 2021-06-02 2021-06-02 Travel 1.2.840.1 1.2.289.965 [id number] [id number] Univers 00:00:00 00:00:00 78959.1.1 350.1.13.41 ity of 3.412.2.7 [place]7.3.698 [place] .3.441179 084.8 MD [facility] 2021-05-26 2021-05-26 Paulina Jones 1.2.840.1 [id number] Univers 00:00:00 00:00:00 Only Ofelia 53508.1.1 it y of A. 3.412.2.7 [place] .3.677060 MD [facility] 2021-05-25 2021-05-25 Documentat Jan 1.2.840.1 [id number] Univers 00:00:00 00:00:00 ion Ofelia 05921.1.1 it y of A. 3.412.2.7 [place] .3.845447 MD [facility] 2021-05-24 2021-05-24 Octaviano Maynard 1.2.840.1 [id number] Univers 00:00:00 00:00:00 Nelia Moreno 75928.1.1 ity of 3.412.2.7 [place] .3.887074 .8 [facility] 2021-05-22 2021-05-22 [facility] 1.2.840.114 [id number] Univers 17:20:00 17:40:00 [facility] 350.1.13.10 it y of [place] 4.2.7.2.686 [place] VIOLET?BLEA [id number] [address] MEDICAL OFFICE BUILDING 2021-05-22 2021-05-22 Outpatient R [facility] [id number] -[id number] Univers 17:20:00 17:20:00 [id number] ity of [facility] 2021-05-22 2021-05-22 Outpatient R [facility] [id number] Univers 17:20:00 17:20:00 [facility] ity [facility] [place] 2021-05-22 2021-05-22 Orders Doctor DMITRY 1.2.840.114 [id number] Univers 00:00:00 00:00:00 Only Unassigned, CATHERINE 350.1.13.10 ity of [place] [facility] 4.2.7.2.686 [place] [id number] [address] 2021-05-20 2021-05-20 Procedure Isabel, 1.2.840.1 [id number] Univers 08:00:00 09:25:39 visit Yesenia 83824.1.1 ity of 3.412.2.7 [place] .3.175316 .8 Lisa [facility] 2021-05-20 2021-05-20 Outpatient IVAN DE MDA [facility] [id number] 07:21:41 09:25:39 YESENIA izaguirre 2021-05-20 2021-05-20 Travel 1.2.840.1 1.2.196.587 3542 [id number] Univers 00:00:00 00:00:00 41634.1.1 350.1.13.41 ity of 3.412.2.7 [place].3.698 [place] .3.215524 084.8 .8 [facility] 2021-04-28 2021-04-28 Paulina Jones, 1.2.840.1 [id number] Univers 00:00:00 00:00:00 Only Ofelia 37187.1.1 it y of A. 3.412.2.7 [place] .3.733166 .8 [facility] 2021-04-27 2021-04-27 Outpatient IVAN JONES [facility] MDA [id number] 10:03:09 10:13:46 OFELIA izaguirre 2021-04-20 2021-04-20 Telephone Carlene, 1.2.840.1 [id number] Univers 00:00:00 00:00:00 Norma Conroy 45970.1.1 it y of 3.412.2.7 [place] .3.319145 MD Castro8 [facility] 2021-04-15 2021-04-15 Paulina Jones, 1.2.840.1 [id number] Univers 00:00:00 00:00:00 Only Ofelia 42743.1.1 it y of A. 3.412.2.7 [place] .3.631290 MD Castro8 [facility] 2021-04-13 2021-04-13 Outpatient IVAN JONES [facility] MDA [id number] 12:27:24 12:38:42 OFELIA izaguirre 2021-04-13 2021-04-13 Office Isabel, 1.2.840.1 [id number] Univers 11:00:00 12:33:35 Visit Yesenia 92631.1.1 ity of 3.412.2.7 [place] .3.517635 MD Castro8 [facility] 2021-04-13 2021-04-13 Outpatient IVAN DE MDA MDA [id number] 10:26:06 12:33:35 YESENIA izaguirre 2021-04-13 2021-04-13 NPR Isabel, 1.2.840.1 [id number] Univers 10:30:00 10:30:00 Yesenia 05213.1.1 ity of 3.412.2.7 [place] .3.097009 .8 [facility] 2021-04-13 2021-04-13 Outpatient IVAN DE, MDA MDA [id number] 10:24:05 10:24:12 YESENIA gallardo 2021-04-13 2021-04-13 Travel 1.2.840.1 1.2.568.631 [id number] Univers 00:00:00 00:00:00 71959.1.1 350.1.13.41 ity of 3.412.2.7 [place]7.3.698 [place] .3.526545 084.8 .8 [facility] 2021-04-09 2021-04-09 Orders Jones, 1.2.840.1 [id number] Univers 00:00:00 00:00:00 Only Ofelia 91693.1.1 it y of A. 3.412.2.7 [place] .3.005571 MD Castro8 [facility] 2020-04-17 2020-04-17 Outpatient Joseilto LAVINIA RADI [id number] 8-20 [facility] 14:30:00 14:30:00 Jhonny [id number] [facility] 2020-04-14 2020-04-14 Outpatient Joselito GRISELDA LABO [id number] 8-20 [facility] 18:49:00 18:49:00 Jhonny [id number] [facility] 2020-04-14 2020-04-14 Outpatient IVAN YeeLAVINIA 3DAY [id number] 8-20 [facility] 09:00:00 09:00:00 Jhonny [id number] [facility] 2020-04-13 2020-04-13 Patient Alpesh NVDINO 1.2.840.114 [id number] 00:00:00 00:00:00 Outreach Jesse PRIMARY 350.1.13.10 [facility] 4.2.7.2.686 [place] [id number] 2019-11-03 2019-11-03 Laboratory Lab, [facility] 1.2.840.114 [id number] 17:07:43 17:27:43 Only [facility]am [facility] 350.1.13.10 [place] 4.2.7.2.686 [place] [id number] nal 0[address] One 2019-11-03 2019-11-03 Outpatient R [facility] [id number] Univers 17:00:00 17:00:00 [id number] [facility] 2019-11-03 2019-11-03 Outpatient R MARYJANE [facility] [id number] Univers 17:00:00 17:00:00 ATTENDING [facility] 2019-09-11 2019-09-11 Outpatient Joselito HCACL LABO [id number] 09-25 [facility] 12:44:00 12:44:00 Jhonny [facility] 2019-09-11 2019-09-11 Outpatient Yee, HCATO SURG [id number] [facility] 09:00:00 09:00:00 Jhonny [facility] 2019-08-29 2019-08-29 Outpatient Joselito HCATO RADI [id number] 8-20 [facility] 14:30:00 14:30:00 Jhonny [id number] [facility] 2019-07-17 2019-07-17 Orders Doctor DMITRY 1.2.840.114 [id number] 00:00:00 00:00:00 Only Unassigned, CATHERINE 350.1.13.10 [place] [facility] 4.2.7.2.686 [id number] 2019-06-25 2019-06-25 [facility] 1.2.840.114 [id number] 13:35:14 13:50:14 Visit [facility] 350.1.13.10 Surgical 4.2.7.2.686 Specialti [id number] es [address] [place] 2019-06-25 2019-06-25 Outpatient Agueda [facility] [id number] Univers 13:45:00 13:45:00 BASILIO [id number] [facility] 2019-06-25 2019-06-25 Outpatient gAueda [facility] [id number] Univers 13:45:00 13:45:00 BASILIO self [facility] [place] 2019-03-29 2019-03-29 Outpatient TIERNEY [facility] [id number] Univers 09:21:32 23:59:00 MANSOOR self [facility] [place] Results Test Description Test Time Test Comments Results Result Comments Source Glomerular Filtration Rate 2021-07-17 10:02:11 Test Item Value Reference Range Interpretation Comme nts eGFR-AA (test code = 97880-9) 99 See_Comment Normal eGFR: >= 60 mL/min/1.73 m2Note: The eGF R is calculated using the CKD-EPI equ ation. The eGFR declines with a ge. eGFR <60 mL/min/1.73 m2 is considered as "decreased". Th is equation should only be used for pat ients 18 and older. According to th e National Kidney Foundation's Ki dney Disease Outcome Quality Initiat elvia (KDOQI) classification and 2012 Kidney Disease Improving Globa l Outcomes (KDIGO) Clinical Practi ce Guideline, the stage of CKD should b e categorized based on estimated GFR. Stage Description GFR mL/min/1.73 m21 Normal or high GFR >=902 Mildly decreased GFR 60 -893a Mildly to moderately decr eased GFR 45-593b Moderately to s everely decreased GFR 30-444 Severe ly decreased GFR 15-295 Kidney f ailure <15 [Automated mess age] The system which generated this result transmitted reference range : >=60 mL/min/1.73 sq. m. The referenc e range was not used to interpret this result as normal/abnormal . eGFR-JARED (test code = 09955-9) 86 See_Comment Normal eGFR: >= 60 mL/min/1.73 m2Note: The eGF R is calculated using the CKD-EPI equ ation. The eGFR declines with a ge. eGFR <60 mL/min/1.73 m2 is considered as "decreased". Th is equation should only be used for pat ients 18 and older. According to th e National Kidney Foundation's Ki dney Disease Outcome Quality Initiat elvia (KDOQI) classification and 2012 Kidney Disease Improving Globa l Outcomes (KDIGO) Clinical Practi ce Guideline, the stage of CKD should b e categorized based on estimated GFR. Stage Description GFR mL/min/1.73 m21 Normal or high GFR >=902 Mildly decreased GFR 60 -893a Mildly to moderately decr eased GFR 45-593b Moderately to s everely decreased GFR 30-444 Severe ly decreased GFR 15-295 Kidney f ailure <15 [Automated mess age] The system which generated this result transmitted reference range : >=60 mL/min/1.73 sq. m. The referenc e range was not used to interpret this result as normal/abnormal . [facility] [place] [facility] ResourcesAnion [id number] 10:02:10 Test Item Value Reference Range Interpretation Comments Anion Gap (test code 9 See_Comment [Autom ated message] The = 16701-2) system which ge nerated this result transmit elsi reference range : 4 - 14 mEq/L. The refe rence range was not used to interpret this result as normal/abnormal . [facility] [place] [facility].Serum [id number] 10:02:09 Test Item Value Reference Range Interpretation Comments Creatinine (test code = 2160-0) 0.90 mg/dL 0.67-1.17 [facility] [place] [facility] ResourcesChloride [id number] 10:02:08 Test Item Value Reference Range Interpretation Comments Chloride (test code = 105 See_Comment [Auto mated message] The ) system which ge nerated this result tra nsmitted reference range : 98 - 107 mEq/L. The refe rence range was not u sed to interpret this result as normal/abnormal . [facility] [place] [facility] ResourcesBlood Urea [id number] 10:02:07 Test Item Value Reference Range Interpretation Comments BUN (test code = 3094-0) 11 mg/dL 6-23 [facility] [place] [facility] ResourcesPotassium [id number] 10:02:06 Test Item Value Reference Range Interpretation Comments Potassium Lvl (test 3.7 See_Comment [Automa elsi message] The code = 2823-3) system which generated this result tra nsmitted reference range : 3.5 - 5.1 mEq/L. The reference range was not u sed to interpret this result as normal/abnormal . [facility] [place] [facility] ResourcesGlucose, [id number] 10:02:05 Test Item Value Reference Range Interpretation Comments Glucose Random (test 108 mg/dL 70-199 Effecti ve 09/02/15, the code = 2345-7) glucose refer ence intervals have been updated based o n [place] [employer] karla delines (Standards of M edical Care in Diabete s 2016. Diabetes Care 2 016; 39: S13-S22).Fastin g blood glucose:Normal: 70-99 mg/dLImpaired f asting glucose (increa sed risk for diabetes or pre-diabetes): 100-125 mg/dLDiabetes m ellitus: >/=126 mg/dL Ra ndom blood glucose:N ormal: 70-199 mg/dLNot e: Random glucose >100 mg /dL is associated with increased risk for diabetes [facility] [id number] 10:02:04 Test Item Value Reference Range Interpretation Comments Sodium Lvl (test code 138 See_Comment [Auto mated message] The = 2951-2) system which [employer] nerated this result tra nsmitted reference range : 136 - 145 mEq/L. The refe rence range was not used to interpret this result as normal/abnormal . [facility] [place] [facility] ResourcesCarbon Dioxide [id number] 10:02:03 Test Item Value Reference Range Interpretation Comments CO2 (test code = 24 See_Comment [Automated message] The 2027-10) system which [employer] nerated this result transmit elsi reference range : 22 - 29 mEq/L. The refe rence range was not used to interpret this result as normal/abnormal . [facility] [place] [facility] ResourcesComplete Blood Count w/o Ugnyehpyqbne4818-83-52 09:40:50 Test Item Value Reference Range Interpretation Comments WBC (test code = 7.8 K/uL 4.0-11.0 6690-2) RBC (test code = 789-8) 3.77 See_Comment L [Au tomated message] The system [email or web address] generated this result transmitted ref erence range: 4.50 - 6 .00 M/uL. The refer ence range was not u sed to interpret this result as normal/abnor mal. Hgb (test code = 718-7) 11.2 See_Comment L [Au tomated message] The system [email or web address] generated this result transmitted ref erence range: 14.0 - 1 8.0 gm/dL. The refe rence range was not u sed to interpret this result as normal/abnor mal. Hct (test code = 34.4 % 40.0-54.0 L 4544-3) MCV (test code = 787-2) 91 fL 82-98 MCH (test code = 785-6) 29.7 pg 27.0-31.0 MCHC (test code = 32.6 See_Comment [Automate d message] 786-4) The system [email or web address] generated this result transmitted ref erence range: 31.0 - 3 6.0 gm/dL. The refe rence range was not u sed to interpret this result as normal/abnor mal. RDW-SD (test code = 46.5 fL 35.1-46.3 H 77808-3) RDW-CV (test code = 13.9 % 12.0-15.5 788-0) Platelet count (test 153 K/uL 140-440 code = 777-3) MPV (test code = 9.8 fL 4.0-10.4 63966-4) INRBC (test code = 0.0 % See_Comment The INRBC (instrument 97032-5) NRBC) value ref lects the enumeration of nucleated red b lood cells contained in a 200uL sampleof whole blood analyzed by the instrument. Thi s value maydiffer from the NRBC value repo rted in a manual differential,wh ich is based on a 100 cell differential. [Automated mess age] The system [email or web address] generated this result transmitted ref erence range: <=0.0. T he reference range was not used to int erpret this result as normal/abnormal . Lab Interpretation Abnormal (test code = 53898-1) [facility] [place] [facility] ResourcesCreatinine [id number] 08:04:19 Test Item Value Reference Range Interpretation Comments Creatinine BF (test 1.22 mg/dL This ass ay has been code = 5400) validated for b catina fluids. No refe rence ranges have bee n established. Te st results should be interpreted in context of the patient' s clinical condit ion and in conjunction with similar assays performed on se rum. Pathologist sonal draper is available. Creat BF Type (test Drainage code = 5397) ANTONY (test code = NATONY) MAXIMO drain [facility] [place] [facility] ResourcesHemoglobin2022-06-10 19:35:21 Test Item Value Reference Range Interpretation Comments Hgb (test code = 718-7) 11.4 See_Comment L [Au tomated message] The system [email or web address] generated this result transmitted ref erence range: 14.0 - 1 8.0 gm/dL. The refe rence range was not u sed to interpret this result as normal/abnor mal. Lab Interpretation (test Abnormal code = 15336-4) [facility] [place] [facility] ResourcesMD COVID-19 (DINESH-CoV-2) PCR Egwbihbrhvkz5835-98-59 11:17:58 Test Item Value Reference Interpretation Comments Range COVID19 SARS Pre-OR Procedure Indication (test code = 37614) COVID19 SARS Result Not Detected Not Detected (test code = 14707-0) COVID19 SARS SARS-CoV-2 NOT Detected. Interpretation (test Reference Range: Not code = 92139) Detected Methodology: The [employer] RealTime SARS-CoV-2 assay is a qualitative real-time reverse toy parts former supervisor polymerase chain reaction (stonecutter assistant-PCR) test to detect RNA from SARS-CoV-2 in nasal, nasopharyngeal and oropharyngeal swabs from patients with signs and symptoms of infection who are suspected of COVID-19 by their health care provider. The [employer] RealTime SARS-CoV-2 performed on the Datanomic000 System is a dual target assay with primers and probes for the RdRp and N genes. Results must be interpreted within the context of all relevant clinical and laboratory findings, and epidemiological risk factors. Positive results are indicative of the presence of SARS-CoV-2 RNA; clinical correlation with patient history and other diagnostic information is necessary to determine patient infection status. Positive results do not rule out bacterial infection or co-infection with other viruses. Negative results do not preclude SARS-CoV-2 infection and should not be used as the sole basis for patient management decisions. The Jennings RealTime SARS-CoV-2 assay is for in vitro diagnostic use under FDA Emergency Use Authorization only. Testing is limited to laboratories certified under the Clinical Laboratory Improvement Amendments of 1988 (CLIA), 42U.S.C. 263a, to perform high complexity tests. The Test was performed by the CLIA-certified, high-complexity Molecular Diagnostics Laboratory (MDL) at [facility] under the Food and Drug Administration (FDA) s Emergency Use Authorization. Factsheet for patients: https://www.mdanderson.org/ AbbottFactSheetPatientsFact sheet for healthcare providers: https://www.mdanderson.org/ AbbottFactSheetHCP Test performed by:The [facility] [place] [facility] Molecular Diagnostic [id number] [place] [address] [facility] [place] [facility] ResourcesTMP Interpretation Antibody Screen [id number] 03:12:57 Test Item Value Reference Range Interpretation Comments TMP Auto Neg At the present ABSC Interp time, patient (test code = plasma shows no ____RICHARD CAMP MD 7535) evidence of RBC - 79847Yeflf elsi by: alloantibodies. RICHARD GONZALES MD - [id number] D ate/Time: 07.13.2021 22:1 2 PM CDT Transcribed Da te/Time: 07.13.2021 22:1 2 PM CDTElectronical ly Signed By: RICHARD OLVERA MD - [id number] on 22:12 PM [facility] [place] [facility] ResourcesAntibody [id number] 22:50:01 Test Item Value Reference Range Interpretation Comments ABSC. (test code = 890-4) Negative ABSC [facility] [place] [facility] ResourcesABORh2022-06-07 22:50:00 Test Item Value Reference Range Interpretation Comments ABORh. (test code = 882-1) A POS [facility] [place] [facility] ResourcesClot Expiration [id number] 22:49:56 Test Item Value Reference Range Interpretation Comments T & S Expiration (test code = 07/16/2021 5318) [facility] [place] [facility] ResourcesElectrolyte Bacow1110-17-01 20:36:55 Test Item Value Reference Range Interpretation Comments Sodium Lvl (test code = 142 See_Comment [Au tomated message] The 2951-2) system which ge nerated this result tra nsmitted reference range : 136 - 145 mEq/L. The reference range was not u sed to interpret this result as normal/abnormal . Potassium Lvl (test 4.1 See_Comment [Automa elsi message] The code = 2823-3) system which generated this result tra nsmitted reference range : 3.5 - 5.1 mEq/L. The reference range was not u sed to interpret this result as normal/abnormal . Chloride (test code = 106 See_Comment [Auto mated message] The ) system which ge nerated this result tra nsmitted reference range : 98 - 107 mEq/L. The refe rence range was not u sed to interpret this result as normal/abnormal . CO2 (test code = 26 See_Comment [Automated message] The 2027-10) system which ge nerated this result tra nsmitted reference range : 22 - 29 mEq/L. The refe rence range was not u sed to interpret this result as normal/abnormal . Anion Gap (test code = 10 See_Comment [Aut omated message] The ) system which ge nerated this result tra nsmitted reference range : 4 - 14 mEq/L. The refe rence range was not u sed to interpret this result as normal/abnormal . [facility] ResourcesGl[facility] [id number] 20:36:54 Test Item Value Reference Range Interpretation Comments Glucose Level (test code 113 mg/dL 70-99 H Eff ective 09/02/15, = 2345-7) the glucose reference inter vals have been updat ed based on Americ an Diabetes Associ ation guidelines (Standards of Medical Care in Diabetes 2016. Diabetes Care 2 016; 39: S13-S22).Fa sting blood glucose:Normal: 70-99 mg/dLImpa ired fasting glucose (increased risk for diabetes or pre-diabetes): 100-125 mg/dLDiabetes mellitus: >/=1 26 mg/dL Random bl ood glucose:Normal: 70-199 mg/dLNot e: Random glucose >100 mg/dL is associ ated with increased risk for diabetes Lab Interpretation (test Abnormal code = 93241-4) [facility] [place] [facility] ResourcesTSH2022-06-07 20:36:50 Test Item Value Reference Range Interpretation Comments TSH (test code = 4.66 See_Comment H [Automated message] 95410-6) The system whic [employer] generated this result transmitted ref erence range: 0.27 - 4 .20 mcunit/mL. The reference range was not used to int erpret this result as normal/abnormal . Lab Interpretation (test Abnormal code = 00554-6) [facility] [place] [facility] ResourcesFree [id number] 20:36:48 Test Item Value Reference Range Interpretation Comments T4 Free (test code = 3024-7) 1.11 ng/dL 0.93-1.70 [facility] [place] [facility] ResourcesHemoglobin [id number] 20:32:19 Test Item Value Reference Range Interpretation Comments A1C (test code = 5.6 % 4.3-5.6 HbA1c value s >=6.5% are 4548-4) diagnostic of d iabetes mellitus.Diagno sis should be confirmed by repeat testing.Therape utic Action suggested: >8.0 % HbA1c; Goal oftherapy: <7.0% HbA1c [facility] [place] [facility] ResourcesPO [id number] 14:52:21 Test Item Value Reference Range Interpretation Comments POC Crea (test 1.1 mg/dL 0.6-1.3 Medications, code = 44904-4) especially h ydroxyurea or supplements, such as ascorbate, c an interfere with test results causing a falsely and significantly h igher result than exp ected. If a problem is suspected with a patient's resul t, a sample should b e sent to the laborato for confirmatory te sting. Method descript ion: The i-STAT is a n analyzer used f or in vitro quantific ation of various anal ytes in whole blood. Th e device uses a s tequila disposable cart ridge which contains microfabricated sensors, a chuy bration solution, fluid ics system, and a w aste chamber. Each t est cartridge conta ins chemically sens itive biosensors on a silicon chip th at are configured to p erform specific tests. The microfabricated sensors measure analyte concent ration by an electroch emical assay. POC eGFR-AA (test 78 See_Comment Normal eGF R >= 60 code = 10890-2) mL/min/1.73 m2 The eGFR is calcula elsi using the CKD-E PI equation. The e GFR declines with a ge. eGFR <60 mL/min /1.73 m2 is considere d as "decreased" Thi s equation should only be used for pat ients 18 and older. According to e National Kidney Foundation's dney Disease Outcome Quality Initiat elvia (KDOQI) classif ication and 2012 Kidney Disease Improvi ng Global Outcomes (KDIGO) Clinica l Practice Guidel ine, the stage of CK D should be categ orized based on estima elsi GFR. Stage Desc ription GFR mL/min/1.73 m21 Kidney damage w ith normal or high GFR >=902 Kidney da mage with mild decre ase in GFR 60-893a Mild to moderate decrea se in GFR 45-593b Moderate to sev ere decrease in GFR 30-444 Severe d ecrease in GFR 15-29 5 Kidney failure <15 (or dialysis) [Automated mess age] The system [email or web address] generated this result transmitted ref erence range: >=60 mL/min/1.73 m2. The reference range was not used to int erpret this result as normal/abnormal . POC eGFR-JARED (test 67 See_Comment Normal eG FR >= 60 code = 21312-9) mL/min/1.73 m2 The eGFR is calcula elsi using the CKD-E PI equation. The e GFR declines with a ge. eGFR <60 mL/min /1.73 m2 is considere d as "decreased" Thi s equation should only be used for pat ients 18 and older. According to e National Kidney Foundation's dney Disease Outcome Quality Initiat elvia (KDOQI) classif ication and 2012 Kidney Disease Improvi ng Global Outcomes (KDIGO) Clinica l Practice Guidel ine, the stage of CK D should be categ orized based on estima elsi GFR. Stage Desc ription GFR mL/min/1.73 m21 Kidney damage w ith normal or high GFR >=902 Kidney da mage with mild decre ase in GFR 60-893a Mild to moderate decrea se in GFR 45-593b Moderate to sev ere decrease in GFR 30-444 Severe d ecrease in GFR 15-29 5 Kidney failure <15 (or dialysis) [Automated mess age] The system [email or web address] generated this result transmitted ref erence range: >=60 mL/min/1.73 m2. The reference range was not used to int erpret this result as normal/abnormal . POC Clean Dev Yes (test code = 6672) Performing Lab IMELDA League [facility] LEAGUE CI TY (test code = [facility] eddie 18631) [facility] [place] ,[address] [facility], [place] [address], Point of Care Interface Developer: Heladio Valadez MD [facility] CenterPO[facility] URINALYSIS W SPECIFIC GRAVITY 2021-05-22 22:05:00 Test Item Value Reference Range Interpretation Comments POCT U SP GRAV (test 1.015 mg/dl 1.005-1.025 code = 3255) POCT PH U (test code = 6 mg/dl 5-8 3254) POCT U LEUK EST (test ++ Negative - code = 3263) Negative POCT U NIT (test code pos Negative - = 3262) Negative POCT U PROT (test code trace Negative - = 3259) Negative POCT U GLU (test code norm Negative - = 3256) Negative POCT U KETONE (test neg Negative - code = 3258) Negative POCT U UROBILI (test norm 0.2-1 code = 3260) POCT U BILI (test code neg Negative - = 3261) Negative POCT U BLD (test code Negative - = 3257) Negative POCT U COLOR (test dark code = 3266) POCT U APPEAR (test cloudy code = 3267) ANTONY (test code = ANTONY) accurate development and interpretation of all internal controls Lab Interpretation Abnormal (test code = 64091-9) [facility]- XR SHOULDER 1 V [id number] 15:45:00 [facility] : 1950 Sex: M Patient Name: BRANT VASQUEZ Unit No: [id number] EXAMS: CPT CODE: [id number] XR SHOULDER 1 [place] [address] IMAGES PROVIDED: Single AP view of the right shoulder FINDING S: Postoperative changes of right reverse total shoulder arthoplasty demonstrated without evidence of immediate complication. No acute fracture. Visualized lung is clear. IMPRESSION: Right reverse total shoulder arthoplasty without immediate complication. at 1545 Reported and signed by: Darius Sauer M.D. CC: Jhonny Yee MD Technologist: FANG HERBERT. RT(R) Transcribed D/ (8796) AlbinoSLJ [facility] NAME: BRANT VASQUEZ JR [address] [facility] PHYS: JORDYNJhonny Bennett : 1950 AGE: 70 SEX: M [place] [address] LOC: Y.505 A PHONE #: [phone] EXAM DATE: 04/22/2020 STATUS: DIS IN FAX#: [phone] RAD #: D/C DT 04/23/2020 PAGE 1Signed Report Patient Name: BRANT VASQUEZ JR Unit No: [id number] EXAMS: CPT CODE: [id number] XR SH OULDER 1 V RT [address]80 <Continued> Orig Print D/T: S: 04/24/2020 (5520) [facility] NAME: BRANT VASQUEZ [address] [facility] PHYS: Jhonny Gutierrez : 1950 AGE: 70 SEX: M [place] [address] LOC: Y.505 A PHONE #: [phone] EXAM DATE: 04/22/2020 STATUS: DIS IN FAX #: [phone] RAD #: D/C DT 04/23/2020 PAGE 2 [...] RATE (test code = GFR) mL/mi n/1.73 [id number] Range:Healthy Adults >90 mL/min/1.73 m2 For Chronic Kidney Disease: St age II Mild Decrease in GFR 60-90 St age III Moderate Decrease in GFR 30-59 Stage IV Severe Decre ase in GFR 15- 29 Stage V Kidney Failure <15 CREATININE (test code 0.97 mg/dL 0.55-1.30 N = CREAT) CALCIUM (test code = 7.8 mg/dL 8.2-10.1 L CA) CBC W/AUTO [id number] 05:58:00 Test Item Value Reference Range Interpretation [...] POD #1- CT UP EXTREM W/O CONT [id number] 22:17:00 [facility] : 1950 Sex: M Patient Name: BRANT VASQUEZ Unit No: [id number] EXAMS: CPT CODE: [id number] CT [place] EXTREM W/[place] [address] [place] SCAN RIGHT SHOULDER WITH RECONSTRUCTION DIAGNOSIS: [...] with ACR practice standards and adherence to purchase order checker's recommendations. INDICATION: RIGHT SHOULDER PAIN COMPARISON: The current exam is compared to previous exam dated August 29, 2019 COMMENT: Findings are as described above. at 2217 Reported and signed by: Tommy Alvarez MD CC: Jhonny Yee MD Technologist: Pako Lima,RT(R) CTDI: DLP: Trnscrpt: 04/19/2020 (2216) t.AMANDAR.GVG [facility] NAME: BRANT VASQUEZ [address] [facility] PHYS: NICOLASA Starkey YeeJhonny Gill : 1950 AGE: 70 SEX: M [place] [address] LOC: Y.RAD PHONE #: [phone] EXAMDATE: 04/17/2020 STATUS: DEP CLI FAX #: [phone] RAD #: D/C DT PAGE 1 Signed Report Patient Name:BRANT VASQUEZ Unit No: [id number] EXAMS: CPT CODE: [id number] CT UP EXTREM W/[place] [address]<Continued> Orig Print D/T: S: 04/19/2020 (2219) [facility] NAME: BRANT VASQUEZ [id number] [facility] PHYS: NICOLASA YeeJhonny Gill : 1950 AGE: 70 SEX: M [place], [place] [address] LOC: Y.RAD PHONE #: [phone] EXAM DATE: 04/17/2020 STATUS: DEP CLIFAX #: [phone] RAD #: D/C DT PAGE 2 Signed ReportNovel Coronavirus 2018 [id number] 05:38:00 Test Item Value Reference Range Interpretation [...] usingthe Jennings M2000 Sy stem under the [facility] Emergen cy UseAuthorizatio n. The testing is perf ormed by personneltraine d in the procedures for the [employer] molecular diagnostic SARS-CoV-2 assa y in vitro. Novel Coronavirus 2018 [id number] 05:38:00 Test Item Value Reference Range Interpretation [...] diagnostic SARS-CoV-2 assa y in vitro. PROTHROMBIN [id number] 13:47:00 Test Item Value Reference Range Interpretation [...] BLOOD, PT every other day NTHROMBOPLASTIN TIME [id number] 13:47:00 Test Item Value Reference Range Interpretation [...] 0-0 N code = NRBC) COMPREHENSIVE METABOLIC [id number] 13:44:00 Test Item Value Reference Range Interpretation [...] RATE (test code = GFR) mL/mi n/1.73 u8Vnegtrohh Range:Healthy Adults >90 mL/min/1.73 m2 For Chronic [...] (test code = ALKP) Novel Coronavirus 2019 [id number] 01:11:00 Test Item Value Reference Range Interpretation Comments Novel Coronavirus 2019 Inhouse (test Negative Negative code = COVNONPUI) Novel Coronavirus 2019 [id number] 01:11:00 Test Item Value Reference Range Interpretation Comments Novel Coronavirus 2019 Inhouse (test Negative Negative code = COVNONPUI) BASIC METABOLIC [id number] 10:42:00 Test Item Value Reference Range Interpretation [...] RATE (test code = GFR) mL/mi n/1.73 [id number] Range:Healthy Adults >90 mL/min/1.73 m2 For Chronic Kidney Disease: St age II Mild Decrease in GFR 60-90 St age III Moderate Decrease in GFR 30-59 Stage IV Severe Decre ase in GFR 15- 29 Stage V Kidney Failure <15 CREATININE (test code 1.02 mg/dL 0.55-1.30 N = CREAT) CALCIUM (test code = 8.9 mg/dL 8.2-10.1 N CA) HGB [id number] 10:13:00 Test Item Value Reference Range Interpretation Comments HEMOGLOBIN (test code = HGB) 15.2 g/dL 12-16 N HEMATOCRIT (test code = HCT) 45.6 % 37-47 N - CT UP EXTREM W/CONT [id number] 15:26:00 Patient Name: BRANT VASQUEZ JR Unit No: [id number] EXAMS: CPT CODE: [id number] CT UP EXTREM W/[place] [address] RIGHT SHOULDER ARTHROGRAM AND LIDOCAINE INJECTION. DIAGNOSIS: [...] MD CC: Jhonny Yee MD Technologist: Pako LimaRT(R) CTDI: DLP: Trnscrpt: 08/29/2019 (1526) AlbinoJCL [facility] NAME: BRANT VASQUEZ JR [address] [facility] PHYS: Jhonny Gutierrez : 1950 AGE: 69 SEX: M [place], [place] [address] LOC: Y.RAD PHONE #: [phone] EXAM DATE: 08/29/2019 STATUS: REG CLI FAX #: [phone] RAD #: D/C DT PAGE 1 Signed Report Patient Name: BRANT VASQUEZ JR Unit No: [id number] EXAMS: CPT CODE: [id number] CT [place] EXTREM W/[place] [address] <Continued> Orig Print D/T: S: 08/29/2019 (1529) [facility] NAME: BRANT VASQUEZ JR [address] [facility] PHYS: Jhonny Gutierrez : 1950 AGE: 69 SEX: M [place], [place] [address] LOC: Y.RAD PHONE #: [phone] EXAM DATE: 08/29/2019 STATUS: REG CLI FAX #: [phone] RAD #: D/C DT PAGE 2 Signed Report- XR ARTHROGRAM SHLDR [id number] 15:26:00 Patient Name: BRANT VASQUEZ JR Unit No: [id number] EXAMS: CPT CODE: [id number] [place] [address] RIGHT SHOULDER ARTHROGRAM AND LIDOCAINE INJECTION. DIAGNOSIS: [...] MD Technologist: Sherrie Sheppard RT.(R) Transcribed D/ (8301) AlbinoJCL [facility] NAME: RBANT VASQUEZR [address] PHYS: Jhonny Gutierrez : 1950 AGE: 69 SEX: M [place], [place] [address] LOC: Y.RAD PHONE #: [phone] EXAM DATE: 08/29/2019 STATUS: REG CLI FAX #: [phone] RAD #: D/C DT PAGE 1 Signed Report Patient Name: BRANT VASQUEZ JR Unit No: [id number] EXAMS: CPT CODE: [id number] [place] [address] <Continued> Orig Print D/T: S: 08/29/2019 (1457) [facility] NAME: BRANT VASQUEZ JR [address] [facility] PHYS: Jhonny Gutierrez : 1950 AGE: 69 SEX: M [place] [address] LOC: Y.RAD PHONE #: [phone] EXAM DATE: 08/29/2019 STATUS: REG CLI FAX #: [phone] RAD #: D/C DT PAGE 2 Signed Report- XR CHEST 2 V 2013-05-25 19:24:00 Patient Name: BRANT VASQUEZ JR Unit No: [id number] EXAMS: CPT CODE: [id number] XR CHEST 2 V 60009 EXAM: Chest 2 views. Location code:J9 HISTORY: [...] at 1924 Reported and signed by: Figueroa Menedz M.D. CC: Dr. Cholo Cage Technologist: Manuel Maldonado RT(R)(CT) Transcrpt Date/Tm/Trnsp: 05/25/2013 (1923) AlbinoRR16 Orig Print D/T: S: 05/25/2013 (1926) [facility] NAME: BRANT VASQUEZ [address] [facility] PHYS: Cholo Sena [place], [place] [address] : 1950 AGE: 63 SEX: M LOC: UNK PHONE #: EXAM DATE: 05/25/2013 STATUS: UNK FAX #: RADIOLOGY NO: PAGE 1 Signed Report
[2021-07-18 01:07] LABS: Absolute Lymphocytes (CBC) 0.7 K/uL (0.7-4.9); Lymphocytes % 5.4 % (15.3-44.8); MPV 7.6 fL (7.6-11.3); RBC Red Blood Cell Count 4.55 M/uL (4.33-5.43)
[2021-07-18 01:10] LABS: Albumin 3.3 g/dL (3.4-5.0); Bilirubin Total 0.9 mg/dL (0.2-1.0); Potassium 3.3 mmol/L (3.5-5.1); Protein, Total 6.7 g/dL (6.4-8.2)
[2021-07-18] MEDS ORDERED: ONDANSETRON 4 MG/2 ML VIAL ONE ×3 (01:39→08:34)
[2021-07-18] MEDS ORDERED: MORPHINE 4 MG/ML SYR ONE ×2 (01:39→05:15)
[2021-07-18] MEDS ORDERED: NA CHLORIDE 0.9% 1,000 ML ONE (01:40)
[2021-07-18 01:58] LABS: Blood Morphology Comment NOT SEEN (NOT SEEN); Platelet Estimate ADEQ
[2021-07-18] MEDS ORDERED: PROMETHAZINE INJ 25 MG/ML AMP ONE (02:46)
[2021-07-18] MEDS ORDERED: NA CHLORIDE 0.9% 50 ML ONE (02:46)
[2021-07-18 02:51] LABS: Urine Blood 3+ (Negative); Urine Glucose Negative (Negative); Urine Protein 1+ (Negative); Urine Specific Gravity 1.015 (1.005-1.030); Urine pH 6.5 (5.0-7.0)
--- NOTE | 2021-07-18 06:01 | ER ---
Nurse's Notes [facility] Name: Macario Henriquez Jr Age: 71 yrs Sex: Male : 1950 Arrival Date: 07/17/2021 Time: 22:39 Bed 8 Private MD: Diagnosis: Nausea with vomiting, unspecified;Abdominal pain, Generalized;Ileus, unspecified-post operative Presentation: 07/17 23:17 Chief complaint: Spouse and/or significant other states: he was discharged from [facility], he had a prostectomy, he was nauseous then and he was given medicine. Now he is having N/V and bloating. We gave his oxycodone at 1800 and it isn't helping. Coronavirus screen: At this time, the client does not indicate any symptoms associated with coronavirus-19. Ebola Screen: No symptoms or risks identified at this time. Initial Sepsis Screen: Does the patient meet any 2 criteria? HR > 90 bpm. Yes Does the patient have a suspected source of infection? No. Patient's initial sepsis screen is negative. Risk Assessment: Do you want to hurt yourself or someone else? Patient reports no desire to harm self or others. Onset of symptoms was July 17, 2021. Transition of care: patient was not received from another setting of care. 23:17 Method Of Arrival: Wheelchair jb4 23:17 Acuity: ARELY 3 jb4 Historical: - Allergies: 23:19 No Known Allergies; jb4 - Home Meds: 23:19 Prilosec 20 mg Oral cpDR 1 cap nightly [Active]; cetirizine 10 mg Oral tab 1 tab jb4 nightly [Active]; buspirone 10 mg Oral tab 1 tab 2 times per day [Active]; carvedilol 12.5 mg Oral tab 1 tab three times a day [Active]; ferrous sulfate 325 mg (65 mg iron) Oral tab 2 times a week [Active]; levothyroxine 100 mcg tab 1 tab once daily [Active]; atorvastatin 20 mg Oral tab 1 tab nightly [Active]; losartan 50 mg Oral tab 1 tab once daily [Active]; Nexium 40 mg Oral cpDR 1 cap 2 times per day [Active]; multivitamin Oral tab daily [Active]; FiberCon 625 mg Oral tab daily [Active]; tamsulosin 0.4 mg Oral cp24 1 cap nightly [Active]; aspirin 81 mg Oral TbEC 1 tab once daily [Active]; amlodipine 5 mg tab 1 tab nightly [Active]; - PMHx: 23:19 Anemia; GERD; CAD; BPH; Arthritis; Depression; Hypertension; Hypothyroidism; High jb4 Cholesterol; leaky heart valve; Lupus; - PSHx: 23:19 prostectomy; jb4 - Immunization history:: Adult Immunizations up to date. - Social history:: Smoking status: Patient denies any tobacco usage or history of. Screenin/12 03:12 Abuse screen: Denies threats or abuse. Denies injuries from another. Nutritional sm5 screening: No deficits noted. Tuberculosis screening: No symptoms or risk factors identified. Fall Risk None identified. Assessment: 01:15 General: Appears in no apparent distress. Behavior is cooperative. Pain: Complains of sm5 pain in abdomen diffusely. Neuro: No deficits noted. Murillo Agitation-Sedation Scale (RASS): 0 - Alert and Calm Level of Consciousness is awake, alert, obeys commands, Oriented to person, place, time, situation. Cardiovascular: No deficits noted. Capillary refill < 3 seconds Patient's skin is warm and dry. Respiratory: No deficits noted. Airway is patent Trachea midline Respiratory effort is even, unlabored. GI: Abdomen is non-distended, Reports lower abdominal pain, upper abdominal pain, bloating, cramping. : Kulkarni in place Urine is clear. 02:30 Reassessment: No changes from previously documented assessment. Patient and/or family sm5 updated on plan of care and expected duration. Pain level reassessed. 03:35 Reassessment: No changes from previously documented assessment. Patient and/or family sm5 updated on plan of care and expected duration. Pain level reassessed. Patient is alert, oriented x 3, equal unlabored respirations, skin warm/dry/pink. 05:15 Reassessment: No changes from previously documented assessment. sm5 07:30 Reassessment: Pt requesting to take morning medications, Dr. Gallagher notified, and gave jl7 VO to hold morning medications until pt arrives at [facility] and the care team there manages his morning medications, Pt notified and verbalized understanding. Dr. Gallagher gave VO to administer D5 1/2 NS at 75 mL/hr. 08:30 Reassessment: Pt reports nausea, Dr. Liu notified, VO to administer 4 mg Zofran IVP.7 08:39 Reassessment: EMS at bedside to transport pt. 7 Vital Signs: 07/17 23:17 BP 153 / 82; Pulse 92; Resp 16; Temp 98.0(TE); Pulse Ox 95% on R/A; Weight 86.18 kg jb4 (R); Height 5 ft. 6 in. (167.64 cm) (R); Pain 10/10; 07/18 03:11 BP 137 / 89; Pulse 83; Resp 19; Pulse Ox 93% on R/A; sm5 05:14 BP 157 / 93; Pulse 93; Resp 20; Pulse Ox 93% on R/A; 5 07:45 BP 137 / 85; Pulse 93; Resp 15; Pulse Ox 95% ; jl7 08:15 BP 153 / 88; Pulse 88; Resp 15; Pulse Ox 94% ; 7 07/17 23:17 Body Mass Index 30.67 (86.18 kg, 167.64 cm) 4 ED Course: 07/17 22:39 Patient arrived in ED. bp1 23:19 Triage completed. jb4 23:21 Arm band placed on right wrist. jb4 23:54 Stephan Gallagher MD is Attending Physician. 7 23:55 Nenita Madsen, RN is Primary Nurse. [facility] 07/18 02:26 CT Abd/Pelvis - IV Contrast Only In Process Unspecified. EDMS 03:12 Patient has correct armband on for positive identification. Bed in low position. Call 5 light in reach. Side rails up X2. 05:15 No provider procedures requiring assistance completed. 5 05:22 transfer was initiated by Tressa Corrales with [facility] from the [facility] transfer center. eb 05:34 administrative approval given to Sheila Corrales by [facility] pending Covid results/ call back eb with results. 06:51 called and gave [facility] COVID results/ patient has been accepted to [facility]/ Dr. ernesto Hernadez gave the administrative approval at 0536/ Dr. Nora Hernadez has accepted the patient in transfer/ report to be called to [phone]. 08:32 Primary Nurse role handed off by Nenita Madsen RN eb 08:33 Ewelina Bloom RN is Primary Nurse. jl7 08:39 Patient transferred, IV remains in place. intact, No redness/swelling at site. jl7 Administered Medications: 01:40 Drug: NS 0.9% 1000 ml Route: IV; Rate: 1000 ml; Site: right antecubital; ll3 02:35 Follow up: IV Status: Completed infusion; IV Intake: 1000ml sm5 01:41 Drug: Zofran (Ondansetron) 4 mg Route: IVP; Site: right antecubital; ll3 04:51 Follow up: Response: No adverse reaction sm5 01:44 Drug: morphine 4 mg Route: IVP; Infused Over: 4 mins; Site: right antecubital; ll3 04:51 Follow up: Response: No adverse reaction sm5 02:46 Drug: Phenergan (promethazine) 12.5 mg Route: IVP; Site: right antecubital; sm5 04:51 Follow up: Response: No adverse reaction sm5 04:51 Drug: Zofran (Ondansetron) 4 mg Route: IVP; Site: right antecubital; sm5 06:43 Follow up: Response: No adverse reaction sm5 05:12 Drug: morphine 4 mg Route: IVP; Infused Over: 4 mins; Site: right antecubital; sm5 06:43 Follow up: Response: No adverse reaction 5 07:30 Drug: D5-1/2 NS 1000 ml Route: IV; Rate: 75 ml/hr; Site: right antecubital; jl7 08:35 Follow up: IV Status: Infusion continued upon transfer jl7 08:34 Drug: Zofran (Ondansetron) 4 mg Route: IVP; Site: right antecubital; jl7 08:34 Follow up: Response: No adverse reaction jl7 Medication: 03:13 VIS not applicable for this client. sm5 Intake: 02:35 IV: 1000ml; Total: 1000ml. 5 Outcome: 06:00 ER care complete, transfer ordered by 7 08:39 Transferred by ground EMS to [facility], Transfer form completed. jl7 08:39 Condition: stable 08:39 Discharge instructions given to patient, family, Instructed on the need for transfer, Demonstrated understanding of instructions. 08:43 Patient left the ED. jl7 Signatures: Dispatcher [employer] Renan Gutierrez RN RN jb4 Ewelina Bloom RN RN jl7 Ofelia Cuevas Brittany bp1 Holmes, Maurice, MD MD 7 Shayla Villagran RN RN ll3 Nenita Madsen RN RN sm5 Corrections: (The following items were deleted from the chart) 07/17 23:21 23:17 BP 153 / 82; Pulse 92bpm; Resp 24bpm; Pulse Ox 95% RA; Temp 98.0F Temporal; 86.18 jb4 kg Reported; Height 5 ft. 6 in. Reported; BMI: 30.6; Pain 11/15; jb4
--- NOTE | 2021-07-18 06:01 | EDPHYS ---
Physician Documentation [facility] Name: Macario Henriquez Jr Age: 71 yrs Sex: Male : 1950 Arrival Date: 07/17/2021 Time: 22:39 Bed 8 Private MD: ED Physician Stephan Gallagher HPI: 07/18 01:10 This 71 yrs old Male presents to ER via Wheelchair with complaints of Nausea/Vomiting, mh7 Post Surgical Pain, Abdominal Cramping. 01:10 The patient presents to the emergency department with nausea, that is moderate, mh7 vomiting, that is intermittent, described as clear fluid, abdominal pain, of the abdomen diffusely, described as crampy, and does not radiate. Onset: The symptoms/episode began/occurred yesterday. Possible causes: unknown, post surgical. The symptoms are aggravated by nothing. The symptoms are alleviated by nothing. Associated signs and symptoms: Pertinent positives: constipation, bloating, Pertinent negatives: anorexia, belching, diarrhea, dysuria, fever, flatulence, GI bleeding, hematuria. Severity of symptoms: At their worst the symptoms were moderate yesterday, in the emergency department the symptoms have improved mildly. Historical: - Allergies: 07/17 23:19 No Known Allergies; jb4 - Home Meds: 23:19 Prilosec 20 mg Oral cpDR 1 cap nightly [Active]; cetirizine 10 mg Oral tab 1 tab jb4 nightly [Active]; buspirone 10 mg Oral tab 1 tab 2 times per day [Active]; carvedilol 12.5 mg Oral tab 1 tab three times a day [Active]; ferrous sulfate 325 mg (65 mg iron) Oral tab 2 times a week [Active]; levothyroxine 100 mcg tab 1 tab once daily [Active]; atorvastatin 20 mg Oral tab 1 tab nightly [Active]; losartan 50 mg Oral tab 1 tab once daily [Active]; Nexium 40 mg Oral cpDR 1 cap 2 times per day [Active]; multivitamin Oral tab daily [Active]; FiberCon 625 mg Oral tab daily [Active]; tamsulosin 0.4 mg Oral cp24 1 cap nightly [Active]; aspirin 81 mg Oral TbEC 1 tab once daily [Active]; amlodipine 5 mg tab 1 tab nightly [Active]; - PMHx: 23:19 Anemia; GERD; CAD; BPH; Arthritis; Depression; Hypertension; Hypothyroidism; High jb4 Cholesterol; leaky heart valve; Lupus; - PSHx: 23:19 prostectomy; jb4 - Immunization history:: Adult Immunizations up to date. - Social history:: Smoking status: Patient denies any tobacco usage or history of. ROS: 07/18 01:10 Constitutional: Negative for fever, chills, and weight loss, Eyes: Negative for injury, mh7 pain, redness, and discharge, ENT: Negative for injury, pain, and discharge, Neck: Negative for injury, pain, and swelling, Cardiovascular: Negative for chest pain, palpitations, and edema, Respiratory: Negative for shortness of breath, cough, wheezing, and pleuritic chest pain, Back: Negative for injury and pain, : Negative for injury, bleeding, discharge, and swelling, MS/Extremity: Negative for injury and deformity, Skin: Negative for injury, rash, and discoloration, Neuro: Negative for headache, weakness, numbness, tingling, and seizure, Psych: Negative for depression, anxiety, suicide ideation, homicidal ideation, and hallucinations, Allergy/Immunology: Negative for hives, rash, and allergies, Endocrine: Negative for neck swelling, polydipsia, polyuria, polyphagia, and marked weight changes, Hematologic/Lymphatic: Negative for swollen nodes, abnormal bleeding, and unusual bruising. Exam: 01:10 Head/Face: Normocephalic, atraumatic. Eyes: Pupils equal round and reactive to light, mh7 extra-ocular motions intact. Lids and lashes normal. Conjunctiva and sclera are non-icteric and not injected. Cornea within normal limits. Periorbital areas with no swelling, redness, or edema. Neck: Trachea midline, no thyromegaly or masses palpated, and no cervical lymphadenopathy. Supple, full range of motion without nuchal rigidity, or vertebral point tenderness. No Meningismus. Chest/axilla: Normal chest wall appearance and motion. Nontender with no deformity. No lesions are appreciated. Cardiovascular: Regular rate and rhythm with a normal S1 and S2. No gallops, murmurs, or rubs. Normal PMI, no JVD. No pulse deficits. Respiratory: Lungs have equal breath sounds bilaterally, clear to auscultation and percussion. No rales, rhonchi or wheezes noted. No increased work of breathing, no retractions or nasal flaring. 01:10 Back: No spinal tenderness. No costovertebral tenderness. Full range of motion. Skin: Warm, dry with normal turgor. Normal color with no rashes, no lesions, and no evidence of cellulitis. MS/ Extremity: Pulses equal, no cyanosis. Neurovascular intact. Full, normal range of motion. Neuro: Awake and alert, GCS 15, oriented to person, place, time, and situation. Cranial nerves II-XII grossly intact. Motor strength 5/5 in all extremities. Sensory grossly intact. Cerebellar exam normal. Normal gait. Psych: Awake, alert, with orientation to person, place and time. Behavior, mood, and affect are within normal limits. 01:10 Constitutional: The patient appears in no acute distress, alert, awake, uncomfortable. 01:10 Abdomen/GI: Inspection: distension, that is mild, in the abdomen diffusely, Bowel sounds: normal, in all quadrants, Palpation: mild abdominal tenderness, in the abdomen diffusely, mass, is not appreciated, rebound tenderness, is not appreciated, voluntary guarding, is not appreciated, involuntary guarding, is not appreciated, no appreciated organomegaly, Indicators: McBurney's point is not tender, Lew's sign is negative, Rovsing's sign is negative, Obturator sign is negative, Psoas sign is negative, Liver: no appreciated palpable abnormalities, Hernia: not appreciated. Vital Signs: 07/17 23:17 BP 153 / 82; Pulse 92; Resp 16; Temp 98.0(TE); Pulse Ox 95% on R/A; Weight 86.18 kg jb4 (R); Height 5 ft. 6 in. (167.64 cm) (R); Pain 11/15; 07/18 03:11 BP 137 / 89; Pulse 83; Resp 19; Pulse Ox 93% on R/A; sm5 05:14 BP 157 / 93; Pulse 93; Resp 20; Pulse Ox 93% on R/A; sm5 07:45 BP 137 / 85; Pulse 93; Resp 15; Pulse Ox 95% ; jl7 08:15 BP 153 / 88; Pulse 88; Resp 15; Pulse Ox 94% ; jl7 07/17 23:17 Body Mass Index 30.67 (86.18 kg, 167.64 cm) jb4 MDM: 05:56 Differential diagnosis: Nonspecific abd pain, gastritis, cholecystitis, pancreatitis, 7 appendicitis, diverticulitis, viral gastroenteritis, gastroenteritis. Data reviewed: vital signs, nurses notes, lab test result(s), CBC, electrolytes, urinalysis, radiologic studies, CT scan. Data interpreted: Pulse oximetry: on room air is 96 %. Interpretation: normal. Counseling: I had a detailed discussion with the patient and/or guardian regarding: the historical points, exam findings, and any diagnostic results supporting the discharge/admit diagnosis, lab results, radiology results, the need for further work-up and treatment in the hospital. Response to treatment: the patient's symptoms have mildly improved after treatment. ED course: Patient request transfer to [facility] for continuity of care with his doctors.. 06:00 Patient medically screened. [facility] 07/18 00:15 Order name: CBC with Diff; Complete Time: 02:32 [facility] 07/18 00:15 Order name: CMP; Complete Time: 01:22 [facility] 07/18 00:15 Order name: Lipase; Complete Time: 01:22 [facility] 07/18 01:09 Order name: Manual Differential; Complete Time: 02:32 [facility] 07/18 02:51 Order name: Urine Dipstick-Ancillary; Complete Time: 03:45 [facility] 07/18 05:17 Order name: COVID-19 SARS RT PCR (Document "Date of Onset" if Symptomatic) 1 07/18 01:24 Order name: CT Abd/Pelvis - IV Contrast Only [facility] 07/18 00:15 Order name: IV Saline Lock; Complete Time: 00:47 [facility] 07/18 00:15 Order name: Labs collected and sent; Complete Time: 00:47 [facility] 07/18 00:55 Order name: Urine Dipstick-Ancillary (obtain specimen); Complete Time: 02:53 [facility] Administered Medications: 01:40 Drug: NS 0.9% 1000 ml Route: IV; Rate: 1000 ml; Site: right antecubital; ll3 02:35 Follow up: IV Status: Completed infusion; IV Intake: 1000ml [facility] 01:41 Drug: Zofran (Ondansetron) 4 mg Route: IVP; Site: right antecubital; ll3 04:51 Follow up: Response: No adverse reaction sm5 01:44 Drug: morphine 4 mg Route: IVP; Infused Over: 4 mins; Site: right antecubital; ll3 04:51 Follow up: Response: No adverse reaction sm5 02:46 Drug: Phenergan (promethazine) 12.5 mg Route: IVP; Site: right antecubital; sm5 04:51 Follow up: Response: No adverse reaction sm5 04:51 Drug: Zofran (Ondansetron) 4 mg Route: IVP; Site: right antecubital; sm5 06:43 Follow up: Response: No adverse reaction sm5 05:12 Drug: morphine 4 mg Route: IVP; Infused Over: 4 mins; Site: right antecubital; sm5 06:43 Follow up: Response: No adverse reaction sm5 07:30 Drug: D5-1/2 NS 1000 ml Route: IV; Rate: 75 ml/hr; Site: right antecubital; jl7 08:35 Follow up: IV Status: Infusion continued upon transfer jl7 08:34 Drug: Zofran (Ondansetron) 4 mg Route: IVP; Site: right antecubital; jl7 08:34 Follow up: Response: No adverse reaction jl7 Disposition Summary: 07/18/21 06:00 Transfer Ordered Transfer Location: Other Acute Care Facility [facility] Reason: Higher level of care 7 Condition: Stable mh7 Problem: new mh7 Symptoms: have improved mh7 Accepting Physician: MD Javy Prado(07/18/21 08:43) 7 Diagnosis - Nausea with vomiting, unspecified mh7 - Abdominal pain, Generalized mh7 - Ileus, unspecified - post operative mh7 Discharge Instructions: - Discharge Summary Sheet vc1 Forms: - Medication Reconciliation Form 7 - SBAR form vc1 Signatures: Dispatcher [employer] EDMS Servando Bravo, SILVA-C METER SHOP SUPERINTENDENT-Cla1 Renan Muñoz RN RN jb4 Ewelina Bloom RN RN jl7 Stephan Gallagher MD MD 7 Shayla Villagran RN RN ll3 Nenita Madsen RN RN sm5 Corrections: (The following items were deleted from the chart) 07:37 06:00 doctor MD Javy juan [facility] 08:43 07:37 MD Javy Prado 7 7
[2021-07-18] MEDS ORDERED: D5 0.45 NS 1,000 ML IV ONE (07:46)
[2021-07-18 08:50] VITALS: TEMP 98
[2021-07-18 08:56] VITALS: BP 153/88; O2SAT 94
--- NOTE | 2021-07-19 15:25 | RAD REPORT ---
EXAM DESCRIPTION: CT - Abdomen Pelvis W Contrast - 07/18/2021 4:19 am CLINICAL HISTORY: 71 years, Male, Abdominal pain, acute, nonlocalized COMPARISON: None. TECHNIQUE: Contrast-enhanced images of the abdomen and pelvis were performed utilizing 5 mm slice th ickness at 5 mm interval reconstruction from the lung bases to the ischial tuberosities after the adm inistration IV contrast. In addition multiplanar reformats in the coronal and sagittal plane were obtained and reviewed. This exam was performed according to our departmental dose-optimization protocol, which includes auto mated exposure control, adjustment of the mA and/or kV according to patient size and/or use of iterat elvia reconstruction technique. FINDINGS: The lung bases demonstrate dependent atelectatic changes bilateral lung bases. There is sm all amount of fluid within the distal esophagus. There is a metallic ring within the gastroesophageal junction corresponding to lap band procedure. The liver, pancreas, spleen and adrenal glands demonstrate to be unremarkable, no focal lesions are n oted. Surgical clips within the gallbladder fossa correspond to previous cholecystectomy. There is mi ld prominence of the common bile duct most likely related to previous cholecystectomy similar to prio r study. The kidneys demonstrate normal uptake of contrast media. There is a upper/midpole right renal calculu s measuring 3.2 mm on image 45/121. There is no evidence for hydronephrosis/or hydroureter. Grossly the unopacified stomach and small bowel demonstrate to be within normal limits. There is no evidence for bowel dilatation. There is distended cecum, hepatic flexure transverse colon up to the hepatic flexure. There is minimal haziness of the pericolonic region of the hepatic flexure and proxi mal transverse colon perhaps just the possibility of mild colitis-post op ileus. The left site colon is decompressed. There is diverticulosis with no evidence for diverticula disease. The appendix was n ot visualized. The urinary bladder demonstrate the presence of a Kulkarni catheter and is decompressed. There has bee n status post prostatectomy. There is small amount of tiny air bubbles along the anterior abdominal p elvic wall and tiny air bubbles within the right aspect of the liver/right hemidiaphragm most likely related to previous robotic laparoscopic surgery. No abnormal fluid collections are identified. The aorta demonstrate minimal atherosclerotic disease extending into the aortic bifurcation. There is no retroperitoneal lymphadenopathy. There is small amount of fluid within the inferior aspect late ral paracolic gutter most likely related to recent surgery. The bone windows demonstrate no significant skeletal lesions. IMPRESSION: Distended cecum, hepatic flexure transverse colon up to the hepatic flexure with minimal haziness of the pericolonic region of the hepatic flexure and proximal transverse colon perhaps just the possibility of mild colitis-postop ileus. Small amount of fluid within the inferior aspect lateral paracolic gutter most likely related to rece nt surgery. Small amount of tiny air bubbles along the anterior abdominal pelvic wall and tiny air bubbles within the right aspect of the liver/right hemidiaphragm most likely related to previous robotic laparoscop ic surgery. Status post cholecystectomy and prostatectomy. 3.2 mm nonobstructing calculus upper/midpole right renal calculus. Electronically signed by: Adebayo Kaur MD 07/18/2021 2:45 AM CDT Due to temporary technical issues with the PACS/Fluency reporting system, reports are being signed by the in house radiologist without review as a courtesy to ensure prompt reporting. The interpreting r adiologist is fully responsible for the content of the report.
== END 2021-07-18 08:43 ==
LOC: ER 22:35
DX: K91.89 Other postprocedural complications and disorders of digestive system (principal); K56.7 Ileus, unspecified; R10.84 Generalized abdominal pain; E78.00 Pure hypercholesterolemia, unspecified; I10 Essential (primary) hypertension; I25.10 Atherosclerotic heart disease of native coronary artery without angina pectoris; Z20.822 Contact with and (suspected) exposure to COVID-19; Z79.82 Long term (current) use of aspirin
CPT/HCPCS: 96361; 85025; 36415; 81003; 83690; 80053; 74177; 96375; 96374; 99285; U0003; Q9967; J2550; J7799; J7030; J2405 ×3

== ENCOUNTER 2024-02-22 20:53 | Emergency (ER) | payer OTHER ==
--- OUTSIDE RECORDS SUMMARY | 2024-02-22 20:55 | XMS REPORT | Clinical Summary ---
Author Name Unknown Organization [facility] Address [address] [place] [address] Care Team Providers Care Hand Decorator Name Role Phone Cyrus Medeiros MD Unavailable [phone] Ramya Hall MD Primary Care Provider [phone] Allergies No known active allergies Medications aspirin 81 mg EC tablet Take 1 tablet (81 mg) by mouth. Active atorvastatin (LIPITOR) 20 mg tablet TAKE 1 TABLET BY MOUTH DAILY IN EVENING WITH MEAL 2 Active busPIRone (BUSPAR) 10 mg tablet TAKE 1 TABLET BY MOUTH TWICE A DAY 2 Active carvedilol (COREG) 12.5 mg tablet TAKE 1 TABLET BY MOUTH THREE TIMES A DAY 2 Active esomeprazole (NexIUM) 40 MG capsule TAKE 1 CAPSULE BY MOUTH EVERY DAY 1 Active ferrous sulfate 325 mg (65 mg elemental iron per tablet) tablet Take 1 tablet (325 mg) by mouth daily. 5 Active levothyroxine (SYNTHROID, LEVOTHROID) 112 mcg tablet Take by mouth daily. 2 Active losartan (COZAAR) 50 mg tablet TAKE 1 TABLET BY MOUTH EVERY DAY 2 Active multivit-min/iron/f olic acid/K (MULTI-DAY PLUS MINERALS ORAL) Take by mouth daily. 0 Active sertraline (ZOLOFT) 50 mg tablet TAKE 1 AND 1/2 TABLETS DAILY BY MOUTH DIRECTED 2 Active amLODIPine (NORVASC) 5 mg tablet Take 1 tablet (5 mg) by mouth. Active fluticasone propionate (FLONASE) 50 mcg/spray nasal spray Inhale 1 spray (50 mcg) into each nostril twice daily. Active calcium carbonate (TUMS ORAL) Take by mouth as needed. Active dicyclomine HCl (DICYCLOMINE ORAL) Take by mouth as needed. Active clonazePAM (KlonoPIN) 0.25 mg disintegrating tablet Dissolve 1 tablet (0.25 mg) on the tongue 3 (three) times a day as needed for anxiety. Active montelukast (SINGULAIR) 10 mg tablet TAKE 1 TABLET BY MOUTH EVERY DAY IN THE MORNING 3 Active antiox.mv no.10/omeg3s/lut/ze a (I-CAPS ORAL) Take 1 tablet by mouth daily. Active hydroxychloroquine (PLAQUENIL) 200 mg tablet Take 2 tablets (400 mg) by mouth daily. Active Active Problems Problem Noted Date Diagnosed Date Abdominal pain 07/18/2021 Nausea and vomiting 07/18/2021 Uniform abdominal distention 07/18/2021 Adenocarcinoma of prostate 06/03/2021 Cancer Staging:Pathologic stage from 07/16/2021:Stage IIIB(pT3a(m), pN0, cM0, PSA: 7.1, Grade Group: 3) - Signed by Ramya Hall MD on 09/14/2021 Encounters Date Type Department Care Team Description 08/31/2023 9:45 AM CDT Follow-Up [facility] in [facility] [address] Ofelia Montoya PA Chery, Lisly, MD Adenocarcinoma of prostate 08/31/2023 Travel 06/08/2023 Orders Only [facility] in [address] [address] Ofelia Montoya PA Adenocarcinoma of prostate (Primary Dx) 05/09/2023 2:15 PM CDT Telemedicine [facility] in [address] [address] Ramya Hall MD Adenocarcinoma of prostate 05/01/2023 Orders Only [facility] in [place] [facility] [address] [place] [address] Ev Medina APRN Adenocarcinoma of prostate (Primary Dx) after 02/22/2023 Surgical History Surgery Date Site/Laterality Comments COLONOSCOPY 02/07/2020 - 02/05/2021 BRAIN SURGERY 06/22/1999 aneurysm HERNIA REPAIR 3 times, more than 10 years ago STOMACH SURGERY 03/09/2014 CHOLECYSTECTOMY 02/06/2013 - 02/05/2014 SHOULDER SURGERY 04/25/2020 Right UPPER GASTROINTESTINAL ENDOSCOPY 03/09/2021 - 04/05/2021 AK LAPS SURG [id number] RPBIC RAD W/NRV SPARING ROBOT 07/16/2021 Abdomen/N/A Procedure: ROBOTIC ASSISTED PROSTATECTOMY; Surgeon: Ramya Hall MD; Location: MAIN OR; Service: UROLOGY AK LAPS SURG BILATERAL TOTAL PELVIC LMPHADECTOMY 07/16/2021 Bilateral Procedure: ROBOTIC ASSISTED PELVIC LYMPHADENECTOMY; Surgeon: Ramya Hall MD; Location: MAIN OR; Service: UROLOGY AK ENTEROLSS FRING INTSTINAL ADHESION SPX 07/16/2021 Abdomen/N/A Procedure: FREEING OF INTESTINAL ADHESION; Surgeon: Ramya Hall MD; Location: MAIN OR; Service: UROLOGY Medical History Medical History Date Comments Hypertension 02/06/1989 Hyperlipidemia 02/06/1989 Hearing loss 02/06/2014 Sinusitis 02/06/1969 Swallowing problem 02/06/1999 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 Gastric reflux 12/07/1970 Gastric ulcer 12/07/1970 [...] Tobacco Use Types Packs/Day Years Used Date Smoking Tobacco: Never Smokeless Tobacco: Never Alcohol Use Standard Drinks/Week Comments Not Currently 0 (1 standard drink = 0.6 oz pur e alcohol) socially Sex and Gender Information Value Date Recorded Sex Assigned at Not on file Legal Sex Male 11:48 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 Gender Identity Not on file Sexual Orientation Not on file 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 Not on file Not on file Not on file Obstetrics History Last Filed Vital Signs Vital Sign Reading Time Taken Comments Blood Pressure 155/75 08/31/2023 10:01 AM CDT Pulse 62 08/31/2023 10:01 AM CDT Temperature 36.9 C (98.4 F) 08/31/2023 10:01 AM C DT Respiratory Rate 18 08/31/2023 10:01 AM CDT Oxygen Saturation - - Inhaled Oxygen Concentration - - Weight 88.1 kg (194 lb 3.6 oz) 08/31/2023 10:01 AM CDT Height 169 cm (5' 6.54") 08/31/2023 10:01 AM CDT Body Mass Index 30.85 08/31/2023 10:01 AM CDT Plan of Treatment Upcoming Encounters Date Type Department Care Team (Late st Contact Info) Description 02/29/2024 9:15 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 Lab [facility] [place] [facility] [address] [place] [address] [address] [place] [address] Ofelia Montoya PA [address] [place] [phone] [email or web address] 02/29/2024 9:45 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 Follow-Up [facility] in [place] [facility] [address] [place] [address] Ramya Hall MD [address] [place] [phone] [email or web address] Health Maintenance Due Date Last Done Comments Pneumococcal Vaccine: 65+ Years (1 of 1 - PCV) 015 COVID-19 Vaccine ( - 2023- season) 2023 Influenza Vaccine (#1) 2023 Medical Devices Implanted Type Area Utility Tender Carding Device Identifier Shelf Expiration Date Model / Serial / Lot Linx Magnetic Implant-05/01/2017 Implanted:Qty: 1 on 05/01/2017 by Servando Olmos MD Esophagus [employer] Description:Magnetic Implant in the Area of Gastroesphageal junction. [place] # [id number], Email: [email or web address] Note: The patient should not be exposed [...] Procedure Name Priority Date/Time Associated Diagnosis Comments PROSTATE SPECIFIC ANTIGEN Routine 08/31/2023 9:24 AM CDT Adenocarcinoma of prostate after 02/22/2023 Results * Prostate Specific Antigen (PSA) Diagnostic (08/31/2023 9:24 AM CDT) Prostate Specific Antigen <0.1 0.0 - 4.0 ng/mL 08/31/2023 10:31 AM CDT [place] PSA Indication Diagnostic 08/31/2023 10:31 AM CDT [place] Blood Peripheral blood specimen / Unknown Venipuncture / Unknown 08/31/2023 9:24 AM CDT 08/31/2023 9:26 AM CDT Narrative [place] - 08/31/2023 10:31 AM CDT The assay is intended for use in males aged 50 years or older. Reference ranges have not been validated for patients outside those age ranges; therefore, the results should be interpreted in the context of the patient's clinical condition. Results greater than 4519 ng/mL may not be reliable due to matrix effect with extended dilution as it exceeds the food and beverage manager's recommended limit. Caution should be exercised when interpreting such values and done in conjunction with clinical context. This test is measured by electrochemiluminescence immunoassay on [employer] immunoassay analyzers. Results obtained in different methods are not interchangeable. Ofelia [facility]OL[facility] LAB BLOOD ORDERABLES Final Result BERENICE MARTIN [facility] [place] [address], [address] [place] [address] after 02/22/2023 Insurance [facility] MEDICARE PPO Advance Directives Documents on File Type Date Recorded Patient Home Aid Expl anation Advance Directives: Living Will 07/18/2021 Directive to Physici ans and Family or Surrogates-Living Will Advance Directives: Medical Power of Cello Teacher 07/18/2021 Medical Power of Att orney * Full Code (Latest Code Status on File) Date Activated Date Inactivated Comments 07/18/2021 1:57 PM 07/20/2021 9:24 PM * Full Code Date Activated Date Inactivated Comments 07/16/2021 6:09 PM 07/17/2021 5:53 PM Care Teams Hand Decorator Relationship Specialty Start Date End Date Cyrus Medeiros MD [address] [place] [phone] [email or web address] PCP - External Referring Internal Medicine 04/08/21 Ramya Hall MD [address] [place] [phone] [email or web address] PCP - General Urology 04/08/21
[2024-02-22] MEDS ORDERED: METOCLOPRAMIDE 10 MG/2mL INJ ONE (21:21)
[2024-02-22] MEDS ORDERED: MORPHINE 4 MG/ML SYR ONE (21:21)
[2024-02-22] MEDS ORDERED: ASPIRIN 81 MG CHEWABLE TABLET ONE (21:21)
[2024-02-22] MEDS ORDERED: ONDANSETRON 4 MG/2 ML VIAL ONE (21:21)
[2024-02-22 21:37] LABS: Absolute Basophils 0.1 K/uL (0-0.5); Absolute Eosinophils 0.3 K/uL (0-0.5); Absolute Lymphocytes (CBC) 2.1 K/uL (0.7-4.9); Absolute Monocytes 0.7 K/uL (0.1-1.3); Absolute Neutrophil 4.8 K/uL (1.8-8.0); Basophils % 0.9 % (0-1.3); Eosinophils % 3.9 % (0-4.4); Hematocrit 48.4 % (39.6-49.0); Hemoglobin 16.4 g/dL (13.6-17.9); Lymphocytes % 26.6 % (15.3-44.8); MCH 30.2 pg (27.0-35.0); MCHC 33.8 g/dL (32.0-36.0); MCV 89.3 fL (80-100); MPV 8.4 fL (7.6-11.3); Monocytes % 8.2 % (3.3-12.3); Neutrophils % 60.4 % (41.7-73.7); Nucleated Red Blood Cells % 0.1 % (0-0); Platelets 276 thou/uL (152-406); RBC Red Blood Cell Count 5.42 M/uL (4.33-5.43); Red Cell Distribution Width 13.3 % (12.1-15.2)
[2024-02-22 21:41] LABS: PT Prothrombin Time 11.9 SECONDS (9.4-12.5); Protime INR 1.13
--- NOTE | 2024-02-22 21:46 | RAD REPORT ---
EXAM: Chest Single View HISTORY: CHEST PAIN COMPARISON: 05/27/2021 FINDINGS: LUNGS/PLEURA: Increased cephalization of the vasculature that may reflect vascular congestion. MEDIASTINUM: Abnormal convexity along the right aspect of the mediastinum could reflect either a thor acic aortic aneurysm, patient rotation, or uncoiling of the thoracic aorta. CARDIAC: Mild cardiomegaly UPPER ABDOMEN: No significant abnormality. BONES: No acute abnormality. Right shoulder arthroplasty. LINES/TUBES/OTHER: N/A IMPRESSION: Pulmonary vascular congestion. Possible thoracic aortic aneurysm. CT could better evaluate.
[2024-02-22 21:55] LABS: Albumin 3.9 g/dL (3.4-5.0); Albumin/Globulin Ratio 1.1 (1.1-1.8); Anion Gap 7.9 mEq/L (5.0-15.0); Bilirubin Direct 0.2 mg/dL (0-0.2); Bilirubin Indirect, Calculated 0.3 mg/dL (0.2-0.8); Bilirubin Total 0.5 mg/dL (0.2-1.0); Globulin 3.6 g/dL (2.3-3.5); Magnesium 2.2 mg/dL (1.6-2.4); Potassium 3.9 mEq/L (3.5-5.1); Protein, Total 7.5 g/dL (6.4-8.2); Troponin High Sensitivity 35.6 pg/mL (<58.9)
[2024-02-22] MEDS ORDERED: LORazepam 2 MG/ML VIAL ONE (21:58)
--- NOTE | 2024-02-23 00:03 | RAD REPORT ---
PROCEDURE: CT Angiography Chest, Abdomen and Pelvis With Intravenous Contrast CLINICAL INDICATION: The patient is 74 years old and is Male; aortic enlargement TECHNIQUE: Axial computed tomographic angiography images of the chest and axial computed tomography images of th e abdomen and pelvis with intravenous contrast. This CT exam was performed using one or more of the following dose reduction techniques: automated exposure control, adjustment of the mA and/or kV according to patient size, and/or use of iterative reconstruction technique. MIP reconstructed images were created and reviewed. DLP: 1152 mGy*cm COMPARISON: Chest radiograph of the same day. FINDINGS: CHEST: AORTA: See below. PULMONARY ARTERIES: Unremarkable as visualized. No pulmonary embolism is identified. GREAT VESSELS OF AORTIC ARCH: No acute findings. No dissection. No arterial occlusion or signif icant stenosis. LUNGS: Interlobular septal thickening in the upper mid lung zones. Bibasilar atelectasis or scarrin g. No focal consolidation. No mass. PLEURAL SPACE: Unremarkable. No significant effusion. No pneumothorax. HEART: Cardiomegaly with moderate pericardial effusion. ABDOMEN: LIVER: Unremarkable. No mass. GALLBLADDER AND BILE DUCTS: Prior cholecystectomy with ductal dilatation. PANCREAS: Unremarkable. No ductal dilation. No mass. SPLEEN: Unremarkable. No splenomegaly. ADRENALS: Unremarkable. No mass. KIDNEYS AND URETERS: Punctate nonobstructive bilateral renal stones. No hydronephrosis. No solid mass. STOMACH AND BOWEL: Advanced distal colonic diverticulosis. No acute diverticulosis. No obstruction. No mucosal thickening. PELVIS: APPENDIX: The appendix is seen and is within normal limits. BLADDER: Unremarkable. No mass. REPRODUCTIVE: Prior prostatectomy. CHEST, ABDOMEN and PELVIS: INTRAPERITONEAL SPACE: Unremarkable. No significant fluid collection. No free air. BONES/JOINTS: Multilevel degenerative changes. No acute fracture. No dislocation. SOFT TISSUES: Unremarkable. VASCULATURE: Mild aneurysmal dilatation of the aortic root measuring 4.3 cm. LYMPH NODES: Unremarkable. No enlarged lymph nodes. IMPRESSION: 1. No acute aortic abnormality. No pulmonary embolism. 2. Mild aneurysmal dilatation of the aortic root measuring 4.3 cm. 3. Cardiomegaly with moderate pericardial effusion. 4. Prior cholecystectomy with ductal dilatation. 5. Punctate nonobstructive bilateral renal stones. 6. Prior prostatectomy. 7. Chronic lung changes and gestational edema. 8. Advanced distal colonic diverticulosis. No acute diverticulosis. Electronically signed by: Daniel Villa DO 02/22/2024 11:32 PM EXECUTIVE COMMUNICATIONS MANAGER RP 9 Due to temporary technical issues with the PACS/[employer] reporting system, reports are being mirtha d by the in-house radiologist without review as a courtesy to ensure prompt reporting the interpreting radiologist is fully responsible for the content of the report. Transcribed Date/Time: 02/23/2024 12:02 AM
--- NOTE | 2024-02-23 00:22 | ER ---
Nurse's Notes [facility] Name: Macario Henriquez Jr Age: 74 yrs Sex: Male : 1950 Arrival Date: 02/22/2024 Time: 20:53 Bed 2 Private MD: Diagnosis: Pericardial effusion (noninflammatory);Acute NSTEMI, moderate pericardial effusion, Aortic root dilation Presentation: 02/21 20:57 Chief complaint: Patient states: shortness of breath tonight, feels hot and cold, bm8 having trouble breathing. Coronavirus screen: At this time, the client does not indicate any symptoms associated with coronavirus-19. Ebola Screen: Patient negative for fever greater than or equal to 101.5 degrees Fahrenheit, and additional compatible Ebola Virus Disease symptoms Patient denies exposure to infectious person. Patient denies travel to an Ebola-affected area in the 21 days before illness onset. No symptoms or risks identified at this time. Initial Sepsis Screen: Does the patient meet any 2 criteria? No. Patient's initial sepsis screen is negative. Does the patient have a suspected source of infection? No. Patient's initial sepsis screen is negative. Risk Assessment: Do you want to hurt yourself or someone else? Patient reports no desire to harm self or others. Onset of symptoms was February 22, 2024 at 20:00. 20:57 Method Of Arrival: Wheelchair bm8 20:57 Acuity: ARELY 2 bm8 Triage Assessment: 21:03 General: Appears in no apparent distress. uncomfortable, Behavior is calm, cooperative, bm8 appropriate for age. Pain: Complains of pain in chest Pain currently is 1 out of 10 on a pain scale. EENT: No deficits noted. No signs and/or symptoms were reported regarding the EENT system. Neuro: No deficits noted. Level of Consciousness is awake, alert, obeys commands, Oriented to person, place, time, situation, Appropriate for age. Cardiovascular: Heart tones S1 S2 present Capillary refill is > 3 seconds is sluggish in bilateral fingers Patient's skin is warm and dry. Rhythm is LBB. Respiratory: Reports shortness of breath Airway is patent Respiratory effort is even, unlabored, Respiratory pattern is regular, symmetrical, Breath sounds are diminished Onset: The symptoms/episode began/occurred suddenly, the patient has moderate shortness of breath. Derm: Skin is intact, Skin is clammy, diaphoretic, Skin is pale. Historical: - Allergies: 21:03 No Known Allergies; bm8 - Home Meds: 21:03 amlodipine 5 mg tab 1 tab nightly [Active]; aspirin 81 mg Oral TbEC 1 tab once daily bm8 [Active]; atorvastatin 20 mg Oral tab 1 tab nightly [Active]; buspirone 10 mg Oral tab 1 tab 2 times per day [Active]; carvedilol 12.5 mg Oral tab 1 tab three times a day [Active]; cetirizine 10 mg Oral tab 1 tab nightly [Active]; ferrous sulfate 325 mg (65 mg iron) Oral tab 2 times a week [Active]; FiberCon 625 mg Oral tab daily [Active]; levothyroxine 100 mcg tab 1 tab once daily [Active]; losartan 50 mg Oral tab 1 tab once daily [Active]; multivitamin Oral tab daily [Active]; Nexium 40 mg Oral cpDR 1 cap 2 times per day [Active]; Prilosec 20 mg Oral cpDR 1 cap nightly [Active]; tamsulosin 0.4 mg Oral cp24 1 cap nightly [Active]; - PMHx: 21:03 Anemia; Arthritis; BPH; CAD; Depression; GERD; High Cholesterol; Hypertension; bm8 Hypothyroidism; leaky heart valve; Lupus; - PSHx: 21:03 Prostectomy; bm8 - Immunization history:: Adult Immunizations up to date. - Infectious Disease History:: Denies. - Social history:: Smoking status: Patient denies any tobacco usage or history of. Screenin:41 [facility] ED Fall Risk Assessment (Adult) History of falling in the last 3 months, jb4 including since admission No falls in past 3 months (0 pts) Confusion or Disorientation No (0 pts) Intoxicated or Sedated No (0 pts) Impaired Gait No (0 pts) Mobility Assist Device Used No (0 pt) Altered Elimination No (0 pt) Score/Fall Risk Level 0 - 2 = Low Risk Oriented to surroundings, Maintained a safe environment. Abuse screen: Denies threats or abuse. Nutritional screening: No deficits noted. Tuberculosis screening: No symptoms or risk factors identified. Assessment: 21:15 General: Appears distressed, uncomfortable, Behavior is calm, cooperative, anxious. jb4 Pain: Denies pain. Neuro: Level of Consciousness is awake, alert, obeys commands, Oriented to person, place, time, situation. Cardiovascular: Skin is diaphoretic and cool.. Respiratory: Airway is patent Respiratory effort is even, unlabored, Respiratory pattern is regular, symmetrical. Derm: Skin is intact, Skin is diaphoretic, Skin is normal, Skin temperature is cool. Musculoskeletal: Circulation, motion, and sensation intact. Range of motion: intact in all extremities. 22:41 Reassessment: Patient appears in no apparent distress at this time. Patient and/or jb4 family updated on plan of care and expected duration. Pain level reassessed. Patient is alert, oriented x 3, equal unlabored respirations, skin warm/dry/pink. 02/22 00:02 Reassessment: Patient appears in no apparent distress at this time. Patient and/or jb4 family updated on plan of care and expected duration. Pain level reassessed. Patient is alert, oriented x 3, equal unlabored respirations, skin warm/dry/pink. 00:22 Reassessment: Patient appears in no apparent distress at this time. Patient and/or bm8 family updated on plan of care and expected duration. Pain level reassessed. Patient is alert, oriented x 3, equal unlabored respirations, skin warm/dry/pink. Patient denies pain at this time. Patient states feeling better. Patient states symptoms have improved. Cardiovascular: Denies chest pain, lightheadedness, shortness of breath, Capillary refill < 3 seconds in bilateral fingers Patient's skin is warm and dry. Rhythm is LBB. Respiratory: Airway is patent Respiratory effort is even, unlabored, Respiratory pattern is regular, symmetrical. 01:58 Reassessment: Patient appears in no apparent distress at this time. Patient and/or bm8 family updated on plan of care and expected duration. Pain level reassessed. Patient is alert, oriented x 3, equal unlabored respirations, skin warm/dry/pink. Patient denies pain at this time. Patient states feeling better. Patient states symptoms have improved. 02:09 Reassessment: report to xena tesfaye \T\[facility]. bm8 Vital Signs: 02/21 20:57 BP 176 / 97; Pulse 100; Resp 24; Temp 98.1; Pulse Ox 93% ; Weight 87.54 kg; Height 5 bm8 ft. 9 in. ; Pain 0/10; 21:32 Weight 87 kg (M); jb4 22:41 BP 132 / 79; Pulse 88; Resp 18; Pulse Ox 94% on 4 lpm NC; jb4 02/22 00:02 BP 140 / 84; Pulse 87; Resp 16; Pulse Ox 97% on 4 lpm NC; jb4 00:22 BP 150 / 90; Pulse 95; Resp 18; Temp 98.1; Pulse Ox 92% ; Pain 0/10; bm8 01:58 BP 132 / 84; Pulse 90; Resp 21; Temp 98.1; Pulse Ox 96% on 3 lpm NC; Pain 0/10; bm8 02/21 20:57 Body Mass Index 28.50 (87.00 kg, 175.26 cm) bm8 02/21 20:57 Pain Scale: Adult bm8 00:22 Pain Scale: Adult bm8 01:58 Pain Scale: Adult bm8 [place] Coma Score: 00:22 Eye Response: spontaneous(4). Motor Response: obeys commands(6). Verbal Response: bm8 oriented(5). Total: 15. 01:58 Eye Response: spontaneous(4). Motor Response: obeys commands(6). Verbal Response: bm8 oriented(5). Total: 15. 06:07 Eye Response: spontaneous(4). Motor Response: obeys commands(6). Verbal Response: sp4 oriented(5). Total: 15. ED Course: 02/21 20:53 Patient arrived in ED. ra3 21:01 Iker Forrest MD is Attending Physician. sp4 21:03 Triage completed. bm8 21:03 Arm band placed on right wrist. bm8 21:15 No provider procedures requiring assistance completed. Inserted saline lock: 18 gauge jb4 in right antecubital area, using aseptic technique. Blood collected. 21:18 Troponin HS Sent. jb4 21:18 PT-INR Sent. jb4 21:19 NT PRO-BNP Sent. jb4 21:19 Magnesium Sent. jb4 21:19 LFT's Sent. jb4 21:19 CBC with Diff Sent. jb4 21:19 Basic Metabolic Panel Sent. jb4 21:28 XRAY Chest (1 view) In Process Unspecified. EDMS 21:31 Toni, Renan, RN is Primary Nurse. [facility] [place] 22:41 Patient has correct armband on for positive identification. Bed in low position. Call [facility] [place] light in reach. Side rails up X 1. Provided Education on: plan of care. Client placed on continuous cardiac and pulse oximetry monitoring. NIBP monitoring applied. equipment monitor phototypesetting on. Pulse ox on. NIBP on. 22:52 CT Aorta for Dissection In Process Unspecified. EDMS 23:25 Troponin High Sensitivity Sent. dd2 02/22 01:58 Patient transferred, IV remains in place. bm8 Administered Medications: 02/21 21:31 Drug: metoCLOPramide IVP 10 mg IVP once; over 1 to 2 minutes Route: IVP; Site: right [facility] [place] antecubital; 02/22 00:24 Follow up: Response: No adverse reaction 8 02/21 21:32 Drug: Aspirin PO Chewable Tablet 324 mg PO once; 81 mg tablets x 4 Route: PO; [facility] [place] 02/22 00:25 Follow up: Response: No adverse reaction 8 02/21 21:32 Drug: morphine IVP or IV 4 mg IVP once over 4 mins Route: IVP; Infused Over: 4 mins; [facility] [place] Site: right antecubital; 02/22 00:24 Follow up: Response: No adverse reaction 8 02/21 21:32 Drug: Ondansetron IVP 4 mg IVP once; over 2 minutes Route: IVP; Site: right antecubital;[facility] [place] 02/22 00:24 Follow up: Response: No adverse reaction 8 02/21 22:02 Drug: Ativan IVP 1 mg IVP once Route: IVP; Site: right antecubital; [facility] [place] 02/22 00:24 Follow up: Response: No adverse reaction bm8 00:42 Drug: Heparin (TX-Bolus No thrombolytic) - HEParin IVP 60 units/kg IVP once; Max 5000 bm8 units {Co-Signature: dd2 (FLORY GARDNER RN).} Route: IVP; Site: right antecubital; 02:46 Follow up: Response: No adverse reaction bm8 00:43 Drug: Heparin (TX Drip) 12 units/kg/hr - ([place] [address] units, D5W IV 500 ml) IV at bm8 calculated rate Per protocol; Max initial rate 1000 units/hr {Co-Signature: dd2 (FLORY GARDNER RN).} Route: IV; Rate: calculated rate; Site: right antecubital; 02:46 Follow up: Response: No adverse reaction; IV Status: Infusion continued upon transfer bm8 02:46 Not Given (Patient Refused): morphineor iv 2 mg IVP once over 4 mins bm8 Medication: 02/21 22:41 VIS not applicable for this client. jb4 Outcome: 02/22 00:21 ER care complete, transfer ordered by . spJose Roberto 02:10 Transferred by ground EMS to [facility], Transfer form bm8 completed. X-rays sent w/ patient. 02:10 Condition: stable 02:10 Instructed on follow up and referral plans. the need for transfer, Demonstrated understanding of follow-up care, medications, 02:50 Patient left the ED. bm8 Signatures: Dispatcher [employer] EDMS Renan Muñoz RN RN jb4 Iker Forrest MD MD sp4 Mercedes Cuello ra3 Edwin Bhakta RN RN bm8 FLORY GARDNER RN RN dd2 FLORY GARDNER RN dd2
--- NOTE | 2024-02-23 00:23 | EDPHYS ---
Physician Documentation [facility] Name: Brant Henriquez Jr Age: 74 yrs Sex: Male : 1950 Arrival Date: 02/22/2024 Time: 20:53 Bed 2 Private MD: ED Physician Iker Forrest HPI: 02/21 21:01 This 74 yrs old Male presents to ER via Unassigned with complaints of sp4 Breathing Difficulty, Chest Pain. 21:20 74-year-old male presents with acute shortness of breath chest pressure starting 1 hour sp4 prior to arrival. Denied any previous cardiac history except for heart murmur. However past medical history he reveals history of anemia arthritis BPH coronary artery disease depression GERD cholesterol elevation hypertension. . Historical: - Allergies: 21:03 No Known Allergies; bm8 - Home Meds: 21:03 amlodipine 5 mg tab 1 tab nightly [Active]; aspirin 81 mg Oral TbEC 1 tab once daily bm8 [Active]; atorvastatin 20 mg Oral tab 1 tab nightly [Active]; buspirone 10 mg Oral tab 1 tab 2 times per day [Active]; carvedilol 12.5 mg Oral tab 1 tab three times a day [Active]; cetirizine 10 mg Oral tab 1 tab nightly [Active]; ferrous sulfate 325 mg (65 mg iron) Oral tab 2 times a week [Active]; FiberCon 625 mg Oral tab daily [Active]; levothyroxine 100 mcg tab 1 tab once daily [Active]; losartan 50 mg Oral tab 1 tab once daily [Active]; multivitamin Oral tab daily [Active]; Nexium 40 mg Oral cpDR 1 cap 2 times per day [Active]; Prilosec 20 mg Oral cpDR 1 cap nightly [Active]; tamsulosin 0.4 mg Oral cp24 1 cap nightly [Active]; - PMHx: 21:03 Anemia; Arthritis; BPH; CAD; Depression; GERD; High Cholesterol; Hypertension; bm8 Hypothyroidism; leaky heart valve; Lupus; - PSHx: 21:03 Prostectomy; bm8 - Immunization history:: Adult Immunizations up to date. - Infectious Disease History:: Denies. - Social history:: Smoking status: Patient denies any tobacco usage or history of. ROS: 23:12 Constitutional: Negative for fever, chills, and weight loss, positive for acute chest sp4 pressure positive for nausea positive for diaphoresis positive for shortness of breath. Positive for generalized weakness 23:12 All other systems are negative, Exam: 21:26 Constitutional: This is a well developed, well nourished patient who is awake, alert, sp4 Moderate distress , diaphoresis , dyspneic and nauseated Head/Face: Normocephalic, atraumatic. Eyes: Pupils equal round and reactive to light, extra-ocular motions intact. Lids and lashes normal. Conjunctiva and sclera are not injected. Cornea within normal limits. Periorbital areas with no swelling, redness, or edema. ENT: Nares patent. No nasal discharge, no septal abnormalities noted. Tympanic membranes are normal and external auditory canals are clear. Oropharynx with no redness, swelling, or masses, exudates, or evidence of obstruction, uvula midline. Mucous membranes moist. Neck: Trachea midline, no thyromegaly or masses palpated, and no cervical lymphadenopathy. Supple, full range of motion without nuchal rigidity, or vertebral point tenderness. Chest/axilla: Normal chest wall appearance and motion. Nontender with no deformity. No lesions are appreciated. Cardiovascular: Regular rate and rhythm with a normal S1 and S2. No gallops, murmurs, or rubs. Normal PMI, no JVD. No pulse deficits. Respiratory: Lungs have equal breath sounds bilaterally, clear to auscultation and percussion. No rales, rhonchi or wheezes noted. No increased work of breathing, no retractions or nasal flaring. Abdomen/GI: Soft, with normal bowel sounds. No distension or tympany. No guarding or rebound. No evidence of tenderness throughout. Back: No spinal tenderness. No costovertebral tenderness. Skin: Warm, dry with normal turgor. Normal color with no rashes, no lesions, and no evidence of cellulitis. MS/ Extremity: Pulses equal, no cyanosis. Neurovascular intact. Full, normal range of motion. Neuro: Awake and alert, GCS 15, oriented to person, place, time, and situation. Cranial nerves II-XII grossly intact. Motor strength 5/5 in all extremities. Sensory grossly intact. Psych: Awake, alert, with orientation to person, place and time. Behavior, mood, and affect are within normal limits 21:26 ECG was reviewed by the Attending Physician. EKG at EKG at 210 left bundle branch block left axis deviation, sinus rhythm rate 95, based on comparison with the old EKG from 05/22/2021 patient has old left bundle branch block. Vital Signs: 20:57 BP 176 / 97; Pulse 100; Resp 24; Temp 98.1; Pulse Ox 93% ; Weight 87.54 kg; Height 5 bm8 ft. 9 in. ; Pain 0/10; 21:32 Weight 87 kg (M); jb4 22:41 BP 132 / 79; Pulse 88; Resp 18; Pulse Ox 94% on 4 lpm NC; jb4 02/22 00:02 BP 140 / 84; Pulse 87; Resp 16; Pulse Ox 97% on 4 lpm NC; jb4 00:22 BP 150 / 90; Pulse 95; Resp 18; Temp 98.1; Pulse Ox 92% ; Pain 0/10; bm8 01:58 BP 132 / 84; Pulse 90; Resp 21; Temp 98.1; Pulse Ox 96% on 3 lpm NC; Pain 0/10; bm8 02/21 20:57 Body Mass Index 28.50 (87.00 kg, 175.26 cm) 8 02/21 20:57 Pain Scale: Adult bm8 00:22 Pain Scale: Adult bm8 01:58 Pain Scale: Adult bm8 Marybeth Coma Score: 00:22 Eye Response: spontaneous(4). Motor Response: obeys commands(6). Verbal Response: bm8 oriented(5). Total: 15. 01:58 Eye Response: spontaneous(4). Motor Response: obeys commands(6). Verbal Response: bm8 oriented(5). Total: 15. 06:07 Eye Response: spontaneous(4). Motor Response: obeys commands(6). Verbal Response: sp4 oriented(5). Total: 15. MDM: 02/21 21:20 Medical Screening Exam initiated sp4 23:49 ED course: PROCEDURE: CTAngiography Chest, Abdomen and Pelvis With Intravenous Contrast sp4 CLINICAL INDICATION: The patient is 74 years old and is Male; aortic enlargement TECHNIQUE: Axial computed tomographic angiography images of the chest and axial computed tomography images of the abdomen and pelvis with intravenous contrast. This CT exam was performed using one or more of the following dose reduction techniques: automated exposure control, adjustment of the mA and/or kV according to patient size, and/or use of iterative reconstruction technique. MIP reconstructed images were created and reviewed. DLP: 1152 mGy*cm COMPARISON: Chest radiograph of the same day. FINDINGS: CHEST: AORTA: See below. PULMONARYARTERIES: Unremarkable as visualized. No pulmonary embolism is identified. GREAT VESSELS OF AORTIC ARCH: No acute findings. No dissection. No arterial occlusion or significant stenosis. LUNGS: Interlobular septal thickening in the upper mid lung zones. Bibasilar atelectasis or scarring. No focal consolidation. No mass. PLEURAL SPACE: Unremarkable. No significant effusion. No pneumothorax. HEART: Cardiomegaly with moderate pericardial effusion. ABDOMEN: LIVER: Unremarkable. No mass. GALLBLADDER AND BILE DUCTS: Prior cholecystectomy with ductal dilatation. PANCREAS: Unremarkable. No ductal dilation. No mass. SPLEEN: Unremarkable. No splenomegaly. ADRENALS: Unremarkable. No mass. KIDNEYS AND URETERS: Punctate nonobstructive bilateral renal stones. No hydronephrosis. No solid mass. STOMACH AND BOWEL: Advanced distal colonic diverticulosis. No acute diverticulosis. No obstruction. No mucosal thickening. PELVIS: APPENDIX: The appendix is seen and is within normal limits. BLADDER: Unremarkable. No mass. REPRODUCTIVE: Prior prostatectomy. CHEST, ABDOMEN and PELVIS: INTRAPERITONEAL SPACE: Unremarkable. No significant fluid collection. No free air. BONES/JOINTS: Multilevel degenerative changes. No acute fracture. No dislocation. SOFT TISSUES: Unremarkable. VASCULATURE: Mild aneurysmal dilatation of the aortic root measuring 4.[address] [id number] Final Radiology Report Name: BRANT HENRIQUEZ Age: 74y Date: 02/22/2024 10:33 PM : 1950 Study: Angio Aorta For Dissection Requesting Physician: Iker Forrest [id number] MARYJANE HENRIQUEZERIKA Page 1 of 2 [id number] Angio Aorta For Dissection LYMPH NODES: Unremarkable. No enlarged lymph nodes. IMPRESSION: 1. No acute aortic abnormality. No pulmonary embolism. 2. Mild aneurysmal dilatation of the aortic root measuring 4.3 cm. 3. Cardiomegaly with moderate pericardial effusion. 4. Prior cholecystectomy with ductal dilatation. 5. Punctate nonobstructive bilateral renal stones. 6. Prior prostatectomy. 7. Chronic lung changes and gestational edema. 8. Advanced distal colonic diverticulosis. No acute diverticulosis. Electronically signed by: Daniel Villa DO 02/22/2024 11:32 PM STRATEGIC BUYER . 02/22 00:22 Differential diagnosis: Anxiety Reaction asthma, Bronchitis CHF exacerbation, Chronic sp4 Obstructive Pulmonary Disease Myocardial Infarction pneumonia, Pneumothorax Psychogenic pulmonary edema, Pulmonary Embolism. Data reviewed: vital signs, nurses notes, old medical records, lab test result(s), EKG, radiologic studies, CT scan, plain films. Consideration of Admission/Observation Escalation of care including admission/observation considered. Management of patient was discussed with the following: Conveyor Belt Installer: Attending physician at [facility].. 06:07 ED course: Patient medication list review, started pill, triamcinolone, Pataday, sp4 carvedilol, leflunomide, esomeprazole, losartan, levothyroxine, montelukast, buspirone, aspirin, fiber, multivitamins, sertraline, hydroxychloroquine, famotidine, atorvastatin, amlodipine, iron, cetirizine, dicyclomine, Imodium, Tums, fluticasone, tamsulosin, diphenoxylate, Prilosec, methylprednisolone.. 02/21 21:04 Order name: Basic Metabolic Panel; Complete Time: 22:33 [facility] 02/21 21:04 Order name: CBC with Diff; Complete Time: :43 [facility] 02/21 21:04 Order name: LFT's; Complete Time: 22:33 [facility] 02/21 21:04 Order name: Magnesium; Complete Time: 22:33 [facility] 02/21 21:04 Order name: NT PRO-BNP; Complete Time: 22:33 [facility] 02/21 21:04 Order name: PT-INR; Complete Time: 21:43 [facility] 02/21 21:04 Order name: Troponin HS; Complete Time: 22:33 4 02/21 23:10 Order name: Troponin High Sensitivity; Complete Time: 00:19 [facility] 02/21 21:04 Order name: XRAY Chest (1 view); Complete Time: 22:33 4 02/21 22:33 Order name: CT Aorta for Dissection 4 02/21 21:04 Order name: Cardiac monitoring; Complete Time: 21:18 4 02/21 21:04 Order name: EKG - Nurse/Tech; Complete Time: :18 4 02/21 21:04 Order name: IV Saline Lock; Complete Time: 21:18 4 02/21 21:04 Order name: Labs collected and sent; Complete Time: :4 02/21 21:04 Order name: O2 Per Protocol; Complete Time: :18 sp4 02/21 21:04 Order name: O2 Sat Monitoring; Complete Time: :4 EC/16 21:01 Rate is 96 beats/min. Rhythm is regular, Sinus Rhythm. Left axis deviation noted. TN sp4 interval is normal. QRS interval is prolonged. No ST changes noted. Clinical impression: No evidence of ischemia. Interpreted by me. Reviewed by me. Administered Medications: 21:31 Drug: metoCLOPramide IVP 10 mg IVP once; over 1 to 2 minutes Route: IVP; Site: right [facility] antecubital; 02/22 00:24 Follow up: Response: No adverse reaction [facility] 02/21 21:32 Drug: Aspirin PO Chewable Tablet 324 mg PO once; 81 mg tablets x 4 Route: PO; [facility] 02/22 00:25 Follow up: Response: No adverse reaction [facility] 02/21 21:32 Drug: morphine IVP or IV 4 mg IVP once over 4 mins Route: IVP; Infused Over: 4 mins; [facility] Site: right antecubital; 02/22 00:24 Follow up: Response: No adverse reaction [facility] 02/21 21:32 Drug: Ondansetron IVP 4 mg IVP once; over 2 minutes Route: IVP; Site: right antecubital;[facility] 02/22 00:24 Follow up: Response: No adverse reaction [facility] 02/21 22:02 Drug: Ativan IVP 1 mg IVP once Route: IVP; Site: right antecubital; [facility] 02/22 00:24 Follow up: Response: No adverse reaction 8 00:42 Drug: Heparin (NC-Bolus No thrombolytic) - HEParin IVP 60 units/kg IVP once; Max 5000 bm8 units {Co-Signature: dd2 (FLORY GARDNER RN).} Route: IVP; Site: right antecubital; 02:46 Follow up: Response: No adverse reaction bm8 00:43 Drug: Heparin (NC Drip) 12 units/kg/hr - ([place] [address] units, D5W IV 500 ml) IV at bm8 calculated rate Per protocol; Max initial rate 1000 units/hr {Co-Signature: dd2 (FLORY GARDNER RN).} Route: IV; Rate: calculated rate; Site: right antecubital; 02:46 Follow up: Response: No adverse reaction; IV Status: Infusion continued upon transfer bm8 02:46 Not Given (Patient Refused): morphineor iv 2 mg IVP once over 4 mins bm8 Disposition: 01:18 Critical Care:. sp4 Disposition Summary: 02/23/24 00:21 Transfer Ordered Notes: Transfer Location: [facility] sp4 Reason: Higher level of care sp4 Condition: Stable sp4 Problem: new sp4 Symptoms: have improved sp4 Accepting Physician: [facility]'s attending MD, (02/23/24 02:50) bm8 Diagnosis - Pericardial effusion (noninflammatory) sp4 - Acute NSTEMI, moderate pericardial effusion, Aortic root dilation sp4 Forms: - Medication Reconciliation Form sp4 - SBAR form sp4 Critical care time excluding procedures: 01:18 Critical care time: Bedside Care: 36 minutes, Consultation: 12 minutes, Family sp4 Intervention: 12 minutes. Total time: 60 minutes Signatures: Dispatcher [employer] EDRenan Fisher RN RN meg4 Iker Forrest MD MD sp4 Edwin Bhakta RN RN bm8 FLORY GARDNER RN dd2 Corrections: (The following items were deleted from the chart) 02/21 21:04 21:04 BASIC METABOLIC PANEL+C.LAB.BRZ ordered. EDMS EDMS 21:04 21:04 CBC+H.LAB.BRZ ordered. EDMS EDMS 21:04 21:04 HEPATIC FUNCTION+C.LAB.BRZ ordered. EDMS EDMS 21:04 21:04 MAGNESIUM+C.LAB.BRZ ordered. EDMS EDMS 21:04 21:04 PROBNP+C.LAB.BRZ ordered. EDMS EDMS 21:04 21:04 PROTIME (+INR)+COAG.LAB.BRZ ordered. EDMS EDMS 21:04 Troponin High Sensitivity+C.LAB.BRZ ordered. EDMS EDMS 21:05 Chest Single View+RAD.RAD.BRZ ordered. EDMS EDMS 02/22 02:50 00:21 [facility]'s attending , sp4 bm8
[2024-02-23] MEDS ORDERED: HEPARIN/D5W 25,000 UNIT/500 ML BAG IV ONE (00:38)
[2024-02-23] MEDS ORDERED: HEPARIN 5000 UNIT/ML 1 ML VIAL ONE (00:38)
[2024-02-23 03:29] VITALS: BP 132/84; TEMP 98.1; O2SAT 96
--- NOTE | 2024-02-29 13:17 | EKG ---
Test Date: 2024-02-22 Test Time: 21:01:16 Chip Machine Operator: IRENA MEASUREMENT RESULTS: Intervals: Rate: 95 NC: 176 QRSD: 170 QT: 428 QTc: 537 Atlas: P: 44 NC: 176 QRS: -61 T: 115 INTERPRETIVE STATEMENTS: Normal sinus rhythm Left axis deviation Left bundle branch block Abnormal ECG Compared to ECG 05/22/2021 22:28:28 No significant changes Electronically Signed On 02-29-24 13:06:22 TELEVISION PROGRAM DIRECTOR by Mazin Kline
== END 2024-02-23 02:50 | disposition short-term general hospital (02) ==
LOC: ER 20:53
DX: I21.4 Non-ST elevation (NSTEMI) myocardial infarction (principal); I30.9 Acute pericarditis, unspecified; I77.810 Thoracic aortic ectasia; I10 Essential (primary) hypertension; E78.00 Pure hypercholesterolemia, unspecified; E03.9 Hypothyroidism, unspecified
CPT/HCPCS: 96365; 85025; 80048; 36415; 83735; 85610; 80076; 84484 ×2; 83880; 71275; 74175; 71045; 96375; 99285; 96366; Q9967; J1644; J2765; J2405; 93005